=== PATIENT | female | born 1990 | race African-American/Black ===

== ENCOUNTER 2017-04-25 17:08 | Emergency (ER) | payer MEDICAID, SELFPAY ==
[2017-04-25 17:10] VITALS: BP 151/93; PULSE 95; RESP 16; TEMP 36.6; O2SAT 99; BMI 30.2
--- NOTE | 2017-04-25 17:33 | ED.DCSUM_ITS ---
- ER Visit Summary Date of Service: 04/25/17 Chief Complaint: [] Dental pain History of Present Illness: The patient is a 27 F [] complaining of dental pain. Reports pain in the right upper wisdom teeth. Reports concern for possible early infection. Reports she has had a dental abscess in the past. She reports she has a scheduled appointment the dentist next week. No other complaints at this time. She reports taking ibuprofen with moderate relief. Physical Examination: [] Afebrile, vital signs stable. Examination of the oral cavity reveals early gingival swelling in the right upper wisdom teeth consistent with early abscess. No fluctuance noted for possible I&D. Test Results: [] None. Emergency Department Course and Treatment: [] Patient provided penicillin and ibuprofen in the emergency department. Prescriptions for the same were provided. She was encouraged to keep her dental appointment. Treatment Plan: [] Follow-up with dentist. Disposition: [] Discharge, stable. Impression: [] Dental caries Early dental abscess This note was generated with [employer] dictation software. It may contain incorrect words, spelling, and punctuation that were not noted in review of the chart prior to signing ED Disposition - Plan for ED Patient: Chief Complaint: Dental Referrals: Natalya Garnica MD [Primary Care Provider] -
--- NOTE | 2017-04-25 17:33 | ED.DEP ---
ED Disposition - Plan for ED Patient: Disposition: Home or Assisted Living Chief Complaint: Dental Instructions: Dental Abscess Prescriptions: Ibuprofen 800 mg PO TID PRN PRN 10 Days #30 tab PRN Reason: Pain Penicillin V Potassium 500 mg PO 4X/DAY #40 tab Referrals: Natalya Garnica MD [Primary Care Provider] -
[2017-04-25 17:41] VITALS: BP 145/80; BP 148/80; PULSE 85; PULSE 90; RESP 14; O2SAT 99
[2017-04-25] MEDS: Ibuprofen 400 MG Tablet 800 MG PO (17:45)
[2017-04-25] MEDS: Penicillin Vk 250 MG Tablet 500 MG PO (17:45)
== END 2017-04-25 17:47 | disposition home or self-care (01) ==
LOC: ED 17:41
PROVIDERS: Emergency Provider Emergency Medicine; Family Provider Student in an Organized Health Care Education/Training Program; PCP Student in an Organized Health Care Education/Training Program
DX: K02.9 Dental caries, unspecified (principal); K04.7 Periapical abscess without sinus; Z72.0 Tobacco use
CPT/HCPCS: 99283

== ENCOUNTER 2017-05-19 21:39 | Emergency (ER) | payer MEDICAID, SELFPAY ==
[2017-05-19 21:40] VITALS: BP 155/88; PULSE 93; RESP 15; TEMP 36.9; BMI 31.0
--- NOTE | 2017-05-19 22:42 | ED.VISSUMM ---
- ER Visit Summary Date of Service: 05/19/17 Chief Complaint: Dental pain History of Present Illness: The patient is a 27 F who went to [facility] last night for dental pain and was started on pen VK and naproxen. She states the right side of her face is swollen. She contacted the dentist today who stated they needed to wait until she finished the antibiotics. She denies any fevers. She notes the pain is not controlled. She is a smoker but states it has been hard to smoke with this. Physical Examination: Afebrile vital signs are stable Gen: Well-nourished well-developed Head: Normocephalic atraumatic Eyes: Perrl EOMI ENT: TMs clear no rhinorrhea moist mucous membranes there is mild right maxillary facial swelling. There is no overt erythema. There is no trismus. Floor the mouth is soft. There is some mild swelling along the gumline and focal dental decay. There is no obvious drainable abscess. Neck: Supple no lymphadenopathy no JVD nontender CVS: Regular rate rhythm no murmurs normal S1-S2 Respiratory: No distress clear to auscultation bilaterally chest nontender Abdomen: Soft nontender nondistended normal bowel sounds no masses Back: Nontender Extremity: Nontender no edema Skin: Normal color no rash Neuro: alert orientated ?3 CN II-XII intact normal strength sensation reflexes gait cerebellar Psych: Normal affect normal mood Emergency Department Course and Treatment: She was given a few [place] for home treatment tonight. As well as Motrin. An oars check was performed. She is to continue her antibiotic. Return if worsening. Otherwise she needs to follow-up with dentistry. Impression: 1. Dental abscess This note was generated with [employer] dictation software. It may contain incorrect words, spelling, and punctuation that were not noted in review of the chart prior to signing ED Disposition - Plan for ED Patient: Disposition: Home or Assisted Living Chief Complaint: Dental Instructions: Dental Abscess Prescriptions: Ibuprofen [Motrin] 800 mg PO TID PRN PRN #20 tab PRN Reason: Pain Referrals: Moise Chua DO [Primary Care Provider] - 3-5 Days
[2017-05-19] MEDS: HYDROcodone Bitartrate/Apap 5/325 Tablet PO (23:01)
== END 2017-05-19 23:04 | disposition home or self-care (01) ==
PROVIDERS: Emergency Provider Emergency Medicine; Family Provider Student in an Organized Health Care Education/Training Program; PCP Student in an Organized Health Care Education/Training Program
DX: K04.7 Periapical abscess without sinus (principal); F17.200 Nicotine dependence, unspecified, uncomplicated
CPT/HCPCS: 99283

== ENCOUNTER 2017-12-12 10:38 | Emergency (ER) | payer MEDICAID, SELFPAY ==
[2017-12-12 10:39] VITALS: BP 146/94; PULSE 100; RESP 18; TEMP 36.6; O2SAT 99; BMI 29.8
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
--- NOTE | 2017-12-12 11:55 | RAD_ITS ---
STUDY: X-RAY - RIGHT HAND REASON FOR EXAM: Female, 27 years old. Hand versus car door TECHNIQUE: 3 view(s) of the hand. COMPARISON: None. FINDINGS: Normal radiocarpal articulation. Normal distal radioulnar joint. Normal visualized carpal bones. Normal carpal articulations Normal carpometacarpal articulation of the thumb. Normal second through fifth carpometacarpal joints. Normal metacarpi. Normal metacarpophalangeal joint of the thumb. Normal interphalangeal joint of the thumb. Normal proximal and distal phalanges of the thumb. Normal metacarpophalangeal joints of the second through fifth fingers. Normal proximal and distal interphalangeal joints of the second through fifth fingers. Normal phalanges of the second through fifth fingers. The soft tissue structures are unremarkable. RAD/Hand Min 3 Views IMPRESSION: Normal x-ray examination of the hand. Electronically Signed: Renetta Leone MD at 12:14 EDT Tel , Service support ,
--- NOTE | 2017-12-12 12:39 | ED.DEP ---
ED Disposition - Plan for ED Patient: Disposition: Home or Assisted Living Chief Complaint: Upper Extremity Injury Instructions: ED Contusion Hand Referrals: Moise Chua DO [Primary Care Provider] - 1 Week if not improving Additional Instructions: Ice and elevate to decrease pain and swelling. Motrin for pain and swelling. Tylenol for pain. Follow-up with in 1 week if not improving.
[2017-12-12 13:33] VITALS: BP 132/100; PULSE 63; RESP 17
== END 2017-12-12 13:35 | disposition home or self-care (01) ==
PROVIDERS: Emergency Provider Emergency Medicine; Family Provider Student in an Organized Health Care Education/Training Program; PCP Student in an Organized Health Care Education/Training Program
DX: S60.221A Contusion of right hand, initial encounter (principal); W22.8XXA Striking against or struck by other objects, initial encounter; Y93.9 Activity, unspecified; Y92.9 Unspecified place or not applicable; E11.9 Type 2 diabetes mellitus without complications; Z79.84 Long term (current) use of oral hypoglycemic drugs; Z72.0 Tobacco use
CPT/HCPCS: 73130; 99282

== ENCOUNTER 2018-01-22 01:23 | Emergency (ER) | payer MEDICAID, SELFPAY ==
[2018-01-22 01:24] VITALS: BP 175/97; PULSE 109; RESP 18; TEMP 36.9; O2SAT 100; BMI 30.9
--- NOTE | 2018-01-22 01:45 | RAD_ITS ---
HISTORY: Shortness of breath Comparison: 03/18/2014 Findings: Limited inspiration. Normal heart size. No mediastinal widening. No vascular congestion, pleural effusion, or acute pulmonary infiltration. No pneumothorax. The bony thorax appears intact. IMPRESSION: No acute cardiopulmonary disease. at 0204 Reported and signed by: Hua Talbot MD Electronically Signed: Hua Talbot, at 2:02 EDT Tel , Service support , RAD/Chest 1 View (Portable)
[2018-01-22] MEDS: 0.9% Normal Saline 1,000 ML 1000 ML IV (02:18)
[2018-01-22] MEDS: Ondansetron 4 MG/2 ML Vial IV (02:18)
[2018-01-22 02:26] LABS: Mucous, Urine 0 SEEN /hpf (<or=2+)
[2018-01-22 02:29] LABS: Color, Urine Yellow (Yellow); Glucose, Dipstick 250 mg/dl (Normal); Ketone-Dipstick Negative (Negative); Leukocyte Esterase-Dipstick 500 /ul (Negative); Nitrite-Dipstick Positive (Negative); Occult Blood-Urine 50 /ul (Negative); Protein-Dipstick 30 mg/dl (Negative); Specific Gravity, Urine 1.015 (1.002-1.030); Urine Bilirubin Dipstick Negative (Negative); Urine Clarity Cloudy (Clear); Urine Urobilinogen Normal (Normal)
[2018-01-22 02:29] LABS: Absolute Lymphocyte Count 0.97 X10^3/ul (0.83-4.51); Absolute Neutrophil Count 11.2 X10^3/uL (2.0-7.7); Basophil# 0.02 X10^3/uL; Basophil% 0.2 % (0-1); Eosinophils% 0.8 % (0-5); Hematocrit 39.8 % (37-47); Hemoglobin 14.1 g/dl (12.0-15.0); Lymphocyte # 0.97 X10^3/ul (4.0); Lymphocyte % 7.7 % (19-41); Mean Corp Hgb Conc 35.4 g/gl (32-36); Mean Corpuscular Hgb 28.8 pg (27.0-32.0); Mean Corpuscular Volume 81.2 fL (81-99); Mean Platelet Vol. 12.2 fl (6.2-12.0); Monocyte# 0.23 X10^3/uL; Monocyte% 1.8 % (0-10); Neutrophil # 11.23 X10^3/uL (2.7-7.7); Neutrophil % 89.3 % (47-70); Platelet Count 175 K/mm3 (150-450); RBC Distribution Width CV 11.8 % (11.6-14.6); RBC Distribution Width SD 34.1 fl (35.1-43.9); White Blood Count 12.6 K/mm3 (4.4-11.0)
[2018-01-22 02:33] LABS: POSITIVE COUNT NO; POSITIVE DIFFERENTIAL NO; POSITIVE MORPHOLOGY NO
[2018-01-22 02:40] LABS: Bacteria 2+ /hpf (None Seen); Red Blood Cells-Urine 0-5 SEEN /hpf (0-5); Squamous Epithelial Cells - UA 0-5 SEEN /hpf (5-10); White Blood Cells 50-100 SEEN /hpf (0-5)
[2018-01-22 02:46] LABS: Anion Gap 5 (5-15); BUN 12 mg/dL (7-18); BUN/Creat Ratio 15.2 RATIO (10-20); Calcium,Total 8.7 mg/dL (8.5-10.1); Chloride 105 mmol/L (98-107); Creatinine, Serum 0.79 mg/dL (0.55-1.02); EST Glomerular Filtration Rate 92 mL/min (>60); Est Glom Filt Rate - Afr Amer 112 mL/min (>60); Estimated Creatinine Clearance 111.79 ml/min; Glucose 213 mg/dL (74-106); Potassium 3.8 mmol/L (3.5-5.1); Sodium Level 137 mmol/L (136-145)
[2018-01-22 02:51] LABS: Pregnancy, Serum, hCG Quali. NEGATIVE Negative (0-9 Nonpreg)
--- NOTE | 2018-01-22 02:56 | ED.VISSUMM ---
- ER Visit Summary Date of Service: 01/22/18 Chief Complaint: Body aches, congestion, nausea and vomiting History of Present Illness: The patient is a 27 F reports body aches at work last evening. She had nausea and vomiting x1. She reports some mild congestion. She denies urinary symptoms or diarrhea. She reports that a fever but did not measure it at home. She took Motrin approximately an hour and a half prior to arrival. Patient does have a history of diabetes and is on oral metformin. Physical Examination: Blood pressure on arrival was 175/97, temperature 98.4, heart rate 109, respiratory rate 18, pulse ox 100% on room air. At the time of my examination her blood pressure is 162/98. Patient sitting upright in bed. She is in no acute distress and appears nontoxic. Head neck examination is grossly unremarkable. She has moist mucous membranes. Heart is regular rate and rhythm. Lung sounds are clear. Abdomen is soft with no focal tenderness on exam. Hypoactive bowel sounds are noted throughout. Test Results: CBC was a white count of 12.6 with 89% neutrophils. Chemistry studies significant for glucose of 213. Urinalysis is positive for nitrites with 500 leukocyte esterase and 50-100 white cells. 2+ bacteria is noted. Influenza swab is negative. Emergency Department Course and Treatment: Patient was given IV fluids along with Zofran. On repeat evaluation blood pressure is 126/68. She continues to complain of body aches with some continued mild nausea. She is given Tylenol along with Phenergan. She will be given a dose of IV Rocephin here and then discharged with a prescription for Bactrim along with Zofran. Urine culture has been sent. Treatment Plan: [] Disposition: Discharge Impression: Cystitis This note was generated with [employer] dictation software. It may contain incorrect words, spelling, and punctuation that were not noted in review of the chart prior to signing ED Disposition - Plan for ED Patient: Chief Complaint: General Illness Referrals: Natalya Garnica MD [Primary Care Provider] -
--- NOTE | 2018-01-22 02:58 | ED.DEP ---
ED Disposition - Plan for ED Patient: Disposition: Home or Assisted Living Chief Complaint: General Illness Instructions: ED UTI Cystitis Female Prescriptions: Ondansetron [Zofran Odt] 4 mg PO Q8H PRN PRN #10 tablet PRN Reason: Nausea Smz/Tmp Ds [Bactrim Ds] 1 tablet PO BID #6 tablet Referrals: Natalya Garnica MD [Primary Care Provider] - 1 Week
[2018-01-22] MEDS: 0.9% Normal Saline 1,000 ML 150 ML IV (02:59)
[2018-01-22] MEDS: proMETHazine 25 MG/ML Syringe 12.5 MG IV (03:00)
[2018-01-22] MEDS: Acetaminophen 500 MG Tablet 1000 MG PO (03:00)
[2018-01-22] MEDS: Ceftriaxone 1 GM/50 ML BAG IV (03:23)
[2018-01-22 03:24] VITALS: BP 152/98; PULSE 119; O2SAT 97
[2018-01-22 03:53] VITALS: BP 129/73; PULSE 117; RESP 15; O2SAT 97
[2018-01-22] MEDS: Ondansetron ODT 4 MG Tablet PO (04:31)
[2018-01-22 04:38] VITALS: BP 129/73; PULSE 109; RESP 15; O2SAT 97
== END 2018-01-22 04:40 | disposition home or self-care (01) ==
PROVIDERS: Emergency Provider Emergency Medicine; Family Provider Internal Medicine; PCP Internal Medicine
DX: N30.90 Cystitis, unspecified without hematuria (principal); B96.89 Other specified bacterial agents as the cause of diseases classified elsewhere; E11.9 Type 2 diabetes mellitus without complications; Z79.84 Long term (current) use of oral hypoglycemic drugs; Z72.0 Tobacco use
CPT/HCPCS: 71045; 80048; 81001; 84703; 85025; 87086; 87088; 87186; 87804; 96361; 96365; 96375; 99283; J7030; A4216; J2405

== ENCOUNTER 2018-02-06 01:31 | Emergency (ER) | payer MEDICAID, SELFPAY ==
[2018-02-06 01:31] VITALS: BMI 30.2
[2018-02-06 01:32] VITALS: BP 139/94; PULSE 83; RESP 18; TEMP 36.8; O2SAT 99; BMI 34.4
--- NOTE | 2018-02-06 01:44 | ED.VISSUMM ---
- ER Visit Summary Date of Service: 02/06/18 Chief Complaint: Dental pain History of Present Illness: The patient is a [address] Reyna. She reports that she has pain in her left maxillary first and second molars that began today. It is a throbbing pain is 10 at 10 worsening a 10 currently. Is unchanged by eating. She taken ibuprofen with minimal relief. It is sensitive to cold temperatures. States that she has an appointment with a dentist February 16. Physical Examination: Vitals: Stable. Afebrile. Mouth: No trismus. No edema of the floor of the mouth. Pain with percussion of left maxillary second molar which shows obvious caries. The first molar is eroded to the gumline. There is no focal abscess. She has widespread dental decay. General: A&O x 3. NAD. HEENT: TMs are within normal limits bilaterally. Cardiovascular exam: Regular rate and rhythm, no murmur, rub or gallop. Respiratory exam: Clear to auscultation bilaterally. No wheezes or stridor. Abdominal exam: Soft, nontender, nondistended, normal bowel sounds. No peritoneal signs. Extremity: No clubbing, cyanosis, or edema. Emergency Department Course and Treatment: Patient was treated with Tylenol and penicillin. Treatment Plan: Patient will be discharged penicillin. Instructed to follow-up with her dentist as soon as possible. Disposition: To home in improved and stable condition. Impression: 1. Dental pain. This note was generated with [employer] dictation software. It may contain incorrect words, spelling, and punctuation that were not noted in review of the chart prior to signing ED Disposition - Plan for ED Patient: Chief Complaint: Dental Instructions: ED Tooth Pain Prescriptions: Penicillin V Potassium 500 mg PO 4X/DAY #40 tablet Referrals: Dentist,Your [STAFF PHYSICIAN] - As soon as possible
[2018-02-06] MEDS: Acetaminophen 500 MG Tablet 1000 MG PO (01:50)
[2018-02-06] MEDS: Penicillin Vk 250 MG Tablet 500 MG PO (01:50)
[2018-02-06 01:51] VITALS: RESP 16
== END 2018-02-06 01:52 | disposition home or self-care (01) ==
PROVIDERS: Emergency Provider Emergency Medicine; Family Provider Internal Medicine; PCP Internal Medicine
DX: K02.9 Dental caries, unspecified (principal); E11.9 Type 2 diabetes mellitus without complications; Z79.84 Long term (current) use of oral hypoglycemic drugs; Z72.0 Tobacco use
CPT/HCPCS: 99283

== ENCOUNTER 2018-02-20 14:58 | Emergency (ER) | payer MEDICAID, SELFPAY ==
[2018-02-20 14:59] VITALS: BP 122/91; PULSE 90; RESP 17; O2SAT 98
[2018-02-20 15:00] VITALS: TEMP 37.4; BMI 29.8
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
[2018-02-20] MEDS: traMADol 50 MG Tablet PO (16:18)
[2018-02-20 18:32] VITALS: BP 108/62; PULSE 71; RESP 15; O2SAT 98
== END 2018-02-20 18:33 | disposition home or self-care (01) ==
PROVIDERS: Emergency Provider Emergency Medicine; Family Provider Internal Medicine; PCP Internal Medicine
DX: S20.212A Contusion of left front wall of thorax, initial encounter (principal); S40.012A Contusion of left shoulder, initial encounter; S50.812A Abrasion of left forearm, initial encounter; V89.2XXA Person injured in unspecified motor-vehicle accident, traffic, initial encounter; Y93.9 Activity, unspecified; Y92.9 Unspecified place or not applicable; E11.9 Type 2 diabetes mellitus without complications; Z79.84 Long term (current) use of oral hypoglycemic drugs; Z72.0 Tobacco use
CPT/HCPCS: 71101; 73030; 99283

== ENCOUNTER 2018-03-18 20:28 | Emergency (ER) | payer MEDICAID, SELFPAY ==
[2018-03-18 20:29] VITALS: BP 133/81; PULSE 118; RESP 19; TEMP 36.7; O2SAT 97; BMI 30.4
[2018-03-18 21:18] LABS: Absolute Lymphocyte Count 1.26 X10^3/ul (0.83-4.51); Absolute Neutrophil Count 4.1 X10^3/uL (2.0-7.7); Basophil# 0.01 X10^3/uL; Basophil% 0.2 % (0-1); Eosinophils% 1.7 % (0-5); Hematocrit 43.3 % (37-47); Hemoglobin 15.3 g/dl (12.0-15.0); Lymphocyte # 1.26 X10^3/ul (4.0); Lymphocyte % 21.6 % (19-41); Mean Corp Hgb Conc 35.3 g/gl (32-36); Mean Corpuscular Hgb 28.5 pg (27.0-32.0); Mean Corpuscular Volume 80.8 fL (81-99); Monocyte# 0.39 X10^3/uL; Monocyte% 6.7 % (0-10); Neutrophil # 4.07 X10^3/uL (2.7-7.7); Neutrophil % 69.8 % (47-70); Platelet Count 172 K/mm3 (150-450); RBC Distribution Width CV 12.2 % (11.6-14.6); RBC Distribution Width SD 34.9 fl (35.1-43.9); Red Blood Count 5.36 M/mm3 (4.2-5.4); White Blood Count 5.8 K/mm3 (4.4-11.0)
[2018-03-18 21:19] LABS: Anion Gap 7 (5-15); BUN 10 mg/dL (7-18); BUN/Creat Ratio 12.2 RATIO (10-20); Calcium,Total 8.6 mg/dL (8.5-10.1); Chloride 106 mmol/L (98-107); Creatinine, Serum 0.82 mg/dL (0.55-1.02); EST Glomerular Filtration Rate 88 mL/min (>60); Est Glom Filt Rate - Afr Amer 107 mL/min (>60); Estimated Creatinine Clearance 106.75 ml/min; Glucose 181 mg/dL (74-106); Potassium 3.6 mmol/L (3.5-5.1); Sodium Level 138 mmol/L (136-145)
[2018-03-18 21:23] LABS: POSITIVE COUNT NO; POSITIVE DIFFERENTIAL NO; POSITIVE MORPHOLOGY NO
[2018-03-18 21:33] LABS: Pregnancy, Serum, hCG Quali. NEGATIVE Negative (0-9 Nonpreg)
[2018-03-18] MEDS: 0.9% Normal Saline 1,000 ML 1000 ML IV (21:59)
[2018-03-18] MEDS: Morphine 4 MG/ML Syringe IV (21:59)
[2018-03-18] MEDS: Ondansetron 4 MG/2 ML Vial IV (21:59)
[2018-03-18 22:07] LABS: Mucous, Urine 0 SEEN /hpf (<or=2+); Red Blood Cells-Urine 0 SEEN /hpf (0-5)
[2018-03-18 22:17] LABS: Color, Urine Yellow (Yellow); Glucose, Dipstick 50 mg/dl (Normal); Ketone-Dipstick 5 mg/dl (Negative); Leukocyte Esterase-Dipstick 25 /ul (Negative); Nitrite-Dipstick Negative (Negative); Occult Blood-Urine Negative /ul (Negative); Protein-Dipstick 30 mg/dl (Negative); Urine Bilirubin Dipstick Negative (Negative); Urine Clarity Sl. Cloudy (Clear); Urine Urobilinogen 8 mg/dl (Normal)
[2018-03-18 22:21] LABS: AST(SGOT) 16 U/L (15-37); Alanine Aminotransfer ALT/SGPT 36 U/L (13-56); Albumin, Serum 3.6 g/dL (3.2-5.0); Alkaline Phosphatase 82 U/L (45-117); Bilirubin, Direct 0.22 mg/dL (0.00-0.30); Globulin 4.4 g/dL (2.2-4.2); Lipase 191 U/L (73-393)
[2018-03-18 22:27] LABS: Bacteria 1+ /hpf (None Seen); Squamous Epithelial Cells - UA 0-5 SEEN /hpf (5-10); White Blood Cells 0-5 SEEN /hpf (0-5)
--- NOTE | 2018-03-18 22:52 | ED.DCSUM_ITS ---
- ER Visit Summary Date of Service: 03/18/18 Chief Complaint: Abdominal pain, nausea, vomiting History of Present Illness: The patient is a 28 F who woke this morning with abdominal pain, nausea, and vomiting. She denies diarrhea. She had subjective fever this afternoon. She is a history of diabetes. Prior abdominal surgeries include C-sections, tubal ligation, and appendectomy. Physical Examination: Vital signs significant only for heart rate of 118. Patient is lying in bed. She appears ill but she is in no acute distress. She is nontoxic appearing. Head neck examination is normal. Heart is tachycardic and regular. Lung sounds are clear. Abdomen is soft with mild right upper quadrant and right lower quadrant tenderness. There is no guarding or rebound. Hypoactive bowel sounds are present. Test Results: CBC reveals concentrated hemoglobin at 15.3. Chemistry studies significant for glucose of 181. LFTs and lipase are normal. Urinalysis normal. test negative. Emergency Department Course and Treatment: Patient was given morphine, Zofran, and IV fluids. On repeat evaluation she does feel improved. She will be discharged with prescriptions for Zofran, Bentyl, and follow-up with her p will. Treatment Plan: [] Disposition: Discharge Impression: Viral gastroenteritis This note was generated with [employer] dictation software. It may contain incorrect words, spelling, and punctuation that were not noted in review of the chart prior to signing ED Disposition - Plan for ED Patient: Chief Complaint: Abd Pain Referrals: Natalya Garnica MD [Primary Care Provider] -
--- NOTE | 2018-03-18 22:52 | ED.DEP ---
ED Disposition - Plan for ED Patient: Disposition: Home or Assisted Living Chief Complaint: Abd Pain Instructions: ED Gastroenteritis Viral Prescriptions: Ondansetron [Zofran Odt] 4 mg PO Q8H PRN PRN #10 tablet PRN Reason: Nausea Dicyclomine HCl [Bentyl] 20 mg PO TIDAC #20 capsule Referrals: Natalya Garnica MD [Primary Care Provider] - 3-5 Days if not improving
[2018-03-19] MEDS: Ondansetron ODT 4 MG Tablet PO (00:04)
[2018-03-19 00:10] VITALS: BP 134/97; PULSE 87; RESP 16; O2SAT 98
== END 2018-03-19 00:12 | disposition home or self-care (01) ==
PROVIDERS: Emergency Provider Emergency Medicine; Family Provider Internal Medicine; PCP Internal Medicine
DX: A08.4 Viral intestinal infection, unspecified (principal); E11.9 Type 2 diabetes mellitus without complications; Z79.84 Long term (current) use of oral hypoglycemic drugs; Z72.0 Tobacco use
CPT/HCPCS: 80048; 80076; 81001; 83690; 84703; 85025; 96361; 96374; 96375; 99284; J7030; A4216; J2405

== ENCOUNTER 2018-04-18 06:05 | Emergency (ER) | payer MEDICAID, SELFPAY ==
[2018-04-18 06:06] VITALS: BP 123/107; PULSE 78; RESP 15; TEMP 36.6; O2SAT 99; BMI 29.5
--- NOTE | 2018-04-18 06:19 | ED.DCSUM_ITS ---
- ER Visit Summary Date of Service: 04/18/18 Chief Complaint: [] I have a urinary tract infection History of Present Illness: The patient is a 28 F stated she woke up this morning with frequency and urgency. She completely emptied her bladder. Since then she has had the urge to pee. She used ibuprofen an hour ago. She is on day 3 of her menses. She has a history of urinary tract infections. Her last one was E. coli approximately 3 months ago. She was treated with antibiotics and got better. She denies any fevers or chills or back pain. Her discomfort is at her bladder. Physical Examination: [] Vital signs reviewed General: Well-nourished well-developed Head: Normocephalic atraumatic Eyes: Pupils equal round and reactive to light extraocular movements intact ENT: TMs clear no hemotympanum no trauma Neck: Nontender full range of motion Cardiovascular: Regular rate rhythm no murmurs normal S1-S2 Respiratory: No distress clear to auscultation bilaterally chest nontender Abdomen: Soft, no suprapubic tenderness nondistended normal bowel sounds no masses Back: Nontender no CVA tenderness Extremities: Nontender active range of motion ?4 extremities no trauma Skin: Normal color no trauma Neuro alert oriented cranial nerves II through XII intact normal strength sensa tion reflexes Test Results: [] Emergency Department Course and Treatment: [] At this time I think the patient clinically has a urinary tract infection. Her last UTI showed E. coli sensitive to Macrobid. I think she has a bladder infection. She was given Macrobid and Pyridium and will continue these at home. She was unable to give a sample at this time due to the fact that she just urinated and would like to treat this empirically. I think this is reasonable given her history of urinary tract infections and being a young woman with a bladder infection. She will return if she worsens Treatment Plan: [] Disposition: [] Impression: [] Cystitis urinary tract infection This note was generated with [employer] dictation software. It may contain incorrect words, spelling, and punctuation that were not noted in review of the chart prior to signing ED Disposition - Plan for ED Patient: Chief Complaint: Complaint Referrals: Natalya Garnica MD [Primary Care Provider] -
--- NOTE | 2018-04-18 06:19 | ED.DEP ---
ED Disposition - Plan for ED Patient: Disposition: Home or Assisted Living Chief Complaint: Complaint Instructions: ED UTI Cystitis Female Prescriptions: Nitrofurantoin Macrocrystals [Macrobid] 100 mg PO Q12 #10 cap Phenazopyridine HCl [Pyridium] 200 mg PO TID #10 tab Referrals: Natalya Garnica MD [Primary Care Provider] -
[2018-04-18] MEDS: Nitrofurantoin Macrocrystals 100 MG Capsule PO (06:23)
[2018-04-18] MEDS: Phenazopyridine 95 MG Tablet 190 MG PO (06:24)
[2018-04-18 06:25] VITALS: PULSE 78; RESP 15; O2SAT 99
== END 2018-04-18 06:26 | disposition home or self-care (01) ==
PROVIDERS: Emergency Provider Emergency Medicine; Family Provider Internal Medicine; PCP Internal Medicine
DX: N30.90 Cystitis, unspecified without hematuria (principal); Z87.440 Personal history of urinary (tract) infections; E11.9 Type 2 diabetes mellitus without complications; Z79.84 Long term (current) use of oral hypoglycemic drugs; Z72.0 Tobacco use
CPT/HCPCS: 99283

== ENCOUNTER 2018-04-25 14:30 | Emergency (ER) | payer MEDICAID, SELFPAY ==
[2018-04-25 14:32] VITALS: BP 145/73; PULSE 103; RESP 18; TEMP 37.6; O2SAT 99; BMI 30.8
--- NOTE | 2018-04-25 15:54 | RAD_ITS ---
STUDY: X-RAY CHEST REASON FOR EXAM: Female, 28 years old. Productive cough TECHNIQUE: Frontal and lateral views of the chest COMPARISON: 02/20/2018 FINDINGS: The lungs are clear. There are no pleural effusions. There is no pneumothorax. The heart is normal in size. The visualized osseous structures are within normal limits. RAD/Chest PA and Lateral IMPRESSION: No acute thoracic pathology. Electronically Signed: Kirill Russell, at 16:16 EST Tel , Service support ,
--- NOTE | 2018-04-25 16:14 | ED.RN ---
c/o body aches, cough starting yesterday.
--- NOTE | 2018-04-25 16:29 | ED.VISSUMM ---
- ER Visit Summary Date of Service: 04/25/18 Chief Complaint: Cough, chills, myalgias History of Present Illness: The patient is a 28 F symptoms since yesterday cough chills myalgias bilateral ear pain. Nonproductive. No chest pains or shortness of breath. Multiple sick contacts. She is a diabetic. During evaluation reports her friends went to PCP get diagnosed with influenza. Tobacco history. Motrin taken this morning. Patient tolerating oral fluids. Physical Examination: General: Alert and oriented ?3, no acute distress, fatigue HEENT: Normocephalic, atraumatic. Moist mucosa membranes. TMs normal bilaterally. Neck: supple, nontender. Cardiovascular: Regular rate and rhythm, no murmurs Respiratory: Normal breath sounds, symmetric, no distress Abdomen: Soft, nontender, nondistended Extremities: Nontender, no edema, pulses intact ?4 Neuro: no focal neurological deficits. Test Results: Chest x-ray: No acute process Emergency Department Course and Treatment: Patient nontoxic,. Fatigue. Afebrile. Nursing protocol obtained chest x-ray which was negative. Patient presents with influenza-like symptoms, her comorbidities diabetes. Symptoms started yesterday. Discussed starting treatment for which she agrees. Tamiflu started. Motrin in the ED. Should continue oral hydration. She will follow-up with her PCP. Signs of discussed return all questions were answered. Treatment Plan: [] Disposition: Discharge Impression: 1. Influenza-like illness This note was generated with [employer] dictation software. It may contain incorrect words, spelling, and punctuation that were not noted in review of the chart prior to signing ED Disposition - Plan for ED Patient: Disposition: Home or Assisted Living Diagnosis: Influenza-like illness Instructions: ED Flu Prescriptions: Oseltamivir Phosphate [Tamiflu] 75 mg PO BID #10 capsule Referrals: Natalya Garnica MD [Primary Care Provider] - 3-5 Days if not improving
[2018-04-25] MEDS: Oseltamivir Phosphate 75 MG Capsule PO (16:46)
[2018-04-25] MEDS: Ibuprofen 600 MG Tablet PO (16:46)
== END 2018-04-25 16:48 | disposition home or self-care (01) ==
PROVIDERS: Emergency Provider Emergency Medicine; Family Provider Internal Medicine; PCP Internal Medicine
DX: J11.1 Influenza due to unidentified influenza virus with other respiratory manifestations (principal); Z72.0 Tobacco use
CPT/HCPCS: 71046; 99281; 99283

== ENCOUNTER 2018-04-25 19:02 | Emergency (ER) | payer MEDICAID, SELFPAY ==
[2018-04-25 14:32] VITALS: BMI 30.8
[2018-04-25 19:16] VITALS: BP 154/102; PULSE 101; PULSE 96; RESP 17; RESP 18; TEMP 36.8; O2SAT 92; O2SAT 96; BMI 30.7
== END 2018-04-25 20:05 | disposition left against medical advice (07) ==
LOC: ED 22:08
PROVIDERS: Emergency Provider Emergency Medicine; Family Provider Internal Medicine; PCP Internal Medicine
DX: R69 Illness, unspecified (principal); Z53.21 Procedure and treatment not carried out due to patient leaving prior to being seen by health care provider

== ENCOUNTER 2018-06-02 18:44 | Emergency (ER) | payer MEDICAID, SELFPAY ==
[2018-06-02 18:45] VITALS: BP 144/105; PULSE 104; RESP 18; TEMP 36.7; O2SAT 98; BMI 29.5
--- NOTE | 2018-06-02 19:45 | ED.DCSUM_ITS ---
- ER Visit Summary Date of Service: 06/02/18 Chief Complaint: Dental pain History of Present Illness: The patient is a 28 F who presents with dental pain that became worse today. Patient describes the pain as throbbing and aching. Patient states the pain is over the right upper molar and premolar areas. Patient admits to some facial and jaw swelling. Patient denies any difficulty breathing or difficulty swallowing. Patient denies any fevers or chills. Patient states pain does radiate to her right ear. Physical Examination: Vital signs are stable. Patient is afebrile. Patient is in no acute distress. Oral mucosa is pink and moist. Oropharynx is clear. Airway is patent. There are multiple dental caries noted. There is tenderness over the right upper molar areas. There is no discharge or drainage. There is some gingival edema noted in this area. There is no fluctuance noted. There is no evidence of any abscess. There is no sublingual edema or erythema. Heart was regular rate and rhythm. Lungs are clear and equal bilaterally. Abdomen is soft nontender. Cranial nerves II through XII are intact. There are no focal motor or sensory deficits noted. Emergency Department Course and Treatment: Patient was given prescription for Pen-Vee K and Naprosyn. Patient was instructed to follow-up with a dentist in 5-7 days. Patient understood and was agreeable with the plan. All questions were answered. Disposition: Discharge home Impression: Infected dental caries This note was generated with Zillabyte dictation software. It may contain incorrect words, spelling, and punctuation that were not noted in review of the chart prior to signing ED Disposition - Plan for ED Patient: Disposition: Home or Assisted Living Diagnosis: Infected dental caries Instructions: ED Cavity Dental Prescriptions: Naproxen [Naprosyn] 500 mg PO BID PRN #20 tab Penicillin V Potassium 500 mg PO 4X/DAY #40 tab Referrals: Natalya Garnica MD [Primary Care Provider] - 5-7 Days
[2018-06-02 19:54] VITALS: BP 104/95; PULSE 100; RESP 17; O2SAT 99
== END 2018-06-02 19:54 | disposition home or self-care (01) ==
PROVIDERS: Emergency Provider Emergency Medicine; Family Provider Internal Medicine; PCP Internal Medicine
DX: K02.9 Dental caries, unspecified (principal); K04.7 Periapical abscess without sinus; E11.9 Type 2 diabetes mellitus without complications; Z79.84 Long term (current) use of oral hypoglycemic drugs; Z72.0 Tobacco use
CPT/HCPCS: 99281

== ENCOUNTER 2018-06-03 09:55 | Emergency (ER) | payer MEDICAID, SELFPAY ==
[2018-06-02 18:45] VITALS: BMI 29.5
[2018-06-03 09:56] VITALS: BP 138/106; PULSE 97; RESP 18; TEMP 36.5; O2SAT 96; BMI 30.4
--- NOTE | 2018-06-03 10:12 | ED.VISSUMM ---
- ER Visit Summary Date of Service: 06/03/18 Chief Complaint: Tooth pain History of Present Illness: The patient is a 28 F who presents with tooth pain. Started yesterday. She has pain in the right upper part of her mouth. She was seen here yesterday evening and was given penicillin and naproxen. The naproxen is not controlling her pain. She has been supplementing with ibuprofen and Tylenol. She denies any fevers. She does not see a dentist. Physical Examination: Vital signs are reviewed. HEENT exam reveals no sinus tenderness or rhinorrhea. She has tenderness in the right upper jaw at tooth #133. She has widespread dental decay with multiple rotted teeth. No cervical lymphadenopathy. Neurologic exam unremarkable Test Results: None performed Emergency Department Course and Treatment: Patient will be treated with Toradol intramuscularly. I will give her Dolobid that she can substitute for the naproxen. She will need to follow-up with dentist. I will give her dental clinic information Treatment Plan: [] Disposition: Discharge Impression: Odontalgia This note was generated with Z[employer]ronix dictation software. It may contain incorrect words, spelling, and punctuation that were not noted in review of the chart prior to signing ED Disposition - Plan for ED Patient: Referrals: Natalya Garnica MD [Primary Care Provider] -
--- NOTE | 2018-06-03 10:14 | ED.DEP ---
ED Disposition - Plan for ED Patient: Disposition: Home or Assisted Living Instructions: ED Tooth Pain Prescriptions: Diflunisal [Dolobid] 500 mg PO TID #20 tab Referrals: Natalya Garnica MD [Primary Care Provider] -
[2018-06-03] MEDS: Ketorolac 60 MG/2 ML Vial IM (10:20)
== END 2018-06-03 10:49 | disposition home or self-care (01) ==
PROVIDERS: Emergency Provider Emergency Medicine; Family Provider Internal Medicine; PCP Internal Medicine
DX: K02.9 Dental caries, unspecified (principal); E11.9 Type 2 diabetes mellitus without complications; Z72.0 Tobacco use; Z79.84 Long term (current) use of oral hypoglycemic drugs
CPT/HCPCS: 96372; 99282

== ENCOUNTER 2018-08-30 05:48 | Emergency (ER) | payer MEDICAID, SELFPAY ==
[2018-08-30 05:49] VITALS: BP 127/90; PULSE 89; RESP 16; TEMP 36.9; O2SAT 99; BMI 32.3
--- NOTE | 2018-08-30 06:40 | ED.DEP ---
ED Disposition - Plan for ED Patient: Instructions: ED Strep Pharyngitis Conf Prescriptions: Penicillin V Potassium 500 mg PO BID #20 tab Referrals: Natalya Garnica MD [Primary Care Provider] -
--- NOTE | 2018-08-30 06:43 | ED.DCSUM_ITS ---
- ER Visit Summary Date of Service: 08/30/18 Chief Complaint: Sore throat, earache History of Present Illness: The patient is a 28 F who presents with sore throat and bilateral earache that began earlier today. She reports chills but no documented fevers. She has been taking ibuprofen. She denies cough congestion rhinorrhea. She denies vomiting or diarrhea. No cough. Physical Examination: Afebrile vitals normal No distress Patient has posterior oropharyngeal erythema without tonsillar enlargement or exudate, uvula is midline, no trismus, clear speech Neck supple with no lymphadenopathy Heart regular rate and rhythm Lungs are clear Abdomen soft Alert Test Results: Rapid strep is positive Emergency Department Course and Treatment: I discussed Bicillin treatment which the patient refused. I stressed the importance of completing the full treatment if she does oral antibiotics. Patient given a prescription for penicillin VK discharged home. Treatment Plan: [] Disposition: Discharge Impression: Streptococcal pharyngitis This note was generated with Topmall dictation software. It may contain incorrect words, spelling, and punctuation that were not noted in review of the chart prior to signing ED Disposition - Plan for ED Patient: Instructions: ED Strep Pharyngitis Conf Prescriptions: Penicillin V Potassium 500 mg PO BID #20 tab Referrals: Natalya Garnica MD [Primary Care Provider] -
[2018-08-30 06:49] VITALS: PULSE 89; RESP 16; O2SAT 98
== END 2018-08-30 06:50 | disposition home or self-care (01) ==
PROVIDERS: Emergency Provider Emergency Medicine; Family Provider Internal Medicine; PCP Internal Medicine
DX: J02.0 Streptococcal pharyngitis (principal); E11.9 Type 2 diabetes mellitus without complications; Z79.84 Long term (current) use of oral hypoglycemic drugs; Z72.0 Tobacco use
CPT/HCPCS: 87880; 99282

== ENCOUNTER 2018-08-31 23:21 | Emergency (ER) | payer MEDICAID, SELFPAY ==
[2018-08-30 05:49] VITALS: BMI 32.3
[2018-08-31 23:22] VITALS: BP 142/90; PULSE 85; RESP 17; TEMP 36.5; O2SAT 98; BMI 31.7
[2018-08-31 23:50] VITALS: BP 142/90; PULSE 85; RESP 16; TEMP 36.5; O2SAT 97
--- NOTE | 2018-08-31 23:59 | ED.DCSUM_ITS ---
- ER Visit Summary Date of Service: 08/31/18 Chief Complaint: Recently diagnosed with strep throat on penicillin not improving. History of Present Illness: The patient is a 28 F tightness with positive rapid strep on the . Started on Pen-Vee K. Patient states she is been taking her antibiotic. Is concerned she is not improving. Is able to swallow. Subjectively has had fever and chills. No history of recent exposure to mono. Patient was offered IM Bicillin the last ER visit and deferred. Physical Examination: Well-appearing young female. Vital signs are stable afebrile. Pulse ox 90% on room air no signs of hypoxia. Currently she is afebrile. She does not look septic or toxic. She is in no distress. HEENT exam she does have enlarged tonsils bilaterally. There are not touching. There is exudate bilaterally. Erythema. Some posterior pharyngeal swelling. She has no trouble swallowing. She is not drooling. It is uncomfortable and she is able to swallow. There is no peritonsillar abscess. TMs are normal bilaterally. Moist weeks membranes. Neck anterior chain lymphadenopathy bilaterally. Mild tenderness. No posterior chain lymphadenopathy. Trachea midline nontender. Lungs clear to auscultation bilaterally. Heart regular rate and rhythm no murmur. Abdomen soft nontender. No organomegaly or masses. No splenomegaly or hepatomegaly. Patient moving all 4 extremities. Neurovascular intact. Back nontender. She has no axillary or inguinal lymphadenopathy. There is no rash. Neurologically she is awake and alert. Test Results: None. I did review her last visit and she did have a positive rapid strep test. Emergency Department Course and Treatment: Patient has known strep tonsillitis. Is currently on Pen-Vee K. I do not see any signs of peritonsillar abscess. It does not appear to be epiglottitis clinically. She knows to continue the antibiotic. She will be given Decadron here in the emergency department and 2 more days worth. Tylenol Motrin for pain and fever. Warm salt water gargling. Continue antibiotics. Treatment Plan: Continue her antibiotics. Return if worse. Follow-up with your doctor as needed. Decadron for 3 days. Disposition: Discharge Impression: Acute strep tonsillitis This note was generated with [employer] dictation software. It may contain incorrect words, spelling, and punctuation that were not noted in review of the chart prior to signing ED Disposition - Plan for ED Patient: Referrals: Natalya Garnica MD [Primary Care Provider] -
--- NOTE | 2018-08-31 23:59 | ED.DEP ---
ED Disposition - Plan for ED Patient: Disposition: Home or Assisted Living Instructions: ED Strep Pharyngitis Conf Prescriptions: Dexamethasone [Decadron] 6 mg PO DAILY 3 Days tab Referrals: Natalya Garnica MD [Primary Care Provider] - 3-5 Days if not improving Additional Instructions: Plenty of fluids and rest. Warm salt water gargling. Use Chloraseptic for the pain. Continue antibiotics. Follow-up with your doctor if not improving return to the ER. Your exam, history and recent positive rapid strep test are all consistent with strep throat.
[2018-09-01] MEDS: dexAMETHasone 10 MG/ML Vial PO.IVFORM (00:15)
== END 2018-09-01 00:18 | disposition home or self-care (01) ==
PROVIDERS: Emergency Provider Emergency Medicine; Family Provider Internal Medicine; PCP Internal Medicine
DX: J03.00 Acute streptococcal tonsillitis, unspecified (principal); E11.9 Type 2 diabetes mellitus without complications; Z79.84 Long term (current) use of oral hypoglycemic drugs; Z72.0 Tobacco use
CPT/HCPCS: 99283

== ENCOUNTER 2018-09-16 04:07 | Emergency (ER) | payer MEDICAID, SELFPAY ==
[2018-09-16 04:08] VITALS: BP 139/97; PULSE 97; RESP 14; TEMP 36.6; O2SAT 100; BMI 29.5
--- NOTE | 2018-09-16 04:18 | ED.VISSUMM ---
- ER Visit Summary Date of Service: 09/16/18 Chief Complaint: Dental pain History of Present Illness: The patient is a 28 F who presents with dental pain. This is her third visit to the emergency department just this month. She has had multiple prior visits for dental pain. She states that she began to have pain in one of her right lower teeth just earlier tonight. She did take ibuprofen. She denies fever jaw or facial swelling. She recently completed penicillin for streptococcal pharyngitis. Physical Examination: Afebrile vitals are unremarkable Patient has widespread dental decay she does not have any focal gum swelling facial or jaw swelling she does not have a clear dental abscess Limited exam is even just with opening her mouth and pulling her lip out of the way she complains of pain and pushes me away Clear speech No trismus Oropharynx clear Test Results: Not indicated Emergency Department Course and Treatment: I explained to the patient that without focal evidence of infection and the fact she just completed penicillin about a week ago I feel this is unlikely to be due to infection and initially advised that she does follow-up with dentistry. She states it tastes like there is infection and remains concerned. Overall I feel antibiotics are low risk so she was put back on penicillin but again I stressed the importance of follow-up with a dentist. She was advised to continue anti-inflammatories and she was discharged. Treatment Plan: [] Disposition: Discharge Impression: Odontalgia This note was generated with [employer] Saint dictation software. It may contain incorrect words, spelling, and punctuation that were not noted in review of the chart prior to signing ED Disposition - Plan for ED Patient: Referrals: Natalya Garnica MD [Primary Care Provider] -
--- NOTE | 2018-09-16 04:20 | ED.DEP ---
ED Disposition - Plan for ED Patient: Instructions: Dental Pain Prescriptions: Penicillin Vk [Pen-Vee K 250MG] 500 mg PO 4X/DAY #40 tab Prescription Printed Penicillin V Potassium 500 mg PO 4X/DAY #40 tab Prescription Printed Referrals: Natalya Garnica MD [Primary Care Provider] -
== END 2018-09-16 04:36 | disposition home or self-care (01) ==
LOC: ED 04:30
PROVIDERS: Emergency Provider Emergency Medicine; Family Provider Internal Medicine; PCP Internal Medicine
DX: K02.9 Dental caries, unspecified (principal); E11.9 Type 2 diabetes mellitus without complications; Z79.84 Long term (current) use of oral hypoglycemic drugs; Z72.0 Tobacco use
CPT/HCPCS: 99282

== ENCOUNTER 2019-01-11 08:54 | Emergency (ER) | payer MEDICAID, SELFPAY ==
[2019-01-11 08:56] VITALS: BP 117/83; PULSE 85; RESP 18; TEMP 36.6; O2SAT 99; BMI 31.9
--- NOTE | 2019-01-11 09:04 | CT_ITS ---
STUDY: CT ABDOMEN AND PELVIS WITHOUT CONTRAST REASON FOR EXAM: Female, 28 years old. Left flank pain. Prior . RADIATION DOSAGE (If Supplied By Facility): CTDIvol = ( 13.27 ) mGy, DLP = ( 697.41 ) mGycm TECHNIQUE: Transaxial images were obtained from the dome of the diaphragm to the symphysis pubis without oral contrast, and without intravenous contrast. Sagittal and coronal images were reconstructed. Individualized dose optimization techniques were used for this CT. COMPARISON: None. FINDINGS: The visualized lung bases are unremarkable. The visualized portions of the heart are within normal limits. Normal liver. Normal gallbladder and extrahepatic biliary system. Normal spleen. Normal pancreas. Normal bilateral adrenal glands. Normal right kidney. Normal left kidney. There is a small hiatal hernia. Normal small intestine. Normal colon. There are surgical clips in the region of the appendix consistent with a prior appendectomy. Normal abdominal aorta. Normal inferior vena cava. There is borderline retroperitoneal lymphadenopathy with enlarged nodes no greater than 10mm in the short axis diameter. Normal urinary bladder. Normal abdominal wall. Normal osseous structures. CT/Abdomen/Pelvis without Cont IMPRESSION: Normal unenhanced CT of the abdomen and pelvis. Electronically Signed: Jono Hayes, at 10:29 EDT , Service support ,
--- NOTE | 2019-01-11 09:06 | ED.VISSUMM ---
- ER Visit Summary Date of Service: 01/11/19 Chief Complaint: [Left flank pain] History of Present Illness: The patient is a 28 F [presents to the emergency department for complaint of pain in her left flank that started around 3 AM. Patient states the pain came on suddenly. She denies urinary symptoms of frequency or urgency. Patient denies dysuria. Patient states the pain radiates to the front of the lower abdomen. Patient's had nausea but no vomiting. She denies any diarrhea. She denies any blood in her stool or black tarry stool. Patient's last menstrual period was on 20 December. Patient has history of diabetes. Patient has had prior x2 as well as an appendectomy and a D&C.] No history of kidney stones Physical Examination: [HEENT-PERRLA, EOMI. Cranial nerves II through XII grossly intact. TMs clear. Mucous membranes moist. No adenopathy. Cardiovascular-regular rate and rhythm without murmur or ectopy Lungs-clear to auscultation, chest wall stable without crepitus or subcu emphysema Abdomen-normoactive bowel sounds, soft. Patient has tenderness to the left lower quadrant. Patient has CVA tenderness on the left. There is no rebound, rigidity, or perineal signs. Back exam-patient has tenderness to palpation over the left lumbar paraspinal musculature it seems to reproduce her pain. Patient also with CVA tenderness on the left. Extremities-intact ?4, normal range of motion, normal pulses, atraumatic] Test Results: [C. difficile obtained was normal. Chemistries normal. Urinalysis normal. hCG was negative. CT flank was read as normal.] Emergency Department Course and Treatment: [She was medicated with morphine, Toradol, and Zofran. Patient good pain relief with that.] Treatment Plan: [Given a prescription for Naprosyn, Flexeril, and a few [place] for severe pain. Patient advised to follow-up with primary care physician within next 3 to 5 days.] Disposition: [Discharged home in stable condition.] Impression: [Flank pain Back pain] This note was generated with Reading Room dictation software. It may contain incorrect words, spelling, and punctuation that were not noted in review of the chart prior to signing ED Disposition - Plan for ED Patient: Referrals: Natalya Garnica MD [Primary Care Provider] -
[2019-01-11 09:23] LABS: Absolute Lymphocyte Count 2.14 X10^3/uL (0.83-4.51); Absolute Neutrophil Count 4.1 X10^3/uL (2.0-7.7); Basophil# 0.04 X10^3/uL; Basophil% 0.6 % (0-1); Eosinophils% 2.9 % (0-5); Hemoglobin 14.6 g/dL (12.0-15.0); Lymphocyte # 2.14 X10^3/ul (4.0); Lymphocyte % 30.9 % (19-41); Mean Corp Hgb Conc 34.8 g/dL (32-36); Mean Corpuscular Hgb 28.7 pg (27.0-32.0); Mean Corpuscular Volume 82.7 fL (81-99); Mean Platelet Vol. 11.7 fl (6.2-12.0); Monocyte# 0.43 X10^3/uL; Monocyte% 6.2 % (0-10); NRBC Flagged by Analyzer 0 % (0-5); Neutrophil % 59.1 % (47-70); Platelet Count 181 K/mm3 (150-450); RBC Distribution Width CV 11.2 % (11.6-14.6); RBC Distribution Width SD 33.1 fl (35.1-43.9); Red Blood Count 5.08 M/mm3 (4.2-5.4); White Blood Count 6.9 K/mm3 (4.4-11.0)
[2019-01-11] MEDS: Ketorolac 30 MG/ML Syringe IV (09:28)
[2019-01-11] MEDS: 0.9% Normal Saline 1,000 ML 125 ML IV (09:28)
[2019-01-11] MEDS: Morphine 4 MG/ML Syringe IV (09:28)
[2019-01-11] MEDS: Ondansetron 4 MG/2 ML Vial IV (09:28)
[2019-01-11 09:35] LABS: Bacteria 0 SEEN /hpf (None Seen); Mucous, Urine 0 SEEN /hpf (<or=2+); Red Blood Cells-Urine 0 SEEN /hpf (0-5); White Blood Cells 0 SEEN /hpf (0-5)
[2019-01-11 09:36] LABS: Color, Urine Yellow (Yellow); Glucose, Dipstick 50 mg/dl (Normal); Ketone-Dipstick Negative (Negative); Leukocyte Esterase-Dipstick Negative /ul (Negative); Nitrite-Dipstick Negative (Negative); Occult Blood-Urine Negative /ul (Negative); Protein-Dipstick Negative (Negative); Urine Bilirubin Dipstick Negative (Negative); Urine Clarity Sl. Cloudy (Clear); Urine Urobilinogen Normal (Normal)
[2019-01-11 09:39] LABS: Anion Gap 6 (5-15); BUN 11 mg/dL (7-18); BUN/Creat Ratio 14.2 RATIO (10-20); Calcium,Total 8.7 mg/dL (8.5-10.1); Chloride 103 mmol/L (98-107); Creatinine, Serum 0.77 mg/dL (0.55-1.02); EST Glomerular Filtration Rate 94 mL/min (>60); Est Glom Filt Rate - Afr Amer 114 mL/min (>60); Estimated Creatinine Clearance 109.73 ml/min; Glucose 207 mg/dL (74-106); Potassium 3.6 mmol/L (3.5-5.1); Sodium Level 137 mmol/L (136-145)
[2019-01-11 09:42] LABS: Internal QC Validated? YES +Cl - CLEAR BKGD; Pregnancy, Serum, hCG Quali. NEGATIVE Negative
[2019-01-11 09:43] LABS: Squamous Epithelial Cells - UA 0-5 SEEN /hpf (5-10)
--- NOTE | 2019-01-11 10:40 | DCINST.ED_ITS ---
ED Disposition - Plan for ED Patient: Instructions: FLANK PAIN, Uncertain Cause, BACK AND NECK PAIN, General Prescriptions: cycloBENZAPRine HCl [Flexeril] 10 mg PO TID PRN #20 tab PRN Reason: Muscle Spasm Prescription Printed Naproxen [Naprosyn] 500 mg PO BID PRN #20 tab Prescription Printed Hydrocodone Bitart/Apap 5-325 [[place] 5MG-325MG] 1 tab PO Q4H PRN PRN 2 Days #10 tab PRN Reason: Pain Prescription Printed Referrals: Natalya Garnica MD [Primary Care Provider] - 3-5 Days
== END 2019-01-11 11:26 | disposition home or self-care (01) ==
PROVIDERS: Emergency Provider Emergency Medicine; Family Provider Internal Medicine; PCP Internal Medicine
DX: R10.32 Left lower quadrant pain (principal); M54.5 Low back pain; E11.9 Type 2 diabetes mellitus without complications; Z79.84 Long term (current) use of oral hypoglycemic drugs; Z72.0 Tobacco use
CPT/HCPCS: 74176; 80048; 81001; 84703; 85025; 96361; 96374; 96375; 99283; J7030; J2405

== ENCOUNTER 2019-02-24 08:22 | Emergency (ER) | payer MEDICAID, SELFPAY ==
[2019-02-24 08:23] VITALS: BP 147/96; PULSE 103; RESP 16; TEMP 36.7; O2SAT 100; BMI 31.5
--- NOTE | 2019-02-24 08:35 | ED.VISSUMM ---
- ER Visit Summary Date of Service: 02/24/19 Chief Complaint: Dental pain History of Present Illness: The patient is a [address] Reyna. She reports that she has pain in her left maxilla that began yesterday. Is a throbbing pain is 10 to 10 hours noted 10 currently. Is worsened by eating. She taken Tylenol and ibuprofen without relief. She does complain of hot and cold sensitivity. She reports she has an appointment to see an oral surgeon on March 10. She cannot remember this person's name. Patient went to a different emergency department yesterday was started on penicillin. She reports she was not given pain medications and cannot stand the pain. Physical Examination: Vitals: Stable. Afebrile. Mouth: No trismus. No edema of the floor of the mouth. Pain with percussion of left maxillary second molar. The first and second premolars and first molar are eroded to the gumline. There is no focal abscess. General: A&O x 3. NAD. Cardiovascular exam: Regular rate and rhythm, no murmur, rub or gallop. Respiratory exam: Clear to auscultation bilaterally. No wheezes or stridor. Abdominal exam: Soft, nontender, nondistended, normal bowel sounds. No peritoneal signs. Extremity: No clubbing, cyanosis, or edema. Emergency Department Course and Treatment: An [facility] report was obtained which shows she had 3 prescriptions for opiates in the past year. Total of 32 pills. She was treated here with [place] and Zofran. Treatment Plan: Patient will be discharged prescription for 10 [place]. She is also given Zofran and instructed to continue her penicillin. Follow-up with dentist as soon as possible. Return to the emergency department for any worsening symptoms. Disposition: To home in improved and stable condition. Impression: 1. Dental pain. This note was generated with [employer] dictation software. It may contain incorrect words, spelling, and punctuation that were not noted in review of the chart prior to signing ED Disposition - Plan for ED Patient: Disposition: Home or Assisted Living Instructions: Dental Pain Prescriptions: Hydrocodone Bitart/Apap 5-325 [[place] 5MG-325MG] 1 tab PO Q4H PRN PRN 2 Days #10 tab PRN Reason: Pain Prescription Printed Ondansetron [Zofran Odt] 4 mg PO Q8H PRN PRN #10 tab PRN Reason: Nausea Prescription Printed Referrals: Dentist,Your [STAFF PHYSICIAN] - As soon as possible
[2019-02-24] MEDS: HYDROcodone Bitartrate/Apap 5/325 Tablet PO (08:48)
[2019-02-24] MEDS: Ondansetron ODT 4 MG Tablet PO (08:48)
== END 2019-02-24 08:52 | disposition home or self-care (01) ==
LOC: ED 08:48
PROVIDERS: Emergency Provider Emergency Medicine; Family Provider Internal Medicine; PCP Internal Medicine
DX: K08.89 Other specified disorders of teeth and supporting structures (principal); E11.9 Type 2 diabetes mellitus without complications; F17.200 Nicotine dependence, unspecified, uncomplicated; Z79.84 Long term (current) use of oral hypoglycemic drugs
CPT/HCPCS: 99282

== ENCOUNTER 2019-04-28 19:12 | Emergency (ER) | payer MEDICAID, SELFPAY ==
[2019-04-28 19:13] VITALS: BP 157/92; PULSE 90; RESP 15; TEMP 36.7; O2SAT 98; BMI 31.7
--- NOTE | 2019-04-28 19:25 | ED.VISSUMM ---
- ER Visit Summary Date of Service: 04/28/19 Chief Complaint: Right flank pain, suprapubic abdominal cramping History of Present Illness: The patient is a 29 F who has the above symptoms. It started today. She describes some pain in her right flank that radiates to her right groin. She has some cramping in her lower abdomen as well. She feels nauseous. She denies any dysuria or hematuria. She has had some frequency. No history of kidney stones in the past. She tried ibuprofen and Tylenol without any relief. She denies any fevers. Physical Examination: Vital signs reviewed. HEENT exam unremarkable. Heart is regular rate and rhythm without murmurs. Lungs are clear to auscultation. Abdomen is soft suprapubic tenderness to palpation. There is no CVA tenderness.. Extremities reveal no edema. Skin exam normal. Neurologic exam normal. Test Results: The patient has no red blood cells but 0-5 white blood cells in her urine. Emergency Department Course and Treatment: The patient was given Toradol and Zofran. She was still having a headache and nausea so I gave her Phenergan and Tylenol. Due to her symptomatology we will treat her with antibiotics. There are no red blood cells so I do not feel that this is a kidney stone. Her pain in the right flank is actually improved. I will give her Bactrim and Phenergan for home. She will follow-up with her PCP. Treatment Plan: [] Disposition: Discharge Impression: UTI, right flank pain This note was generated with [employer] dictation software. It may contain incorrect words, spelling, and punctuation that were not noted in review of the chart prior to signing ED Disposition - Plan for ED Patient: Disposition: Home or Assisted Living Instructions: Urinary Tract Infections in Women Prescriptions: Smz/Tmp Ds [Bactrim Ds] 1 tab PO BID #10 tab Transmission Status: Pending to [facility] #30 proMETHazine tablet [Phenergan] 25 mg PO Q6H PRN PRN #10 tab PRN Reason: Nausea Transmission Status: Pending to [facility] #[facility] Referrals: Natalya Garnica MD [Primary Care Provider] - Additional Instructions: Your prescriptions were electronically transmitted to [facility]
[2019-04-28] MEDS: Ketorolac 60 MG/2 ML Vial IM (19:34)
[2019-04-28] MEDS: Ondansetron ODT 4 MG Tablet 8 MG PO (19:34)
[2019-04-28 19:43] LABS: Bacteria 0 SEEN /hpf (None Seen); Mucous, Urine 0 SEEN /hpf (<or=2+); Red Blood Cells-Urine 0 SEEN /hpf (0-5)
[2019-04-28 20:19] LABS: Color, Urine Yellow (Yellow); Ketone-Dipstick Negative (Negative); Leukocyte Esterase-Dipstick Negative /ul (Negative); Nitrite-Dipstick Negative (Negative); Urine Bilirubin Dipstick Negative (Negative); Urine Clarity Clear (Clear); Urine Urobilinogen 1 mg/dl (Normal)
[2019-04-28 20:34] LABS: Glucose, Dipstick 1000 mg/dl (Normal); Occult Blood-Urine Negative /ul (Negative); Protein-Dipstick 30 mg/dl (Negative)
[2019-04-28 20:38] LABS: Internal QC Validated? YES +Cl - CLEAR BKGD; Pregnancy, Urine Negative Negative
[2019-04-28 20:41] LABS: Squamous Epithelial Cells - UA 0-5 SEEN /hpf (5-10); White Blood Cells 0-5 SEEN /hpf (0-5)
[2019-04-28] MEDS: Acetaminophen 500 MG Tablet 1000 MG PO (20:46)
[2019-04-28] MEDS: proMETHazine 25 MG Tablet PO (21:08)
[2019-04-28] MEDS: Smz/Tmp Ds Tablet 1 TABLET PO (21:08)
[2019-04-28 21:11] VITALS: BP 143/102; PULSE 78; RESP 18; O2SAT 100
== END 2019-04-28 21:12 | disposition home or self-care (01) ==
PROVIDERS: Emergency Provider Emergency Medicine; PCP Internal Medicine
DX: N39.0 Urinary tract infection, site not specified (principal); E11.9 Type 2 diabetes mellitus without complications; Z79.84 Long term (current) use of oral hypoglycemic drugs; Z72.0 Tobacco use
CPT/HCPCS: 81001; 81025; 96372; 99283

== ENCOUNTER 2019-05-19 14:55 | Emergency (ER) | payer MEDICAID, SELFPAY ==
[2019-05-19 14:57] VITALS: BP 160/104; PULSE 83; RESP 18; TEMP 37.2; O2SAT 99; BMI 32.5
--- NOTE | 2019-05-19 15:14 | ED.VISSUMM ---
- ER Visit Summary Date of Service: 05/19/19 Chief Complaint: Dental pain History of Present Illness: The patient is a [address] dykes to. She [facility] and [facility]. She reports that she has a throbbing pain in her left maxillary first and second premolars. She states is 7 out of 10 severity. Is worsened by cold. Is temporarily relieved by Anbusol. She reports that she is in the process of having the teeth pulled, but has to get the money first. Physical Examination: Vitals: Stable. Afebrile. Mouth: No trismus. No edema of the floor of the mouth. Pain with percussion of left maxillary first and second premolars and first molar. There is no focal abscess. She does have widespread dental decay. General: A&O x 3. NAD. Cardiovascular exam: Regular rate and rhythm, no murmur, rub or gallop. Respiratory exam: Clear to auscultation bilaterally. No wheezes or stridor. Abdominal exam: Soft, nontender, nondistended, normal bowel sounds. No peritoneal signs. Extremity: No clubbing, cyanosis, or edema. Emergency Department Course and Treatment: Patient was treated with penicillin, naproxen, and Tylenol. Treatment Plan: Patient will be discharged penicillin. Instructed to use naproxen and Tylenol for pain. Follow-up with her dentist as soon as possible. Return to the emergency department for any worsening symptoms. Disposition: To home in improved and stable condition. Impression: 1. Dental pain. This note was generated with [employer] dictation software. It may contain incorrect words, spelling, and punctuation that were not noted in review of the chart prior to signing ED Disposition - Plan for ED Patient: Instructions: Dental Pain Prescriptions: Naproxen [Naprosyn] 500 mg PO BID #14 tab Prescription Printed Penicillin V Potassium 500 mg PO 4X/DAY #40 tab Prescription Printed Referrals: Dentist,Your [STAFF PHYSICIAN] - As soon as possible
[2019-05-19] MEDS: Penicillin Vk 250 MG Tablet 500 MG PO (15:58)
[2019-05-19] MEDS: Naproxen 250 MG Tablet 500 MG PO (15:58)
[2019-05-19] MEDS: Acetaminophen 500 MG Tablet 1000 MG PO (15:58)
== END 2019-05-19 16:02 | disposition home or self-care (01) ==
PROVIDERS: Emergency Provider Emergency Medicine; PCP Internal Medicine
DX: K08.89 Other specified disorders of teeth and supporting structures (principal); E11.9 Type 2 diabetes mellitus without complications; Z79.84 Long term (current) use of oral hypoglycemic drugs; Z72.0 Tobacco use
CPT/HCPCS: 99282

== ENCOUNTER 2019-05-22 09:52 | Emergency (ER) | payer MEDICAID, SELFPAY ==
[2019-05-22 09:53] VITALS: BP 158/96; PULSE 85; RESP 16; TEMP 36.4; O2SAT 98; BMI 30.7
--- NOTE | 2019-05-22 10:26 | ED.DCSUM_ITS ---
- ER Visit Summary Date of Service: 05/22/19 Chief Complaint: Dental pain History of Present Illness: The patient is a 29 F who presents with dental pain that has been getting worse over the past 3 to 4 days. Patient was seen here 3 days ago and was given a prescription for penicillin and Naprosyn. Patient states she feels like her pain is getting worse. Patient describes her pain as throbbing and pressure. Patient states the pain is over the left upper molars and premolars. Patient states her pain is worse with talking and eating. Patient denies any fevers. Patient admits to some cold sensitivity. Patient also admits to some swelling of her upper jaw and face. Physical Examination: Vital signs are stable. Patient is afebrile. Patient is in no acute distress. Oral mucosa is pink and moist. There are multiple dental caries over the upper molars and premolars. There is some gingival edema over the left upper molar and premolar area. There is no fluctuance. There is no discharge or drainage. Oropharynx is clear. Airway is patent. Neck is supple. Trachea is midline. There is no JVD. There is no evidence of [place] angina. Heart was regular rate and rhythm. Lungs are clear and equal bilaterally. Cranial nerves II through XII are intact. There are no focal motor or sensory deficits noted. Emergency Department Course and Treatment: Patient was instructed to stop taking the penicillin. Patient was given a prescription for Augmentin. Patient was instructed to continue taking her Naprosyn as needed for pain. Patient was instructed to follow-up with her dentist in 2 to 3 days as scheduled. Patient u nderstood and was agreeable with the plan. All questions were answered. Disposition: Discharge home Impression: Infected dental caries This note was generated with [employer]And[employer] dictation software. It may contain incorrect words, spelling, and punctuation that were not noted in review of the chart prior to signing ED Disposition - Plan for ED Patient: Disposition: Home or Assisted Living Diagnosis: Infected dental caries Instructions: Dental Cavity, Dental Pain Prescriptions: Amox/Clavulanate Tablet [Augmentin Tablet] 875 mg PO Q12H #20 tab Prescription Printed Referrals: Natalya Garnica MD [Primary Care Provider] - 5-7 Days Dentist,Your [STAFF PHYSICIAN] - 3-5 Days
--- NOTE | 2019-05-22 10:39 | ED.RN ---
DISCHARGE INSTRUCTIONS GIVEN TO AND REVIEWED WITH PATIENT, PATIENT DENIES QUESTIONS OR CONCERNS AND VOICES UNDERSTANDING OF DISCHARGE INSTRUCTIONS. PT AMBULATES OUT OF ROOM WITHOUT ISSUE.
== END 2019-05-22 10:39 | disposition home or self-care (01) ==
PROVIDERS: Emergency Provider Emergency Medicine; PCP Internal Medicine
DX: K04.7 Periapical abscess without sinus (principal); K02.9 Dental caries, unspecified; E11.9 Type 2 diabetes mellitus without complications; Z79.84 Long term (current) use of oral hypoglycemic drugs; Z72.0 Tobacco use
CPT/HCPCS: 99282

== ENCOUNTER 2019-06-05 09:08 | Emergency (ER) | payer MEDICAID, SELFPAY ==
[2019-06-05 09:09] VITALS: BP 165/96; PULSE 84; RESP 16; TEMP 36.6; O2SAT 98; BMI 29.5
--- NOTE | 2019-06-05 09:21 | ED.DCSUM_ITS ---
History of Present Illness Chief Complaint: Cough Detail of Chief Complaint: Respiratory symptoms that started last week on May 31. Informant: Patient Onset: Days Context: Sudden Onset Timing: Continuous Quality: Respiratory symptoms with mild congestion and sore throat Location: Upper respiratory Current Severity: Mild Maximum Severity: Mild Worsened by: Nothing Relieved by: Nothing Associated Symptoms: Elevated blood sugars compared to normal. Narrative: Patient is a 29-year-old female with type 2 diabetes and asthma who was sent from urgent care because they refused to see her. She presents with respiratory symptoms that started . She was referred to the hospital because of a possible exposure to coronavirus and wanted us to evaluate for suspicion of coronavirus infection. Patient denies headache, photophobia, change in vision, ear pain, ringing or ears or discharge from her ears. She does report sore throat which she believes secondary to the nonproductive cough. She denies postnasal drainage or rhinorrhea. She denies chest pain. She denies shortness of breath. She denies GI symptoms. She denies urologic symptoms. She states her blood sugar normally is 1 80-1 90. It has been running approximately 250 for the past several days. Prior similar symptoms: No Recent Illness/Hospitalization: No - Past Medical History (1) Type 2 diabetes mellitus Status: Chronic (2) Asthma Status: Chronic Past Medical History - Allergies and Home Meds Allergies/Adverse Reactions: Allergies oxycodone HCl [From Percocet] Allergy (Verified 06/05/19 09:15) Shortness of breath clindamycin Adverse Reaction (Verified 06/05/19 09:15) STOMACH UPSET Primary Care Physician: Natalya Garnica MD [Primary Care Provider] - Prior records reviewed: Yes Surgical History: no surgical history Lives: Alone Smoking Status: Current every day smoker Alcohol: None Drugs: None Review of Systems General: Denies: Chills, Fever, Malaise, Subjective, Sweats Eyes: Denies: Visual changes - bilaterally, Blurred Vision - bilaterally ENT: Reports: Sore throat. Denies: Bilateral ear pain, Rhinorrhea Cardiovascular: Denies: Chest pain, Palpitations Respiratory: Reports: Cough. Denies: Dyspnea, Sputum, Dyspnea on exertion, Orthopnea, Paroxysmal nocturnal dyspnea Gastrointestinal: Denies: Abdominal pain, Nausea, Vomiting, Diarrhea, Melena, Hematochezia Genitourinary: Denies: Dysuria, Hematuria, Frequency Musculoskeletal: Denies: Myalgias, Arthralgias, Neck pain, Back pain, Swelling, Extremity Pain, -, - Neurological: Denies: Headache, Parasthesia Allergy: Denies: Uticaria Physical Exam Vital Signs/Narrative: Vital Signs Temp Pulse Resp BP Pulse Ox 06/05/19 09:09 98 F 84 16 165/96 H 98 Inital Vital Signs reviewed: Yes General: Well nourished, Well developed, No Acute Distress Head: Normocephalic, Atraumatic Eyes: Perrl, EOMI. Negative for: Pale conjunctiva, Scleral icterus ENT: Moist mucous membranes, TM's clear, Nasal congestion. Negative for: No rhinorrhea, Dry mucous membranes, Sinus tenderness Neck: Supple, Nontender, No lymphadenopathy, No JVD Cardiovascular: Regular rate, Regular rhythm, No murmurs, Normal S1, Normal S2 Respiratory: No distress, CTA bilaterally, Chest nontender Extremities: Nontender, No edema Skin: Normal color, No rash. Negative for: Cyanosis, Diaphoresis, Jaundice Neurological: Alert, Oriented x3, Cranial nerves II-XII grossly intact, Normal Strength, Normal Sensation Psychological: Normal affect, Normal Mood Diagnostic/Tx/Re-eval - Medical Decision Making Presents with respiratory symptoms. There is no exposure to coronavirus upon further questioning. And per the CDC and [place] Department of health recommendation even if she was exposed she does not meet criteria for testing. Patient was informed because she is a smoker she may have a cough for 4 weeks. She was told this is upper respiratory infection which is viral. Based on her history there is no concern at this time for coronavirus. ED Disposition - Plan for ED Patient: Disposition: Home or Assisted Living Diagnosis: Upper respiratory infection with cough and congestion, Prescription refill, Coronavirus evaluation Instructions: BRONCHITIS, No Antibiotic (Adult) Prescriptions: Albuterol Inhaler [Ventolin Hfa] 2 puff INHALATION Q4H PRN PRN #1 inhaler PRN Reason: Shortness of breath/wheezing Transmission Status: Pending to [facility] #30 Referrals: Natalya Garnica MD [Primary Care Provider] - 10-14 Days if not better
== END 2019-06-05 09:52 | disposition home or self-care (01) ==
LOC: ED 09:34
PROVIDERS: Emergency Provider Emergency Medicine; PCP Internal Medicine
DX: J06.9 Acute upper respiratory infection, unspecified (principal); J45.909 Unspecified asthma, uncomplicated; E11.9 Type 2 diabetes mellitus without complications; F17.200 Nicotine dependence, unspecified, uncomplicated; Z79.84 Long term (current) use of oral hypoglycemic drugs
CPT/HCPCS: 99282

== ENCOUNTER 2019-09-11 19:37 | Emergency (ER) | payer MEDICAID, SELFPAY ==
[2019-09-11 19:37] VITALS: BP 152/109; PULSE 79; RESP 16; TEMP 36.6; O2SAT 99; BMI 31.7
--- NOTE | 2019-09-11 20:05 | ED.DCSUM_ITS ---
History of Present Illness Chief Complaint: Dental Informant: Patient Onset: Yesterday Current Severity: Mild Maximum Severity: Moderate Narrative: Patient presents with left upper dental pain and gum swelling. She has been broken off for quite some time. She states that she has a dentist that she can follow-up with but has to pay for the procedure before she can be seen. She recently started working again and will call her dentist this week. - Past Medical History (1) Abscess, dental Status: Acute (2) Asthma Status: Chronic (3) Type 2 diabetes mellitus Status: Chronic Past Medical History - Allergies and Home Meds Allergies/Adverse Reactions: Allergies oxycodone HCl [From Percocet] Allergy (Verified 09/11/19 19:48) Shortness of breath clindamycin Adverse Reaction (Verified 09/11/19 19:48) STOMACH UPSET Primary Care Physician: Natalya Garnica MD [Primary Care Provider] - Prior records reviewed: Yes Surgical History: no surgical history Smoking Status: Never smoker Review of Systems General: Denies: Chills, Fever Eyes: Denies: Visual changes - bilaterally ENT: Reports: - - Left upper dental pain. Denies: Bilateral ear pain Cardiovascular: Denies: Chest pain Respiratory: Denies: Dyspnea Genitourinary: Denies: Dysuria Musculoskeletal: Denies: Extremity Pain Skin: Denies: Rash Neurological: Denies: Headache Hematologic: Denies: Easy bruising, Easy bleeding Allergy: Denies: Uticaria Physical Exam Vital Signs/Narrative: Vital Signs Temp Pulse Resp BP Pulse Ox 09/11/19 19:37 97.9 F 79 16 152/109 H 99 Inital Vital Signs reviewed: Yes General: Well nourished, Well developed Head: Normocephalic ENT: Moist mucous membranes, - - Left maxillary premolars broken off with surrounding gum edema. No trismus. No facial edema or erythema. Neck: Supple, No lymphadenopathy Cardiovascular: Regular rate, Regular rhythm Respiratory: No distress, CTA bilaterally Abdomen: Soft Skin: Normal color Neurological: Alert, Oriented x3 Psychological: Normal affect Diagnostic/Tx/Re-eval - Medical Decision Making Patient is given a dose of Pen-Vee K here. On review of her past records patient was here in May. She had not done well on Pen-Vee K did improve after getting switched to Augmentin. She will be given a prescription for Augmentin and naproxen. She is to follow-up with her dentist. ED Disposition - Plan for ED Patient: Disposition: Home or Assisted Living Diagnosis: Dental abscess Instructions: Dental Abscess Prescriptions: Amox/Clavulanate Tablet [Augmentin Tablet] 875 mg PO Q12H #20 tab Transmission Status: Pending to [facility] #[facility] Naproxen [Naprosyn] 500 mg PO BID PRN PRN #20 tab PRN Reason: Pain Score 4-10/10 Transmission Status: Pending to [facility] #30 Additional Instructions: Follow-up with your dentist as discussed.
[2019-09-11] MEDS: Penicillin Vk 250 MG Tablet 500 MG PO (20:07)
[2019-09-11] MEDS: Naproxen 500 MG Tablet PO (20:15)
[2019-09-11 20:17] VITALS: PULSE 75; RESP 18; O2SAT 99
== END 2019-09-11 20:17 | disposition home or self-care (01) ==
PROVIDERS: Emergency Provider Emergency Medicine; PCP Internal Medicine
DX: K04.7 Periapical abscess without sinus (principal)
CPT/HCPCS: 99283

== ENCOUNTER 2019-09-18 10:29 | Emergency (ER) | payer MEDICAID, SELFPAY ==
[2019-09-18 10:31] VITALS: BP 150/94; PULSE 94; RESP 16; TEMP 37.2; O2SAT 97; BMI 30.8
--- NOTE | 2019-09-18 12:07 | ED.DCSUM_ITS ---
- ER Visit Summary Date of Service: 09/18/19 Chief Complaint: Fever, body aches History of Present Illness: The patient is a 29 F resents with fever and body aches that began yesterday. Patient states she aches all over. Patient states nothing makes it better or worse. Patient states her fever at home was up to 100.1. Patient also admits to subjective chills. Patient admits to a sore throat. Patient denies any cough or shortness of breath. Patient admits to nausea but denies any vomiting. Physical Examination: Vital signs are stable. Patient is afebrile here. Patient is in no acute distress. Oral mucosa is pink and moist. Oropharynx is mildly erythematous. There are no exudates. Neck is supple. Trachea is midline. There is no JVD. There is some tender anterior cervical lymphadenopathy noted. Heart was regular rate and rhythm. Lungs are clear and equal bilaterally. Abdomen is soft. Bowel sounds are normal. There is mild diffuse tenderness. There is no rebound or guarding noted. Cranial nerves II through XII are intact. There are no focal motor or sensory deficits noted. Test Results: CBC and comprehensive metabolic profile were obtained were within normal range. Urinalysis does not show any evidence of urinary tract infection. Serum hCG was negative. Rapid strep and influenza swabs were obtained and were negative. Portable chest x-ray was obtained. There is no acute cardiopulmonary process. This was interpreted by the radiologist and myself. Emergency Department Course and Treatment: Patient was given a dose of Tylenol here. Patient was feeling better on reevaluation. Patient was instructed to drink plenty of fluids. Patient was instructed to continue Tylenol or ibuprofen as needed for any pain or fevers. Patient was instructed to return if worse in any way. Patient understood and was agreeable with the plan. All questions were answered. Disposition: Discharge home Impression: 1. Viral illness This note was generated with [employer] dictation software. It may contain incorrect words, spelling, and punctuation that were not noted in review of the chart prior to signing ED Disposition - Plan for ED Patient: Disposition: Home or Assisted Living Diagnosis: Viral illness Instructions: ED Viral Syndrome Referrals: Natalya Garnica MD [Primary Care Provider] - 5-7 Days
--- NOTE | 2019-09-18 12:40 | RAD_ITS ---
STUDY: X-RAY CHEST REASON FOR EXAM: Female, 29 years old. Chest pain. TECHNIQUE: Single AP portable view of the chest. COMPARISON: Comparison is made with prior study dated April 25, 2018. FINDINGS: The lungs are clear and expanded. There is no demonstrated pleural abnormality. Normal size heart. Normal mediastinum and perri. Normal visualized pulmonary arteries. Normal visualized aortic arch and descending thoracic aorta. Normal visualized thoracic spine. Normal visualized ribs, clavicles, and shoulders. There is no demonstrated abnormality of the visualized soft tissue structures of the upper abdomen. RAD/Chest 1 View (Portable) IMPRESSION: Normal x-ray examination of the chest. Electronically Signed: Jono Hayes, at 13:24 EDT , Service support ,
[2019-09-18 13:05] LABS: Mucous, Urine 0 SEEN /hpf (<or=2+); Red Blood Cells-Urine 0 SEEN /hpf (0-5); White Blood Cells 0 SEEN /hpf (0-5)
[2019-09-18 13:06] LABS: Absolute Lymphocyte Count 2.18 X10^3/uL (0.83-4.51); Absolute Neutrophil Count 3.8 X10^3/uL (2.0-7.7); Basophil# 0.04 X10^3/uL; Basophil% 0.6 % (0-1); Color, Urine Yellow (Yellow); Eosinophil# 0.14 X10^3/uL; Eosinophils% 2.1 % (0-5); Glucose, Dipstick 1000 mg/dl (Normal); Hematocrit 41.4 % (37-47); Hemoglobin 14.2 g/dL (12.0-15.0); Ketone-Dipstick Negative (Negative); Leukocyte Esterase-Dipstick Negative /ul (Negative); Lymphocyte # 2.18 X10^3/ul (4.0); Lymphocyte % 33.3 % (19-41); Mean Corp Hgb Conc 34.3 g/dL (32-36); Mean Corpuscular Hgb 29.1 pg (27.0-32.0); Mean Corpuscular Volume 84.8 fL (81-99); Mean Platelet Vol. 12.5 fl (6.2-12.0); Monocyte# 0.41 X10^3/uL; Monocyte% 6.3 % (0-10); NRBC Flagged by Analyzer 0 % (0-5); Neutrophil # 3.76 X10^3/uL (2.7-7.7); Neutrophil % 57.5 % (47-70); Nitrite-Dipstick Negative (Negative); Occult Blood-Urine Negative /ul (Negative); Platelet Count 178 K/mm3 (150-450); Protein-Dipstick Negative (Negative); RBC Distribution Width CV 11.8 % (11.6-14.6); RBC Distribution Width SD 35.6 fl (35.1-43.9); Red Blood Count 4.88 M/mm3 (4.2-5.4); Urine Bilirubin Dipstick Negative (Negative); Urine Clarity Sl. Cloudy (Clear); Urine Urobilinogen 4 mg/dl (Normal); White Blood Count 6.5 K/mm3 (4.4-11.0)
[2019-09-18] MEDS: Acetaminophen 500 MG Tablet 1000 MG PO (13:07)
[2019-09-18 13:10] VITALS: BP 118/67; PULSE 78; RESP 18; O2SAT 99
[2019-09-18 13:13] LABS: Bacteria 1+ /hpf (None Seen); Squamous Epithelial Cells - UA 0-5 SEEN /hpf (5-10)
[2019-09-18 13:19] LABS: Internal QC Validated? YES +Cl - CLEAR BKGD; Pregnancy, Serum, hCG Quali. NEGATIVE Negative
[2019-09-18 13:28] LABS: ALB/GLOB Ratio 0.9 RATIO (0.9-2.4); AST(SGOT) 12 U/L (15-37); Alanine Aminotransfer ALT/SGPT 23 U/L (13-56); Albumin, Serum 3.4 g/dL (3.2-5.0); Alkaline Phosphatase 73 U/L (45-117); Anion Gap 5 (5-15); BUN 10 mg/dL (7-18); BUN/Creat Ratio 12.5 RATIO (10-20); Calcium,Total 9.1 mg/dL (8.5-10.1); Chloride 106 mmol/L (98-107); EST Glomerular Filtration Rate 90 mL/min (>60); Est Glom Filt Rate - Afr Amer 109 mL/min (>60); Estimated Creatinine Clearance 108.44 ml/min; Globulin 3.9 g/dL (2.2-4.2); Glucose 222 mg/dL (74-106); Protein, Total 7.3 g/dL (6.4-8.2); Sodium Level 138 mmol/L (136-145)
[2019-09-18 14:42] VITALS: BP 129/71; PULSE 73; RESP 16; O2SAT 99
== END 2019-09-18 14:43 | disposition home or self-care (01) ==
PROVIDERS: Emergency Provider Emergency Medicine; PCP Internal Medicine
DX: B34.9 Viral infection, unspecified (principal); E11.9 Type 2 diabetes mellitus without complications; Z79.84 Long term (current) use of oral hypoglycemic drugs; Z72.0 Tobacco use
CPT/HCPCS: 71045; 80053; 81001; 84703; 85025; 87804; 87880; 99284; A4216

== ENCOUNTER 2019-10-30 06:28 | Emergency (ER) | payer MEDICAID, SELFPAY ==
[2019-10-30 06:29] VITALS: BP 141/99; PULSE 87; RESP 16; TEMP 36.4; O2SAT 100; BMI 31.7
[2019-10-30 06:32] VITALS: BP 141/99; PULSE 87; RESP 16; TEMP 36.4; O2SAT 99
--- NOTE | 2019-10-30 06:34 | ED.VIS.GEN ---
History of Present Illness Chief Complaint: Cough Informant: Patient Onset: Days Context: Gradual Onset Timing: Continuous Current Severity: Moderate Maximum Severity: Moderate Narrative: The patient is a 29-year-old female with medical history significant for [id number] diabetes that presents to the emergency department with nasal congestion, loss of smell, loss of taste, and generalized malaise. The patient states that her symptoms been going on for the past 4 days. 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 She is unsure if she has been exposed to anyone who has been ill. She states she was sent home from work because of her symptoms. She denies any shortness of breath. She denies any diarrhea. She states she otherwise feels well. Prior similar symptoms: No Recent Illness/Hospitalization: No Past Medical History - Allergies and Home Meds Allergies/Adverse Reactions: Allergies oxycodone HCl [From Percocet] Allergy (Verified 09/18/19 10:31) Shortness of breath clindamycin Adverse Reaction (Verified 09/18/19 10:31) STOMACH UPSET Primary Care Physician: Natalya Garnica MD [Primary Care Provider] - Prior records reviewed: Yes Past Medical History: - - Diabetes Surgical History: no surgical history Smoking Status: Current every day smoker Review of Systems General: Reports: Malaise. Denies: Chills, Fever, Sweats Eyes: Denies: Visual changes - bilaterally, Diplopia ENT: Reports: Rhinorrhea. Denies: Sore throat Cardiovascular: Denies: Chest pain, Palpitations Respiratory: Reports: Cough. Denies: Dyspnea, Dyspnea on exertion Gastrointestinal: Denies: Abdominal pain, Nausea, Vomiting, Diarrhea, Melena, Hematochezia Genitourinary: Denies: Dysuria, Hematuria, Frequency Musculoskeletal: Denies: Back pain, Extremity Pain Skin: Denies: Rash, Wounds Neurological: Denies: Headache, Weakness, Numbness Physical Exam Vital Signs/Narrative: Vital Signs Temp Pulse Resp BP Pulse Ox 10/30/19 06:29 97.6 F L 87 16 141/99 H 100 Inital Vital Signs reviewed: Yes General: Well nourished, Well developed, No Acute Distress Head: Normocephalic, Atraumatic Eyes: Perrl, EOMI ENT: Moist mucous membranes, No rhinorrhea Neck: Supple, Nontender Cardiovascular: Regular rate, Regular rhythm, No murmurs Respiratory: No distress, CTA bilaterally, Chest nontender Abdomen: Soft, Nontender, Nondistended, Normal bowel sounds Back: Nontender, Normal Inspection Extremities: Nontender, No edema Skin: Normal color, No rash Neurological: Alert, Oriented x3, Cranial nerves II-XII grossly intact, Normal Strength, Normal Sensation Psychological: Normal affect, Normal Mood Diagnostic/Tx/Re-eval - Medical Decision Making The patient is very well-appearing. She has no hypoxia or tachycardia. Her symptoms are consistent and concerning with COVID-19. She will undergo testing, but as a send out. She is counseled to quarantine and would not be allowed to return to work until cleared by her primary care physician. The patient will was counseled on concerning symptoms and reasons to return. She will be discharged home. Impression 1. Suspected COVID-19 infection ED Disposition - Plan for ED Patient: Instructions: ED Upper Resp Infec No Abx Tx Referrals: Natalya Garnica MD [Primary Care Provider] -
[2019-10-30 07:09] VITALS: RESP 16
== END 2019-10-30 07:09 | disposition home or self-care (01) ==
PROVIDERS: Emergency Provider Emergency Medicine; PCP Internal Medicine
DX: U07.1 COVID-19 (principal); E11.9 Type 2 diabetes mellitus without complications; F17.200 Nicotine dependence, unspecified, uncomplicated; Z79.84 Long term (current) use of oral hypoglycemic drugs
CPT/HCPCS: 87635; 94799; 99282; U0003

== ENCOUNTER 2019-12-19 16:15 | Emergency (ER) | payer MEDICAID, SELFPAY ==
[2019-12-19 16:16] VITALS: BP 153/104; PULSE 75; RESP 15; TEMP 36.4; O2SAT 100; BMI 31.3
--- NOTE | 2019-12-19 16:45 | ED.VISSUMM ---
- ER Visit Summary Date of Service: 12/19/19 Chief Complaint: Dental pain History of Present Illness: The patient is a 29 F who presents with left upper dental pain that has been getting worse since yesterday evening. Patient describes her pain as throbbing. Patient states she does have cold sensitivity. Patient also admits to some swelling of the gingiva around the teeth that are involved. Patient denies any discharge or drainage. Patient denies any fevers or chills. Patient denies any sore throat. Patient does admit to a foul taste in her mouth. Patient states she does have a dentist but is unable to afford it at the present time. Physical Examination: Vital signs are stable. Patient is afebrile. Patient is in no acute distress. Oral mucosa is pink and moist. Oropharynx is clear. There are multiple dental caries noted over the left upper premolars and molars. There is some gingival edema around the left upper premolars and molars. There is no discharge or drainage. There is no fluctuance. There is no evidence of any abscess. There is no sublingual edema or erythema. There is no evidence of John Paul angina. Heart was regular rate and rhythm. Lungs are clear and equal bilaterally. Cranial nerves II through XII are intact. There are no focal motor or sensory deficits. Emergency Department Course and Treatment: Patient was given a dose of Pen-Vee K and Naprosyn here. Patient was given prescriptions for the same. Patient was instructed to follow-up with her dentist. Patient understood and was agreeable with the plan. All questions were answered. Disposition: Discharge home Impression: Infected dental caries This note was generated with [employer] dictation software. It may contain incorrect words, spelling, and punctuation that were not noted in review of the chart prior to signing ED Disposition - Plan for ED Patient: Disposition: Home or Assisted Living Diagnosis: Infected dental caries Instructions: ED CAVITY Dental Prescriptions: Naproxen [Naprosyn] 500 mg PO BID PRN #20 tab Transmission Status: Pending to [facility] #30 Penicillin V Potassium 500 mg PO 4X/DAY #40 tab Transmission Status: Pending to [facility] #[facility] Referrals: Natalya Garnica MD [Primary Care Provider] - 5-7 Days Dentist,Your [STAFF PHYSICIAN] - 3-5 Days
[2019-12-19] MEDS: Penicillin Vk 250 MG Tablet 500 MG PO (17:05)
[2019-12-19] MEDS: Naproxen 250 MG Tablet 500 MG PO (17:05)
== END 2019-12-19 17:07 | disposition home or self-care (01) ==
PROVIDERS: Emergency Provider Emergency Medicine; PCP Internal Medicine
DX: K02.9 Dental caries, unspecified (principal); E11.9 Type 2 diabetes mellitus without complications; Z87.891 Personal history of nicotine dependence; Z79.84 Long term (current) use of oral hypoglycemic drugs
CPT/HCPCS: 99283

== ENCOUNTER 2019-12-26 16:28 | Emergency (ER) | payer MEDICAID, SELFPAY ==
[2019-12-26 16:29] VITALS: BP 146/99; PULSE 80; RESP 16; TEMP 36.3; O2SAT 100; BMI 31.4
[2019-12-26 16:43] LABS: Bacteria 0 SEEN /hpf (None Seen); Mucous, Urine 0 SEEN /hpf (<or=2+); Red Blood Cells-Urine 0 SEEN /hpf (0-5); White Blood Cells 0 SEEN /hpf (0-5)
[2019-12-26 16:54] LABS: Color, Urine Yellow (Yellow); Glucose, Dipstick 1000 mg/dl (Normal); Ketone-Dipstick Negative (Negative); Leukocyte Esterase-Dipstick Negative /ul (Negative); Nitrite-Dipstick Negative (Negative); Occult Blood-Urine Negative /ul (Negative); Protein-Dipstick 15 mg/dl (Negative); Specific Gravity, Urine 1.015 (1.002-1.030); Urine Bilirubin Dipstick Negative (Negative); Urine Clarity Clear (Clear); Urine Urobilinogen 1 mg/dl (Normal)
[2019-12-26 17:06] LABS: Squamous Epithelial Cells - UA 0-5 SEEN /hpf (5-10)
--- NOTE | 2019-12-26 18:39 | CT_ITS ---
STUDY: CT ABDOMEN AND PELVIS WITHOUT CONTRAST REASON FOR EXAM: Female, 29 years old. LEFT FLANK PAIN RADIATING INTO GROIN. URINARY FREQUENCY RADIATION DOSAGE (If Supplied By Facility): CTDIvol = ( 12.275 ) mGy, DLP = ( 872.52 ) mGycm TECHNIQUE: Transaxial images were obtained from the dome of the diaphragm to the symphysis pubis without oral contrast, and without intravenous contrast. Sagittal and coronal images were reconstructed. Individualized dose optimization techniques were used for this CT. COMPARISON: 01/11/2019 FINDINGS: The visualized lung bases are unremarkable. The visualized portions of the heart are within normal limits. Normal liver. Normal gallbladder and extrahepatic biliary system. Normal spleen. Normal pancreas. Normal bilateral adrenal glands. Normal right kidney. Normal left kidney. Normal visualized stomach. Mild ileus with diffuse fecal retention in the colon.. Postop change status post appendectomy. Normal abdominal aorta. Normal inferior vena cava. Normal retroperitoneum. There is mild prominence of uterus which is compressing the bladder which is incompletely distended and thick-walled. There is perivesical stranding raising question of cystitis Normal abdominal wall. Normal osseous structures. CT/Abdomen/Pelvis without Cont IMPRESSION: Mild ileus with diffuse fecal retention in the colon. No evidence for nephrolithiasis or hydronephrosis. Findings which may be consistent with cystitis. Clinical correlation recommended Electronically Signed: Toby Tobin MD at 20:57 EDT , Service support ,
--- NOTE | 2019-12-26 18:43 | ED.DCSUM_ITS ---
History of Present Illness Chief Complaint: Flank Pain Informant: Patient Narrative: Patient is a 29-year-old female with a past medical history of diabetes who presents to the emergency department for left-sided flank pain. This started earlier this morning. The pain does radiate down to her left groin. She has had this pain before but never this severe. She currently rates the pain as a 6 out of 10. She has been taking Naprosyn and Tylenol which has not been giving significant relief. Pain is slightly positional but otherwise does not know aggravating or relieving factors. She has had some urinary frequency. She denies any change in bowel habits. She has been mildly nauseous but denies any vomiting. The pain is intermittent in severity and gets sharp at times. She denies any chest pain or shortness of breath. Previous abdominal surgeries were for 2 sections and an appendectomy. She denies any vaginal bleeding or discharge. No concern for STDs. Past Medical History - Allergies and Home Meds Allergies/Adverse Reactions: Allergies oxycodone HCl [From Percocet] Allergy (Verified 12/26/19 16:29) Shortness of breath clindamycin Adverse Reaction (Verified 12/26/19 16:29) STOMACH UPSET Primary Care Physician: Natalya Garnica MD [Primary Care Provider] - 2 Days Past Medical History: - - Type 2 diabetes Surgical History: appendectomy Smoking Status: Former smoker Alcohol: Occasional Drugs: None Review of Systems All systems negative except as indicated General: Denies: Chills, Fever, Sweats Eyes: Denies: Visual changes - bilaterally, Diplopia ENT: Denies: Rhinorrhea, Sore throat Cardiovascular: Denies: Chest pain, Palpitations Respiratory: Denies: Dyspnea, Cough, Dyspnea on exertion Gastrointestinal: Reports: Abdominal pain, Nausea. Denies: Vomiting, Diarrhea, Melena, Hematochezia Genitourinary: Reports: Frequency. Denies: Dysuria, Hematuria Musculoskeletal: Reports: Back pain - Left flank. Denies: Extremity Pain Skin: Denies: Rash, Wounds Neurological: Denies: Headache, Weakness, Numbness Physical Exam Vital Signs/Narrative: Vital Signs Temp Pulse Resp BP Pulse Ox 12/26/19 16:29 97.4 F L 80 16 146/99 H 100 Inital Vital Signs reviewed: Yes General: Well nourished, Well developed, No Acute Distress Head: Normocephalic, Atraumatic Eyes: Perrl, EOMI ENT: Moist mucous membranes, No rhinorrhea Neck: Supple, Nontender Cardiovascular: Regular rate, Regular rhythm, No murmurs Respiratory: No distress, CTA bilaterally, Chest nontender Abdomen: Soft, Nondistended, Normal bowel sounds, Tender - Left upper and lower quadrant Back: Nontender, Normal Inspection, CVA tenderness - Left-sided. Negative for: Spinal tenderness Extremities: Nontender. Negative for: Edema, Calf Tenderness Skin: Normal color, No rash Neurological: Alert, Oriented x3, Cranial nerves II-XII grossly intact, Normal Strength, Normal Sensation Psychological: Normal affect, Normal Mood Diagnostic/Tx/Re-eval - Medical Decision Making Patient presents to the ED for left flank pain that radiates down to her left groin. She is having some urinary frequency. Upon arrival to the emergency department she is afebrile. She does not appear in any acute distress. We will treat her symptomatically with Toradol. Will check basic lab work along with urinalysis and test. Will get a CT scan of the abdomen/pelvis to evaluate for kidney stone. Urinalysis did not show any evidence of infection or red blood cells. CT scan showed the suspicion of an ileus with colonic fecal retention. Patient does not feel like she is overly constipated and states she has been having normal bowel movements. This could be causing some of her discomfort and will place on Colace and MiraLAX. At this time will discharge home in stable condition. Warning signs and symptoms for which to return to the ED including any worsening pain, developing any fever/chills are reviewed. She otherwise is to follow-up with her PCP. Patient understands and is agreeable this plan. Will discharge home in stable condition. ED Disposition - Plan for ED Patient: Disposition: Home or Assisted Living Diagnosis: Flank pain, Ileus Instructions: Ileus, ED Flank Pain Uncertain Cause Prescriptions: Docusate Sodium [Colace] 100 mg PO BID 15 Days #30 cap Transmission Status: Received by [facility] #30 Polyethylene Glycol 3350 [Miralax] 17 gm PO DAILY #5 packet Transmission Status: Received by [facility] #30 Referrals: Natalya Garnica MD [Primary Care Provider] - 2 Days
[2019-12-26] MEDS: Ketorolac 30 MG/ML Syringe IM (19:09)
[2019-12-26 19:11] VITALS: RESP 18
[2019-12-26 19:24] LABS: Absolute Lymphocyte Count 3.17 X10^3/uL (0.83-4.51); Basophil# 0.06 X10^3/uL; Basophil% 0.8 % (0-1); Eosinophil# 0.19 X10^3/uL; Eosinophils% 2.4 % (0-5); Hematocrit 41.2 % (37-47); Hemoglobin 13.9 g/dL (12.0-15.0); Lymphocyte # 3.17 X10^3/ul (4.0); Lymphocyte % 40.1 % (19-41); Mean Corp Hgb Conc 33.7 g/dL (32-36); Mean Corpuscular Hgb 28.5 pg (27.0-32.0); Mean Corpuscular Volume 84.6 fL (81-99); Monocyte# 0.53 X10^3/uL; Monocyte% 6.7 % (0-10); NRBC Flagged by Analyzer 0 % (0-5); Neutrophil # 3.95 X10^3/uL (2.7-7.7); Neutrophil % 49.9 % (47-70); Platelet Count 178 K/mm3 (150-450); RBC Distribution Width CV 11.9 % (11.6-14.6); RBC Distribution Width SD 36.4 fl (35.1-43.9); Red Blood Count 4.87 M/mm3 (4.2-5.4); White Blood Count 7.9 K/mm3 (4.4-11.0)
[2019-12-26 19:42] LABS: Anion Gap 5 (5-15); BUN 11 mg/dL (7-18); BUN/Creat Ratio 15.4 RATIO (10-20); Calcium,Total 9.1 mg/dL (8.5-10.1); Chloride 104 mmol/L (98-107); Creatinine, Serum 0.72 mg/dL (0.55-1.02); EST Glomerular Filtration Rate 102 mL/min (>60); Est Glom Filt Rate - Afr Amer 123 mL/min (>60); Estimated Creatinine Clearance 120.49 ml/min; Glucose 210 mg/dL (74-106); Potassium 3.7 mmol/L (3.5-5.1); Sodium Level 136 mmol/L (136-145)
[2019-12-26 19:53] LABS: Internal QC Validated? YES +Cl - CLEAR BKGD; Pregnancy, Serum, hCG Quali. NEGATIVE Negative
[2019-12-26 21:30] VITALS: BP 142/96; PULSE 79; RESP 16; O2SAT 98
== END 2019-12-26 21:35 | disposition home or self-care (01) ==
PROVIDERS: Emergency Provider Emergency Medicine; PCP Internal Medicine
DX: R10.9 Unspecified abdominal pain (principal); K56.7 Ileus, unspecified; Z87.891 Personal history of nicotine dependence
CPT/HCPCS: 74176; 80048; 81001; 84703; 85025; 96372; 99283; J7030; A4216

== ENCOUNTER 2020-01-08 08:56 | Emergency (ER) | payer MEDICAID, SELFPAY ==
[2020-01-08 08:57] VITALS: BP 133/90; PULSE 78; O2SAT 95
[2020-01-08 08:58] VITALS: BP 148/98; PULSE 86; RESP 16; TEMP 36.3; O2SAT 100; BMI 31.4
--- NOTE | 2020-01-08 09:06 | RAD_ITS ---
STUDY: X-RAY CHEST REASON FOR EXAM: Female, 29 years old. CP, BODY ACHES SINCE WEDNESDAY TECHNIQUE: PA and lateral views of the chest. COMPARISON: Comparison is made with prior study dated 09/18/2019. FINDINGS: The lungs are clear and expanded. There is no demonstrated pleural abnormality. Normal size heart. Normal mediastinum and perri. Normal visualized pulmonary arteries. Normal visualized aortic arch and descending thoracic aorta. Normal visualized thoracic spine. Normal visualized ribs, clavicles, and shoulders. There is no demonstrated abnormality of the visualized soft tissue structures of the upper abdomen. RAD/Chest PA and Lateral IMPRESSION: Normal x-ray examination of the chest. Electronically Signed: Jono Hayes, at 9:55 EDT , Service support ,
--- NOTE | 2020-01-08 09:06 | ED.VIS.GEN ---
History of Present Illness Chief Complaint: General Illness Informant: Patient Narrative: Patient presents to the emergency department for evaluation of myalgias. Symptoms began on Wednesday. She notes a chest discomfort described as chest soreness similar to when you have been coughing. She denies any cough or shortness of breath. She denies any rhinorrhea, sore throat, earaches, headache, abdominal pain, nausea vomiting diarrhea, rashes, urinary symptoms.. She notes that she is still eating and drinking but less than expected. No fevers. The patient states that she had Covid in October. Patient states that she tried to make an appointment with her doctor but doing it online a message came up but that she could be seen with her symptoms. The patient states that she had to leave work today. She will need a work note. She has not taken her diabetes medication today. - Past Medical History (1) Asthma Status: Chronic (2) Type 2 diabetes mellitus Status: Chronic Past Medical History - Allergies and Home Meds Allergies/Adverse Reactions: Allergies oxycodone HCl [From Percocet] Allergy (Verified 01/08/20 08:57) Shortness of breath clindamycin Adverse Reaction (Verified 01/08/20 08:57) STOMACH UPSET Primary Care Physician: Natalya Garnica MD [Primary Care Provider] - As Needed Prior records reviewed: Yes Surgical History: appendectomy Smoking Status: Former smoker Drugs: None Review of Systems General: Reports: Malaise. Denies: Chills, Fever, Sweats Eyes: Denies: Visual changes - bilaterally, Diplopia ENT: Denies: Rhinorrhea, Sore throat Cardiovascular: Reports: Chest pain - See history of present illness. Denies: Palpitations Respiratory: Denies: Dyspnea, Cough, Dyspnea on exertion Gastrointestinal: Denies: Abdominal pain, Nausea, Vomiting, Diarrhea, Melena, Hematochezia Genitourinary: Denies: Dysuria, Hematuria, Frequency Musculoskeletal: Reports: Myalgias. Denies: Back pain, Extremity Pain Skin: Denies: Rash, Wounds Neurological: Denies: Headache, Weakness, Numbness Physical Exam Vital Signs/Narrative: Vital Signs Temp Pulse Resp BP Pulse Ox 01/08/20 08:58 97.3 F L 86 16 148/98 H 100 Inital Vital Signs reviewed: Yes General: Well nourished, Well developed, No Acute Distress Head: Normocephalic, Atraumatic Eyes: Perrl, EOMI ENT: Moist mucous membranes, No rhinorrhea Neck: Supple, Nontender Cardiovascular: Regular rate, Regular rhythm, No murmurs Respiratory: No distress, CTA bilaterally, Chest nontender Abdomen: Soft, Nontender, Nondistended, Normal bowel sounds Back: Nontender, Normal Inspection Extremities: Nontender, No edema Skin: Normal color, No rash Neurological: Alert, Oriented x3, Cranial nerves II-XII grossly intact, Normal Strength, Normal Sensation Psychological: Normal affect, Normal Mood Diagnostic/Tx/Re-eval - Medical Decision Making Patient has a benign exam and clinically looks well. Her chest x-ray is negative. Blood sugar is 276. Based on her history of symptoms I had say the sounds as a viral syndrome. Would recommend rest Tylenol and Motrin and hydration. We will swab her for Covid though she had tested positive in October. She needs to take her diabetic medications. Follow-up with primary care if not improving return if worsening. ED Disposition - Plan for ED Patient: Disposition: Home or Assisted Living Diagnosis: Viral syndrome Instructions: ED Viral Syndrome Referrals: Natalya Garnica MD [Primary Care Provider] - As Needed Additional Instructions: Tylenol and/or Motrin for myalgias. Drink plenty of fluids to stay hydrated Rest as needed
[2020-01-08 09:45] LABS: Bedside Glucose 276 mg/dL (70-110)
[2020-01-08] MEDS: Ibuprofen 400 MG Tablet 800 MG PO (10:17)
== END 2020-01-08 10:18 | disposition home or self-care (01) ==
PROVIDERS: Emergency Provider Emergency Medicine; PCP Internal Medicine
DX: B34.9 Viral infection, unspecified (principal); E11.9 Type 2 diabetes mellitus without complications; Z79.84 Long term (current) use of oral hypoglycemic drugs; Z86.19 Personal history of other infectious and parasitic diseases; Z87.891 Personal history of nicotine dependence
CPT/HCPCS: 71046; 82962; 87635; 99283; U0003

== ENCOUNTER 2020-03-07 19:03 | Emergency (ER) | payer MEDICAID, SELFPAY ==
[2020-03-07 19:03] VITALS: BP 141/105; PULSE 94; RESP 16; TEMP 36.7; O2SAT 99; BMI 29.5
--- NOTE | 2020-03-07 19:21 | ED.DEP ---
ED Disposition - Plan for ED Patient: Instructions: ED Dental Pain Prescriptions: Naproxen [Naprosyn] 500 mg PO BID PRN #20 tab Prescription Printed Penicillin V Potassium 500 mg PO 4X/DAY #40 tab Prescription Printed Referrals: Natalya Garnica MD [Primary Care Provider] -
[2020-03-07] MEDS: HYDROcodone Bitartrate/Apap 5/325 Tablet PO (19:26)
[2020-03-07] MEDS: Penicillin Vk 250 MG Tablet 500 MG PO (19:26)
--- NOTE | 2020-03-07 19:27 | ED.DCSUM_ITS ---
- ER Visit Summary Date of Service: 03/07/20 Chief Complaint: Dental pain History of Present Illness: The patient is a 30 F presenting with dental pain that started 2 days ago. She has pain in the left upper teeth. She has sensitivity to cold. She is awaiting a dentist. She has tried Tylenol and ibuprofen at home. She denies fever. Denies other complaints. Physical Examination: Vitals are stable. Patient is afebrile. Alert no acute distress. HEENT exam widespread dental decay, no areas of fluctuance. Tenderness left upper molars Neck is supple. Lungs are clear and equal bilaterally. Heart is regular rate and rhythm. Extremities are unremarkable. Skin is warm and dry. Remainder of exam is unremarkable. Emergency Department Course and Treatment: Patient was given [place] x1. She was given penicillin and a prescription for Naprosyn. She is given a dental referral list. Advised to follow-up with a dentist. Advised return to ED for worsening complaints. Disposition: Discharge home Impression: Odontalgia This note was generated with [employer] dictation software. It may contain incorrect words, spelling, and punctuation that were not noted in review of the chart prior to signing ED Disposition - Plan for ED Patient: Instructions: ED Dental Pain Prescriptions: Naproxen [Naprosyn] 500 mg PO BID PRN #20 tab Prescription Printed Penicillin V Potassium 500 mg PO 4X/DAY #40 tab Prescription Printed Referrals: Natalya Garnica MD [Primary Care Provider] -
== END 2020-03-07 19:44 | disposition home or self-care (01) ==
LOC: ED 19:33
PROVIDERS: Emergency Provider Emergency Medicine; PCP Internal Medicine
DX: K08.89 Other specified disorders of teeth and supporting structures (principal); E11.9 Type 2 diabetes mellitus without complications; Z79.84 Long term (current) use of oral hypoglycemic drugs
CPT/HCPCS: 99283

== ENCOUNTER 2020-04-02 10:26 | Emergency (ER) | payer MEDICAID, SELFPAY ==
[2020-04-02 10:28] VITALS: BP 143/87; PULSE 77; RESP 16; TEMP 36.6; O2SAT 98; BMI 33.0
--- NOTE | 2020-04-02 10:40 | ED.VIS.GEN ---
History of Present Illness Chief Complaint: Sore Throat Informant: Patient Narrative: 30-year-old female presenting for evaluation of cough, fatigue, body aches. She states symptoms started yesterday. She has not had a fever. She states that yesterday she went to urgent care and was diagnosed with right sided otitis media and was started on amoxicillin. 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 She also lives with a roommate and 5 children and states that her roommate is coughing but otherwise doing okay. - Past Medical History (1) Type 2 diabetes mellitus Status: Chronic (2) Asthma Status: Chronic Past Medical History - Allergies and Home Meds Allergies/Adverse Reactions: Allergies oxycodone HCl [From Percocet] Allergy (Verified 04/02/20 10:28) Shortness of breath clindamycin Adverse Reaction (Verified 04/02/20 10:28) STOMACH UPSET Primary Care Physician: Natalya Garnica MD [Primary Care Provider] - Prior records reviewed: Yes Past Medical History: - - Reviewed in problem list Surgical History: appendectomy Lives: Roommate Smoking Status: Never smoker Alcohol: None Drugs: None Review of Systems General: Reports: Chills, Malaise Eyes: Denies: Visual changes - bilaterally, Diplopia ENT: Denies: Rhinorrhea, Sore throat Cardiovascular: Denies: Chest pain, Palpitations Respiratory: Reports: Cough. Denies: Sputum, Dyspnea on exertion Gastrointestinal: Denies: Abdominal pain, Nausea, Vomiting, Diarrhea, Melena, Hematochezia Genitourinary: Denies: Dysuria, Hematuria Musculoskeletal: Reports: Myalgias. Denies: Arthralgias Skin: Denies: Rash, Abscess Neurological: Reports: Headache. Denies: Parasthesia, Numbness Psych: Denies: Depression, Anxiety Physical Exam Vital Signs/Narrative: Vital Signs Temp Pulse Resp BP Pulse Ox 04/02/20 10:28 98 F 77 16 143/87 H 98 General: Well nourished, No Acute Distress Head: Normocephalic, Atraumatic Eyes: Perrl, EOMI ENT: Moist mucous membranes, No rhinorrhea Cardiovascular: Regular rate, Regular rhythm Respiratory: No distress, CTA bilaterally Back: Negative for: CVA tenderness, Spinal tenderness Skin: Normal color, No rash. Negative for: Cyanosis, Diaphoresis Neurological: Alert, Oriented x3 Psychological: Normal affect, Normal Mood Diagnostic/Tx/Re-eval - Medical Decision Making 30-year-old female presenting with concern of viral illness. She states that her roommate is also coughing. Patient has no other known exposures to Covid?19. Patient's physical exam is normal and she has normal breath sounds and a heart rate is regular rate and rhythm. She is nontoxic-appearing. Patient will be tested for Covid?19 and will quarantine at home. She is given return precautions. Patient stable for discharge at this time. Impression: 1. Viral syndrome ED Disposition - Plan for ED Patient: Disposition: Home or Assisted Living Instructions: ED Viral Syndrome (Adult) Referrals: Natalya Garnica MD [Primary Care Provider] -
== END 2020-04-02 11:42 | disposition home or self-care (01) ==
LOC: ED 11:14
PROVIDERS: Emergency Provider Student in an Organized Health Care Education/Training Program; PCP Internal Medicine
DX: B34.9 Viral infection, unspecified (principal); E11.9 Type 2 diabetes mellitus without complications; Z79.84 Long term (current) use of oral hypoglycemic drugs
CPT/HCPCS: 87426; 99283

== ENCOUNTER 2020-06-24 17:06 | Emergency (ER) | payer MEDICAID, SELFPAY ==
[2020-06-24] VITALS (7 sets, daily range): BP systolic 138–143; BP diastolic 90–107; PULSE 66–82; RESP 15–18; TEMP 36.5–36.9; O2SAT 96–98; BMI 32.6
--- NOTE | 2020-06-24 17:42 | ED.VIS.GEN ---
History of Present Illness Chief Complaint: Abd Pain Informant: Patient Narrative: 30-year-old female with history of diabetes presenting with left flank pain. Patient states the pain started abruptly at 1 AM this morning. She is had intermittent pain throughout the day. She does express that she is has nausea. She has no fever or chills. She denies urinary complaints. She denies constipation or diarrhea. No history of kidney stones. She states that she has had a tubal ligation and has no concern for . - Past Medical History (1) Asthma Status: Chronic (2) Type 2 diabetes mellitus Status: Chronic Past Medical History - Allergies and Home Meds Allergies/Adverse Reactions: Allergies oxycodone HCl [From Percocet] Allergy (Verified 06/24/20 17:07) Shortness of breath clindamycin Adverse Reaction (Verified 06/24/20 17:07) STOMACH UPSET Primary Care Physician: Natalya Garnica MD [Primary Care Provider] - Prior records reviewed: Yes Past Medical History: - - Reviewed in problem list Surgical History: appendectomy Lives: Alone Smoking Status: Never smoker Alcohol: None Drugs: None Review of Systems General: Denies: Chills, Fever, Sweats Eyes: Denies: Visual changes - bilaterally, Diplopia ENT: Denies: Rhinorrhea, Sore throat Cardiovascular: Denies: Chest pain, Palpitations Respiratory: Denies: Dyspnea, Cough, Dyspnea on exertion Gastrointestinal: Reports: Abdominal pain, Nausea, Vomiting. Denies: Diarrhea, Melena, Hematochezia Genitourinary: Denies: Dysuria, Hematuria Musculoskeletal: Reports: Back pain - Left flank pain. Denies: Extremity Pain Skin: Denies: Rash, Wounds Neurological: Denies: Headache, Weakness, Numbness Psych: Denies: Depression, Anxiety, Suicidal thoughts, Suicidal ideations, -, - Physical Exam Vital Signs/Narrative: Vital Signs Temp Pulse Resp BP Pulse Ox 06/24/20 17:13 98.1 F 82 15 143/107 H 98 06/24/20 17:07 98.1 F 82 15 143/107 H 98 Inital Vital Signs reviewed: Yes General: Well nourished, No Acute Distress Head: Normocephalic, Atraumatic Eyes: Perrl, EOMI ENT: Moist mucous membranes, No rhinorrhea Cardiovascular: Regular rate, Regular rhythm Respiratory: No distress, CTA bilaterally Abdomen: Soft, Nondistended, Tender - Mild tenderness to palpation left lower quadrant. Back: CVA tenderness - Sided CVA tenderness. Negative for: Spinal tenderness Extremities: Nontender, No edema Skin: Normal color, No rash. Negative for: Cyanosis, Diaphoresis Neurological: Alert, Oriented x3 Psychological: Normal affect, Normal Mood Diagnostic/Tx/Re-eval Clinical Impression(s) from Imaging Studies Abdomen/Pelvis CT 06/24/20 19:16 IMPRESSION: No acute abnormalities in the abdomen or pelvis. Electronically Signed: Kris Kay MD at 20:10 EDT Tel , Service support , Laboratory Data 06/24/20 06/24/20 06/24/20 17:15 17:15 18:30 WBC 7.8 RBC 4.78 Hgb 13.7 Hct 40.7 MCV 85.1 MCH 28.7 MCHC 33.7 RDW Std Deviation 36.4 RDW Coeff of Migel 12.0 Plt Count 191 MPV 11.8 Immature Gran % (Auto) 0.300 Neut % (Auto) 57.1 Lymph % (Auto) 36.0 [place] % (Auto) 4.6 Eos % (Auto) 1.5 Baso % (Auto) 0.5 Absolute Neuts (auto) 4.4 Absolute Lymphs (auto) 2.80 Nucleated RBC % 0 Sodium 137 Potassium 3.6 Chloride 106 Carbon Dioxide 29.0 Anion Gap 2 L BUN 12 Creatinine 0.83 Estim Creat Clear Calc 103.58 Est GFR (MDRD) Af Amer 104 Est GFR (MDRD) Non-Af 86 BUN/Creatinine Ratio 14.5 Glucose 234 H Calcium 9.2 Urine Color Yellow Urine Clarity Clear Urine pH 6.0 Ur Specific [place] 1.020 Urine Protein 15 H Urine Glucose (UA) 250 H Urine Ketones Negative Urine Occult Blood Negative Urine Nitrite Negative Urine Bilirubin Negative Urine Urobilinogen Normal Ur Leukocyte Esterase Negative Urine RBC 0 SEEN Urine WBC 0 SEEN Ur Squamous Epith Cells 0-5 SEEN Urine Bacteria 0 SEEN Urine Mucus 0 SEEN - Medical Decision Making 30-year-old female presenting with left flank pain and left lower quadrant pain. Urinalysis is negative. Patient has no concern for secondary to tubal ligation. Patient given morphine and Zofran with some relief of her pain. Lab work is unremarkable. CT of the abdomen pelvis with IV contrast is negative for acute findings. Patient counseled on findings. I did reevaluate her and her abdominal pain is better. She does not have musculoskeletal pain and does not want muscle relaxers. Patient counseled on return precautions. Patient be discharged home in stable condition at this time. Action: 1. Abdominal pain unknown cause ED Disposition - Plan for ED Patient: Disposition: Home or Assisted Living Instructions: ED Abdominal Pain Unkn Cause Fem Referrals: Natalya Garnica MD [Primary Care Provider] -
[2020-06-24] MEDS: Ondansetron 4 MG/2 ML Vial IV (17:48)
[2020-06-24] MEDS: Morphine 4 MG/ML Syringe IV (17:48)
[2020-06-24] MEDS: Ketorolac 15 MG/ML Vial IV (17:48)
[2020-06-24 17:57] LABS: Absolute Neutrophil Count 4.4 X10^3/uL (2.0-7.7); Basophil# 0.04 X10^3/uL; Basophil% 0.5 % (0-1); Eosinophil# 0.12 X10^3/uL; Eosinophils% 1.5 % (0-5); Hematocrit 40.7 % (37-47); Hemoglobin 13.7 g/dL (12.0-15.0); Mean Corp Hgb Conc 33.7 g/dL (32-36); Mean Corpuscular Hgb 28.7 pg (27.0-32.0); Mean Corpuscular Volume 85.1 fL (81-99); Mean Platelet Vol. 11.8 fl (6.2-12.0); Monocyte# 0.36 X10^3/uL; Monocyte% 4.6 % (0-10); NRBC Flagged by Analyzer 0 % (0-5); Neutrophil # 4.43 X10^3/uL (2.7-7.7); Neutrophil % 57.1 % (47-70); Platelet Count 191 K/mm3 (150-450); RBC Distribution Width SD 36.4 fl (35.1-43.9); Red Blood Count 4.78 M/mm3 (4.2-5.4); White Blood Count 7.8 K/mm3 (4.4-11.0)
[2020-06-24 18:13] LABS: Anion Gap 2 (5-15); BUN 12 mg/dL (7-18); BUN/Creat Ratio 14.5 RATIO (10-20); Calcium,Total 9.2 mg/dL (8.5-10.1); Chloride 106 mmol/L (98-107); Creatinine, Serum 0.83 mg/dL (0.55-1.02); EST Glomerular Filtration Rate 86 mL/min (>60); Est Glom Filt Rate - Afr Amer 104 mL/min (>60); Estimated Creatinine Clearance 103.58 ml/min; Glucose 234 mg/dL (74-106); Potassium 3.6 mmol/L (3.5-5.1); Sodium Level 137 mmol/L (136-145)
[2020-06-24 18:42] LABS: Bacteria 0 SEEN /hpf (None Seen); Mucous, Urine 0 SEEN /hpf (<or=2+); Red Blood Cells-Urine 0 SEEN /hpf (0-5); White Blood Cells 0 SEEN /hpf (0-5)
[2020-06-24 18:43] LABS: Color, Urine Yellow (Yellow); Glucose, Dipstick 250 mg/dl (Normal); Ketone-Dipstick Negative (Negative); Leukocyte Esterase-Dipstick Negative /ul (Negative); Nitrite-Dipstick Negative (Negative); Occult Blood-Urine Negative /ul (Negative); Protein-Dipstick 15 mg/dl (Negative); Urine Bilirubin Dipstick Negative (Negative); Urine Clarity Clear (Clear); Urine Urobilinogen Normal (Normal)
[2020-06-24 18:55] LABS: Squamous Epithelial Cells - UA 0-5 SEEN /hpf (5-10)
--- NOTE | 2020-06-24 19:16 | CT_ITS ---
INDICATION: left sided abdominal pain EXAMINATION: CT Abdomen And Pelvis W/ Contrast Injection TECHNIQUE: Helically acquired images were obtained of the abdomen and pelvis after IV contrast. A radiation dose optimization technique was used for this scan. IV Contrast dosage and agent: 100 cc [id number] Oral contrast: None. COMPARISON: 12/26/2019 FINDINGS: Visualized lung bases: Unremarkable Liver: Unremarkable Gallbladder: Unremarkable Spleen: Unremarkable Pancreas: Unremarkable Adrenal Glands: Unremarkable Kidneys: Scattered too small to characterize subcentimeter hypodensities bilaterally. GI Tract: Unremarkable Vasculature: Unremarkable Lymphadenopathy: None Peritoneum: No ascites. Bladder: Unremarkable Reproductive organs: Unremarkable Bones/Soft tissues: No suspicious osseous or soft tissue lesions CT/Abdomen/Pelvis WITH Contrast IMPRESSION: No acute abnormalities in the abdomen or pelvis. Electronically Signed: Kris Kay MD at 20:10 EDT Tel , Service support ,
== END 2020-06-24 20:40 | disposition home or self-care (01) ==
PROVIDERS: Emergency Provider Student in an Organized Health Care Education/Training Program; PCP Internal Medicine
DX: R10.32 Left lower quadrant pain (principal); E11.9 Type 2 diabetes mellitus without complications; Z98.51 Tubal ligation status; Z79.84 Long term (current) use of oral hypoglycemic drugs
CPT/HCPCS: 74177; 80048; 81001; 85025; 96374; 96375; 99283; Q9967; A4216; J2405

== ENCOUNTER 2020-08-02 04:57 | Emergency (ER) | payer MEDICAID, SELFPAY ==
[2020-06-24 17:07] VITALS: BMI 32.6
[2020-08-02 04:58] VITALS: BP 161/110; RESP 96; TEMP 37.2; O2SAT 99; BMI 32.5
--- NOTE | 2020-08-02 05:39 | EDS_ITS ---
HPI History of Present Illness Chief Complaint: Dental Informant: patient Onset/Context/Timing Onset: Today Context: - (Woke her up from sleep) Timing: Continuous Quality: Throbbing Location: Left mandibular molar Current Severity: Severe Maximum Severity: Severe Worsened by: Eating Relieved by: - (Nothing. NSAIDs not helping.) Narrative Narrative: Patient recently had a cap fall off of her tooth, she was seen by dentistry and is supposed to go back to get a root canal and a new cap. She just finished penicillin. She woke up in severe pain of the affected tooth this morning. No swelling, fevers, discharge, bleeding. [facility] Medical History Diabetes Home Medications metformin 500 mg PO BID 12/12/17 [History Last Taken 02/24/19] amoxicillin 500 mg PO TID #30 tab 08/02/20 [Rx Last Taken Unknown] hydrocodone-acetaminophen 1 tab PO Q4H PRN PRN 2 Days #12 tablet 08/02/20 [Rx Last Taken Unknown] Allergy/AdvReac Type Severity Reaction Status Date / Time oxycodone HCl [From Percocet] Allergy Shortness Verified 06/24/20 17:07 of breath clindamycin AdvReac STOMACH Verified 06/24/20 17:07 UPSET Social History Smoking Status: Former smoker ROS ROS ED Constitutional Constitutional ED: Denies chills or fever(s) Eyes Eyes: Denies change in vision or double vision ENT ENT ED: Reports dental pain; Denies sinus pain or throat swelling Cardiovascular Cardiovascular: Denies chest pain or palpitations Respiratory/Chest Respiratory/Chest: Denies cough or dyspnea Integumentary Denies abscess or rash Neurologic Neurologic: Denies headache(s), paresthesias or weakness EXAM Physical Exam Const Vital Signs: 08/02/20 04:58 Temperature 98.9 F Temperature Source Oral Respiratory Rate 96 H Blood Pressure 161/110 H Blood Pressure Mean 127 Pulse Ox 99 Oxygen Delivery Method Room Air Positive well nourished and well developed General Appearance ED: well developed and NAD HEENT HEENT Narrative: Tooth #17 is severely decayed, most of the tooth above the gumline is not present, due to decay. There is no abscess. No trismus. Floor the mouth is soft and nondistended. No bleeding or discharge present. Face and Sinus: sinuses nontender Throat: posterior oropharynx normal Eyes PERRL and EOMs intact bilaterally Neck no lymphadenopathy and supple Resp normal respiratory effort Neuro oriented x3 and CN's II-XII intact bilaterally Sensorium / Orientation: alert Gait (Neuro): normal gait Psych mental status grossly normal and thought process normal Skin no rashes or lesions noted and no wounds MDM MDM MDM Narrative Medical decision making narrative: I anesthetized the tooth with Cetacaine spray, it is too big of a defect to fill with temporary filling. The patient is in tears and I do not think she would tolerate me trying. I will extend her antibiotic with amoxicillin and prescribe her some [place] which she has had in the past. She is comfortable with that plan. Discharge Plan Triage Chief Complaint: Dental ED Provider: Sylvester Orourke Dx/Rx/DC Orders Clinical Impression: Dental decay, Odontalgia Instructions: ED Dental Cavity Prescriptions: New amoxicillin 500 mg tablet 500 mg PO TID Qty: 30 RF: 0 hydrocodone-acetaminophen 5-325 mg tablet 1 tab PO Q4H PRN PRN (Reason: Pain) 2 Days Qty: 12 RF: 0 No Action metformin 500 MG tablet 500 mg PO BID RF: 0 Primary Care Provider: Natalya Garnica Referrals: Natalya Garnica MD [Primary Care Provider] - Dentist,Your [STAFF PHYSICIAN] - Keep Tyesha appointment Disposition Disposition: Home, self care
[2020-08-02] MEDS: HYDROcodone Bitartrate/Apap 5/325 Tablet PO (05:52)
[2020-08-02 05:59] VITALS: BP 158/90; PULSE 100; RESP 18; O2SAT 98
== END 2020-08-02 06:00 | disposition home or self-care (01) ==
LOC: ED 05:57
PROVIDERS: Emergency Provider Emergency Medicine; PCP Internal Medicine
DX: K02.9 Dental caries, unspecified (principal); E11.9 Type 2 diabetes mellitus without complications; Z79.84 Long term (current) use of oral hypoglycemic drugs; Z87.891 Personal history of nicotine dependence

== ENCOUNTER 2020-08-02 13:50 | Emergency (ER) | payer MEDICAID, SELFPAY ==
[2020-08-02 04:58] VITALS: BMI 32.5
[2020-08-02 13:51] VITALS: BP 153/94; PULSE 91; RESP 17; TEMP 36.5; O2SAT 98; BMI 32.1
--- NOTE | 2020-08-02 14:00 | RAD_ITS ---
STUDY: X-RAY - LEFT FOOT CLINICAL: Female, 30 years old. INJURY TECHNIQUE: 3 view(s) of the foot. COMPARISON: None. FINDINGS: Normal talus, calcaneus, and tarsal bones. Normal visualized subtalar, talonavicular, calcaneocuboid, tarsal and tarsometatarsal articulations. Normal metatarsi. Normal metatarsophalangeal joint of the great toe. Normal tibial and fibular sesamoid bones. Normal interphalangeal joint of the great toe. Normal phalanges of the great toe. Normal second through fifth metatarsophalangeal joints. Normal interphalangeal joints and phalanges of the lesser toes. The soft tissue structures are unremarkable. RAD/Foot min 3 Views IMPRESSION: Normal x-ray examination of the foot. Electronically Signed: Jono Hayes MD at 14:24 EDT , Service support ,
[2020-08-02 14:43] VITALS: BP 149/99; PULSE 93; RESP 16; O2SAT 99
--- NOTE | 2020-08-02 14:43 | ED.VIS.LOWEX ---
HPI History of Present Illness Chief Complaint: Lower Extremity Injury Informant: patient Narrative Narrative: Patient has left foot pain. She states she was at a local store when some rey dropped on her left foot. She is having tenderness in the left midfoot that radiates to the toes and up to the ankle. Is worse with movement and with walking. She was prescribed [place] this morning for a dental abscess so she took that which did not help with the pain. She also iced. She denies any history of fractures or surgeries to the left foot. [facility] Medical History Diabetes Home Medications metformin 500 mg PO BID 12/12/17 [History Last Taken 02/24/19] amoxicillin 500 mg PO TID #30 tab 08/02/20 [Rx Last Taken Unknown] hydrocodone-acetaminophen 1 tab PO Q4H PRN PRN 2 Days #12 tablet 08/02/20 [Rx Last Taken Unknown] Allergy/AdvReac Type Severity Reaction Status Date / Time oxycodone HCl [From Percocet] Allergy Shortness Verified 08/02/20 13:50 of breath clindamycin AdvReac STOMACH Verified 08/02/20 13:50 UPSET Social History Smoking Status: Former smoker ROS ROS ED Constitutional Constitutional ED: Denies chills or fever(s) Eyes Eyes: Denies blurry vision, change in vision or diplopia ENT ENT ED: Denies ear pain, rhinorrhea or sore throat Cardiovascular Cardiovascular: Denies chest pain or palpitations Respiratory/Chest Respiratory/Chest: Denies cough, dyspnea or sputum Gastrointestinal Gastrointestinal: Denies abdominal pain, diarrhea, nausea or vomiting Genitourinary Genitourinary ED: Denies dysuria, hematuria or urinary frequency Musculoskeletal Musculoskeletal: Reports other Details: Left foot pain Integumentary Denies change in pigmentation or rash Neurologic Neurologic: Denies headache(s), numbness or weakness Psychiatric Psychiatric: Denies anxiety or depression Endocrine Endocrinology: Denies polydipsia or polyuria EXAM Physical Exam Const Vital Signs: 08/02/20 13:51 Temperature 97.7 F L Temperature Source Temporal Pulse Rate 91 Respiratory Rate 17 Blood Pressure 153/94 H Blood Pressure Mean 113 Pulse Ox 98 Oxygen Delivery Method Room Air Positive well nourished and well developed General Appearance ED: well developed HEENT normocephalic and atraumatic Eyes PERRL Neck full ROM Extremity Extremity Narrative: Left foot is tender in the midfoot. No swelling. She has full range of motion of the toes. No skin disruption seen. No ankle or Achilles tenderness. Neuro oriented x3 and CN's II-XII intact bilaterally Sensorium / Orientation: alert Psych mental status grossly normal Skin Lesions: no lesions Rashes: no rashes MDM MDM MDM Narrative Medical decision making narrative: Patient had x-rays of the left foot which were negative for fracture. She will continue ice and use the [place] given her earlier today. Radiography Diagnostic Testing: Radiology Impression Foot X-Ray 08/02/20 14:00 IMPRESSION: Normal x-ray examination of the foot. Electronically Signed: Jono Hayes MD at 14:24 EDT , Service support , Discharge Plan Triage Chief Complaint: Lower Extremity Injury ED Provider: Sreedhar Hyman Dx/Rx/DC Orders Clinical Impression: Contusion of foot, left Instructions: ED Foot Contusion Prescriptions: No Action metformin 500 MG tablet 500 mg PO BID RF: 0 amoxicillin 500 mg tablet 500 mg PO TID Qty: 30 RF: 0 hydrocodone-acetaminophen 5-325 mg tablet 1 tab PO Q4H PRN PRN (Reason: Pain) 2 Days Qty: 12 RF: 0 Primary Care Provider: Natalya Garnica Referrals: Natalya Garnica MD [Primary Care Provider] - Disposition Disposition: Home, self care
== END 2020-08-02 15:01 | disposition home or self-care (01) ==
LOC: ED 14:50
PROVIDERS: Emergency Provider Emergency Medicine; PCP Internal Medicine
DX: S90.32XA Contusion of left foot, initial encounter (principal); W20.8XXA Other cause of strike by thrown, projected or falling object, initial encounter; Y93.9 Activity, unspecified; Y92.512 Supermarket, store or market as the place of occurrence of the external cause; Y99.9 Unspecified external cause status; E11.9 Type 2 diabetes mellitus without complications; Z79.84 Long term (current) use of oral hypoglycemic drugs; Z87.891 Personal history of nicotine dependence; K02.9 Dental caries, unspecified
CPT/HCPCS: 73630; 99282; 99283

== ENCOUNTER 2020-10-22 05:53 | Emergency (ER) | payer MEDICAID, SELFPAY ==
[2020-10-22 05:53] VITALS: BP 128/86; PULSE 82; RESP 16; TEMP 37.2; O2SAT 98; BMI 31.8
--- NOTE | 2020-10-22 06:14 | RAD_ITS ---
STUDY: X-RAY CHEST REASON FOR EXAM: Female, 30 years old. Right Thoracic pain with cough TECHNIQUE: Single AP portable view of the chest. COMPARISON: January 08, 2020 chest x-ray FINDINGS: The lungs are clear and expanded. There is no demonstrated pleural abnormality. Normal size heart. Normal mediastinum and perri. Normal visualized pulmonary arteries. Normal visualized aortic arch and descending thoracic aorta. Normal visualized thoracic spine. Normal visualized ribs, clavicles, and shoulders. There is no demonstrated abnormality of the visualized soft tissue structures of the upper abdomen. RAD/Chest 1 View (Portable) IMPRESSION: Normal x-ray examination of the chest. Electronically Signed: Renetta Leone MD at 7:29 EDT Tel , Service support ,
--- NOTE | 2020-10-22 06:18 | EDS_ITS ---
HPI History of Present Illness Chief Complaint: Headache Informant: patient Narrative Narrative: Patient is a 30-year-old female who presents to the emergency department for headache and upper back pain. She states that her symptoms started yesterday. The back pain is worse when she coughs. She denies ever having these symptoms before. She has had some leg crampiness. She has not had any fevers or chills. No significant chest pain. She denies abdominal pain nausea/vomiting or diarrhea. She has tried taking Tylenol and ibuprofen for symptoms which have not given her significant relief. She currently rates the headache as an 8 out of 10. It is in the frontal aspect. No vision changes. She denies any head trauma. She does have a history of diabetes. [facility] Medical History Diabetes Home Medications metformin 500 mg PO DAILY 12/12/17 [History Last Taken 02/24/19] Allergy/AdvReac Type Severity Reaction Status Date / Time oxycodone HCl [From Percocet] Allergy Shortness Verified 10/22/20 05:56 of breath clindamycin AdvReac STOMACH Verified 10/22/20 05:56 UPSET Social History Smoking Status: Former smoker ROS ROS ED Constitutional Constitutional ED: Denies chills or fever(s) Eyes Eyes: Denies change in vision ENT ENT ED: Denies epistaxis or rhinorrhea Cardiovascular Cardiovascular: Denies chest pain or palpitations Respiratory/Chest Respiratory/Chest: Reports cough; Denies dyspnea or dyspnea on exertion Gastrointestinal Gastrointestinal: Denies abdominal pain, diarrhea, nausea or vomiting Genitourinary Genitourinary ED: Denies dysuria or hematuria Musculoskeletal Musculoskeletal: Reports back pain and myalgias; Denies neck pain Integumentary Denies rash Neurologic Neurologic: Reports headache(s); Denies dizziness or weakness EXAM Physical Exam Const Vital Signs: 10/22/20 05:53 10/22/20 08:21 Temperature 99.0 F Temperature Source Temporal Pulse Rate 82 90 Respiratory Rate 16 15 Blood Pressure 128/86 H 124/97 H Blood Pressure Mean 100 Pulse Ox 98 99 Oxygen Delivery Method Room Air Positive well nourished and well developed General Appearance ED: well developed and NAD HEENT Reports normocephalic, head/scalp atraumatic and moist mucous membranes Eyes PERRL and EOMs intact bilaterally Neck supple General: Negative for tenderness Chest Wall inspection of chest normal Resp normal respiratory effort and clear to auscultation bilaterally Auscultation: Negative for rales, rhonchi or wheezes Cardio regular rate, regular rhythm and no murmurs GI normal to inspection, nondistended, normoactive bowel sounds and non-tender Palpation: soft; Negative for guarding or rebound tenderness present Back/Spine Back/Spine Narrative: No reproducible back pain on palpation. Cervical Spine: Negative for cervical spine tenderness Thoracic Spine / Upper Back: Negative for thoracic spinal tenderness Extremity normal to inspection General Extremety ED: Negative for edema or tenderness General Extremity: Negative for edema Neuro no sensory deficits noted Sensorium / Orientation: alert Motor Exam: strength 5/5 throughout Psych mental status grossly normal Skin no rashes or lesions noted MDM MDM MDM Narrative Medical decision making narrative: Patient presents the ED for headache, back pain with cough and lower leg cramping. On arrival to the ED vital signs within normal limits. She is in no acute distress. Does appear uncomfortable. We will treat her symptomatically with IV fluids, Toradol, Reglan and Benadryl. Will check basic lab work and Covid swab with chest x-ray. Patient's chest x-ray is interpreted by myself. One-view portable x-ray did not show any evidence of pneumonia, pleural effusions. Normal cardiac silhouette. Normal mediastinum. Patient's lab work did not reveal any significant acute abnormality. She states that her back pain has completely resolved. She still having mild headache at this time. Will complete IV fluids. Her Covid test is negative. This time will discharge home in stable condition. She is to follow- up with her PCP. Return precautions are reviewed. She understands and is agreeable with this plan. All questions were answered. Lab Data Labs: Laboratory Results - last 24 hr 10/22/20 10/22/20 10/22/20 06:15 06:15 06:15 WBC 5.7 RBC 4.95 Hgb 14.2 Hct 41.6 MCV 84.0 MCH 28.7 MCHC 34.1 RDW Std Deviation 35.0 L RDW Coeff of Migel 11.6 Plt Count 185 MPV 11.9 Immature Gran % (Auto) 0.200 Neut % (Auto) 54.7 Lymph % (Auto) 34.1 [place] % (Auto) 7.6 Eos % (Auto) 2.5 Baso % (Auto) 0.9 Absolute Neuts (auto) 3.1 Absolute Lymphs (auto) 1.94 Nucleated RBC % 0 Sodium 135 L Potassium 4.0 Chloride 106 Carbon Dioxide 23.0 Anion Gap 6 BUN 8 Creatinine 0.64 Estim Creat Clear Calc 134.33 Est GFR (MDRD) Af Amer 139 Est GFR (MDRD) Non-Af 115 BUN/Creatinine Ratio 12.4 Glucose 276 H Calcium 8.2 L Serum , Qual NEGATIVE Radiography Diagnostic Testing: Radiology Impression Chest X-Ray 10/22/20 06:14 IMPRESSION: Normal x-ray examination of the chest. Electronically Signed: Renetta Leone MD at 7:29 EDT Tel , Service support , Discharge Plan Triage Chief Complaint: Headache ED Provider: Sean Stapleton Dx/Rx/DC Orders Clinical Impression: Headache, Back pain Instructions: ED Headache Unspecified Prescriptions: No Action metformin 500 MG tablet 500 mg PO DAILY RF: 0 Primary Care Provider: Natalya Garnica Referrals: Natalya Garnica MD [Primary Care Provider] - 3-5 Days Disposition Disposition: Home, Self Care Discharge Date/Time: 10/22/20 08:29
[2020-10-22 06:21] LABS: Absolute Lymphocyte Count 1.94 X10^3/uL (0.83-4.51); Absolute Neutrophil Count 3.1 X10^3/uL (2.0-7.7); Basophil# 0.05 X10^3/uL; Basophil% 0.9 % (0-1); Eosinophil# 0.14 X10^3/uL; Eosinophils% 2.5 % (0-5); Hematocrit 41.6 % (37-47); Hemoglobin 14.2 g/dL (12.0-15.0); Lymphocyte # 1.94 X10^3/ul (0.83-4.51); Lymphocyte % 34.1 % (19-41); Mean Corp Hgb Conc 34.1 g/dL (32-36); Mean Corpuscular Hgb 28.7 pg (27.0-32.0); Mean Platelet Vol. 11.9 fl (6.2-12.0); Monocyte# 0.43 X10^3/uL; Monocyte% 7.6 % (0-10); NRBC Flagged by Analyzer 0 % (0-5); Neutrophil # 3.12 X10^3/uL (2.7-7.7); Neutrophil % 54.7 % (47-70); Platelet Count 185 K/mm3 (150-450); RBC Distribution Width CV 11.6 % (11.6-14.6); Red Blood Count 4.95 M/mm3 (4.2-5.4); White Blood Count 5.7 K/mm3 (4.4-11.0)
[2020-10-22] MEDS: 0.9% Normal Saline 1,000 ML 1000 ML IV (06:23)
[2020-10-22] MEDS: Ketorolac 15 MG/ML Vial IV (06:25)
[2020-10-22] MEDS: Metoclopramide 10 MG/2 ML Vial 5 MG IV (06:26)
[2020-10-22] MEDS: DiphenhydrAMINE 50 MG/ML Syringe 25 MG IV (06:27)
[2020-10-22 06:31] LABS: Internal QC Validated? YES +Cl - CLEAR BKGD; Pregnancy, Serum, hCG Quali. NEGATIVE Negative
[2020-10-22 06:36] LABS: Anion Gap 6 (5-15); BUN 8 mg/dL (7-18); BUN/Creat Ratio 12.4 RATIO (10-20); Calcium,Total 8.2 mg/dL (8.5-10.1); Chloride 106 mmol/L (98-107); Creatinine, Serum 0.64 mg/dL (0.55-1.02); EST Glomerular Filtration Rate 115 mL/min (>60); Est Glom Filt Rate - Afr Amer 139 mL/min (>60); Estimated Creatinine Clearance 134.33 ml/min; Glucose 276 mg/dL (74-106); Sodium Level 135 mmol/L (136-145)
[2020-10-22] MEDS: Acetaminophen 500 MG Tablet 1000 MG PO (08:15)
[2020-10-22 08:21] VITALS: BP 124/97; PULSE 90; RESP 15; O2SAT 99
== END 2020-10-22 08:29 | disposition home or self-care (01) ==
PROVIDERS: Emergency Provider Emergency Medicine; PCP Internal Medicine
DX: R51.9 Headache, unspecified (principal); M54.9 Dorsalgia, unspecified; E11.9 Type 2 diabetes mellitus without complications; Z79.84 Long term (current) use of oral hypoglycemic drugs; Z87.891 Personal history of nicotine dependence
CPT/HCPCS: 71045; 80048; 84703; 85025; 87426; 96361; 96374; 96375; 99282; J7030; A4216

== ENCOUNTER 2020-11-07 15:10 | Emergency (ER) | payer MEDICAID, SELFPAY ==
[2020-11-07 15:13] VITALS: BP 135/101; PULSE 79; RESP 14; TEMP 36.6; O2SAT 100; BMI 31.2
--- NOTE | 2020-11-07 15:41 | EDS_ITS ---
HPI History of Present Illness Chief Complaint: Abd Pain Informant: patient Onset/Context/Timing Onset: Days (6 days) Context: Gradual Onset Timing: Waxes and wanes Current Severity: Mild Maximum Severity: Mild Narrative Narrative: Patient present secondary to abdominal pain and nausea. She states her symptoms started last Wednesday. She had subjective fever on Wednesday but none since. Patient was seen in urgent care on Wednesday where she had a negative Covid swab. Patient states she called her doctor today for follow-up and they were concerned she may be dehydrated and sent her to the emergency room. She is a diabetic and states she has not been checking her blood sugars. She denies urinary symptoms. Last menstrual cycle was 2 weeks ago. [facility] Medical History (Updated 11/07/20 @ 18:[address] Anastasiia Childs MD) Asthma Diabetes Home Medications metformin 500 mg PO DAILY 12/12/17 [History Last Taken 02/24/19] ondansetron 4 mg PO Q8H PRN #10 tab 11/07/20 [Rx Last Taken Unknown] ondansetron HCl 4 mg PO Q8H PRN PRN 11/07/20 [History Last Taken Unknown] promethazine 25 mg PO TID PRN #14 tab 11/07/20 [Rx Last Taken Unknown] Allergy/AdvReac Type Severity Reaction Status Date / Time oxycodone HCl [From Percocet] Allergy Shortness Verified 11/07/20 15:13 of breath clindamycin AdvReac STOMACH Verified 11/07/20 15:13 UPSET Surgical History (Updated 11/07/20 @ 16:35 by Diana Sotelo) History of appendectomy Social History Smoking Status: Former smoker ROS ROS ED Constitutional Constitutional ED: Reports fever(s) and subjective; Denies chills Eyes Eyes: Denies change in vision ENT ENT ED: Denies sore throat Cardiovascular Cardiovascular: Denies chest pain Respiratory/Chest Respiratory/Chest: Denies cough or dyspnea Gastrointestinal Gastrointestinal: Reports abdominal pain and nausea; Denies diarrhea or vomiting Genitourinary Genitourinary ED: Denies dysuria Musculoskeletal Musculoskeletal: Denies back pain Integumentary Denies rash Neurologic Neurologic: Denies headache(s) or weakness Psychiatric Psychiatric: Denies anxiety or depression Allergic/Immunologic Allergic/Immunologic ED: Denies urticaria EXAM Physical Exam Const Vital Signs: 11/07/20 15:13 Temperature 97.8 F Temperature Source Temporal Pulse Rate 79 Respiratory Rate 14 Blood Pressure 135/101 H Blood Pressure Mean 112 Pulse Ox 100 Oxygen Delivery Method Room Air Positive well nourished and well developed General Appearance ED: well developed HEENT Reports normocephalic and head/scalp atraumatic Eyes PERRL and EOMs intact bilaterally Neck supple Chest Wall inspection of chest normal and palpation of chest normal Resp normal respiratory effort and clear to auscultation bilaterally Cardio regular rate and regular rhythm GI normal to inspection, nondistended, normoactive bowel sounds Palpation: soft and tender LLQ (Mild left lower quadrant tenderness.); Negative for guarding or rebound tenderness present Extremity normal to inspection Neuro oriented x3 and no sensory deficits noted Sensorium / Orientation: alert Motor Exam: strength 5/5 throughout Psych mental status grossly normal Skin no rashes or lesions noted MDM MDM MDM Narrative Medical decision making narrative: Lab work and urinalysis ordered. Patient is given IV fluids, Toradol, Zofran. Lab Data Attestation: I reviewed the patient's lab results. Labs: Laboratory Results - last 24 hr 11/07/20 11/07/20 11/07/20 16:05 16:17 16:20 WBC 8.6 RBC 5.36 Hgb 15.1 H Hct 43.9 MCV 81.9 MCH 28.2 MCHC 34.4 RDW Std Deviation 35.3 RDW Coeff of Migel 11.9 Plt Count 128 L MPV 12.3 H Immature Gran % (Auto) 0.300 Neut % (Auto) 20.5 L Lymph % (Auto) 73.8 H [place] % (Auto) 4.7 Eos % (Auto) 0.2 Baso % (Auto) 0.5 Absolute Neuts (auto) 1.8 L Absolute Lymphs (auto) 6.33 H Nucleated RBC % 0 Differential Comment SEE COMMENT Diff Path Review May foll Atypical Lymphocytes 1+ Reactive Lymphocytes 1+ Platelet Estimate SLT DEC RBC Morphology N CHROM Anisocytosis RARE Microcytosis RARE Sodium Potassium Chloride Carbon Dioxide Anion Gap BUN Creatinine Estim Creat Clear Calc Est GFR (MDRD) Af Amer Est GFR (MDRD) Non-Af BUN/Creatinine Ratio Glucose Calcium Serum , Qual Urine Color Yellow Urine Clarity Clear Urine pH 5.0 Ur Specific [place] 1.010 Urine Protein 15 H Urine Glucose (UA) 1000 H Urine Ketones 15 H Urine Occult Blood Negative Urine Nitrite Negative Urine Bilirubin Negative Urine Urobilinogen 8 H Ur Leukocyte Esterase Negative Urine RBC 0 SEEN Urine WBC 0 SEEN Ur Squamous Epith Cells 0 SEEN Urine Bacteria RARE Urine Mucus 0 SEEN POC Glucose 329 H 11/07/20 11/07/20 16:20 16:20 WBC RBC Hgb Hct MCV MCH MCHC RDW Std Deviation RDW Coeff of Migel Plt Count MPV Immature Gran % (Auto) Neut % (Auto) Lymph % (Auto) [place] % (Auto) Eos % (Auto) Baso % (Auto) Absolute Neuts (auto) Absolute Lymphs (auto) Nucleated RBC % Differential Comment Diff Path Review Atypical Lymphocytes Reactive Lymphocytes Platelet Estimate RBC Morphology Anisocytosis Microcytosis Sodium 134 L Potassium 4.0 Chloride 101 Carbon Dioxide 29.0 Anion Gap 4 L BUN 8 Creatinine 0.71 Estim Creat Clear Calc 121.08 Est GFR (MDRD) Af Amer 124 Est GFR (MDRD) Non-Af 102 BUN/Creatinine Ratio 11.3 Glucose 307 H Calcium 9.1 Serum , Qual NEGATIVE Urine Color Urine Clarity Urine pH Ur Specific [place] Urine Protein Urine Glucose (UA) Urine Ketones Urine Occult Blood Urine Nitrite Urine Bilirubin Urine Urobilinogen Ur Leukocyte Esterase Urine RBC Urine WBC Ur Squamous Epith Cells Urine Bacteria Urine Mucus POC Glucose Treatment and Re-Evaluation Comments:: Work-up at this time is largely unremarkable. Blood sugar is elevated around 300. She states her blood sugars normally run around 250. No sign of significant dehydration or electrolyte derangement. Patient was given p.o. Phenergan for continued nausea. She will be given prescriptions for both Zofran and Phenergan to use at home. Abdominal examination is benign and I do not believe she needs imaging. Discharge Plan Triage Chief Complaint: Abd Pain ED Provider: Anastasiia Childs Dx/Rx/DC Orders Clinical Impression: Nausea, Abdominal pain Instructions: Nausea Vomit Control, ED Abdominal Pain Unkn Cause Fem Prescriptions: New ondansetron 4 mg tablet,disintegrating 4 mg PO Q8H PRN (Reason: nausea and vomiting) Qty: 10 RF: 0 promethazine 25 mg tablet 25 mg PO TID PRN (Reason: nausea and vomiting) Qty: 14 RF: 0 No Action metformin 500 MG tablet 500 mg PO DAILY RF: 0 ondansetron HCl 4 mg tablet 4 mg PO Q8H PRN PRN (Reason: Nausea) RF: 0 Primary Care Provider: Natalya Garnica Referrals: Natalya Garnica MD [Primary Care Provider] - 1 Week if not improving Disposition Disposition: Home, Self Care
[2020-11-07] MEDS: 0.9% Normal Saline 1,000 ML 1000 ML IV (16:21)
[2020-11-07] MEDS: Ondansetron 4 MG/2 ML Vial IV (16:22)
[2020-11-07] MEDS: Ketorolac 30 MG/ML Syringe IV (16:22)
[2020-11-07 16:30] LABS: Mucous, Urine 0 SEEN /hpf (<or=2+); Red Blood Cells-Urine 0 SEEN /hpf (0-5); Squamous Epithelial Cells - UA 0 SEEN /hpf (5-10); White Blood Cells 0 SEEN /hpf (0-5)
[2020-11-07 16:31] LABS: Bedside Glucose 329 mg/dL (70-110)
[2020-11-07 16:33] LABS: Absolute Lymphocyte Count 6.33 X10^3/uL (0.83-4.51); Absolute Neutrophil Count 1.8 X10^3/uL (2.0-7.7); Basophil# 0.04 X10^3/uL; Basophil% 0.5 % (0-1); Eosinophil# 0.02 X10^3/uL; Eosinophils% 0.2 % (0-5); Hematocrit 43.9 % (37-47); Hemoglobin 15.1 g/dL (12.0-15.0); Lymphocyte # 6.33 X10^3/ul (0.83-4.51); Lymphocyte % 73.8 % (19-41); Mean Corp Hgb Conc 34.4 g/dL (32-36); Mean Corpuscular Hgb 28.2 pg (27.0-32.0); Mean Corpuscular Volume 81.9 fL (81-99); Mean Platelet Vol. 12.3 fl (6.2-12.0); Monocyte% 4.7 % (0-10); NRBC Flagged by Analyzer 0 % (0-5); Neutrophil # 1.76 X10^3/uL (2.7-7.7); Neutrophil % 20.5 % (47-70); POSITIVE DIFFERENTIAL YES; POSITIVE MORPHOLOGY YES; Platelet Count 128 K/mm3 (150-450); RBC Distribution Width CV 11.9 % (11.6-14.6); RBC Distribution Width SD 35.3 fl (35.1-43.9); Red Blood Count 5.36 M/mm3 (4.2-5.4); White Blood Count 8.6 K/mm3 (4.4-11.0)
[2020-11-07 16:33] LABS: Color, Urine Yellow (Yellow); Glucose, Dipstick 1000 mg/dl (Normal); Ketone-Dipstick 15 mg/dl (Negative); Leukocyte Esterase-Dipstick Negative /ul (Negative); Nitrite-Dipstick Negative (Negative); Occult Blood-Urine Negative /ul (Negative); Protein-Dipstick 15 mg/dl (Negative); Urine Bilirubin Dipstick Negative (Negative); Urine Clarity Clear (Clear); Urine Urobilinogen 8 mg/dl (Normal)
[2020-11-07 16:37] LABS: Differential Indicated SCAN CRITERIA MET
[2020-11-07 16:40] LABS: Internal QC Validated? YES +Cl - CLEAR BKGD; Pregnancy, Serum, hCG Quali. NEGATIVE Negative
[2020-11-07 16:40] LABS: Bacteria RARE /hpf (None Seen)
[2020-11-07 16:45] LABS: Anion Gap 4 (5-15); BUN 8 mg/dL (7-18); BUN/Creat Ratio 11.3 RATIO (10-20); Calcium,Total 9.1 mg/dL (8.5-10.1); Chloride 101 mmol/L (98-107); Creatinine, Serum 0.71 mg/dL (0.55-1.02); EST Glomerular Filtration Rate 102 mL/min (>60); Est Glom Filt Rate - Afr Amer 124 mL/min (>60); Estimated Creatinine Clearance 121.08 ml/min; Glucose 307 mg/dL (74-106); Sodium Level 134 mmol/L (136-145)
[2020-11-07 17:03] LABS: Atypical Lymphocyte 1+ %
[2020-11-07 17:04] LABS: Anisocytosis RARE; Microcytosis RARE; Platelet Estimate SLT DEC (ADEQ); Reactive Lymphocyte 1+; Red Cell Morphology N CHROM NORMAL (NORM C&C)
[2020-11-07] MEDS: proMETHazine 25 MG Tablet PO (17:49)
[2020-11-07 18:20] VITALS: BP 133/87; PULSE 66; RESP 16; O2SAT 98
[2020-11-08 14:05] LABS: Pathologist Review Reviewed
== END 2020-11-07 18:22 | disposition home or self-care (01) ==
PROVIDERS: Emergency Provider Emergency Medicine; PCP Internal Medicine
DX: R10.32 Left lower quadrant pain (principal); R11.0 Nausea; E11.9 Type 2 diabetes mellitus without complications; Z79.84 Long term (current) use of oral hypoglycemic drugs; Z87.891 Personal history of nicotine dependence
CPT/HCPCS: 80048; 81001; 82962; 84703; 85025; 96361; 96374; 96375; 99284; J7030; J2405

== ENCOUNTER 2020-12-17 09:53 | Emergency (ER) | payer MEDICAID, SELFPAY ==
[2020-12-17 09:54] VITALS: BP 148/107; PULSE 81; RESP 16; TEMP 36.6; O2SAT 99; BMI 30.7
--- NOTE | 2020-12-17 10:45 | CT_ITS ---
STUDY: CT BRAIN WITHOUT CONTRAST REASON FOR EXAM: Female, 30 years old. Headache RADIATION DOSAGE (If Supplied By Facility): CTDIvol = ( 44.99 ) mGy, DLP = ( 779.24 ) mGycm TECHNIQUE: Transaxial CT imaging of the brain was performed without administration of intravenous contrast material. Individualized dose optimization techniques were used for this CT. COMPARISON: Comparison is made with prior study of 05/15/2014. FINDINGS: Normal soft tissue structures. Normal calvarium. Normal size ventricles and extra-axial spaces for the patient''s age. Normal white matter tracts of the cerebral hemispheres. Normal basal ganglia and thalami. Normal brainstem. Normal cerebellum. There is no intracranial hemorrhage. There are no findings of an acute ischemic infarction. Normal visualized paranasal sinuses. CT/Brain/Head without Contrast IMPRESSION: Normal unenhanced CT scan of the brain. Electronically Signed: Jono Hayes MD at 11:48 EDT , Service support ,
[2020-12-17] MEDS: 0.9% Normal Saline 1,000 ML 1000 ML IV (11:10)
[2020-12-17 11:18] LABS: Bacteria 0 SEEN /hpf (None Seen); Mucous, Urine 0 SEEN /hpf (<or=2+); Red Blood Cells-Urine 0 SEEN /hpf (0-5); White Blood Cells 0 SEEN /hpf (0-5)
[2020-12-17 11:21] LABS: Absolute Lymphocyte Count 2.16 X10^3/uL (0.83-4.51); Absolute Neutrophil Count 3.2 X10^3/uL (2.0-7.7); Basophil# 0.04 X10^3/uL; Basophil% 0.7 % (0-1); Eosinophil# 0.08 X10^3/uL; Eosinophils% 1.4 % (0-5); Hemoglobin 14.1 g/dL (12.0-15.0); Lymphocyte # 2.16 X10^3/ul (0.83-4.51); Lymphocyte % 37.1 % (19-41); Mean Corp Hgb Conc 35.3 g/dL (32-36); Mean Corpuscular Hgb 29.3 pg (27.0-32.0); Mean Platelet Vol. 11.4 fl (6.2-12.0); Monocyte# 0.37 X10^3/uL; Monocyte% 6.4 % (0-10); NRBC Flagged by Analyzer 0 % (0-5); Neutrophil # 3.15 X10^3/uL (2.7-7.7); Neutrophil % 54.1 % (47-70); Platelet Count 193 K/mm3 (150-450); RBC Distribution Width CV 11.9 % (11.6-14.6); RBC Distribution Width SD 35.7 fl (35.1-43.9); Red Blood Count 4.82 M/mm3 (4.2-5.4); White Blood Count 5.8 K/mm3 (4.4-11.0)
[2020-12-17 11:24] LABS: Internal QC Validated? YES +Cl - CLEAR BKGD
[2020-12-17 11:29] LABS: Pregnancy, Serum, hCG Quali. NEGATIVE Negative
[2020-12-17 11:59] LABS: ALB/GLOB Ratio 0.7 RATIO (0.9-2.4); AST(SGOT) 14 U/L (15-37); Alanine Aminotransfer ALT/SGPT 21 U/L (13-56); Albumin, Serum 3.2 g/dL (3.2-5.0); Alkaline Phosphatase 77 U/L (45-117); Anion Gap 7 (5-15); BUN 7 mg/dL (7-18); BUN/Creat Ratio 11.9 RATIO (10-20); Chloride 105 mmol/L (98-107); Creatinine, Serum 0.59 mg/dL (0.55-1.02); EST Glomerular Filtration Rate 127 mL/min (>60); Est Glom Filt Rate - Afr Amer 153 mL/min (>60); Estimated Creatinine Clearance 145.71 ml/min; Globulin 4.3 g/dL (2.2-4.2); Glucose 272 mg/dL (74-106); Protein, Total 7.5 g/dL (6.4-8.2); Sodium Level 139 mmol/L (136-145)
[2020-12-17 12:30] LABS: Color, Urine Yellow (Yellow); Glucose, Dipstick 1000 mg/dl (Normal); Ketone-Dipstick Negative (Negative); Leukocyte Esterase-Dipstick Negative /ul (Negative); Nitrite-Dipstick Negative (Negative); Occult Blood-Urine Negative /ul (Negative); Protein-Dipstick Negative (Negative); Urine Bilirubin Dipstick Negative (Negative); Urine Clarity Clear (Clear); Urine Urobilinogen Normal (Normal); Urine pH 6.5 (5.0 - 8.0)
[2020-12-17 13:11] LABS: Squamous Epithelial Cells - UA 0-5 SEEN /hpf (5-10)
--- NOTE | 2020-12-17 13:14 | EX.ED.DYSGE1 ---
HPI History of Present Illness Chief Complaint: Dizziness Informant: patient Onset/Context/Timing Onset: Today Context: Sudden Onset Timing: Continuous Quality: Spinning Location: Head Worsened by: Movement Relieved by: Nothing Narrative Narrative: Patient presents with dizziness that began today. Patient states it feels like it is a spinning sensation in her head. Patient states it is worse with movement. Patient states it has been constant. Patient states nothing makes it better. Patient admits to nausea but denies any vomiting. Patient also admits to some pain in right side of her neck. Patient admits to subjective chills but denies any fevers. Patient admits to a headache. Patient denies any visual changes. [facility] Medical History (Updated 12/17/20 @ 13:[address] Lazaro Erickson DO) Asthma Diabetes Home Medications metformin 500 mg PO DAILY 12/12/17 [History Last Taken 02/24/19] ondansetron 4 mg PO Q8H PRN #10 tab 11/07/20 [Rx Last Taken Unknown] ondansetron HCl 4 mg PO Q8H PRN PRN 11/07/20 [History Last Taken Unknown] promethazine 25 mg PO TID PRN #14 tab 11/07/20 [Rx Last Taken Unknown] meclizine 25 mg PO 4X/DAY PRN PRN #20 tab 12/17/20 [Rx Last Taken Unknown] Allergy/AdvReac Type Severity Reaction Status Date / Time oxycodone HCl [From Percocet] Allergy Shortness Verified 11/07/20 15:13 of breath clindamycin AdvReac STOMACH Verified 11/07/20 15:13 UPSET Surgical History (Updated 12/17/20 @ 13:[address] Lazaro Erickson DO) History of appendectomy History of section Hx of dilation and curettage Social History Smoking Status: Former smoker ROS ROS ED Constitutional Constitutional ED: Reports chills and subjective; Denies fever(s) Eyes Eyes: Denies blurry vision or change in vision ENT ENT ED: Denies rhinorrhea or sore throat Cardiovascular Cardiovascular: Denies chest pain or palpitations Respiratory/Chest Respiratory/Chest: Denies cough or dyspnea Gastrointestinal Gastrointestinal: Reports nausea; Denies vomiting Genitourinary Genitourinary ED: Denies dysuria or hematuria Musculoskeletal Musculoskeletal: Reports neck pain; Denies back pain Integumentary Reports rash; Denies abscess Neurologic Neurologic: Reports headache(s); Denies weakness Allergic/Immunologic Allergic/Immunologic ED: Denies mouth swelling or urticaria EXAM Physical Exam Const Vital Signs: 12/17/20 09:54 12/17/20 11:17 Temperature 97.8 F Temperature Source Temporal Pulse Rate 81 Respiratory Rate 16 Respiratory Effort Normal Non-Labored Respiratory Pattern Normal Blood Pressure 148/107 H Blood Pressure Mean 120 Pulse Ox 99 Oxygen Delivery Method Room Air Positive well nourished and well developed General Appearance ED: well developed HEENT Reports moist mucous membranes Eyes PERRL and EOMs intact bilaterally Eyes Narrative: There is nystagmus with lateral gaze bilaterally Neck supple and no JVD Resp normal respiratory effort and clear to auscultation bilaterally Cardio regular rate, regular rhythm and no murmurs GI normal to inspection, nondistended, normoactive bowel sounds and non-tender Palpation: soft Extremity normal to inspection General Extremety ED: Negative for edema or tenderness General Extremity: Negative for edema Neuro oriented x3, CN's II-XII intact bilaterally and no sensory deficits noted Sensorium / Orientation: alert Motor Exam: strength 5/5 throughout Psych mental status grossly normal Skin no rashes or lesions noted MDM MDM MDM Narrative Medical decision making narrative: CT scan of the brain was obtained. There is no acute intracranial abnormality. This was interpreted by the radiologist and reviewed by myself. CBC and comprehensive metabolic profile were within normal limits. Serum hCG was negative. Urinalysis does not show any evidence of urinary tract infection. Patient was ordered a dose of Valium. Patient does not want to take this at the present time. Patient states she does not like taking medications that she has never taken before. Patient is feeling somewhat better on reevaluation. Patient wants to go home. Patient was given a prescription for Antivert. Patient was instructed to follow-up with her primary care physician in 3 to 5 days. Patient was instructed return if worse in any way. Patient understood and was agreeable with the plan. All questions were answered. Lab Data Attestation: I reviewed the patient's lab results. Labs: Laboratory Results - last 24 hr 12/17/20 12/17/20 12/17/20 11:15 11:15 11:15 WBC 5.8 RBC 4.82 Hgb 14.1 Hct 40.0 MCV 83.0 MCH 29.3 MCHC 35.3 RDW Std Deviation 35.7 RDW Coeff of Migel 11.9 Plt Count 193 MPV 11.4 Immature Gran % (Auto) 0.300 Neut % (Auto) 54.1 Lymph % (Auto) 37.1 [place] % (Auto) 6.4 Eos % (Auto) 1.4 Baso % (Auto) 0.7 Absolute Neuts (auto) 3.2 Absolute Lymphs (auto) 2.16 Nucleated RBC % 0 Sodium 139 Potassium 4.0 Chloride 105 Carbon Dioxide 27.0 Anion Gap 7 BUN 7 Creatinine 0.59 Estim Creat Clear Calc 145.71 Est GFR (MDRD) Af Amer 153 Est GFR (MDRD) Non-Af 127 BUN/Creatinine Ratio 11.9 Glucose 272 H Calcium 9.0 Total Bilirubin 0.70 AST 14 L ALT 21 Alkaline Phosphatase 77 Total Protein 7.5 Albumin 3.2 Globulin 4.3 H Albumin/Globulin Ratio 0.7 L Serum , Qual NEGATIVE Urine Color Urine Clarity Urine pH Ur Specific [place] Urine Protein Urine Glucose (UA) Urine Ketones Urine Occult Blood Urine Nitrite Urine Bilirubin Urine Urobilinogen Ur Leukocyte Esterase Urine RBC Urine WBC Ur Squamous Epith Cells Urine Bacteria Urine Mucus 12/17/20 11:15 WBC RBC Hgb Hct MCV MCH MCHC RDW Std Deviation RDW Coeff of Migel Plt Count MPV Immature Gran % (Auto) Neut % (Auto) Lymph % (Auto) [place] % (Auto) Eos % (Auto) Baso % (Auto) Absolute Neuts (auto) Absolute Lymphs (auto) Nucleated RBC % Sodium Potassium Chloride Carbon Dioxide Anion Gap BUN Creatinine Estim Creat Clear Calc Est GFR (MDRD) Af Amer Est GFR (MDRD) Non-Af BUN/Creatinine Ratio Glucose Calcium Total Bilirubin AST ALT Alkaline Phosphatase Total Protein Albumin Globulin Albumin/Globulin Ratio Serum , Qual Urine Color Yellow Urine Clarity Clear Urine pH 6.5 Ur Specific [place] 1.010 Urine Protein Negative Urine Glucose (UA) 1000 H Urine Ketones Negative Urine Occult Blood Negative Urine Nitrite Negative Urine Bilirubin Negative Urine Urobilinogen Normal Ur Leukocyte Esterase Negative Urine RBC 0 SEEN Urine WBC 0 SEEN Ur Squamous Epith Cells 0-5 SEEN Urine Bacteria 0 SEEN Urine Mucus 0 SEEN Radiography Diagnostic Testing: Radiology Impression Brain CT 12/17/20 10:45 IMPRESSION: Normal unenhanced CT scan of the brain. Electronically Signed: Jono Hayes MD at 11:48 EDT , Service support , Discharge Plan Triage Chief Complaint: Dizziness ED Provider: Lazaro Erickson Dx/Rx/DC Orders Clinical Impression: Vertigo Instructions: ED Vertigo, Unspecified Prescriptions: New meclizine [meclizine] 25 MG tablet 25 mg PO 4X/DAY PRN PRN (Reason: Dizziness) Qty: 20 RF: 0 No Action metformin 500 MG tablet 500 mg PO DAILY RF: 0 ondansetron HCl 4 mg tablet 4 mg PO Q8H PRN PRN (Reason: Nausea) RF: 0 ondansetron 4 mg tablet,disintegrating 4 mg PO Q8H PRN (Reason: nausea and vomiting) Qty: 10 RF: 0 promethazine 25 mg tablet 25 mg PO TID PRN (Reason: nausea and vomiting) Qty: 14 RF: 0 Stand Alone Forms: ED Work / School Excuse Primary Care Provider: Natalya Garnica Referrals: Natalya Garniac MD [Primary Care Provider] - 3-5 Days Disposition Disposition: Home, Self Care
== END 2020-12-17 13:28 | disposition home or self-care (01) ==
PROVIDERS: Emergency Provider Emergency Medicine; PCP Internal Medicine
DX: R42 Dizziness and giddiness (principal); E11.9 Type 2 diabetes mellitus without complications; Z79.84 Long term (current) use of oral hypoglycemic drugs; Z87.891 Personal history of nicotine dependence
CPT/HCPCS: 70450; 80053; 81001; 84703; 85025; 96360; 99283; J7030; A4216

== ENCOUNTER 2021-01-20 18:10 | Emergency (ER) | payer MEDICAID, SELFPAY ==
[2021-01-20 18:11] VITALS: BP 145/97; PULSE 100; RESP 14; TEMP 36.6; O2SAT 100; BMI 31.4
--- NOTE | 2021-01-20 20:56 | EDS_ITS ---
HPI History of Present Illness Chief Complaint: Dental Detail of Chief Complaint: Dental pain upper left bicuspid and molars Informant: patient Onset/Context/Timing Onset: Days Context: Sudden Onset Timing: Continuous Quality: Pain Location: Upper second bicuspid and first and second molar left side Current Severity: Mild Maximum Severity: Severe Worsened by: Chewing, cold, Relieved by: NSAIDs and Topicals Associated Symptoms Assocated Symptom - Dental: cold sensitivity; Negative for fever, jaw swelling or face swelling Narrative Narrative: Patient presents because of dental infection. She denies allergy to penicillin. She has allergic reaction clindamycin and Percocet. She is taken Proctor in the past with no reaction. She denies history of medic fever, heart murmur, mitral prolapse or being immune suppressed. Prior similar symptoms: Yes Recent Illness/Hospitalization: No [facility] Medical History Asthma Diabetes Home Medications metformin 500 mg PO DAILY 12/12/17 [History Last Taken 02/24/19] ondansetron 4 mg PO Q8H PRN #10 tab 11/07/20 [Rx Last Taken Unknown] ondansetron HCl 4 mg PO Q8H PRN PRN 11/07/20 [History Last Taken Unknown] promethazine 25 mg PO TID PRN #14 tab 11/07/20 [Rx Last Taken Unknown] meclizine 25 mg PO 4X/DAY PRN PRN #20 tab 12/17/20 [Rx Last Taken Unknown] hydrocodone-acetaminophen 1 tab PO Q6H PRN PRN 3 Days #10 tablet 01/20/21 [Rx Last Taken Unknown] penicillin V potassium 500 mg PO 4X/DAY #40 tab 01/20/21 [Rx Last Taken Unknown] Allergy/AdvReac Type Severity Reaction Status Date / Time oxycodone HCl [From Percocet] Allergy Shortness Verified 01/20/21 18:11 of breath clindamycin AdvReac STOMACH Verified 01/20/21 18:11 UPSET Surgical History History of appendectomy History of section Hx of dilation and curettage Social History (Updated 01/20/21 @ 20:[address] Roger Mulligan MD) household members: children Smoking Status: Former smoker substance use type: does not use ROS ROS ED Constitutional Constitutional ED: Denies chills, fever(s), subjective, sweats or weight loss Eyes Eyes: Denies blurry vision or change in vision ENT ENT ED: Denies ear pain, rhinorrhea or sore throat Cardiovascular Cardiovascular: Denies palpitations Respiratory/Chest Respiratory/Chest: Denies dyspnea Gastrointestinal Gastrointestinal: Denies nausea or vomiting Integumentary Reports abscess; Denies rash Hematologic/Lymphatic Hematologic/Lymphatic: Denies easy bleeding or easy bruising Allergic/Immunologic Allergic/Immunologic ED: Denies mouth swelling, tongue swelling or urticaria EXAM Physical Exam Const Vital Signs: 01/20/21 18:11 Temperature 98 F Temperature Source Temporal Pulse Rate 100 Respiratory Rate 14 Blood Pressure 145/97 H Blood Pressure Mean 113 Pulse Ox 100 Oxygen Delivery Method Room Air Positive well nourished, well developed and obese General Appearance ED: well developed and NAD Nutritional Appearance: obese HEENT Reports TM's clear HEENT Narrative: Tooth #13, 14 and 15 are eroded to the gumline. There is sw elling of the gum. There is no obvious abscess that can be drained. There is no active facial cellulitis. She has no trismus. Face and Sinus: sinuses nontender Tympanic Membrane ED: Yes TM's clear Mouth ED: Yes oral and palatal mucosa normal, Yes lips normal, Yes tongue normal and Yes salivary gland normal Mouth: oral and palatal mucosa normal, lips normal, tongue normal and salivary gland normal Teeth and Gingiva: abnormal tooth and associated gingiva, caries, gingiva abnormal and poor dentition Throat: posterior oropharynx normal Eyes PERRL and EOMs intact bilaterally General Eye ED: Negative for pale conjunctiva or scleral icterus Neck no lymphadenopathy, supple and no JVD General: normal visual inspection; Negative for anterior neck swelling or submandibular swelling Lymph Lymphatic: no lymphadenopathy noted and lymphadenopathy Resp normal respiratory effort and clear to auscultation bilaterally Cardio regular rate, regular rhythm, S1 normal heart sound, S2 normal heart sound and no murmurs Neuro oriented x3 and CN's II-XII intact bilaterally Sensorium / Orientation: alert Psych mental status grossly normal Skin no rashes or lesions noted MDM MDM MDM Narrative Medical decision making narrative: Patient has dental caries with exposure of dentin and evidence of periodontal disease and abscess. She was treated penicillin, Proctor and she was instructed continue taking ibuprofen. She needs to see a dentist. Discharge Plan Triage Chief Complaint: Dental ED Provider: Roger Mulligan Dx/Rx/DC Orders Clinical Impression: Abscess, dental, Dental caries extending into pulp, Acute gingivitis, Chronic periodontal disease Instructions: ED Dental Abscess Prescriptions: New hydrocodone-acetaminophen [hydrocodone-acetaminophen] 1 TABLET tablet 1 tab PO Q6H PRN PRN (Reason: Pain) 3 Days Qty: 10 RF: 0 penicillin V potassium 500 MG tablet 500 mg PO 4X/DAY Qty: 40 RF: 0 No Action metformin 500 MG tablet 500 mg PO DAILY RF: 0 ondansetron HCl 4 mg tablet 4 mg PO Q8H PRN PRN (Reason: Nausea) RF: 0 ondansetron 4 mg tablet,disintegrating 4 mg PO Q8H PRN (Reason: nausea and vomiting) Qty: 10 RF: 0 promethazine 25 mg tablet 25 mg PO TID PRN (Reason: nausea and vomiting) Qty: 14 RF: 0 meclizine [meclizine] 25 MG tablet 25 mg PO 4X/DAY PRN PRN (Reason: Dizziness) Qty: 20 RF: 0 Primary Care Provider: Natalya Garnica Referrals: Natalya Garnica MD [Primary Care Provider] - Dentist,Your [STAFF PHYSICIAN] - 3-5 Days Disposition Disposition: Home, Self Care
[2021-01-20] MEDS: Penicillin Vk 250 MG Tablet 500 MG PO (21:10)
[2021-01-20] MEDS: HYDROcodone Bitartrate/Apap 5/325 Tablet PO (21:10)
== END 2021-01-20 21:10 | disposition home or self-care (01) ==
PROVIDERS: Emergency Provider Emergency Medicine; PCP Internal Medicine
DX: K04.7 Periapical abscess without sinus (principal); K02.63 Dental caries on smooth surface penetrating into pulp; K05.00 Acute gingivitis, plaque induced; K05.6 Periodontal disease, unspecified; E11.9 Type 2 diabetes mellitus without complications; E66.9 Obesity, unspecified; Z68.31 Body mass index [BMI] 31.0-31.9, adult; Z79.84 Long term (current) use of oral hypoglycemic drugs; Z87.891 Personal history of nicotine dependence
CPT/HCPCS: 99283

== ENCOUNTER 2021-02-05 22:19 | Emergency (ER) | payer MEDICAID, SELFPAY ==
[2021-02-05 22:20] VITALS: BP 143/103; PULSE 86; RESP 15; TEMP 35.9; O2SAT 99; BMI 30.8
--- NOTE | 2021-02-05 22:28 | EKG12_ITS ---
Test Reason : CP Blood Pressure : / mmHG Vent. Rate : 087 BPM Atrial Rate : 087 BPM P-R Int : 136 ms QRS Dur : 086 ms QT Int : 368 ms P-R-T Axes : 060 060 066 degrees QTc Int : 442 ms Normal sinus rhythm Normal ECG Confirmed by RYAN RICE, JANET ([id number]), digital editor STEVIE FRANKLIN ([id number]) on 02/07/2021 1:56:01 P M Referred By: JARRED/ADDI Confirmed By:KOBE DAVIS MD
--- NOTE | 2021-02-05 23:27 | EDS_ITS ---
HPI HPI - URI History of Present Illness Chief Complaint: Cough Narrative Narrative: 31-year-old female presenting with a painful cough. She states it hurts in the center of her chest when she coughs only. She has not had a fever but does have chills and body aches. She has not been vaccinated for COVID-19. She states that she does not know if she has any sick contacts. Patient has mild nausea but no vomiting. She is making urine and stool. She does admit to some fatigue as well as a mild headache. ROS ROS ED Constitutional Constitutional ED: Reports chills and fever(s) Eyes Eyes: Denies blurry vision or change in vision ENT ENT ED: Denies rhinorrhea or sore throat Cardiovascular Cardiovascular: Denies chest pain or palpitations Respiratory/Chest Respiratory/Chest: Reports cough; Denies dyspnea Gastrointestinal Gastrointestinal: Reports nausea; Denies abdominal pain, diarrhea or vomiting Genitourinary Genitourinary ED: Denies dysuria or hematuria Musculoskeletal Musculoskeletal: Reports myalgias; Denies arthralgias Integumentary Denies Abrasions or rash Neurologic Neurologic: Reports headache(s); Denies paresthesias or weakness PFSH PFSH Medical History Asthma Diabetes Home Medications metformin 500 mg PO BID 12/12/17 [History Last Taken 02/24/19] azithromycin 250 mg PO DAILY 5 Days #5 tab 02/06/21 [Rx Last Taken Unknown] ondansetron HCl [Zofran] 4 mg PO Q8H PRN #14 tab 02/06/21 [Rx Last Taken Un known] Allergy/AdvReac Type Severity Reaction Status Date / Time oxycodone HCl [From Percocet] Allergy Shortness Verified 02/05/21 22:20 of breath clindamycin AdvReac STOMACH Verified 02/05/21 22:20 UPSET Surgical History History of appendectomy History of section Hx of dilation and curettage Social History household members: children Smoking Status: Former smoker substance use type: does not use EXAM Physical Exam Const Vital Signs: 02/05/21 22:20 02/05/21 23:07 02/06/21 04:37 Temperature 96.6 F L Temperature Source Temporal Pulse Rate 86 Respiratory Rate 15 14 Respiratory Effort Normal Respiratory Depth Normal Respiratory Pattern Normal Blood Pressure 143/103 H Blood Pressure Mean 116 Pulse Ox 99 Oxygen Delivery Method Room Air Positive well nourished General Appearance ED: NAD; Negative for pallor HEENT Reports moist mucous membranes normocephalic and atraumatic Neck supple and no meningeal signs Resp normal respiratory effort and clear to auscultation bilaterally Cardio Rate: regular rate Rhythm: regular rhythm Neuro oriented x3 Sensorium / Orientation: alert Psych mental status grossly normal Skin General Skin Exam: Negative for jaundice or pallor MDM MDM MDM Narrative Medical decision making narrative: Patient admits to a cough she states is a painful cough. She admits to chills and body aches. She was tested for Covid and is negative. Her vital signs are stable and she is afebrile. I do believe she likely has a viral syndrome. Patient is given a work note. I did give her a [id number] prescription for azithromycin if she is not feeling improved. I did membership counselor her that this is likely viral in nature. Patient is given return precautions. Impression: 1. Viral syndrome Lab Data Labs: Laboratory Results - last 24 hr 02/06/21 01:01 COVID-19 ([facility]) Not Detected Discharge Plan Triage Chief Complaint: Cough ED Provider: Marcial Desai Dx/Rx/DC Orders Instructions: ED Viral Syndrome (Adult) Prescriptions: New azithromycin 250 mg tablet 250 mg PO DAILY 5 Days Qty: 5 RF: 0 ondansetron HCl [Zofran] 4 mg tablet 4 mg PO Q8H PRN (Reason: nausea and vomiting) Qty: 14 RF: 0 No Action metformin 500 MG tablet 500 mg PO BID RF: 0 Primary Care Provider: Natalya Garnica Referrals: Natalya Garnica MD [Primary Care Provider] - Disposition Disposition: Home, Self Care Discharge Date/Time: 02/06/21 04:37
[2021-02-05] MEDS: Acetaminophen 500 MG Tablet 1000 MG PO (23:46)
[2021-02-05] MEDS: Ondansetron ODT 4 MG Tablet PO (23:46)
[2021-02-06 04:37] VITALS: RESP 14
== END 2021-02-06 04:37 | disposition home or self-care (01) ==
PROVIDERS: Emergency Provider Student in an Organized Health Care Education/Training Program; PCP Internal Medicine
DX: B34.9 Viral infection, unspecified (principal); E11.9 Type 2 diabetes mellitus without complications; Z79.84 Long term (current) use of oral hypoglycemic drugs; Z87.891 Personal history of nicotine dependence
CPT/HCPCS: 87426; 87635; 93005; 99283; U0005; U0003

== ENCOUNTER 2021-02-09 09:05 | Emergency (ER) | payer MEDICAID, SELFPAY ==
[2021-02-09 09:06] VITALS: BP 133/103; PULSE 103; RESP 16; TEMP 36.9; O2SAT 97; BMI 30.8
--- NOTE | 2021-02-09 09:19 | CT_ITS ---
HISTORY: Right flank pain with frequency and urgency, evaluate for kidney stone. History of appendectomy, bilateral tubal ligation. TECHNIQUE: Helically acquired images were obtained of the abdomen and pelvis without oral or IV contrast as per renal stone protocol. A radiation dose optimization technique was used for this scan. # of images incl. paperwork: [id number]. COMPARISON: None. FINDINGS: LUNG BASES: Nodular alveolar opacities in the lung bases most confluent in the right middle lobe and measuring up to 8 mm in the left lower lobe. BOWEL: Bowel nondilated. Suture at the cecum. Moderate stool in the colon. PERITONEUM: No significant ascites. LIVER/BILIARY TRACT: Unremarkable liver.Gallbladder present. SPLEEN: Non-enlarged. PANCREAS: No peripancreatic inflammation. KIDNEYS AND URETERS: No nephrolithiasis or obstructing ureterolithiasis. ADRENAL GLANDS: Non-enlarged. VESSELS: No abdominal aortic aneurysm. PELVIC ORGANS: Unremarkable. BONES: Mild thoracolumbar levocurvature. CT/Abdomen/Pelvis without Cont IMPRESSION: Mild nodular alveolar opacities in the lung bases, concerning for pneumonia. Consider follow-up to resolution. Negative examination for renal stone. Moderate stool in the colon. Individualized dose optimization techniques were used for this CT. at 1003 Reported and signed by: Sheri Martinez MD Electronically Signed: Sheri Martinez MD at 10:02 EST Tel , Service support ,
--- NOTE | 2021-02-09 09:19 | EX.ED.DYSGE1 ---
HPI History of Present Illness Chief Complaint: Flank Pain Informant: patient Onset/Context/Timing Onset: Yesterday Context: Sudden Onset Timing: Continuous and Waxes and wanes Quality: Colicky Current Severity: Moderate Maximum Severity: Severe Worsened by: Nothing Relieved by: Nothing Associated Symptoms Associated Symptoms: Nausea, frequency and urgency Narrative Narrative: Patient is a 31-year-old woman with history of type 2 diabetes for the past 16 years, depression who presents with abrupt onset of right flank pain rating anteriorly with urgency and frequency. He does report nausea without vomiting. She denies fever, chills night sweats. She denies upper respiratory symptoms. She denies history of renal ureterolithiasis. She is status post bilateral tubal ligation. She denies any gynecologic symptoms. There is no history of trauma. She is also status post appendectomy. Prior similar symptoms: No Recent Illness/Hospitalization: No PFSH PFSH Medical History (Updated 02/09/21 @ 10:[address] Roger Mulligan MD) Asthma Diabetes Home Medications metformin 500 mg PO BID 12/12/17 [History Last Taken 02/24/19] doxycycline monohydrate 100 mg PO BID #14 capsule 02/09/21 [Rx Last Taken Unknown] Allergy/AdvReac Type Severity Reaction Status Date / Time oxycodone HCl [From Percocet] Allergy Shortness Verified 02/09/21 09:08 of breath clindamycin AdvReac STOMACH Verified 02/09/21 09:08 UPSET Surgical History (Updated 02/09/21 @ 09:[address] Roger Mulligan MD) History of appendectomy History of bilateral tubal ligation History of section Hx of dilation and curettage Social History household members: children Smoking Status: Former smoker substance use type: does not use ROS ROS ED Constitutional Constitutional ED: Denies chills, fever(s), subjective, sweats or weight loss Eyes Eyes: Denies blurry vision or change in vision ENT ENT ED: Denies ear pain, rhinorrhea or sore throat Cardiovascular Cardiovascular: Denies chest pain or palpitations Respiratory/Chest Respiratory/Chest: Denies cough, dyspnea or dyspnea on exertion Gastrointestinal Gastrointestinal: Reports abdominal pain and nausea; Denies constipation, diarrhea, melena or vomiting Genitourinary Genitourinary ED: Reports urinary frequency; Denies dysuria or hematuria Musculoskeletal Musculoskeletal: Reports back pain; Denies arthralgias, myalgias or neck pain Integumentary Denies rash Neurologic Neurologic: Denies headache(s) or weakness Endocrine Endocrinology: Denies polydipsia, polyphagia or polyuria EXAM Physical Exam Const Vital Signs: 02/09/21 09:06 Temperature 98.4 F Temperature Source Temporal Pulse Rate 103 H Respiratory Rate 16 Blood Pressure 133/103 H Blood Pressure Mean 113 Pulse Ox 97 Oxygen Delivery Method Room Air Positive well nourished, well developed and obese General Appearance ED: well developed; Negative for cyanotic, diaphoretic, NAD or pallor Nutritional Appearance: obese HEENT Reports moist mucous membranes Negative for trauma or tenderness Eyes PERRL and EOMs intact bilaterally General Eye ED: Negative for pale conjunctiva or scleral icterus Neck no lymphadenopathy, supple and no JVD Resp normal respiratory effort and clear to auscultation bilaterally Cardio regular rate, regular rhythm, S1 normal heart sound, S2 normal heart sound and no murmurs GI normal to inspection, nondistended, normoactive bowel sounds and non-tender Palpation: soft Back/Spine General Back: CVA tenderness right Cervical Spine: Negative for cervical spine tenderness Thoracic Spine / Upper Back: Negative for thoracic spinal tenderness or paraspinal muscle tenderness Extremity normal to inspection General Extremety ED: Negative for edema or tenderness General Extremity: Negative for edema Neuro oriented x3 and CN's II-XII intact bilaterally Sensorium / Orientation: alert Psych mental status grossly normal Skin no rashes or lesions noted and no wounds General Skin Exam: Negative for jaundice or pallor MDM MDM MDM Narrative Medical decision making narrative: History and physical is consistent with obstructing ureteral stone. Because she is diabetic and has been taking ibuprofen will obtain basic metabolic panel to assess renal function and glucose. Urinalysis was obtained to assess for blood and evidence infection. She was medicated with Zofran and morphine for her nausea and pain. CT of the abdomen was obtained to evaluate for obstructing stone since she has no prior history. Lab Data Attestation: I reviewed the patient's lab results. Lab results narrative: White count is unremarkable. Electrolyte panel is unremarkable. UA is unremarkable. CT of the abdomen pelvis without contrast was remarkable for interstitial pneumonia. Patient was seen earlier this week. Covid test was negative. Since her pulse ox is normal and her only abnormal vital sign is a heart rate of 103 we will treat for community-acquired pneumonia. She was prescribed doxycycline. Labs: Laboratory Results - last 24 hr 02/09/21 02/09/21 02/09/21 09:22 09:30 09:30 WBC 7.3 RBC 4.91 Hgb 14.6 Hct 40.4 MCV 82.3 MCH 29.7 MCHC 36.1 H RDW Std Deviation 33.3 L RDW Coeff of Migel 11.2 L Plt Count 203 MPV 11.2 Immature Gran % (Auto) 0.300 Neut % (Auto) 65.8 Lymph % (Auto) 24.9 Dickenson % (Auto) 7.2 Eos % (Auto) 1.2 Baso % (Auto) 0.6 Absolute Neuts (auto) 4.8 Absolute Lymphs (auto) 1.81 Nucleated RBC % 0 Sodium 138 Potassium 3.9 Chloride 106 Carbon Dioxide 29.0 Anion Gap 3 L BUN 9 Creatinine 0.69 Estim Creat Clear Calc 123.46 Est GFR (MDRD) Af Amer 127 Est GFR (MDRD) Non-Af 105 BUN/Creatinine Ratio 13.0 Glucose 268 H Calcium 8.8 Urine Color Yellow Urine Clarity Clear Urine pH 7.0 Ur Specific Canadian 1.010 Urine Protein Negative Urine Glucose (UA) 1000 H Urine Ketones Negative Urine Occult Blood Negative Urine Nitrite Negative Urine Bilirubin Negative Urine Urobilinogen 4 H Ur Leukocyte Esterase Negative Urine RBC 0 SEEN Urine WBC 0 SEEN Ur Squamous Epith Cells 0-5 SEEN Urine Bacteria 0 SEEN Urine Mucus 0 SEEN Radiography Diagnostic Testing: Clinical Impression(s) from Imaging Studies Abdomen/Pelvis CT 02/09/21 09:19 IMPRESSION: Mild nodular alveolar opacities in the lung bases, concerning for pneumonia. Consider follow-up to resolution. Negative examination for renal stone. Moderate stool in the colon. Individualized dose optimization techniques were used for this CT. at 1003 Reported and signed by: Sheri Martinez MD Electronically Signed: Sheri Martinez MD at 10:02 EST Tel , Service support , Discharge Plan Triage Chief Complaint: Flank Pain ED Provider: Roger Mulligan Dx/Rx/DC Orders Clinical Impression: Community acquired pneumonia Prescriptions: New doxycycline monohydrate 100 MG capsule 100 mg PO BID Qty: 14 RF: 0 No Action metformin 500 MG tablet 500 mg PO BID RF: 0 Primary Care Provider: Natalya Garnica Referrals: Natalya Garnica MD [Primary Care Provider] - 3-5 Days if not improving Disposition Disposition: Home, Self Care
[2021-02-09 09:27] LABS: Bacteria 0 SEEN /hpf (None Seen); Mucous, Urine 0 SEEN /hpf (<or=2+); Red Blood Cells-Urine 0 SEEN /hpf (0-5); White Blood Cells 0 SEEN /hpf (0-5)
[2021-02-09 09:28] LABS: Color, Urine Yellow (Yellow); Glucose, Dipstick 1000 mg/dl (Normal); Ketone-Dipstick Negative (Negative); Leukocyte Esterase-Dipstick Negative /ul (Negative); Nitrite-Dipstick Negative (Negative); Occult Blood-Urine Negative /ul (Negative); Protein-Dipstick Negative (Negative); Urine Bilirubin Dipstick Negative (Negative); Urine Clarity Clear (Clear); Urine Urobilinogen 4 mg/dl (Normal)
[2021-02-09 09:33] LABS: Squamous Epithelial Cells - UA 0-5 SEEN /hpf (5-10)
[2021-02-09] MEDS: morphine 8 MG/ML Syringe IV (09:33)
[2021-02-09] MEDS: 0.9% Normal Saline 1,000 ML 250 ML IV (09:33)
[2021-02-09] MEDS: Ondansetron 4 MG/2 ML Vial IV (09:33)
[2021-02-09 09:34] LABS: Absolute Lymphocyte Count 1.81 X10^3/uL (0.83-4.51); Absolute Neutrophil Count 4.8 X10^3/uL (2.0-7.7); Basophil# 0.04 X10^3/uL; Basophil% 0.6 % (0-1); Eosinophil# 0.09 X10^3/uL; Eosinophils% 1.2 % (0-5); Hematocrit 40.4 % (37-47); Hemoglobin 14.6 g/dL (12.0-15.0); Lymphocyte # 1.81 X10^3/ul (0.83-4.51); Lymphocyte % 24.9 % (19-41); Mean Corp Hgb Conc 36.1 g/dL (32-36); Mean Corpuscular Hgb 29.7 pg (27.0-32.0); Mean Corpuscular Volume 82.3 fL (81-99); Mean Platelet Vol. 11.2 fl (6.2-12.0); Monocyte# 0.52 X10^3/uL; Monocyte% 7.2 % (0-10); NRBC Flagged by Analyzer 0 % (0-5); Neutrophil # 4.79 X10^3/uL (2.7-7.7); Neutrophil % 65.8 % (47-70); Platelet Count 203 K/mm3 (150-450); RBC Distribution Width CV 11.2 % (11.6-14.6); RBC Distribution Width SD 33.3 fl (35.1-43.9); Red Blood Count 4.91 M/mm3 (4.2-5.4); White Blood Count 7.3 K/mm3 (4.4-11.0)
[2021-02-09 09:46] LABS: Anion Gap 3 (5-15); BUN 9 mg/dL (7-18); Calcium,Total 8.8 mg/dL (8.5-10.1); Chloride 106 mmol/L (98-107); Creatinine, Serum 0.69 mg/dL (0.55-1.02); EST Glomerular Filtration Rate 105 mL/min (>60); Est Glom Filt Rate - Afr Amer 127 mL/min (>60); Estimated Creatinine Clearance 123.46 ml/min; Glucose 268 mg/dL (74-106); Potassium 3.9 mmol/L (3.5-5.1); Sodium Level 138 mmol/L (136-145)
[2021-02-09] MEDS: Doxycycline 100 MG CAPSULE PO (10:41)
== END 2021-02-09 10:42 | disposition home or self-care (01) ==
PROVIDERS: Emergency Provider Emergency Medicine; PCP Internal Medicine
DX: J18.9 Pneumonia, unspecified organism (principal); E11.9 Type 2 diabetes mellitus without complications; E66.9 Obesity, unspecified; Z68.30 Body mass index [BMI] 30.0-30.9, adult; Z90.89 Acquired absence of other organs; Z79.84 Long term (current) use of oral hypoglycemic drugs; Z87.891 Personal history of nicotine dependence
CPT/HCPCS: 74176; 80048; 81001; 85025; 96361; 96374; 96375; 99282; J7030; J2405

== ENCOUNTER 2021-03-01 09:12 | Emergency (ER) | payer MEDICAID, SELFPAY ==
[2021-03-01 09:12] VITALS: BP 161/110; PULSE 87; RESP 16; TEMP 36.6; O2SAT 99; BMI 31.7
[2021-03-01 09:14] VITALS: BP 161/110; PULSE 87; RESP 16; TEMP 36.6; O2SAT 99
[2021-03-01 09:21] VITALS: BP 161/110; PULSE 87; RESP 16; TEMP 36.6; O2SAT 99
--- NOTE | 2021-03-01 10:13 | EDS_ITS ---
HPI History of Present Illness Chief Complaint: Dental Informant: patient Onset/Context/Timing Onset: Days Context: Gradual Onset Current Severity: Moderate Maximum Severity: Moderate Narrative Narrative: Patient present secondary to increased dental pain. She has history of bad teeth and states she has an appointment to see her dentist on Wednesday, in 2 days. Over the past 3 days she had increasing pain to the upper central teeth with some facial edema. She has been taking ibuprofen regularly. [facility] Medical History Asthma Diabetes Home Medications metformin 500 mg PO BID 12/12/17 [History Last Taken 02/24/19] hydrocodone-acetaminophen 1 tab PO Q6H PRN 3 Days #10 tab 03/01/21 [Rx Last Taken Unknown] penicillin V potassium 500 mg PO 4X/DAY #40 tab 03/01/21 [Rx Last Taken Unknown] Allergy/AdvReac Type Severity Reaction Status Date / Time oxycodone HCl [From Percocet] Allergy Shortness Verified 03/01/21 09:14 of breath clindamycin AdvReac STOMACH Verified 03/01/21 09:14 UPSET Surgical History History of appendectomy History of bilateral tubal ligation History of section Hx of dilation and curettage Social History household members: children Smoking Status: Former smoker substance use type: does not use ROS ROS ED Constitutional Constitutional ED: Denies chills or fever(s) Eyes Eyes: Denies change in vision ENT ENT ED: Reports other Details: Dental pain and facial swelling ; Denies sore throat Cardiovascular Cardiovascular: Denies chest pain Respiratory/Chest Respiratory/Chest: Denies cough or dyspnea Gastrointestinal Gastrointestinal: Denies abdominal pain, diarrhea, nausea or vomiting Musculoskeletal Musculoskeletal: Denies back pain Integumentary Denies rash Neurologic Neurologic: Denies headache(s) Allergic/Immunologic Allergic/Immunologic ED: Denies urticaria EXAM Physical Exam Const Vital Signs: 03/01/21 09:12 03/01/21 09:14 03/01/21 09:21 Temperature 98 F 98 F 98 F Temperature Source Temporal Temporal Temporal Pulse Rate 87 87 87 Respiratory Rate 16 16 16 Blood Pressure 161/110 H 161/110 H 161/110 H Blood Pressure Mean 127 127 127 Pulse Ox 99 99 99 Oxygen Delivery Method Room Air Room Air Room Air 03/01/21 10:34 Temperature Temperature Source Pulse Rate 99 Respiratory Rate 22 H Blood Pressure Blood Pressure Mean Pulse Ox 100 Oxygen Delivery Method Positive well nourished and well developed General Appearance ED: well developed HEENT HEENT Narrative: Mild edema to the upper lip centrally. Central incisors bilaterally are decayed. Mild gum edema. No posterior pharyngeal changes. No trismus. Eyes PERRL and EOMs intact bilaterally Neck supple Lymph Lymphatic: no lymphadenopathy noted Chest Wall inspection of chest normal and palpation of chest normal Resp normal respiratory effort and clear to auscultation bilaterally Cardio regular rate and regular rhythm GI normal to inspection, nondistended, normoactive bowel sounds Extremity normal to inspection Neuro oriented x3 Sensorium / Orientation: alert Psych mental status grossly normal Skin no rashes or lesions noted MDM MDM Treatment and Re-Evaluation Comments:: Patient will be started on Pen-Vee K. She will continue ibuprofen and I will give her a short course of [place] through the weekend. She is diabetic and encouraged her to closely monitor her blood sugars. She is to follow-up with her dentist on Wednesday. Discharge Plan Triage Chief Complaint: Dental ED Provider: Anastasiia Childs Dx/Rx/DC Orders Clinical Impression: Odontalgia Instructions: ED Dental Pain Prescriptions: New penicillin V potassium 500 mg tablet 500 mg PO 4X/DAY Qty: 40 RF: 0 hydrocodone-acetaminophen 5-325 mg tablet 1 tab PO Q6H PRN (Reason: pain) 3 Days Qty: 10 RF: 0 No Action metformin 500 MG tablet 500 mg PO BID RF: 0 Primary Care Provider: Natalya Garnica Referrals: Natalya Garnica MD [Primary Care Provider] - Activity Restrictions/Additional Instructions: Follow-up with your dentist on Wednesday as scheduled. Disposition Disposition: Home, Self Care Discharge Date/Time: 03/01/21 10:36
[2021-03-01] MEDS: Penicillin Vk 250 MG Tablet 500 MG PO (10:29)
[2021-03-01 10:34] VITALS: PULSE 99; RESP 22; O2SAT 100
--- NOTE | 2021-03-01 10:35 | ED.RN ---
THIS NURSE REVIEWED D/C INSTRUCTIONS WITH PT. PT VERBALIZED UNDERSTANDING OF INSTRUCTIONS. PT DENIES FURTHER NEEDS OR QUESTIONS AT THIS TIME. PT AMBULATES FROM ROOM ON OWN WITHOUT ASSISTANCE FROM STAFF
== END 2021-03-01 10:36 | disposition home or self-care (01) ==
PROVIDERS: Emergency Provider Emergency Medicine; PCP Internal Medicine
DX: K08.89 Other specified disorders of teeth and supporting structures (principal); E11.9 Type 2 diabetes mellitus without complications; Z79.84 Long term (current) use of oral hypoglycemic drugs; Z87.891 Personal history of nicotine dependence
CPT/HCPCS: 99283

== ENCOUNTER 2021-03-22 19:59 | Emergency (ER) | payer MEDICAID, SELFPAY ==
[2021-03-22 20:00] VITALS: BP 142/104; PULSE 98; RESP 16; TEMP 35.8; O2SAT 98; BMI 30.8
--- NOTE | 2021-03-22 20:21 | EDS_ITS ---
HPI History of Present Illness Chief Complaint: Cough Informant: patient Narrative Narrative: Patient states that yesterday she started getting a sore throat and congestion. She has a little bit of cough but is not short of breath. No sputum production. She has had nausea but no vomiting. She is able to eat and drink but her appetite is down. She had does have diarrhea. She has some myalgias. She has had subjective fevers. She has not had Covid vaccines. She has been exposed to multiple family members with Covid. Her taste is also off. Her smell is off. She has Zofran at home already. She states it did not really help for the nausea but she still able to eat and drink. She has a history of reactive airway disease but is not wheezing. Nothing is making her symptoms better or worse. [facility] Medical History Asthma Diabetes Home Medications metformin 500 mg PO BID 12/12/17 [History Last Taken 02/24/19] hydrocodone-acetaminophen 1 tab PO Q6H PRN 3 Days #10 tab 03/01/21 [Rx Last Taken Unknown] penicillin V potassium 500 mg PO 4X/DAY #40 tab 03/01/21 [Rx Last Taken Unknown] promethazine 25 mg PO TID PRN #20 tab 03/22/21 [Rx Last Taken Unknown] Allergy/AdvReac Type Severity Reaction Status Date / Time oxycodone HCl [From Percocet] Allergy Shortness Verified 03/01/21 09:14 of breath clindamycin AdvReac STOMACH Verified 03/01/21 09:14 UPSET Surgical History History of appendectomy History of bilateral tubal ligation History of section Hx of dilation and curettage Social History household members: children Smoking Status: Former smoker substance use type: does not use ROS ROS ED Constitutional Constitutional ED: Reports chills, fever(s) and subjective Eyes Eyes: Denies blurry vision ENT ENT ED: Reports rhinorrhea and sore throat Cardiovascular Cardiovascular: Denies chest pain or palpitations Respiratory/Chest Respiratory/Chest: Reports cough; Denies dyspnea or sputum Gastrointestinal Gastrointestinal: Reports diarrhea and nausea; Denies vomiting Genitourinary Genitourinary ED: Denies dysuria or hematuria Musculoskeletal Musculoskeletal: Reports myalgias Integumentary Denies rash Neurologic Neurologic: Reports headache(s); Denies weakness Psychiatric Psychiatric: Denies anxiety or depression Endocrine Endocrinology: Denies polydipsia or polyuria Allergic/Immunologic Allergic/Immunologic ED: Denies mouth swelling or urticaria EXAM Physical Exam Const Vital Signs: 03/22/21 20:00 Temperature 96.4 F L Temperature Source Temporal Pulse Rate 98 Respiratory Rate 16 Blood Pressure 142/104 H Blood Pressure Mean 116 Pulse Ox 98 Oxygen Delivery Method Room Air Positive well nourished and well developed General Appearance ED: well developed and NAD; Negative for cyanotic or diaphoretic HEENT Reports moist mucous membranes Eyes General Eye ED: Negative for pale conjunctiva or scleral icterus Neck no JVD Chest Wall inspection of chest normal Resp normal respiratory effort and clear to auscultation bilaterally Resp Narrative: Her lungs are quite clear at this point. Her saturations are 98% on room air and that is just after walking into the room. Effort and Inspection: Negative for pain with movement Auscultation: Negative for rales, rhonchi or wheezes Cardio regular rate, regular rhythm and no murmurs GI normal to inspection, nondistended, normoactive bowel sounds Back/Spine no CVA tenderness Extremity normal to inspection General Extremety ED: Negative for tenderness Neuro Sensorium / Orientation: alert; Negative for orientation impaired Psych mental status grossly normal Skin no rashes or lesions noted MDM MDM MDM Narrative Medical decision making narrative: Patient has known exposure to Covid and essentially all the symptoms except vomiting. I will send off a PCR. I filled out monoclonal therapy sheets because of her BMI and diabetes. My suspicion is that her PCR will likely be positive. I do not think she needs to wait for this. I will write for some Phenergan to help with her nausea. We discussed home care, checking oxygen levels, quarantine and reasons to follow-up. Discharge Plan Triage Chief Complaint: Cough ED Provider: Paul Pelayo Dx/Rx/DC Orders Clinical Impression: Close exposure to 2019-nCoV, Nausea, Myalgia, Diarrhea Instructions: Coronavirus Disease 2019 (COVID-19): Caring for Yourself or Others Prescriptions: New promethazine 25 mg tablet 25 mg PO TID PRN (Reason: nausea and vomiting) Qty: 20 RF: 0 No Action metformin 500 MG tablet 500 mg PO BID RF: 0 penicillin V potassium 500 mg tablet 500 mg PO 4X/DAY Qty: 40 RF: 0 hydrocodone-acetaminophen 5-325 mg tablet 1 tab PO Q6H PRN (Reason: pain) 3 Days Qty: 10 RF: 0 Primary Care Provider: Natalya Garnica Referrals: Natalya Garnica MD [Primary Care Provider] - 10-14 Days if not better Disposition Disposition: Home, Self Care Discharge Date/Time: 03/22/21 20:45
[2021-03-22] MEDS: proMETHazine 25 MG Tablet PO (20:43)
== END 2021-03-22 20:45 | disposition home or self-care (01) ==
PROVIDERS: Emergency Provider Emergency Medicine; PCP Internal Medicine
DX: R05.9 Cough, unspecified (principal); R11.0 Nausea; M79.10 Myalgia, unspecified site; R19.7 Diarrhea, unspecified; Z20.822 Contact with and (suspected) exposure to COVID-19; J45.909 Unspecified asthma, uncomplicated; E11.9 Type 2 diabetes mellitus without complications; Z79.84 Long term (current) use of oral hypoglycemic drugs; Z87.891 Personal history of nicotine dependence; Z79.899 Other long term (current) drug therapy
CPT/HCPCS: 87635; 99283; U0003; U0005

== ENCOUNTER 2021-05-14 09:49 | Emergency (ER) | payer MEDICAID, SELFPAY ==
[2021-05-14 09:50] VITALS: BP 141/89; PULSE 71; RESP 16; TEMP 37.2; O2SAT 100; BMI 31.1
--- NOTE | 2021-05-14 10:11 | ED.VIS.DENTA ---
HPI History of Present Illness Chief Complaint: Dental Informant: patient Narrative Narrative: Patient presents with left upper dental pain for the last day or so. This patient has a long history of dental problems. She had root canal on some of these teeth about a month ago. She has an appointment in about 3 weeks to get many of her teeth pulled. She started again with some pain and redness in the left upper jaw. No acute trauma or injury. No nausea vomiting fevers or chills. PFSH PFSH Medical History Asthma Diabetes Home Medications metformin 500 mg PO BID 12/12/17 [History Last Taken 02/24/19] hydrocodone-acetaminophen 1 tab PO Q6H PRN 3 Days #10 tab 03/01/21 [Rx Last Taken Unknown] penicillin V potassium 500 mg PO 4X/DAY #40 tab 03/01/21 [Rx Last Taken Unknown] promethazine 25 mg PO TID PRN #20 tab 03/22/21 [Rx Last Taken Unknown] naproxen 500 mg PO BID #14 tab 05/14/21 [Rx Last Taken Unknown] penicillin V potassium 500 mg PO 4X/DAY #40 tab 05/14/21 [Rx Last Taken Unknown] Allergy/AdvReac Type Severity Reaction Status Date / Time oxycodone HCl [From Percocet] Allergy Shortness Verified 05/14/21 09:52 of breath clindamycin AdvReac STOMACH Verified 05/14/21 09:52 UPSET Surgical History History of appendectomy History of bilateral tubal ligation History of section Hx of dilation and curettage Social History household members: children Smoking Status: Former smoker substance use type: does not use ROS ROS ED Constitutional Constitutional ED: Denies chills or fever(s) ENT ENT ED: Reports other Details: Dental pain as in history of present illness. No trouble swallowing or speaking. ; Denies sore throat Cardiovascular Cardiovascular: Denies chest pain Respiratory/Chest Respiratory/Chest: Denies dyspnea Gastrointestinal Gastrointestinal: Denies nausea or vomiting Musculoskeletal Musculoskeletal: Denies neck pain Neurologic Neurologic: Denies headache(s) Endocrine Endocrinology: Reports other Details: Patient is taking her Metformin. No troubles with blood sugar management. ; Denies polydipsia or polyuria Hematologic/Lymphatic Hematologic/Lymphatic: Denies easy bleeding or easy bruising EXAM Physical Exam Const Vital Signs: 05/14/21 09:50 Temperature 98.9 F Temperature Source Temporal Pulse Rate 71 Respiratory Rate 16 Blood Pressure 141/89 H Blood Pressure Mean 106 Pulse Ox 100 Oxygen Delivery Method Room Air Positive well nourished and well developed General Appearance ED: well developed and NAD HEENT HEENT Narrative: Patient has multiple teeth that are eroded down to gum lines diffusely. However, #11 and 12 are more tender and there is some erythema of the gums. There is no sign of drainable abscess. Rest of the mouth shows no lower tooth involvement and no indication of Ludewig's. Voice is normal. Handling secretions is normal. Negative for trauma Eyes EOMs intact bilaterally Neck no lymphadenopathy and supple Chest Wall inspection of chest normal Resp normal respiratory effort and clear to auscultation bilaterally MDM MDM MDM Narrative Medical decision making narrative: Patient will be treated with antibiotics. She has tolerated penicillin before. We will start her on Naprosyn. She will follow up with her dentist as scheduled. Return with worsening pain swelling facial swelling fevers chills rising sugars. Discharge Plan Triage Chief Complaint: Dental ED Provider: Paul Pelayo Dx/Rx/DC Orders Clinical Impression: Dental decay, Abscess, dental Instructions: ED Dental Pain Prescriptions: New penicillin V potassium 500 MG tablet 500 mg PO 4X/DAY Qty: 40 RF: 0 naproxen 500 MG tablet 500 mg PO BID Qty: 14 RF: 0 No Action metformin 500 MG tablet 500 mg PO BID RF: 0 penicillin V potassium 500 mg tablet 500 mg PO 4X/DAY Qty: 40 RF: 0 hydrocodone-acetaminophen 5-325 mg tablet 1 tab PO Q6H PRN (Reason: pain) 3 Days Qty: 10 RF: 0 promethazine 25 mg tablet 25 mg PO TID PRN (Reason: nausea and vomiting) Qty: 20 RF: 0 Primary Care Provider: Natalya Garnica Referrals: Natalya Garnica MD [Primary Care Provider] - Activity Restrictions/Additional Instructions: Follow-up with your dentist as soon as possible. Disposition Disposition: Home, Self Care
== END 2021-05-14 10:43 | disposition home or self-care (01) ==
LOC: ED 10:30
PROVIDERS: Emergency Provider Emergency Medicine; PCP Internal Medicine; Visit Provider Emergency Medicine
DX: K02.9 Dental caries, unspecified (principal); E11.9 Type 2 diabetes mellitus without complications; K04.7 Periapical abscess without sinus; Z79.84 Long term (current) use of oral hypoglycemic drugs; Z87.891 Personal history of nicotine dependence
CPT/HCPCS: 99282

== ENCOUNTER 2021-06-03 13:30 | Emergency (ER) | payer MEDICAID, SELFPAY ==
[2021-06-03 13:32] VITALS: BP 138/101; PULSE 86; RESP 14; TEMP 35.7; O2SAT 100; BMI 31.1
--- NOTE | 2021-06-03 14:04 | ED.VIS.DENTA ---
HPI History of Present Illness Chief Complaint: Dental Informant: patient Onset/Context/Timing Onset: Days (5) Context: Gradual Onset Timing: Continuous Quality: Throbbing Location: Left upper molars Worsened by: Talking, chewing Relieved by: - (Nothing) Associated Symptoms Assocated Symptom - Dental: jaw swelling, cold sensitivity and hot sensitivity; Negative for fever or face swelling Narrative Narrative: Patient with left upper dental pain that has been getting worse over the past 5 days. Patient describes her pain as throbbing. Patient states it has been constant. Patient states it is gradually getting worse. Patient states she is on penicillin but this is not helping. Patient states her pain is worse with any talking or chewing. Patient is concerned that she is developing an abscess in her left upper teeth. Patient thinks there may be some increased swelling to her left upper jaw. Patient admits to hot and cold sensitivity. Patient states she has been unable to see her dentist for this. [facility] Medical History Asthma Diabetes Home Medications metformin 500 mg PO BID 12/12/17 [History Last Taken 02/24/19] amoxicillin-pot clavulanate 875 mg PO Q12H #20 tablet 06/03/21 [Rx Last Taken Unknown] Allergy/AdvReac Type Severity Reaction Status Date / Time oxycodone HCl [From Percocet] Allergy Shortness Verified 06/03/21 13:31 of breath clindamycin AdvReac STOMACH Verified 06/03/21 13:31 UPSET Surgical History History of appendectomy History of bilateral tubal ligation History of section Hx of dilation and curettage Social History household members: children Smoking Status: Former smoker substance use type: does not use ROS ROS ED Constitutional Constitutional ED: Denies chills or fever(s) Eyes Eyes: Denies blurry vision or change in vision ENT ENT ED: Reports sore throat; Denies rhinorrhea Cardiovascular Cardiovascular: Denies chest pain or palpitations Respiratory/Chest Respiratory/Chest: Denies cough or dyspnea Gastrointestinal Gastrointestinal: Denies nausea or vomiting Genitourinary Genitourinary ED: Denies dysuria or hematuria Musculoskeletal Musculoskeletal: Reports neck pain; Denies back pain Integumentary Denies abscess or rash Neurologic Neurologic: Reports headache(s); Denies weakness Allergic/Immunologic Allergic/Immunologic ED: Denies mouth swelling or urticaria EXAM Physical Exam Const Vital Signs: 06/03/21 13:32 Temperature 96.3 F L Temperature Source Temporal Pulse Rate 86 Respiratory Rate 14 Blood Pressure 138/101 H Blood Pressure Mean 113 Pulse Ox 100 Oxygen Delivery Method Room Air Positive well nourished and well developed General Appearance ED: well developed and NAD HEENT HEENT Narrative: There are multiple dental caries over the left upper premolars and molars. There is some gingival edema over this area. There is no abscess formation. There is no fluctuance. There is no discharge or drainage. Oropharynx is clear. Airway is patent. Neck is supple. There is no sublingual edema or erythema. There is no evidence of John Paul's angina. Teeth and Gingiva: caries Neck no lymphadenopathy, supple and no JVD General: Negative for anterior neck swelling or submandibular swelling Resp normal respiratory effort and clear to auscultation bilaterally Cardio regular rate and regular rhythm Neuro oriented x3, CN's II-XII intact bilaterally, moves all extremities, no focal motor deficits and no sensory deficits noted Sensorium / Orientation: alert Psych mental status grossly normal MDM MDM MDM Narrative Medical decision making narrative: Patient was given a dose of Augmentin here. Patient was instructed to stop her penicillin. Patient was given a prescription for Augmentin. Patient was instructed to follow-up with her dentist in 5 to 7 days. Patient was instructed to continue Tylenol and ibuprofen as needed for pain. Patient understood and was agreeable with the plan. All questions were answered. Discharge Plan Triage Chief Complaint: Dental ED Provider: Lazaro Erickson Dx/Rx/DC Orders Clinical Impression: Infected dental caries Instructions: ED Dental Pain, ED Dental Cavity Prescriptions: New amoxicillin-pot clavulanate [amoxicillin-pot clavulanate] 875 MG tablet 875 mg PO Q12H Qty: 20 RF: 0 Discontinued penicillin V potassium 500 mg tablet 500 mg PO 4X/DAY Qty: 40 RF: 0 No Action metformin 500 MG tablet 500 mg PO BID RF: 0 Primary Care Provider: Natalya Garnica Referrals: Natalya Garnica MD [Primary Care Provider] - 5-7 Days Dentist,Your [STAFF PHYSICIAN] - 3-5 Days Activity Restrictions/Additional Instructions: Stop taking the penicillin. Only take the Augmentin. You may continue Tylenol and ibuprofen as needed for pain. Disposition Disposition: Home, Self Care
[2021-06-03] MEDS: Amox/Clavulanate 875 MG Tablet PO (14:23)
[2021-06-03 14:27] VITALS: BP 131/81; PULSE 101; RESP 15; O2SAT 98
== END 2021-06-03 14:30 | disposition home or self-care (01) ==
PROVIDERS: Emergency Provider Emergency Medicine; PCP Internal Medicine; Visit Provider Emergency Medicine
DX: K02.9 Dental caries, unspecified (principal); E11.9 Type 2 diabetes mellitus without complications; Z79.84 Long term (current) use of oral hypoglycemic drugs; Z87.891 Personal history of nicotine dependence
CPT/HCPCS: 99282

== ENCOUNTER 2021-06-26 17:28 | Emergency (ER) | payer MEDICAID, SELFPAY ==
[2021-06-26 17:30] VITALS: BP 174/101; PULSE 81; RESP 17; TEMP 36.4; O2SAT 99; BMI 30.8
--- NOTE | 2021-06-26 17:50 | ED.VIS.DENTA ---
HPI History of Present Illness Chief Complaint: Dental Detail of Chief Complaint: Dental pain Informant: patient Narrative Narrative: Patient presents to the emergency department complaint of dental pain that started 2 days ago. She denies any trauma to her teeth. Patient states that she tried calling her dentist but they are on the inactive list with her [employer] insurance. Patient denies any fevers or chills or sweats. Patient is a diabetic. Prior similar symptoms: Yes PFSH PFSH Medical History Asthma Diabetes Home Medications amoxicillin 500 mg PO TID #30 tab 06/26/21 [Rx Last Taken Unknown] hydrocodone-acetaminophen 1 tab PO Q4H PRN PRN 2 Days #10 tablet 06/26/21 [Rx Last Taken Unknown] Allergy/AdvReac Type Severity Reaction Status Date / Time oxycodone HCl [From Percocet] Allergy Shortness Verified 06/26/21 17:32 of breath clindamycin AdvReac STOMACH Verified 06/26/21 17:32 UPSET Surgical History History of appendectomy History of bilateral tubal ligation History of section Hx of dilation and curettage Social History household members: children Smoking Status: Former smoker substance use type: does not use ROS ROS ED Constitutional Constitutional ED: Reports systems reviewed and no addt'l complaints, except as documented; Denies body ache(s), change in weight or chills Eyes Eyes: Denies acute decrease in peripheral vision, change in vision, double vision or loss of vision ENT ENT ED: Reports none and other Details: Dental pain ; Denies ear pain, lip swelling, loss taste/smell, neck pain, otalgia or sore throat Cardiovascular Cardiovascular: Reports none; Denies abdominal pain, chest pain with activity, leg edema, lightheadedness, palpitations, rapid heart rate or syncope Respiratory/Chest Respiratory/Chest: Reports none; Denies change in mental status, dry cough, dyspnea, hemoptysis, shortness of breath at rest or shortness of breath with exertion Gastrointestinal Gastrointestinal: Reports none; Denies abdominal pain, change in stool character, diarrhea, hematemesis, hematochezia, melena, rectal bleeding or vomiting Genitourinary Genitourinary ED: Reports none; Denies abdominal discomfort, anuria, dysuria, genital pain or polyuria Musculoskeletal Musculoskeletal: Reports none; Denies arthralgias, back pain, difficulty walking, extremity pain, muscle weakness or myalgias Integumentary Reports none; Denies abscess or rash Neurologic Neurologic: Reports none; Denies abnormal gait, confusion, focal weakness, frequent falls, headache(s), loss of vision, numbness, paresthesias, radicular pain, vertigo or weakness Psychiatric Psychiatric: Reports systems reviewed and no addt'l complaints, except as documented and none; Denies behavioral changes, confusion, difficulty concentrating, hallucinations, suicidal ideation, tactile hallucinations or visual hallucinations Endocrine Endocrinology: Denies none, cold intolerance, excessive sweating, fatigue or heat intolerance Hematologic/Lymphatic Hematologic/Lymphatic: Reports none; Denies anemia, easy bleeding or easy bruising Allergic/Immunologic Allergic/Immunologic ED: Denies as per HPI, none, lip swelling, mouth swelling, throat swelling, tongue swelling or hives EXAM Physical Exam Const Vital Signs: 06/26/21 17:30 Temperature 97.6 F L Temperature Source Temporal Pulse Rate 81 Respiratory Rate 17 Blood Pressure 174/101 H Blood Pressure Mean 125 Pulse Ox 99 Oxygen Delivery Method Room Air Positive well nourished and well developed General Appearance ED: well developed and NAD HEENT Reports TM's clear and moist mucous membranes HEENT Narrative: Dentition-patient has multiple broken and carried teeth left upper maxilla teeth numbers 11, 12, and 13. There is no gingival erythema or abscess noted. Patient also has a broken and carried left lower molar #17 is also tender to palpation. normocephalic and atraumatic; Negative for trauma or tenderness Tympanic Membrane ED: Yes TM's clear Eyes PERRL and EOMs intact bilaterally General Eye ED: Negative for pale conjunctiva or scleral icterus Neck no lymphadenopathy, supple and no JVD General: Negative for tenderness Chest Wall inspection of chest normal and palpation of chest normal Chest: Negative for tenderness Resp normal respiratory effort and clear to auscultation bilaterally Effort and Inspection: Negative for respiratory distress or pain with movement Auscultation: Negative for rhonchi, wheezes or diminished lung sounds Cardio regular rate, regular rhythm, S1 normal heart sound, S2 normal heart sound and no murmurs Peripheral Pulses: pulses 2+ throughout GI normal to inspection, nondistended, normoactive bowel sounds, soft to palpation, non-tender, non-distended and no masses Back/Spine no CVA tenderness and no thoracic nor lumbar tenderness Extremity normal to inspection General Extremety ED: Negative for edema General Extremity: Negative for edema Neuro oriented x3, CN's II-XII intact bilaterally, no sensory deficits noted and gait normal Sensorium / Orientation: awake, alert, oriented to person, oriented to place and oriented to time Motor Exam: strength 5/5 throughout and strength abnormal Psych mental status grossly normal Skin no rashes or lesions noted and no wounds MDM MDM MDM Narrative Medical decision making narrative: Patient has no evidence of abscess at this time. She is allergic to clindamycin therefore I will start her on amoxicillin. Patient given a prescription for few [place] for pain. Patient advised to follow-up with a dentist. Discharge Plan Triage Chief Complaint: Dental ED Provider: Kayla Penaloza Dx/Rx/DC Orders Clinical Impression: Pain, dental Instructions: ED Dental Pain Prescriptions: New hydrocodone-acetaminophen [hydrocodone-acetaminophen] 1 TABLET tablet 1 tab PO Q4H PRN PRN (Reason: Pain) 2 Days Qty: 10 RF: 0 amoxicillin 500 MG tablet 500 mg PO TID Qty: 30 RF: 0 Primary Care Provider: Natalya Garnica Referrals: Natalya Garnica MD [Primary Care Provider] - Activity Restrictions/Additional Instructions: See a dentist at the earliest possible time Disposition Disposition: Home, Self Care
== END 2021-06-26 17:56 | disposition home or self-care (01) ==
PROVIDERS: Emergency Provider Emergency Medicine; PCP Internal Medicine; Visit Provider Emergency Medicine
DX: K08.89 Other specified disorders of teeth and supporting structures (principal); Z87.891 Personal history of nicotine dependence
CPT/HCPCS: 99282

== ENCOUNTER 2021-07-21 10:40 | Emergency (ER) | payer MEDICAID, SELFPAY ==
[2021-07-21 10:41] VITALS: BP 118/97; PULSE 112; RESP 18; TEMP 36.7; O2SAT 97; BMI 29.5
--- NOTE | 2021-07-21 11:23 | EX.ED.DYSGE1 ---
HPI History of Present Illness Chief Complaint: General Illness Informant: patient Narrative Narrative: Patient is a 31-year-old female with history of type 2 diabetes mellitus on metformin, presenting with myalgias. Patient states she has been having worsening body aches and headache since yesterday. She notes a decreased appetite and intake. She denies any fever. States that aches are worse in her legs and her lower back. Denies any urinary symptoms. Is currently on her menstrual cycle. Denies any GI symptoms. Denies any sick contacts. Denies any neck stiffness, sore throat, nasal congestion or ear pain. Has taken Motrin at home. Last had a dose in the middle of the night last night. [facility] Medical History Asthma Diabetes Home Medications cephalexin 500 mg PO Q12 #14 cap 07/21/21 [Rx Last Taken Unknown] metformin 1,000 mg PO BID 07/21/21 [History Last Taken Unknown] Allergy/AdvReac Type Severity Reaction Status Date / Time oxycodone HCl [From Percocet] Allergy Shortness Verified 07/21/21 10:43 of breath clindamycin AdvReac STOMACH Verified 07/21/21 10:43 UPSET Surgical History History of appendectomy History of bilateral tubal ligation History of section Hx of dilation and curettage Social History household members: children Smoking Status: Former smoker substance use type: does not use ROS ROS ED Constitutional Constitutional ED: Denies chills or fever(s) Eyes Eyes: Denies blurry vision or change in vision ENT ENT ED: Denies ear pain, rhinorrhea or sore throat Cardiovascular Cardiovascular: Denies chest pain Respiratory/Chest Respiratory/Chest: Denies cough or dyspnea Gastrointestinal Gastrointestinal: Denies abdominal pain, diarrhea, nausea or vomiting Genitourinary Genitourinary ED: Reports other Details: Currently on her menstrual cycle ; Denies dysuria, hematuria or urinary frequency Musculoskeletal Musculoskeletal: Reports back pain and myalgias; Denies arthralgias or neck pain Integumentary Denies rash Neurologic Neurologic: Reports headache(s); Denies paresthesias or weakness Psychiatric Psychiatric: Denies anxiety or depression EXAM Physical Exam Const Vital Signs: 07/21/21 10:41 07/21/21 11:08 07/21/21 14:10 Temperature 98.1 F Temperature Source Temporal Pulse Rate 112 H 88 Respiratory Rate 18 16 Respiratory Effort Normal Respiratory Pattern Normal Blood Pressure 118/97 H 120/78 Blood Pressure Mean 104 Pulse Ox 97 99 Oxygen Delivery Method Room Air Positive well nourished and well developed General Appearance ED: well developed and NAD HEENT Reports moist mucous membranes HEENT Narrative: Normal nasal mucosa Negative for tenderness Eyes PERRL and EOMs intact bilaterally Neck supple Neck Narrative: No meningeal signs General: Negative for tenderness Chest Wall inspection of chest normal Resp normal respiratory effort and clear to auscultation bilaterally Cardio regular rate, regular rhythm and no murmurs GI normal to inspection, nondistended, normoactive bowel sounds and non-tender Palpation: soft Back/Spine no CVA tenderness Extremity normal to inspection General Extremety ED: Negative for edema or tenderness General Extremity: Negative for edema Neuro oriented x3 and CN's II-XII intact bilaterally Sensorium / Orientation: alert Motor Exam: Negative for general weakness Psych mental status grossly normal Mood & Affect: tearful Skin no rashes or lesions noted and no wounds MDM MDM MDM Narrative Medical decision making narrative: Patient evaluated for generalized myalgias and malaise. She appears nontoxic but like she does not feel good. Denies any localized symptoms. Admits to be noncompliant with her metformin. She lab work remarkable for hyperglycemia with normal anion gap. Bicarb is normal. CK is obtained because of her diffuse myalgias which is normal. Urinalysis is consistent with infection with positive nitrates, 500 leukocyte esterase, 25-50 white blood cells and 3+ bacteria. She does not have any significant CVA tenderness or suprapubic tenderness and does not have a leukocytosis so we will treat this as an uncomplicated UTI. Patient is given IV fluids in the ER and started on Keflex. She will be discharged home. Flu and COVID swab were negative. Patient encouraged to start taking her metformin again. Discharged to follow-up with PCP. Lab Data Attestation: I reviewed the patient's lab results. Labs: Laboratory Results - last 24 hr 07/21/21 07/21/21 07/21/21 11:20 11:20 12:19 WBC 8.0 RBC 4.91 Hgb 14.1 Hct 39.5 MCV 80.4 L MCH 28.7 MCHC 35.7 RDW Std Deviation 33.9 L RDW Coeff of Migel 11.8 Plt Count 200 MPV 11.4 Immature Gran % (Auto) 0.300 Neut % (Auto) 70.4 H Lymph % (Auto) 19.2 [place] % (Auto) 9.3 Eos % (Auto) 0.4 Baso % (Auto) 0.4 Absolute Neuts (auto) 5.6 Absolute Lymphs (auto) 1.53 Nucleated RBC % 0 Sodium 136 Potassium 3.7 Chloride 105 Carbon Dioxide 26.0 Anion Gap 5 BUN 6 L Creatinine 0.78 Estim Creat Clear Calc 109.21 Est GFR (MDRD) Af Amer 111 Est GFR (MDRD) Non-Af 92 BUN/Creatinine Ratio 7.7 L Glucose 290 H Calcium 8.7 Total Creatine Kinase 33 Urine Color Yellow Urine Clarity Sl. Cloudy Urine pH 6.5 Ur Specific [place] 1.010 Urine Protein 15 H Urine Glucose (UA) 1000 H Urine Ketones 15 H Urine Occult Blood 25 H Urine Nitrite Positive H Urine Bilirubin Negative Urine Urobilinogen 4 H Ur Leukocyte Esterase 500 H Urine RBC 0 SEEN Urine WBC 25-50 SEEN Ur Squamous Epith Cells 0 SEEN Urine Bacteria 3+ Urine Mucus 0 SEEN Discharge Plan Triage Chief Complaint: General Illness ED Provider: Ashwini Rome Dx/Rx/DC Orders Clinical Impression: UTI (urinary tract infection), Hyperglycemia, Myalgia Instructions: ED Diabetic Hyperglycemia, ED Myalgias, ED CYSTITIS Female Adult Prescriptions: New cephalexin 500 mg capsule 500 mg PO Q12 Qty: 14 RF: 0 No Action metformin 500 mg tablet extended release 24 hr 1,000 mg PO BID RF: 0 Primary Care Provider: Natalya Garnica Referrals: Natalya Garnica MD [Primary Care Provider] - Activity Restrictions/Additional Instructions: You appear to have a urinary tract infection. Drink lots of fluids. Please start taking your metformin again to help with your high blood sugar. Disposition Disposition: Home, Self Care Discharge Date/Time: 07/21/21 14:11
[2021-07-21 11:29] LABS: Absolute Lymphocyte Count 1.53 X10^3/uL (0.83-4.51); Absolute Neutrophil Count 5.6 X10^3/uL (2.0-7.7); Basophil# 0.03 X10^3/uL; Basophil% 0.4 % (0-1); Eosinophil# 0.03 X10^3/uL; Eosinophils% 0.4 % (0-5); Hematocrit 39.5 % (37-47); Hemoglobin 14.1 g/dL (12.0-15.0); Lymphocyte # 1.53 X10^3/ul (0.83-4.51); Lymphocyte % 19.2 % (19-41); Mean Corp Hgb Conc 35.7 g/dL (32-36); Mean Corpuscular Hgb 28.7 pg (27.0-32.0); Mean Corpuscular Volume 80.4 fL (81-99); Mean Platelet Vol. 11.4 fl (6.2-12.0); Monocyte# 0.74 X10^3/uL; Monocyte% 9.3 % (0-10); NRBC Flagged by Analyzer 0 % (0-5); Neutrophil # 5.61 X10^3/uL (2.7-7.7); Neutrophil % 70.4 % (47-70); Platelet Count 200 K/mm3 (150-450); RBC Distribution Width CV 11.8 % (11.6-14.6); RBC Distribution Width SD 33.9 fl (35.1-43.9); Red Blood Count 4.91 M/mm3 (4.2-5.4)
[2021-07-21] MEDS: 0.9% Normal Saline 1,000 ML 999 ML IV (11:41)
[2021-07-21] MEDS: Ketorolac 15 MG/ML Vial IV (11:41)
[2021-07-21 11:46] LABS: Anion Gap 5 (5-15); BUN 6 mg/dL (7-18); BUN/Creat Ratio 7.7 RATIO (10-20); CPK Total, Creatine Kinase 33 U/L (26-192); Calcium,Total 8.7 mg/dL (8.5-10.1); Chloride 105 mmol/L (98-107); Creatinine, Serum 0.78 mg/dL (0.55-1.02); EST Glomerular Filtration Rate 92 mL/min (>60); Est Glom Filt Rate - Afr Amer 111 mL/min (>60); Estimated Creatinine Clearance 109.21 ml/min; Glucose 290 mg/dL (74-106); Potassium 3.7 mmol/L (3.5-5.1); Sodium Level 136 mmol/L (136-145)
[2021-07-21 12:29] LABS: Mucous, Urine 0 SEEN /hpf (<or=2+); Red Blood Cells-Urine 0 SEEN /hpf (0-5); Squamous Epithelial Cells - UA 0 SEEN /hpf (5-10)
[2021-07-21 12:30] LABS: Color, Urine Yellow (Yellow); Glucose, Dipstick 1000 mg/dl (Normal); Ketone-Dipstick 15 mg/dl (Negative); Leukocyte Esterase-Dipstick 500 /ul (Negative); Nitrite-Dipstick Positive (Negative); Occult Blood-Urine 25 /ul (Negative); Protein-Dipstick 15 mg/dl (Negative); Urine Bilirubin Dipstick Negative (Negative); Urine Clarity Sl. Cloudy (Clear); Urine Urobilinogen 4 mg/dl (Normal); Urine pH 6.5 (5.0 - 8.0)
[2021-07-21 12:36] LABS: Bacteria 3+ /hpf (None Seen); White Blood Cells 25-50 SEEN /hpf (0-5)
[2021-07-21] MEDS: Cephalexin 250 MG Capsule 500 MG PO (13:30)
[2021-07-21 14:10] VITALS: BP 120/78; PULSE 88; RESP 16; O2SAT 99
== END 2021-07-21 14:11 | disposition home or self-care (01) ==
PROVIDERS: Emergency Provider Emergency Medicine; PCP Internal Medicine; Visit Provider Emergency Medicine
DX: N39.0 Urinary tract infection, site not specified (principal); E11.65 Type 2 diabetes mellitus with hyperglycemia; M79.10 Myalgia, unspecified site; Z91.14 Patient's other noncompliance with medication regimen; Z79.84 Long term (current) use of oral hypoglycemic drugs; Z87.891 Personal history of nicotine dependence
CPT/HCPCS: 80048; 81001; 82550; 85025; 87077; 87086; 87088; 87186; 87428; 96361; 96374; 99284; A4216

== ENCOUNTER 2021-07-23 21:16 | Emergency (ER) | payer MEDICAID, SELFPAY ==
[2021-07-23 21:17] VITALS: BP 140/99; PULSE 91; RESP 16; TEMP 36.9; O2SAT 99; BMI 30.8
[2021-07-23 21:39] LABS: Bacteria 0 SEEN /hpf (None Seen); Mucous, Urine 0 SEEN /hpf (<or=2+); Red Blood Cells-Urine 0 SEEN /hpf (0-5)
--- NOTE | 2021-07-23 21:44 | EX.ED.DYSGE1 ---
HPI History of Present Illness Chief Complaint: Complaint Detail of Chief Complaint: Persistent urinary tract infection with shaking chills and right flank pain Informant: patient Onset/Context/Timing Onset: Days Context: Sudden Onset Timing: Continuous Quality: Patient was seen on July 21 for hyperglycemia and diagnosed with urinary trac Location: and endocrine Current Severity: Moderate Maximum Severity: Severe Worsened by: Movement Relieved by: Nothing Associated Symptoms Associated Symptoms: Nausea and shaking chills and sweats at night Narrative Narrative: Nose withPatient is a 31-year-old type II diabetic who was seen on July 21 for elevated blood sugar and urinary tract infection. Patient was prescribed cephalexin. Urine culture was sent. Urine culture was positive for Klebsiella. Patient reports shaking chills at night with night sweats. She does not feel well. She now complains of right flank pain. She denies visual disturbance. She denies polyuria, polydipsia. She denies abdominal discomfort. Prior similar symptoms: Yes Recent Illness/Hospitalization: Yes PFSH PFSH Medical History Asthma Diabetes Home Medications cephalexin 500 mg PO Q12 #14 cap 07/21/21 [Rx Last Taken Unknown] metformin 1,000 mg PO BID 07/21/21 [History Last Taken Unknown] ciprofloxacin HCl 500 mg PO BID #14 tablet 07/23/21 [Rx Last Taken Unknown] hydrocodone-acetaminophen 1 tab PO Q6H PRN PRN 3 Days #10 tablet 07/23/21 [Rx Last Taken Unknown] Allergy/AdvReac Type Severity Reaction Status Date / Time oxycodone HCl [From Percocet] Allergy Shortness Verified 07/23/21 21:19 of breath clindamycin AdvReac STOMACH Verified 07/23/21 21:19 UPSET Surgical History History of appendectomy History of bilateral tubal ligation History of section Hx of dilation and curettage Social History household members: children Smoking Status: Former smoker substance use type: does not use ROS ROS ED Constitutional Constitutional ED: Reports chills, fever(s), subjective and sweats; Denies weight loss Eyes Eyes: Denies blurry vision, change in vision or diplopia ENT ENT ED: Denies ear pain, rhinorrhea or sore throat Cardiovascular Cardiovascular: Denies chest pain or palpitations Respiratory/Chest Respiratory/Chest: Denies cough, dyspnea or dyspnea on exertion Gastrointestinal Gastrointestinal: Reports abdominal pain and nausea; Denies constipation, diarrhea, melena or vomiting Genitourinary Genitourinary ED: Reports dysuria and urinary frequency Musculoskeletal Musculoskeletal: Denies arthralgias, back pain, myalgias or neck pain Integumentary Denies rash Neurologic Neurologic: Denies headache(s) or weakness Psychiatric Psychiatric: Denies anxiety or depression Endocrine Endocrinology: Denies polydipsia, polyphagia or polyuria EXAM Physical Exam Const Vital Signs: 07/23/21 21:17 Temperature 98.4 F Temperature Source Temporal Pulse Rate 91 Respiratory Rate 16 Blood Pressure 140/99 H Blood Pressure Mean 112 Pulse Ox 99 Oxygen Delivery Method Room Air Positive well nourished, well developed and obese General Appearance ED: well developed and other Patient appears ill but not toxic. ; Negative for cyanotic, diaphoretic, NAD or pallor Nutritional Appearance: obese HEENT Reports moist mucous membranes Negative for trauma or tenderness Eyes PERRL and EOMs intact bilaterally General Eye ED: Negative for pale conjunctiva or scleral icterus Neck no lymphadenopathy, supple and no JVD Resp normal respiratory effort and clear to auscultation bilaterally Cardio regular rate, regular rhythm, S1 normal heart sound, S2 normal heart sound and no murmurs GI non-distended and no masses; Negative for non-tender or hepatosplenomegaly Auscultation: hypoactive bowel sounds Palpation: soft and tender suprapubic; Negative for guarding or rebound tenderness present Back/Spine General Back: CVA tenderness right Thoracic Spine / Upper Back: Negative for thoracic spinal tenderness or paraspinal muscle tenderness Extremity normal to inspection General Extremety ED: Negative for edema or tenderness General Extremity: Negative for edema Neuro oriented x3, CN's II-XII intact bilaterally and no sensory deficits noted Sensorium / Orientation: alert Motor Exam: strength 5/5 throughout Skin no rashes or lesions noted, no wounds and skin turgor normal General Skin Exam: Negative for jaundice or pallor MDM MDM MDM Narrative Medical decision making narrative: With recent urinary tract infection on antibiotics and now complaining of subjective fever with chills and flank pain and clinically she does have CVA tenderness on the left concerned she has failed outpatient therapy and has developed pyelonephritis. Blood work was obtained. She was treated with Rocephin. Urine was was repeated to assess for glucose and ketones and dysuria patient still has pyuria and bacteria. Blood sugar is 401 with a normal CO2 and anion gap. 5 units of insulin was administered by nurse. Her pain was treated with [place]. She states she had [place] in the past. Antibiotic was changed to ciprofloxacin 500 mg twice daily for 7 days. This was based on sensitivity results. Lab Data Attestation: I reviewed the patient's lab results. Lab results narrative: White count is unremarkable. UA is remarkable for glucose only. Labs: Laboratory Results - last 24 hr 07/23/21 07/23/21 07/23/21 21:30 21:40 21:40 WBC 6.2 RBC 4.59 Hgb 13.3 Hct 37.5 MCV 81.7 MCH 29.0 MCHC 35.5 RDW Std Deviation 34.8 L RDW Coeff of Migel 11.9 Plt Count 239 MPV 11.5 Immature Gran % (Auto) 0.300 Neut % (Auto) 49.2 Lymph % (Auto) 40.7 [place] % (Auto) 7.5 Eos % (Auto) 1.5 Baso % (Auto) 0.8 Absolute Neuts (auto) 3.0 Absolute Lymphs (auto) 2.50 Nucleated RBC % 0 Sodium 134 L Potassium 3.9 Chloride 101 Carbon Dioxide 30.0 Anion Gap 3 L BUN 12 Creatinine 0.87 Estim Creat Clear Calc 97.92 Est GFR (MDRD) Af Amer 97 Est GFR (MDRD) Non-Af 80 BUN/Creatinine Ratio 13.7 Glucose 401 H Calcium 9.2 Urine Color Yellow Urine Clarity Clear Urine pH 6.0 Ur Specific [place] 1.010 Urine Protein Negative Urine Glucose (UA) 1000 H Urine Ketones Negative Urine Occult Blood Negative Urine Nitrite Negative Urine Bilirubin Negative Urine Urobilinogen Normal Ur Leukocyte Esterase Negative Urine RBC 0 SEEN Urine WBC 0-5 SEEN Ur Squamous Epith Cells 0-5 SEEN Urine Bacteria 0 SEEN Urine Mucus 0 SEEN Discharge Plan Triage Chief Complaint: Complaint ED Provider: Roger Mulligan Dx/Rx/DC Orders Clinical Impression: Pyelonephritis of right kidney, Hyperglycemia due to type 2 diabetes mellitus Instructions: ED Diabetic Hyperglycemia, ED Pyelonephritis, Female (Adult) Prescriptions: New ciprofloxacin HCl [ciprofloxacin HCl] 500 MG tablet 500 mg PO BID Qty: 14 RF: 0 hydrocodone-acetaminophen [hydrocodone-acetaminophen] 1 TABLET tablet 1 tab PO Q6H PRN PRN (Reason: Pain) 3 Days Qty: 10 RF: 0 No Action metformin 500 mg tablet extended release 24 hr 1,000 mg PO BID RF: 0 cephalexin 500 mg capsule 500 mg PO Q12 Qty: 14 RF: 0 Primary Care Provider: Natalya Garnica Referrals: Natalya Garnica MD [Primary Care Provider] - 3-5 Days Activity Restrictions/Additional Instructions: Discontinue taking the cephalexin. You were prescribed ciprofloxacin. The organism that grew is resistant to the cephalexin. Disposition Disposition: Home, Self Care
[2021-07-23 21:48] LABS: Basophil# 0.05 X10^3/uL; Basophil% 0.8 % (0-1); Eosinophil# 0.09 X10^3/uL; Eosinophils% 1.5 % (0-5); Hematocrit 37.5 % (37-47); Hemoglobin 13.3 g/dL (12.0-15.0); Lymphocyte % 40.7 % (19-41); Mean Corp Hgb Conc 35.5 g/dL (32-36); Mean Corpuscular Volume 81.7 fL (81-99); Mean Platelet Vol. 11.5 fl (6.2-12.0); Monocyte# 0.46 X10^3/uL; Monocyte% 7.5 % (0-10); NRBC Flagged by Analyzer 0 % (0-5); Neutrophil # 3.03 X10^3/uL (2.7-7.7); Neutrophil % 49.2 % (47-70); Platelet Count 239 K/mm3 (150-450); RBC Distribution Width CV 11.9 % (11.6-14.6); RBC Distribution Width SD 34.8 fl (35.1-43.9); Red Blood Count 4.59 M/mm3 (4.2-5.4); White Blood Count 6.2 K/mm3 (4.4-11.0)
[2021-07-23 21:48] LABS: Color, Urine Yellow (Yellow); Glucose, Dipstick 1000 mg/dl (Normal); Ketone-Dipstick Negative (Negative); Leukocyte Esterase-Dipstick Negative /ul (Negative); Nitrite-Dipstick Negative (Negative); Occult Blood-Urine Negative /ul (Negative); Protein-Dipstick Negative (Negative); Urine Bilirubin Dipstick Negative (Negative); Urine Clarity Clear (Clear); Urine Urobilinogen Normal (Normal)
[2021-07-23 21:54] LABS: Squamous Epithelial Cells - UA 0-5 SEEN /hpf (5-10); White Blood Cells 0-5 SEEN /hpf (0-5)
[2021-07-23 22:01] LABS: Anion Gap 3 (5-15); BUN 12 mg/dL (7-18); BUN/Creat Ratio 13.7 RATIO (10-20); Calcium,Total 9.2 mg/dL (8.5-10.1); Chloride 101 mmol/L (98-107); Creatinine, Serum 0.87 mg/dL (0.55-1.02); EST Glomerular Filtration Rate 80 mL/min (>60); Est Glom Filt Rate - Afr Amer 97 mL/min (>60); Estimated Creatinine Clearance 97.92 ml/min; Glucose 401 mg/dL (74-106); Potassium 3.9 mmol/L (3.5-5.1); Sodium Level 134 mmol/L (136-145)
[2021-07-23] MEDS: Insulin Lispro 100 UNIT/ML INSULN.PEN SC (22:20)
[2021-07-23] MEDS: HYDROcodone Bitartrate/Apap 5/325 Tablet PO (22:20)
== END 2021-07-23 22:26 | disposition home or self-care (01) ==
PROVIDERS: Emergency Provider Emergency Medicine; PCP Internal Medicine; Visit Provider Emergency Medicine
DX: N12 Tubulo-interstitial nephritis, not specified as acute or chronic (principal); E11.65 Type 2 diabetes mellitus with hyperglycemia; B96.1 Klebsiella pneumoniae [K. pneumoniae] as the cause of diseases classified elsewhere; E66.9 Obesity, unspecified; Z68.30 Body mass index [BMI] 30.0-30.9, adult; Z79.84 Long term (current) use of oral hypoglycemic drugs; Z87.891 Personal history of nicotine dependence
CPT/HCPCS: 80048; 81001; 85025; 96365; 99283; J7050; A4216; J0696

== ENCOUNTER 2021-09-10 16:52 | Emergency (ER) | payer MEDICAID, SELFPAY ==
[2021-09-10 16:53] VITALS: BP 161/102; PULSE 101; RESP 14; TEMP 36.7; O2SAT 98; BMI 30.7
--- NOTE | 2021-09-10 17:22 | ED.VIS.DENTA ---
HPI History of Present Illness Chief Complaint: Dental Informant: patient Onset/Context/Timing Onset: Days Context: Gradual Onset Current Severity: Moderate Maximum Severity: Moderate Narrative Narrative: Patient presents secondary to dental pain. She reports being on Pen-Vee K for the last 6 days or so. In spite of this she is having continued pain across the upper teeth anteriorly. She has multiple teeth broken and decayed. She has a dentist appointment next week. [facility] Medical History Asthma Diabetes Home Medications cephalexin 500 mg capsule 500 mg PO Q12 #14 caps 07/21/21 [Rx Last Taken Unknown] metformin 500 mg tablet,extended release 24 hr 1,000 mg PO BID 07/21/21 [History Last Taken Unknown] ciprofloxacin HCl 500 mg tablet 500 mg PO BID #14 TABLETS 07/23/21 [Rx Last Taken Unknown] hydrocodone-acetaminophen 5-325mg 5mg-325mg 1 tab PO Q6H PRN PRN Pain 3 days #10 TABLETS 07/23/21 [Rx Last Taken Unknown] amoxicillin 875 mg-potassium clavulanate 125 mg tablet 1 tab PO BID #20 tabs 09/10/21 [Rx Last Taken Unknown] Allergy/AdvReac Type Severity Reaction Status Date / Time oxycodone HCl [From Percocet] Allergy Shortness Verified 09/10/21 16:53 of breath clindamycin AdvReac STOMACH Verified 09/10/21 16:53 UPSET Surgical History History of appendectomy History of bilateral tubal ligation History of section Hx of dilation and curettage Social History household members: children Smoking Status: Current every day smoker tobacco type: cigarettes substance use type: does not use ROS ROS ED Constitutional Constitutional ED: Denies chills or fever(s) Eyes Eyes: Denies change in vision or discharge from eye(s) ENT ENT ED: Reports sore throat and other Details: Dental pain ; Denies discharge from eye(s) or rhinorrhea Cardiovascular Cardiovascular: Denies chest pain or palpitations Respiratory/Chest Respiratory/Chest: Denies cough or dyspnea Gastrointestinal Gastrointestinal: Denies abdominal pain, diarrhea, nausea or vomiting Genitourinary Genitourinary ED: Denies difficulty urinating or dysuria Musculoskeletal Musculoskeletal: Denies back pain or extremity pain Integumentary Denies Abrasions or rash Neurologic Neurologic: Reports headache(s); Denies weakness Psychiatric Psychiatric: Denies anxiety or depression Allergic/Immunologic Allergic/Immunologic ED: Denies lip swelling or urticaria EXAM Physical Exam Const Vital Signs: 09/10/21 16:53 Temperature 98.1 F Temperature Source Temporal Pulse Rate 101 H Respiratory Rate 14 Blood Pressure 161/102 H Blood Pressure Mean 121 Pulse Ox 98 Oxygen Delivery Method Room Air Positive well nourished and well developed General Appearance ED: well developed HEENT HEENT Narrative: Patient has multiple teeth broken at the gumline on the left upper surface with mild surrounding gum edema. There are a few teeth on the right upper surface that are fractured and tender. There is no trismus. Posterior pharynx exam is normal. Eyes PERRL and EOMs intact bilaterally Neck no lymphadenopathy Chest Wall inspection of chest normal and palpation of chest normal Resp normal respiratory effort, no retractions and clear to auscultation bilaterally Cardio regular rate, regular rhythm and no murmurs GI non-tender Palpation: soft Extremity normal to inspection Neuro oriented x3 and moves all extremities Psych mental status grossly normal Skin no rashes or lesions noted MDM MDM Treatment and Re-Evaluation Narrative: Patient be changed from Pen-Vee K to Augmentin which is worked better for her in the past. I will give her a single dose of [place] here for pain, but then she can continue Tylenol or ibuprofen at home for pain. She is to follow-up with her dentist next week as scheduled. Discharge Plan Triage Chief Complaint: Dental ED Provider: Anastasiia Childs Dx/Rx/DC Orders Clinical Impression: Odontalgia Instructions: ED Dental Pain Prescriptions: New amoxicillin-pot clavulanate 875-125 mg tablet 1 tab PO BID Qty: 20 0RF No Action metformin 500 mg tablet extended release 24 hr 1,000 mg PO BID Label Comments: Take 2 tablets by mouth twice daily. cephalexin 500 mg capsule 500 mg PO Q12 Qty: 14 0RF ciprofloxacin HCl [ciprofloxacin HCl] 500 MG tablet 500 mg PO BID Qty: 14 0RF hydrocodone-acetaminophen [hydrocodone-acetaminophen] 1 TABLET tablet 1 tab PO Q6H PRN PRN (Reason: Pain) 3 Days Qty: 10 0RF Primary Care Provider: Natalya Garnica Referrals: Natalya Garnica MD [Primary Care Provider] - Activity Restrictions/Additional Instructions: Follow-up with your dentist next week as scheduled. Disposition Disposition: Home, Self Care
[2021-09-10] MEDS: Amox/Clavulanate 875 MG Tablet PO (17:26)
[2021-09-10] MEDS: HYDROcodone Bitartrate/Apap 5/325 Tablet PO (17:26)
== END 2021-09-10 17:29 | disposition home or self-care (01) ==
PROVIDERS: Emergency Provider Emergency Medicine; PCP Internal Medicine; Visit Provider Emergency Medicine
DX: K08.89 Other specified disorders of teeth and supporting structures (principal); E11.9 Type 2 diabetes mellitus without complications; F17.210 Nicotine dependence, cigarettes, uncomplicated; Z79.84 Long term (current) use of oral hypoglycemic drugs
CPT/HCPCS: 99283

== ENCOUNTER 2021-11-17 18:27 | Emergency (ER) | payer MEDICAID, SELFPAY ==
[2021-11-17 18:28] VITALS: BP 147/100; PULSE 94; RESP 16; TEMP 36.3; O2SAT 98; BMI 30.7
[2021-11-17 18:29] VITALS: BP 147/100; PULSE 94; RESP 16; TEMP 36.3; O2SAT 98
--- NOTE | 2021-11-17 19:28 | ED.VIS.DENTA ---
HPI History of Present Illness Chief Complaint: Dental Narrative Narrative: Patient states she is had long standing problems with dental pain. She presents to the emergency department because of pain in her right lower jaw from a broken tooth. She denies any fevers or chills. No nausea or vomiting. Of note, she states that she was post to have other teeth removed by her dentist on December 02. She filled a prescription 3 days ago for penicillin that she began taking because of the pain in her right lower jaw. She denies any jaw swelling. She is a smoker. She presents because of continued pain from the broken tooth that has been longstanding for weeks to months. [facility] Medical History Asthma Diabetes Home Medications cephalexin 500 mg capsule 500 mg PO Q12 #14 caps 07/21/21 [Rx Last Taken Unknown] metformin 500 mg tablet,extended release 24 hr 1,000 mg PO BID 07/21/21 [History Last Taken Unknown] ciprofloxacin HCl 500 mg tablet 500 mg PO BID #14 TABLETS 07/23/21 [Rx Last Taken Unknown] hydrocodone-acetaminophen 5-325mg 5mg-325mg 1 tab PO Q6H PRN PRN Pain 3 days #10 TABLETS 07/23/21 [Rx Last Taken Unknown] amoxicillin 875 mg-potassium clavulanate 125 mg tablet 1 tab PO BID #20 tabs 09/10/21 [Rx Last Taken Unknown] ibuprofen 800 mg tablet 800 mg PO Q8H PRN pain #30 tabs 11/17/21 [Rx Last Taken Unknown] penicillin V potassium 500 mg tablet 500 mg PO 4X/DAY #40 tabs 11/17/21 [Rx Last Taken Unknown] Allergy/AdvReac Type Severity Reaction Status Date / Time oxycodone HCl [From Percocet] Allergy Shortness Verified 11/17/21 18:28 of breath clindamycin AdvReac STOMACH Verified 11/17/21 18:28 UPSET Surgical History History of appendectomy History of bilateral tubal ligation History of section Hx of dilation and curettage Social History household members: children Smoking Status: Current every day smoker tobacco type: cigarettes substance use type: does not use ROS ROS ED ROS Narrative Constitutional: No fever, no chills. HEENT: No sore throat. No neck pain. No loss of vision. No rhinorrhea. Dental pain, pain in right lower jaw. Cardiovascular: No chest pain. No palpitations. No pedal edema. Respiratory: No cough, no shortness of breath. Abdominal: No abdominal pain. No nausea. No vomiting. Genitourinary: No dysuria. No hematuria. Musculoskeletal: No myalgias. No arthralgias. Neurologic: No headaches. No dizziness. No lightheadedness. Skin: No rash. No change in color. Psychiatric: No depression. No anxiety. EXAM Physical Exam Narrative Exam Narrative: Afebrile. Vital signs noted. HEENT: Normocephalic. Atraumatic. PERRL, EOMI. Neck soft and supple. No point tenderness or step off. Poor dentition. Numerous dental caries. Positive broken tooth in the area and right lower jaw. No drooling or trismus. No fluctuance of the gums. Cardiovascular: Regular rate and rhythm. No murmurs, rubs, or gallops appreciated. Respiratory: No tachypnea. Lungs clear to auscultation bilaterally. Gastrointestinal: Abdomen soft, nontender, with normoactive bowel sounds. No rebound or guarding. Neurological: Awake. Alert. Nonfocal, nonlateralizing. Skin: No rash. Normal color. No pallor. Musculoskeletal: No pedal edema. Full range of motion extremities. Const Vital Signs: 11/17/21 18:28 11/17/21 18:29 Temperature 97.3 F L 97.3 F L Temperature Source Temporal Temporal Pulse Rate 94 94 Respiratory Rate 16 16 Blood Pressure 147/100 H 147/100 H Blood Pressure Mean 115 115 Pulse Ox 98 98 Oxygen Delivery Method Room Air Room Air MDM MDM MDM Narrative Medical decision making narrative: Smoking cessation was discussed. The patient is already on antibiotics. She states that she needed that prescription prior to her dental surgery. I will write her another prescription for penicillin. I was going to change her to clindamycin but she has an allergy to that. Additionally, there is an allergy listed to Percocet. I do not feel narcotics are indicated but she was written a prescription for ibuprofen 800 mg. She will follow-up with her dentist. Disposition is discharged in stable condition. Discharge Plan Triage Chief Complaint: Dental ED Provider: Dipak Daigle Dx/Rx/DC Orders Clinical Impression: Pain due to dental caries, Dental decay Instructions: ED Dental Pain, ED Dental Abscess Prescriptions: New ibuprofen 800 mg tablet 800 mg PO Q8H PRN (Reason: pain) Qty: 30 0RF penicillin V potassium 500 mg tablet 500 mg PO 4X/DAY Qty: 40 0RF No Action metformin 500 mg tablet extended release 24 hr 1,000 mg PO BID Label Comments: Take 2 tablets by mouth twice daily. cephalexin 500 mg capsule 500 mg PO Q12 Qty: 14 0RF ciprofloxacin HCl [ciprofloxacin HCl] 500 MG tablet 500 mg PO BID Qty: 14 0RF hydrocodone-acetaminophen [hydrocodone-acetaminophen] 1 TABLET tablet 1 tab PO Q6H PRN PRN (Reason: Pain) 3 Days Qty: 10 0RF amoxicillin-pot clavulanate 875-125 mg tablet 1 tab PO BID Qty: 20 0RF Primary Care Provider: Natalya Garnica Referrals: Natalya Garnica MD [Primary Care Provider] - Activity Restrictions/Additional Instructions: Stop smoking. Follow-up with your dentist as soon as possible. Finish the antibiotics that you have already started taking. There is another prescription at the pharmacy for you to fill before your dental surgery on December 02. Disposition Disposition: Home, Self Care
== END 2021-11-17 19:41 | disposition home or self-care (01) ==
PROVIDERS: Emergency Provider Emergency Medicine; PCP Internal Medicine; Visit Provider Emergency Medicine
DX: K02.9 Dental caries, unspecified (principal); F17.210 Nicotine dependence, cigarettes, uncomplicated
CPT/HCPCS: 99282

== ENCOUNTER 2021-11-24 18:54 | Emergency (ER) | payer MEDICAID, SELFPAY ==
[2021-11-24 18:55] VITALS: BP 138/92; PULSE 97; RESP 16; TEMP 36.4; O2SAT 98; BMI 32.3
--- NOTE | 2021-11-24 19:29 | EDS_ITS ---
HPI History of Present Illness Chief Complaint: Back Detail of Chief Complaint: Headache, back pain, myalgias, nausea Informant: patient Onset/Context/Timing Onset: Yesterday Current Severity: Mild Maximum Severity: Moderate Narrative Narrative: Patient states she started not feeling well yesterday. She complains of some body aches with headache and back pain. When I asked her specifically what part of her back hurts she points right to the kidney area bilaterally. She does report a strong odor to her urine. No dysuria. She had a mild cough. [facility] Medical History Asthma Diabetes Home Medications metformin 500 mg tablet,extended release 24 hr 1,000 mg PO BID 07/21/21 [History Last Taken Unknown] ibuprofen 800 mg tablet 800 mg PO Q8H PRN pain #30 tabs 11/17/21 [Rx Last Taken Unknown] sulfamethoxazole 800 mg-trimethoprim 160 mg tablet (Bactrim DS) 1 tab PO Q12H #28 tabs 11/24/21 [Rx Last Taken Unknown] Allergy/AdvReac Type Severity Reaction Status Date / Time oxycodone HCl [From Percocet] Allergy Shortness Verified 11/24/21 18:55 of breath clindamycin AdvReac STOMACH Verified 11/24/21 18:55 UPSET Surgical History History of appendectomy History of bilateral tubal ligation History of section Hx of dilation and curettage Social History household members: children Smoking Status: Current every day smoker tobacco type: cigarettes substance use type: does not use ROS ROS ED Constitutional Constitutional ED: Reports fever(s) and subjective; Denies chills Eyes Eyes: Denies change in vision or discharge from eye(s) ENT ENT ED: Denies discharge from eye(s), rhinorrhea or sore throat Cardiovascular Cardiovascular: Denies chest pain or palpitations Respiratory/Chest Respiratory/Chest: Reports cough; Denies dyspnea Gastrointestinal Gastrointestinal: Reports nausea; Denies abdominal pain, diarrhea or vomiting Genitourinary Genitourinary ED: Denies dysuria Musculoskeletal Musculoskeletal: Reports back pain; Denies extremity pain Integumentary Denies Abrasions or rash Neurologic Neurologic: Denies headache(s) or weakness Allergic/Immunologic Allergic/Immunologic ED: Denies lip swelling or urticaria EXAM Physical Exam Const Vital Signs: 11/24/21 18:55 Temperature 97.6 F L Temperature Source Temporal Pulse Rate 97 Respiratory Rate 16 Blood Pressure 138/92 H Blood Pressure Mean 107 Pulse Ox 98 Oxygen Delivery Method Room Air Positive well nourished and well developed General Appearance ED: well developed HEENT Reports normocephalic and head/scalp atraumatic Eyes PERRL and EOMs intact bilaterally Neck supple Chest Wall inspection of chest normal and palpation of chest normal Resp normal respiratory effort and clear to auscultation bilaterally Cardio regular rate and regular rhythm GI normal to inspection, nondistended, normoactive bowel sounds Palpation: soft Back/Spine Back/Spine Narrative: Mild bilateral CVA tenderness. Extremity normal to inspection Neuro oriented x3 and no sensory deficits noted Sensorium / Orientation: alert Motor Exam: strength 5/5 throughout Psych mental status grossly normal Skin no rashes or lesions noted MDM MDM MDM Narrative Medical decision making narrative: Patient given Toradol and IV fluids. Lab work obtained along with urinalysis. COVID test and chest x-ray ordered. Lab Data Attestation: I reviewed the patient's lab results. Labs: Laboratory Results - last 24 hr 11/24/21 11/24/21 11/24/21 19:40 19:40 19:40 WBC 6.7 RBC 4.70 Hgb 13.9 Hct 38.8 MCV 82.6 MCH 29.6 MCHC 35.8 RDW Std Deviation 34.8 L RDW Coeff of Migel 11.7 Plt Count 186 MPV 11.6 Immature Gran % (Auto) 0.100 Neut % (Auto) 55.9 Lymph % (Auto) 34.4 [place] % (Auto) 6.7 Eos % (Auto) 2.2 Baso % (Auto) 0.7 Absolute Neuts (auto) 3.8 Absolute Lymphs (auto) 2.32 Nucleated RBC % 0 Sodium 137 Potassium 3.8 Chloride 104 Carbon Dioxide 25.0 Anion Gap 8 BUN 12 Creatinine 0.80 Estim Creat Clear Calc 106.48 Est GFR (MDRD) Af Amer 107 Est GFR (MDRD) Non-Af 89 BUN/Creatinine Ratio 15.0 Glucose 340 H Calcium 8.3 L Serum , Qual NEGATIVE Urine Color Urine Clarity Urine pH Ur Specific Coward Urine Protein Urine Glucose (UA) Urine Ketones Urine Occult Blood Urine Nitrite Urine Bilirubin Urine Urobilinogen Ur Leukocyte Esterase Urine RBC Urine WBC Ur Squamous Epith Cells Urine Bacteria Urine Mucus 11/24/21 19:44 WBC RBC Hgb Hct MCV MCH MCHC RDW Std Deviation RDW Coeff of Migel Plt Count MPV Immature Gran % (Auto) Neut % (Auto) Lymph % (Auto) [place] % (Auto) Eos % (Auto) Baso % (Auto) Absolute Neuts (auto) Absolute Lymphs (auto) Nucleated RBC % Sodium Potassium Chloride Carbon Dioxide Anion Gap BUN Creatinine Estim Creat Clear Calc Est GFR (MDRD) Af Amer Est GFR (MDRD) Non-Af BUN/Creatinine Ratio Glucose Calcium Serum , Qual Urine Color Yellow Urine Clarity Sl. Cloudy Urine pH 6.0 Ur Specific Coward 1.015 Urine Protein Negative Urine Glucose (UA) 1000 H Urine Ketones Negative Urine Occult Blood 25 H Urine Nitrite Negative Urine Bilirubin Negative Urine Urobilinogen 1 H Ur Leukocyte Esterase 100 H Urine RBC 0-5 SEEN Urine WBC 10-25 SEEN Ur Squamous Epith Cells 0 SEEN Urine Bacteria 3+ Urine Mucus 0 SEEN Rapid COVID: Negative Radiography Chest X-Ray - ED: 1 View, Read by ED Physician, Normal, Heart, Lungs and Mediastinum Diagnostic Testing: Clinical Impression(s) from Imaging Studies Chest X-Ray 11/24/21 19:48 IMPRESSION: Normal x-ray examination of the chest. Electronically Signed: Law Navarro MD at 20:02 EDT , Treatment and Re-Evaluation Narrative: Chest x-ray per my interpretation shows no focal infiltrate. Radiology interpretation is reviewed. CBC and chemistry studies significant only for elevated glucose of 340. Urinalysis does show infection with 3+ bacteria, 10-25 whites. With patient having bilateral flank pain she will be given a dose of IV Rocephin here and treated with a 2-week course of Bactrim. Rapid COVID test is negative. Test results discussed with patient. She will complete antibiotic course. Return instructions provided. Discharge Plan Triage Chief Complaint: Back ED Provider: Anastasiia Childs Dx/Rx/DC Orders Clinical Impression: Pyelonephritis Instructions: ED Pyelonephritis, Female (Adult) Prescriptions: New sulfamethoxazole-trimethoprim [Bactrim DS] 800-160 mg tablet 1 tab PO Q12H Qty: 28 0RF No Action metformin 500 mg tablet extended release 24 hr 1,000 mg PO BID Label Comments: Take 2 tablets by mouth twice daily. ibuprofen 800 mg tablet 800 mg PO Q8H PRN (Reason: pain) Qty: 30 0RF Primary Care Provider: Natalya Garnica Referrals: Natalya Garnica MD [Primary Care Provider] - 1-2 Weeks Disposition Disposition: Home, Self Care
[2021-11-24] MEDS: 0.9% Normal Saline 1,000 ML 1000 ML IV (19:38)
[2021-11-24] MEDS: Ketorolac 30 MG/ML Syringe IV (19:38)
[2021-11-24 19:47] LABS: Absolute Lymphocyte Count 2.32 X10^3/uL (0.83-4.51); Absolute Neutrophil Count 3.8 X10^3/uL (2.0-7.7); Basophil# 0.05 X10^3/uL; Basophil% 0.7 % (0-1); Eosinophil# 0.15 X10^3/uL; Eosinophils% 2.2 % (0-5); Hematocrit 38.8 % (37-47); Hemoglobin 13.9 g/dL (12.0-15.0); Lymphocyte # 2.32 X10^3/ul (0.83-4.51); Lymphocyte % 34.4 % (19-41); Mean Corp Hgb Conc 35.8 g/dL (32-36); Mean Corpuscular Hgb 29.6 pg (27.0-32.0); Mean Corpuscular Volume 82.6 fL (81-99); Mean Platelet Vol. 11.6 fl (6.2-12.0); Monocyte# 0.45 X10^3/uL; Monocyte% 6.7 % (0-10); NRBC Flagged by Analyzer 0 % (0-5); Neutrophil # 3.76 X10^3/uL (2.7-7.7); Neutrophil % 55.9 % (47-70); Platelet Count 186 K/mm3 (150-450); RBC Distribution Width CV 11.7 % (11.6-14.6); RBC Distribution Width SD 34.8 fl (35.1-43.9); White Blood Count 6.7 K/mm3 (4.4-11.0)
--- NOTE | 2021-11-24 19:48 | RAD_ITS ---
STUDY: X-RAY CHEST REASON FOR EXAM: Female, 31 years old. cough TECHNIQUE: Single AP portable view of the chest. COMPARISON: 10/22/2020 FINDINGS: The lungs are clear and expanded. There is no demonstrated pleural abnormality. Normal size heart. Normal mediastinum and perri. Normal visualized pulmonary arteries. Normal visualized aortic arch and descending thoracic aorta. Normal visualized thoracic spine. Normal visualized ribs, clavicles, and shoulders. There is no demonstrated abnormality of the visualized soft tissue structures of the upper abdomen. RAD/Chest 1 View (Portable) IMPRESSION: Normal x-ray examination of the chest. Electronically Signed: Law Navarro MD at 20:02 EDT ,
[2021-11-24 19:51] LABS: Mucous, Urine 0 SEEN /hpf (<or=2+); Squamous Epithelial Cells - UA 0 SEEN /hpf (5-10)
[2021-11-24 19:52] LABS: Color, Urine Yellow (Yellow); Glucose, Dipstick 1000 mg/dl (Normal); Ketone-Dipstick Negative (Negative); Leukocyte Esterase-Dipstick 100 /ul (Negative); Nitrite-Dipstick Negative (Negative); Occult Blood-Urine 25 /ul (Negative); Protein-Dipstick Negative (Negative); Specific Gravity, Urine 1.015 (1.002-1.030); Urine Bilirubin Dipstick Negative (Negative); Urine Clarity Sl. Cloudy (Clear); Urine Urobilinogen 1 mg/dl (Normal)
[2021-11-24 19:58] LABS: Internal QC Validated? YES +Cl - CLEAR BKGD; Pregnancy, Serum, hCG Quali. NEGATIVE Negative
[2021-11-24 20:02] LABS: Anion Gap 8 (5-15); BUN 12 mg/dL (7-18); Calcium,Total 8.3 mg/dL (8.5-10.1); Chloride 104 mmol/L (98-107); EST Glomerular Filtration Rate 89 mL/min (>60); Est Glom Filt Rate - Afr Amer 107 mL/min (>60); Estimated Creatinine Clearance 106.48 ml/min; Glucose 340 mg/dL (74-106); Potassium 3.8 mmol/L (3.5-5.1); Sodium Level 137 mmol/L (136-145)
[2021-11-24 20:03] LABS: Bacteria 3+ /hpf (None Seen); Red Blood Cells-Urine 0-5 SEEN /hpf (0-5); White Blood Cells 10-25 SEEN /hpf (0-5)
[2021-11-24] MEDS: Ceftriaxone 1 GM/50 ML BAG IV (20:28)
[2021-11-24 21:23] VITALS: BP 126/89; PULSE 90; RESP 16; O2SAT 99
== END 2021-11-24 21:25 | disposition home or self-care (01) ==
PROVIDERS: Emergency Provider Emergency Medicine; PCP Internal Medicine; Visit Provider Emergency Medicine
DX: N12 Tubulo-interstitial nephritis, not specified as acute or chronic (principal); E11.9 Type 2 diabetes mellitus without complications; J45.909 Unspecified asthma, uncomplicated; R11.0 Nausea; M79.10 Myalgia, unspecified site; F17.210 Nicotine dependence, cigarettes, uncomplicated; Z79.84 Long term (current) use of oral hypoglycemic drugs
CPT/HCPCS: 71045; 80048; 81001; 84703; 85025; 87811; 96361; 96365; 96375; 99283; J7030

== ENCOUNTER 2022-01-03 06:55 | Emergency (ER) | payer MEDICAID, SELFPAY ==
[2022-01-03 06:55] VITALS: BP 133/90; PULSE 93; RESP 16; TEMP 36.1; O2SAT 98; BMI 30.8
--- NOTE | 2022-01-03 07:16 | ED.VIS.DENTA ---
HPI History of Present Illness Chief Complaint: Dental Informant: patient Narrative Narrative: Patient has ongoing issues with her teeth. She started with right upper dental pain about 9 days ago. She was on penicillin that she had for about 4 5 days. She then got into see the dentist on Wednesday. They switched her to amoxicillin which she says tends to work better. They also added Flagyl but she could not tolerate that with nausea and vomiting. She was not drinking anything on it. She cannot tolerate clindamycin. She states the amoxicillin has brought down the swelling and it is getting better but it still very painful. Her blood sugars have been running about 200 which is okay for her. Touching it makes it worse as well as chewing. The amoxicillin is helping a little bit but it still sore. She states she is did do to have multiple dental extractions done on 29 January. [facility] Medical History Asthma Diabetes Home Medications metformin 500 mg tablet,extended release 24 hr 1,000 mg PO BID 07/21/21 [History Last Taken Unknown] ibuprofen 800 mg tablet 800 mg PO Q8H PRN pain #30 tabs 11/17/21 [Rx Last Taken Unknown] hydrocodone-acetaminophen 5-325mg 5mg-325mg 1 tab PO Q6H PRN pain 3 days #10 tabs 01/03/22 [Rx Last Taken Unknown] Allergy/AdvReac Type Severity Reaction Status Date / Time oxycodone HCl [From Percocet] Allergy Shortness Verified 01/03/22 06:59 of breath clindamycin AdvReac STOMACH Verified 01/03/22 06:59 UPSET Surgical History History of appendectomy History of bilateral tubal ligation History of section Hx of dilation and curettage Social History household members: children Smoking Status: Current every day smoker tobacco type: cigarettes substance use type: does not use ROS ROS ED Constitutional Constitutional ED: Denies chills or fever(s) Eyes Eyes: Denies blurry vision ENT ENT ED: Reports other Details: Dental pain as in history of present illness. No trouble swallowing. No change in voice. ; Denies ear pain or sore throat Cardiovascular Cardiovascular: Denies chest pain Respiratory/Chest Respiratory/Chest: Denies dyspnea Gastrointestinal Gastrointestinal: Reports nausea and other Details: Patient had some vomiting with Flagyl. But now she just has some mild nausea intermittently. She is not nauseated right now. ; Denies vomiting Musculoskeletal Musculoskeletal: Denies neck pain Integumentary Denies rash Endocrine Endocrinology: Denies polydipsia or polyuria Hematologic/Lymphatic Hematologic/Lymphatic: Denies lymphadenopathy EXAM Physical Exam Const Vital Signs: 01/03/22 06:55 Temperature 97.0 F L Temperature Source Temporal Pulse Rate 93 Respiratory Rate 16 Blood Pressure 133/90 H Blood Pressure Mean 104 Pulse Ox 98 Oxygen Delivery Method Room Air Positive well nourished and well developed General Appearance ED: well developed and NAD HEENT HEENT Narrative: Patient has multiple dental caries. She has dental caries on the molars on the upper right. More anteriorly on the right upper jaw she has also erosions of teeth with some gum erythema. There is no abscess. No sign of Ludewig's angina. Voice is normal. Handling secretions is normal. Eyes Eyes Narrative: No pain with ocular motion. Neck no lymphadenopathy Cardio regular rate and regular rhythm Psych mental status grossly normal Skin no rashes or lesions noted MDM MDM MDM Narrative Medical decision making narrative: Patient does have signs of dental caries. She has seen dentist. She is taking her medicines. I did do online prescribing report. I will get her a little something for pain. I will also write for meds for nausea because this has been an issue taking her meds. She will follow-up with her dentist. We discussed reasons to return but she is improving slowly so she should hopefully do quite well. Discharge Plan Triage Chief Complaint: Dental ED Provider: Paul Pelayo Dx/Rx/DC Orders Clinical Impression: Dental decay, Abscess, dental Instructions: Dental Abscess Prescriptions: New hydrocodone-acetaminophen 5-325 mg tablet 1 tab PO Q6H PRN (Reason: pain) 3 Days Qty: 10 0RF No Action metformin 500 mg tablet extended release 24 hr 1,000 mg PO BID Label Comments: Take 2 tablets by mouth twice daily. ibuprofen 800 mg tablet 800 mg PO Q8H PRN (Reason: pain) Qty: 30 0RF Primary Care Provider: Natalya Garnica Referrals: Natalya Garnica MD [Primary Care Provider] - As Needed Activity Restrictions/Additional Instructions: Follow-up with your dentist as scheduled. Disposition Disposition: Home, Self Care
[2022-01-03] MEDS: HYDROcodone Bitartrate/Apap 5/325 Tablet PO (07:35)
[2022-01-03] MEDS: Ondansetron ODT 4 MG Tablet PO (07:35)
== END 2022-01-03 07:38 | disposition home or self-care (01) ==
PROVIDERS: Emergency Provider Emergency Medicine; PCP Internal Medicine; Visit Provider Emergency Medicine
DX: K04.7 Periapical abscess without sinus (principal); E11.9 Type 2 diabetes mellitus without complications; K02.9 Dental caries, unspecified; F17.210 Nicotine dependence, cigarettes, uncomplicated; Z79.84 Long term (current) use of oral hypoglycemic drugs
CPT/HCPCS: 99283

== ENCOUNTER 2022-01-16 20:26 | Emergency (ER) | payer MEDICAID, SELFPAY ==
[2022-01-16 20:27] VITALS: BP 146/97; PULSE 88; RESP 16; TEMP 35.9; BMI 31.0
[2022-01-16 20:29] VITALS: BP 146/97; PULSE 88; RESP 16; TEMP 35.9
--- NOTE | 2022-01-16 21:02 | EDS_ITS ---
HPI History of Present Illness Chief Complaint: Dental Informant: patient Onset/Context/Timing Onset: Days Context: Gradual Onset Narrative Narrative: Patient presents secondary to dental pain and just not feeling well. She states she knows she has a dental abscess and was just started on antibiotics. She has an appointment to see her dentist. She states she just feels very rundown and achy and is not sure if she has something else in addition to her dental infection. She is a diabetic and her blood sugars have been reading quite high. [facility] Medical History Asthma Diabetes Home Medications metformin 500 mg tablet,extended release 24 hr 500 mg PO BID 07/21/21 [History Last Taken Unknown] Allergy/AdvReac Type Severity Reaction Status Date / Time oxycodone HCl [From Percocet] Allergy Shortness Verified 01/16/22 20:46 of breath clindamycin AdvReac STOMACH Verified 01/16/22 20:46 UPSET Surgical History History of appendectomy History of bilateral tubal ligation History of section Hx of dilation and curettage Social History household members: children Smoking Status: Current every day smoker tobacco type: cigarettes substance use type: does not use ROS ROS ED Constitutional Constitutional ED: Denies chills Eyes Eyes: Denies change in vision or discharge from eye(s) ENT ENT ED: Reports other Details: Right lower dental pain ; Denies discharge from eye(s), rhinorrhea or sore throat Cardiovascular Cardiovascular: Denies chest pain or palpitations Respiratory/Chest Respiratory/Chest: Denies cough or dyspnea Gastrointestinal Gastrointestinal: Denies abdominal pain, diarrhea, nausea or vomiting Genitourinary Genitourinary ED: Denies dysuria Musculoskeletal Musculoskeletal: Reports myalgias; Denies back pain or extremity pain Integumentary Denies Abrasions or rash Neurologic Neurologic: Reports headache(s) and weakness Psychiatric Psychiatric: Denies anxiety or depression Allergic/Immunologic Allergic/Immunologic ED: Denies lip swelling or urticaria EXAM Physical Exam Const Vital Signs: 01/16/22 20:27 01/16/22 20:29 01/16/22 21:47 Temperature 96.6 F L 96.6 F L 98.0 F Temperature Source Temporal Temporal Oral Pulse Rate 88 88 69 Respiratory Rate 16 16 16 Blood Pressure 146/97 H 146/97 H 133/93 H Blood Pressure Mean 113 113 106 Pulse Ox 98 Oxygen Delivery Method Room Air 01/16/22 21:47 Temperature Temperature Source Pulse Rate Respiratory Rate 16 Blood Pressure Blood Pressure Mean Pulse Ox Oxygen Delivery Method Positive well nourished and well developed General Appearance ED: well developed HEENT Reports normocephalic and head/scalp atraumatic Eyes PERRL and EOMs intact bilaterally Neck supple Chest Wall inspection of chest normal and palpation of chest normal Resp normal respiratory effort and clear to auscultation bilaterally Cardio regular rate and regular rhythm GI normal to inspection, nondistended, normoactive bowel sounds Palpation: soft Extremity normal to inspection Neuro oriented x3 and no sensory deficits noted Sensorium / Orientation: alert Motor Exam: strength 5/5 throughout Psych mental status grossly normal Skin no rashes or lesions noted MDM MDM MDM Narrative Medical decision making narrative: Patient was given a liter IV fluids and Toradol. Lab work obtained along with swabs for COVID and influenza. Lab Data Attestation: I reviewed the patient's lab results. Labs: Laboratory Results - last 24 hr 01/16/22 01/16/22 21:05 21:05 WBC 6.9 RBC 4.82 Hgb 14.5 Hct 39.6 MCV 82.2 MCH 30.1 MCHC 36.6 H RDW Std Deviation 33.9 L RDW Coeff of Migel 11.5 L Plt Count 211 MPV 11.8 Immature Gran % (Auto) 0.300 Neut % (Auto) 50.9 Lymph % (Auto) 39.7 [place] % (Auto) 6.2 Eos % (Auto) 2.3 Baso % (Auto) 0.6 Absolute Neuts (auto) 3.5 Absolute Lymphs (auto) 2.74 Nucleated RBC % 0 Sodium 135 L Potassium 4.0 Chloride 102 Carbon Dioxide 28.0 Anion Gap 5 BUN 11 Creatinine 0.86 Estim Creat Clear Calc 99.05 Est GFR (MDRD) Af Amer 98 Est GFR (MDRD) Non-Af 81 BUN/Creatinine Ratio 12.8 Glucose 406 H Calcium 9.3 Treatment and Re-Evaluation Narrative: CBC is unremarkable. Chemistry studies significant only for glucose elevated at 406. Swabs for COVID and influenza are negative. Patient is given 10 units of lispro. Blood sugar will be rechecked 30 minutes after insulin is given. As long as it is trending down appropriately she will be discharged home to continue supportive care. We did discuss importance of maintaining her blood sugars at an adequate level. She is to follow-up with her dentist next week as scheduled. Discharge Plan Triage Chief Complaint: Dental ED Provider: Anastasiia Childs Dx/Rx/DC Orders Clinical Impression: Dental infection, Viral syndrome, Hyperglycemia Instructions: ED Diabetic Hyperglycemia, ED Dental Pain, ED Viral Syndrome (Adult) Prescriptions: No Action metformin 500 mg tablet extended release 24 hr 500 mg PO BID Label Comments: Take 2 tablets by mouth twice daily. Primary Care Provider: Natalya Garnica Referrals: Natalya Garnica MD [Primary Care Provider] - 1-2 Weeks Activity Restrictions/Additional Instructions: Follow-up with your dentist as scheduled. Please follow-up with your primary care physician as well to ensure adequate blood sugar control. Disposition Disposition: Home, Self Care
[2022-01-16] MEDS: 0.9% Normal Saline 1,000 ML 1000 ML IV (21:03)
[2022-01-16] MEDS: Ketorolac 30 MG/ML Syringe IV (21:03)
[2022-01-16 21:19] LABS: Absolute Lymphocyte Count 2.74 X10^3/uL (0.83-4.51); Absolute Neutrophil Count 3.5 X10^3/uL (2.0-7.7); Basophil# 0.04 X10^3/uL; Basophil% 0.6 % (0-1); Eosinophil# 0.16 X10^3/uL; Eosinophils% 2.3 % (0-5); Hematocrit 39.6 % (37-47); Hemoglobin 14.5 g/dL (12.0-15.0); Lymphocyte # 2.74 X10^3/ul (0.83-4.51); Lymphocyte % 39.7 % (19-41); Mean Corp Hgb Conc 36.6 g/dL (32-36); Mean Corpuscular Hgb 30.1 pg (27.0-32.0); Mean Corpuscular Volume 82.2 fL (81-99); Mean Platelet Vol. 11.8 fl (6.2-12.0); Monocyte# 0.43 X10^3/uL; Monocyte% 6.2 % (0-10); NRBC Flagged by Analyzer 0 % (0-5); Neutrophil # 3.52 X10^3/uL (2.7-7.7); Neutrophil % 50.9 % (47-70); Platelet Count 211 K/mm3 (150-450); RBC Distribution Width CV 11.5 % (11.6-14.6); RBC Distribution Width SD 33.9 fl (35.1-43.9); Red Blood Count 4.82 M/mm3 (4.2-5.4); White Blood Count 6.9 K/mm3 (4.4-11.0)
[2022-01-16 21:33] LABS: Anion Gap 5 (5-15); BUN 11 mg/dL (7-18); BUN/Creat Ratio 12.8 RATIO (10-20); Calcium,Total 9.3 mg/dL (8.5-10.1); Chloride 102 mmol/L (98-107); Creatinine, Serum 0.86 mg/dL (0.55-1.02); EST Glomerular Filtration Rate 81 mL/min (>60); Est Glom Filt Rate - Afr Amer 98 mL/min (>60); Estimated Creatinine Clearance 99.05 ml/min; Glucose 406 mg/dL (74-106); Sodium Level 135 mmol/L (136-145)
[2022-01-16] MEDS: Insulin Lispro 100 UNIT/ML INSULN.PEN 10 UNIT SC (21:45)
[2022-01-16 21:47] VITALS: BP 133/93; PULSE 69; RESP 16; TEMP 36.7; O2SAT 98
[2022-01-16 22:24] VITALS: RESP 16
[2022-01-16 22:35] LABS: Bedside Glucose 340 mg/dL (74-106)
== END 2022-01-16 22:25 | disposition home or self-care (01) ==
PROVIDERS: Emergency Provider Emergency Medicine; PCP Internal Medicine; Visit Provider Emergency Medicine
DX: K04.7 Periapical abscess without sinus (principal); E11.65 Type 2 diabetes mellitus with hyperglycemia; B34.9 Viral infection, unspecified; F17.210 Nicotine dependence, cigarettes, uncomplicated; Z79.84 Long term (current) use of oral hypoglycemic drugs
CPT/HCPCS: 80048; 82962; 85025; 87428; 96361; 96374; 99283; J7030; A4216

== ENCOUNTER 2022-02-21 08:12 | Emergency (ER) | payer MEDICAID, SELFPAY ==
[2022-02-21 08:15] VITALS: BP 148/101; PULSE 115; RESP 16; TEMP 36.8; O2SAT 97; BMI 30.2
--- NOTE | 2022-02-21 08:22 | EX.ED.DYSGE1 ---
HPI History of Present Illness Chief Complaint: Nausea/Vomiting Informant: patient Narrative Narrative: 32-year-old male frequent visitor to the emergency room presenting to the emergency room today because she drank too much alcohol last night and has been throwing up since . She states she took a Zofran at 5 but it has not helped. She denies any diarrhea or vomiting. She notes a headache. PFSH PFSH Medical History Asthma Diabetes Home Medications metformin 500 mg tablet,extended release 24 hr 500 mg PO BID 07/21/21 [History Last Taken Unknown] ondansetron HCl 4 mg tablet 4 mg PO Q6H PRN nausea and vomiting #15 tabs 02/21/22 [Rx Last Taken Unknown] Allergy/AdvReac Type Severity Reaction Status Date / Time oxycodone HCl [From Percocet] Allergy Shortness Verified 02/21/22 08:14 of breath clindamycin AdvReac STOMACH Verified 02/21/22 08:14 UPSET Surgical History History of appendectomy History of bilateral tubal ligation History of section Hx of dilation and curettage Social History household members: children Smoking Status: Former smoker substance use type: does not use ROS ROS ED Constitutional Constitutional ED: Denies chills or weight loss Eyes Eyes: Denies change in vision or diplopia ENT ENT ED: Denies ear pain, rhinorrhea or sore throat Cardiovascular Cardiovascular: Denies chest pain, orthopnea, palpitations or racing heartbeat Respiratory/Chest Respiratory/Chest: Denies cough, dyspnea or orthopnea Gastrointestinal Gastrointestinal: Reports nausea and vomiting; Denies abdominal pain or diarrhea Genitourinary Genitourinary ED: Denies dysuria, hematuria or urinary frequency Musculoskeletal Musculoskeletal: Denies arthralgias or myalgias Integumentary Denies abscess or rash Neurologic Neurologic: Denies headache(s) or weakness Psychiatric Psychiatric: Denies anxiety, depression, suicidal ideation or suicidal thoughts Endocrine Endocrinology: Denies polydipsia, polyphagia or polyuria Allergic/Immunologic Allergic/Immunologic ED: Denies mouth swelling, tongue swelling or urticaria EXAM Physical Exam Const Vital Signs: 02/21/22 08:15 Temperature 98.2 F Temperature Source Temporal Pulse Rate 115 H Respiratory Rate 16 Blood Pressure 148/101 H Blood Pressure Mean 116 Pulse Ox 97 Oxygen Delivery Method Room Air Positive well nourished and well developed General Appearance ED: well developed HEENT Reports normocephalic, head/scalp atraumatic and moist mucous membranes Eyes PERRL and EOMs intact bilaterally Neck no lymphadenopathy, supple and no JVD Resp normal respiratory effort and clear to auscultation bilaterally Cardio regular rate, regular rhythm and no murmurs GI normal to inspection, nondistended, normoactive bowel sounds and non-tender Palpation: soft Back/Spine no CVA tenderness and normal ROM Extremity normal to inspection General Extremety ED: Negative for edema General Extremity: Negative for edema Neuro oriented x3 and CN's II-XII intact bilaterally Sensorium / Orientation: alert Motor Exam: strength 5/5 throughout Psych mental status grossly normal Mood & Affect: Negative for depressed or tearful Skin no rashes or lesions noted and no wounds MDM MDM MDM Narrative Medical decision making narrative: Patient received Zofran and a liter of IV fluids. Patient will be discharged home with prescription for Zofran. Discharge Plan Triage Chief Complaint: Nausea/Vomiting ED Provider: Ethan Funes Dx/Rx/DC Orders Clinical Impression: Vomiting, Hangover effect Instructions: ED Vomiting (Adult) Prescriptions: New ondansetron HCl 4 mg tablet 4 mg PO Q6H PRN (Reason: nausea and vomiting) Qty: 15 0RF No Action metformin 500 mg tablet extended release 24 hr 500 mg PO BID Label Comments: Take 2 tablets by mouth twice daily. Primary Care Provider: Natalya Garnica Referrals: Natalya Garnica MD [Primary Care Provider] - As Needed Disposition Disposition: Home, Self Care
[2022-02-21] MEDS: 0.9% Normal Saline 1,000 ML 1000 ML IV (09:12)
[2022-02-21] MEDS: Ondansetron 4 MG/2 ML Vial IV (09:12)
[2022-02-21] MEDS: Metoclopramide 10 MG/2 ML Vial IV (10:16)
== END 2022-02-21 10:35 | disposition home or self-care (01) ==
PROVIDERS: Emergency Provider Emergency Medicine; PCP Internal Medicine; Visit Provider Emergency Medicine
DX: R11.2 Nausea with vomiting, unspecified (principal); E11.9 Type 2 diabetes mellitus without complications; Z87.891 Personal history of nicotine dependence; J45.909 Unspecified asthma, uncomplicated
CPT/HCPCS: 96361; 96374; 96375; 99283; J7030; A4216; J2405

== ENCOUNTER 2022-04-14 08:49 | Emergency (ER) | payer MEDICAID, SELFPAY ==
[2022-04-14 08:49] VITALS: BP 129/97; PULSE 88; RESP 18; TEMP 36.6; O2SAT 98; BMI 31.6
--- NOTE | 2022-04-14 09:37 | ED.VIS.DENTA ---
HPI History of Present Illness Chief Complaint: Dental Informant: patient Onset/Context/Timing Onset: Yesterday Context: Gradual Onset Timing: Continuous Quality: aching Location: L maxillary row/dentition Current Severity: Severe Maximum Severity: Severe Worsened by: Palpation, eating Relieved by: - (Nothing) Associated Symptoms Assocated Symptom - Dental: face swelling; Negative for fever Narrative Narrative: History of bad teeth. States she has an appointment with oral surgery in April to get these teeth removed. Started bothering her a lot yesterday and worse this morning with some mild swelling. No fevers or chills or discharge or bleeding. [facility] Medical History Asthma Diabetes Home Medications metformin 500 mg tablet,extended release 24 hr 500 mg PO BID 07/21/21 [History Last Taken Unknown] ondansetron HCl 4 mg tablet 4 mg PO Q6H PRN nausea and vomiting #15 tabs 02/21/22 [Rx Last Taken Unknown] amoxicillin 500 mg tablet 500 mg PO TID #30 tabs 04/14/22 [Rx Last Taken Unknown] Allergy/AdvReac Type Severity Reaction Status Date / Time oxycodone HCl [From Percocet] Allergy Shortness Verified 04/14/22 08:52 of breath clindamycin AdvReac STOMACH Verified 04/14/22 08:52 UPSET Surgical History History of appendectomy History of bilateral tubal ligation History of section Hx of dilation and curettage Social History household members: children Smoking Status: Former smoker substance use type: does not use ROS ROS ED Constitutional Constitutional ED: Denies chills or fever(s) Eyes Eyes: Denies change in vision or double vision ENT ENT ED: Reports dental pain; Denies sinus pain or throat swelling Cardiovascular Cardiovascular: Denies chest pain or palpitations Respiratory/Chest Respiratory/Chest: Denies cough or dyspnea Integumentary Denies abscess or rash Neurologic Neurologic: Denies headache(s), paresthesias or weakness EXAM Physical Exam Const Vital Signs: 04/14/22 08:49 Temperature 98 F Temperature Source Temporal Pulse Rate 88 Respiratory Rate 18 Blood Pressure 129/97 H Blood Pressure Mean 107 Pulse Ox 98 Oxygen Delivery Method Room Air Positive well nourished and well developed General Appearance ED: well developed and NAD HEENT HEENT Narrative: Decay of all left maxillary teeth to the gumline, with associated tenderness diffusely. There is no bleeding, purulent discharge, or palpable mass/abscess. The gingiva appears normal. No trismus. Normal tongue without elevation. Face and Sinus: sinuses nontender Throat: posterior oropharynx normal Eyes PERRL and EOMs intact bilaterally Neck no lymphadenopathy and supple Resp normal respiratory effort Neuro oriented x3 and CN's II-XII intact bilaterally Sensorium / Orientation: alert Gait (Neuro): normal gait Psych mental status grossly normal and thought process normal Skin no rashes or lesions noted and no wounds MDM MDM MDM Narrative Medical decision making narrative: No evidence of an abscess. Patient was given a [place] here prior to discharge along with some ibuprofen and an initial dose of amoxicillin which she has tolerated in the past. Prescribed amoxicillin advised to follow-up with dentistry. She is comfortable with that plan. Discharge Plan Triage Chief Complaint: Dental ED Provider: Sylvester Orourke Dx/Rx/DC Orders Clinical Impression: Odontalgia, Dental decay Instructions: Understanding Tooth Decay Prescriptions: New amoxicillin 500 mg tablet 500 mg PO TID Qty: 30 0RF No Action metformin 500 mg tablet extended release 24 hr 500 mg PO BID Label Comments: Take 2 tablets by mouth twice daily. ondansetron HCl 4 mg tablet 4 mg PO Q6H PRN (Reason: nausea and vomiting) Qty: 15 0RF Primary Care Provider: Natalya Garnica Referrals: Natalya Garnica MD [Primary Care Provider] - Dentist,Your [STAFF PHYSICIAN] - 3-5 Days if not improving Disposition Disposition: Home, Self Care
[2022-04-14] MEDS: Ibuprofen 600 MG Tablet PO (10:14)
[2022-04-14] MEDS: HYDROcodone Bitartrate/Apap 5/325 Tablet PO (10:14)
[2022-04-14] MEDS: AMOXICILLIN 500 MG CAPSULE PO (10:14)
== END 2022-04-14 10:15 | disposition home or self-care (01) ==
PROVIDERS: Emergency Provider Emergency Medicine; PCP Internal Medicine; Visit Provider Emergency Medicine
DX: K02.9 Dental caries, unspecified (principal); E11.9 Type 2 diabetes mellitus without complications; K08.89 Other specified disorders of teeth and supporting structures; J45.909 Unspecified asthma, uncomplicated; Z79.899 Other long term (current) drug therapy; Z79.84 Long term (current) use of oral hypoglycemic drugs; Z87.891 Personal history of nicotine dependence
CPT/HCPCS: 99283

== ENCOUNTER 2022-05-14 21:30 | Emergency (ER) | payer MEDICAID, SELFPAY ==
[2022-05-14 21:31] VITALS: BP 166/97; PULSE 99; RESP 18; TEMP 36.9; O2SAT 100; BMI 31.0
--- NOTE | 2022-05-14 21:41 | ED.VIS.DENTA ---
HPI History of Present Illness Chief Complaint: Dental Detail of Chief Complaint: Dental pain Informant: patient Narrative Narrative: Patient presents to the emergency department complaint of dental pain that started yesterday. Patient has an appointment with her dentist to have her left upper teeth extracted on June 08. Patient has a prescription from her dentist for Augmentin to start prior to her procedure. Patient took ibuprofen at home with out any relief of pain. She denies fever or chills or sweats. Patient is a type II diabetic. [facility] Medical History Asthma Diabetes Home Medications metformin 500 mg tablet,extended release 24 hr 500 mg PO BID 07/21/21 [History Last Taken Unknown] ondansetron HCl 4 mg tablet 4 mg PO Q6H PRN nausea and vomiting #15 tabs 02/21/22 [Rx Last Taken Unknown] amoxicillin 500 mg tablet 500 mg PO TID #30 tabs 04/14/22 [Rx Last Taken Unknown] hydrocodone-acetaminophen 5-325mg 5mg-325mg 1 tab PO Q4H PRN PRN Pain 2 days #10 TABLETS 05/14/22 [Rx Last Taken Unknown] Allergy/AdvReac Type Severity Reaction Status Date / Time oxycodone HCl [From Percocet] Allergy Shortness Verified 05/14/22 21:32 of breath clindamycin AdvReac STOMACH Verified 05/14/22 21:32 UPSET Surgical History History of appendectomy History of bilateral tubal ligation History of section Hx of dilation and curettage Social History household members: children Smoking Status: Former smoker substance use type: does not use ROS ROS ED Review of Systems ROS Unobtainable: other Constitutional Constitutional ED: Reports lethargy; Denies chills, fever(s), sweats or weight loss Eyes Eyes: Denies blurry vision, change in vision or diplopia ENT ENT ED: Reports other Details: Dental pain ; Denies rhinorrhea or sore throat Cardiovascular Cardiovascular: Denies chest pain, orthopnea or racing heartbeat Respiratory/Chest Respiratory/Chest: Denies cough, dyspnea, dyspnea on exertion, orthopnea or sputum Gastrointestinal Gastrointestinal: Denies abdominal pain, diarrhea, nausea or vomiting Genitourinary Genitourinary ED: Denies dysuria, hematuria or urinary frequency Musculoskeletal Musculoskeletal: Denies arthralgias, back pain, myalgias or neck pain Integumentary Denies abscess, Abrasions or rash Neurologic Neurologic: Denies headache(s) or weakness Psychiatric Psychiatric: Denies anxiety, depression or suicidal thoughts Endocrine Endocrinology: Denies polydipsia, polyphagia or polyuria Hematologic/Lymphatic Hematologic/Lymphatic: Denies easy bleeding, easy bruising or lymphadenopathy Allergic/Immunologic Allergic/Immunologic ED: Denies mouth swelling, tongue swelling or urticaria EXAM Physical Exam Const Vital Signs: 05/14/22 21:31 Temperature 98.4 F Temperature Source Temporal Pulse Rate 99 Respiratory Rate 18 Blood Pressure 166/97 H Blood Pressure Mean 120 Pulse Ox 100 Oxygen Delivery Method Room Air Positive well nourished and well developed General Appearance ED: well developed and NAD HEENT Reports TM's clear and moist mucous membranes HEENT Narrative: Patient with multiple broken and carried left upper premolars and molars. No gingival abscesses noted. Minimal gingival erythema. No facial cellulitis. Uvula midline without trismus. normocephalic and atraumatic; Negative for trauma or tenderness Tympanic Membrane ED: Yes TM's clear Eyes PERRL and EOMs intact bilaterally General Eye ED: Negative for pale conjunctiva or scleral icterus Neck no lymphadenopathy, supple and no JVD General: Negative for tenderness Chest Wall inspection of chest normal and palpation of chest normal Chest: Negative for tenderness Resp normal respiratory effort and clear to auscultation bilaterally Effort and Inspection: Negative for respiratory distress or pain with movement Auscultation: Negative for rhonchi, wheezes or diminished lung sounds Cardio regular rate, regular rhythm, S1 normal heart sound, S2 normal heart sound and no murmurs Peripheral Pulses: pulses 2+ throughout GI normal to inspection, nondistended, normoactive bowel sounds, soft to palpation, non-tender, non-distended and no masses Back/Spine no CVA tenderness and no thoracic nor lumbar tenderness Extremity normal to inspection General Extremety ED: Negative for edema General Extremity: Negative for edema Neuro oriented x3, CN's II-XII intact bilaterally, no sensory deficits noted and gait normal Sensorium / Orientation: awake, alert, oriented to person, oriented to place and oriented to time Motor Exam: strength 5/5 throughout and strength abnormal Psych mental status grossly normal Skin no rashes or lesions noted and no wounds MDM MDM MDM Narrative Medical decision making narrative: Patient presents with dental pain and has multiple broken and carried left upper teeth. Patient allergic to clindamycin and she has a prescription that she brought with her to show me of amoxicillin 875 mg. Patient advised to take her antibiotic. I will write her a prescription for hydrocodone. Patient to get in contact with her dentist to see if they can see her sooner. Discharge Plan Triage Chief Complaint: Dental ED Provider: Kayla Penaloza Dx/Rx/DC Orders Clinical Impression: Pain, dental Instructions: ED Dental Pain Prescriptions: New hydrocodone-acetaminophen [hydrocodone-acetaminophen] 5-325 mg tablet 1 tab PO Q4H PRN PRN (Reason: Pain) 2 Days Qty: 10 0RF No Action metformin 500 mg tablet extended release 24 hr 500 mg PO BID Label Comments: Take 2 tablets by mouth twice daily. ondansetron HCl 4 mg tablet 4 mg PO Q6H PRN (Reason: nausea and vomiting) Qty: 15 0RF amoxicillin 500 mg tablet 500 mg PO TID Qty: 30 0RF Primary Care Provider: Natalya Garnica Referrals: Natalya Garnica MD [Primary Care Provider] - Activity Restrictions/Additional Instructions: See your dentist at earliest possible time. Disposition Disposition: Home, Self Care
== END 2022-05-14 22:25 | disposition home or self-care (01) ==
PROVIDERS: Emergency Provider Emergency Medicine; PCP Internal Medicine; Visit Provider Emergency Medicine
DX: K08.89 Other specified disorders of teeth and supporting structures (principal); Z87.891 Personal history of nicotine dependence
CPT/HCPCS: 99282

== ENCOUNTER 2022-06-08 00:32 | Emergency (ER) | payer MEDICAID, SELFPAY ==
[2022-06-08 00:34] VITALS: BP 144/103; PULSE 95; RESP 16; TEMP 36.6; O2SAT 99; BMI 31.6
--- NOTE | 2022-06-08 02:37 | EDS_ITS ---
HPI History of Present Illness Chief Complaint: Abscess Detail of Chief Complaint: Left buttock abscess for several days. Informant: patient Onset/Context/Timing Onset: Days Context: Gradual Onset Timing: Continuous Current Severity: Mild Maximum Severity: Mild Narrative Narrative: 32-year-old female history of diabetes complaining of left buttock abscess for about 4 days. Nausea but no fever or chills. Says her blood sugars have been running in the mid 200s. Prior history of a similar abscess that need to be drained. Prior similar symptoms: Yes Recent Illness/Hospitalization: No PFSH PFSH Medical History Asthma Diabetes Home Medications metformin 500 mg tablet,extended release 24 hr 500 mg PO BID 07/21/21 [History Last Taken Unknown] ondansetron HCl 4 mg tablet 4 mg PO Q6H PRN nausea and vomiting #15 tabs 02/21/22 [Rx Last Taken Unknown] amoxicillin 500 mg tablet 500 mg PO TID #30 tabs 04/14/22 [Rx Last Taken Unknown] hydrocodone-acetaminophen 5-325mg 5mg-325mg 1 tab PO Q4H PRN PRN Pain 2 days #10 TABLETS 05/14/22 [Rx Last Taken Unknown] cephalexin 500 mg capsule 500 mg PO Q6 #40 CAPSULES 06/08/22 [Rx Last Taken Unknown] Allergy/AdvReac Type Severity Reaction Status Date / Time oxycodone HCl [From Percocet] Allergy Shortness Verified 05/14/22 21:32 of breath clindamycin AdvReac STOMACH Verified 05/14/22 21:32 UPSET Surgical History History of appendectomy History of bilateral tubal ligation History of section Hx of dilation and curettage Social History household members: children Smoking Status: Former smoker substance use type: does not use ROS ROS ED ROS Narrative Nausea. Abscess. Review of Systems ROS Unobtainable: Denies due to encephalopathy Constitutional Constitutional ED: Denies chills or fever(s) Eyes Eyes: Denies blurry vision ENT ENT ED: Denies ear pain Cardiovascular Cardiovascular: Denies chest pain Respiratory/Chest Respiratory/Chest: Denies cough or dyspnea Gastrointestinal Gastrointestinal: Reports nausea; Denies abdominal pain, constipation, diarrhea, melena or vomiting Genitourinary Genitourinary ED: Denies dysuria or hematuria Musculoskeletal Musculoskeletal: Denies arthralgias Integumentary Reports abscess Neurologic Neurologic: Denies headache(s) Psychiatric Psychiatric: Denies anxiety Endocrine Endocrinology: Denies cold intolerance Hematologic/Lymphatic Hematologic/Lymphatic: Reports none Allergic/Immunologic Allergic/Immunologic ED: Denies mouth swelling or tongue swelling EXAM Physical Exam Narrative Exam Narrative: 32-year-old female no acute distress. Vital signs stable afebrile. HEENT exam unremarkable. Lungs clear. Heart regular rhythm no murmur rate about 95. Abdomen soft nontender. Moving all 4 extremities. Left lateral buttock hip area she has a about a 1 to 2 inch circular abscess. It is fluctuant. Need to be drained. There is about an inch of cellulitis. No streaks. No necrotic tissue. Full range of motion of both upper and lower extremities. She is awake and alert. Const Vital Signs: 06/08/22 00:34 Temperature 98 F Temperature Source Oral Pulse Rate 95 Respiratory Rate 16 Blood Pressure 144/103 H Blood Pressure Mean 116 Pulse Ox 99 Oxygen Delivery Method Room Air Positive well nourished and well developed; Negative for cachectic, contractures or unkempt General Appearance ED: well developed and NAD; Negative for unkempt, cachectic, contractures, cyanotic or diaphoretic Nutritional Appearance: Negative for cachectic HEENT Reports moist mucous membranes Eyes PERRL and EOMs intact bilaterally General Eye ED: Negative for pale conjunctiva or scleral icterus Neck no lymphadenopathy, supple and no JVD General: Negative for tenderness Lymph Lymphatic: Negative for other Chest Wall inspection of chest normal and palpation of chest normal Chest: Negative for other Resp normal respiratory effort and clear to auscultation bilaterally Effort and Inspection: Negative for retractions Auscultation: Negative for rales, rhonchi or wheezes Cardio regular rate, regular rhythm, S1 normal heart sound, S2 normal heart sound and no murmurs Palpation: Negative for palpable S3 Rate: Negative for bradycardia Rhythm: Negative for abnormal rhythm GI normal to inspection, nondistended, normoactive bowel sounds, non-tender, non- distended and no masses Inspection: Negative for abdominal distention Auscultation: normoactive bowel sounds Palpation: soft; Negative for tender or guarding Back/Spine no CVA tenderness Extremity normal to inspection Extremity Narrative: Left lateral buttock hip area has about a 1 to 2 inch abscess with an inch of surrounding cellulitis. Fluctuant. Tender. No inguinal lymphadenopathy. No necrotic tissue. No drainage. This will need to be drained. General Extremety ED: Negative for edema or tenderness General Extremity: Negative for edema Neuro oriented x3 Sensorium / Orientation: alert; Negative for orientation impaired, lethargic or stuporous Motor Exam: strength 5/5 throughout Psych mental status grossly normal Appearance: Negative for unkempt Attitude: No agitated Mood & Affect: Negative for depressed, anxious or tearful Skin no rashes or lesions noted and no wounds Skin Narrative: Left lateral buttock abscess. Lesions: No lesion noted Rashes: No rashes noted Trauma: Negative for abrasion MDM MDM MDM Narrative Medical decision making narrative: 32-year-old diabetic female with a left buttock abscess that will need I&D. Let will be applied to it. She will be given 1 [place] for pain. I will locally inject the lidocaine. Clean the area. Incise and drain and pack with gauze. She will be started on Keflex 500 mg 4 times a day for 10 days. Outpatient follow-up to have this reassessed. Packing pulled in 4 days. After LAT and then subcu lidocaine I made a 1 inch vertical incision. Patient tolerated well. I expressed 1 to 2 cc of pus. I used a probe and broke up any loculations. Irrigated the wound. Placed 2 inches of iodine packing gauze. Patient tolerated procedure well. She was instructed on wound care. Pull the packing out 4 days. She will be given a dose of Keflex here and a dressing applied prior to discharge. History & Record Review Discussion w/independent historian: Patient Procedures Other Procedures Procedure(s): Left buttock/hip abscess. Incision and drainage. Let. Then subcu lidocaine. Cleaned with iodine. Made a 1 inch vertical incision. Expressed 2 cc of pus. Irrigated wound. Placed 2 inches of iodine packing gauze. Instructed patient on wound care. Packing removal in 4 days. Return if worse. Discharge Plan Triage Chief Complaint: Abscess ED Provider: Dean Santana Dx/Rx/DC Orders Clinical Impression: Abscess, Encounter for incision and drainage procedure, History of diabetes mellitus Instructions: Abscess Drainage Prescriptions: New cephalexin 500 mg capsule 500 mg PO Q6 Qty: 40 0RF No Action metformin 500 mg tablet extended release 24 hr 500 mg PO BID Label Comments: Take 2 tablets by mouth twice daily. ondansetron HCl 4 mg tablet 4 mg PO Q6H PRN (Reason: nausea and vomiting) Qty: 15 0RF amoxicillin 500 mg tablet 500 mg PO TID Qty: 30 0RF hydrocodone-acetaminophen [hydrocodone-acetaminophen] 5-325 mg tablet 1 tab PO Q4H PRN PRN (Reason: Pain) 2 Days Qty: 10 0RF Primary Care Provider: Natalya Garnica Referrals: Natalya Garnica MD [Primary Care Provider] - 3-5 Days if not improving Activity Restrictions/Additional Instructions: Shower and warm soaks. Motrin and Tylenol for pain. The antibiotic Keflex 1 pill 4 times a day for the next 10 days. Return if fever, feeling worse or the area gets red and swollen. Pull the packing gauze out in 3 to 4 days. Disposition Disposition: Home, Self Care
[2022-06-08] MEDS: HYDROcodone Bitartrate/Apap 5/325 Tablet PO (02:49)
[2022-06-08] MEDS: Lidocaine/Epi/Tetracaine 50 ML 1 APPLIC TOPICAL (02:49)
[2022-06-08] MEDS: Cephalexin 250 MG Capsule 500 MG PO (05:40)
== END 2022-06-08 05:48 | disposition home or self-care (01) ==
PROVIDERS: Emergency Provider Emergency Medicine; PCP Internal Medicine; Visit Provider Emergency Medicine
DX: L02.31 Cutaneous abscess of buttock (principal); Z87.891 Personal history of nicotine dependence
CPT/HCPCS: 99283

== ENCOUNTER 2022-06-18 20:36 | Emergency (ER) | payer MEDICAID, SELFPAY ==
[2022-06-18 20:38] VITALS: BP 138/90; PULSE 85; RESP 6; TEMP 36.9; O2SAT 99; BMI 31.6
--- NOTE | 2022-06-18 21:39 | EDS_ITS ---
HPI History of Present Illness Chief Complaint: Dental Detail of Chief Complaint: Dental pain Informant: patient Narrative Narrative: Patient presents to the emergency department complaint of dental pain that started last evening. Patient has multiple broken and carried teeth. Patient's had issues with her teeth for quite some time. She had appointment with a dentist to have some teeth extracted recently but ended up with an abscess on her left thigh and coming to the emergency department and then could not make her appointment and did not feel like she could sit so she moved her dental appointment to July 02. Patient denies fevers at home. She denies recent trauma to her teeth. [facility] Medical History Asthma Diabetes Home Medications metformin 500 mg tablet,extended release 24 hr 500 mg PO BID 07/21/21 [History Last Taken Unknown] ondansetron HCl 4 mg tablet 4 mg PO Q6H PRN nausea and vomiting #15 tabs 02/21/22 [Rx Last Taken Unknown] amoxicillin 500 mg tablet 500 mg PO TID #30 tabs 04/14/22 [Rx Last Taken Unknown] hydrocodone-acetaminophen 5-325mg 5mg-325mg 1 tab PO Q4H PRN PRN Pain 2 days #10 TABLETS 05/14/22 [Rx Last Taken Unknown] cephalexin 500 mg capsule 500 mg PO Q6 #40 CAPSULES 06/08/22 [Rx Last Taken Unknown] amoxicillin 500 mg tablet 500 mg PO TID #30 tabs 06/18/22 [Rx Last Taken Unknown] hydrocodone-acetaminophen 5-325mg 5mg-325mg 1 tab PO Q4H PRN PRN Pain 2 days #10 TABLETS 06/18/22 [Rx Last Taken Unknown] Allergy/AdvReac Type Severity Reaction Status Date / Time oxycodone HCl [From Percocet] Allergy Shortness Verified 06/18/22 20:40 of breath clindamycin AdvReac STOMACH Verified 06/18/22 20:40 UPSET Surgical History History of appendectomy History of bilateral tubal ligation History of section Hx of dilation and curettage Social History household members: children Smoking Status: Former smoker substance use type: does not use ROS ROS ED Review of Systems ROS Unobtainable: other Constitutional Constitutional ED: Reports lethargy; Denies chills, fever(s), sweats or weight loss Eyes Eyes: Denies blurry vision, change in vision or diplopia ENT ENT ED: Reports other Details: Dental pain ; Denies rhinorrhea or sore throat Cardiovascular Cardiovascular: Denies chest pain, orthopnea or racing heartbeat Respiratory/Chest Respiratory/Chest: Denies cough, dyspnea, dyspnea on exertion, orthopnea or sputum Gastrointestinal Gastrointestinal: Denies abdominal pain, diarrhea, nausea or vomiting Genitourinary Genitourinary ED: Denies dysuria, hematuria or urinary frequency Musculoskeletal Musculoskeletal: Denies arthralgias, back pain, myalgias or neck pain Integumentary Denies abscess, Abrasions or rash Neurologic Neurologic: Denies headache(s) or weakness Psychiatric Psychiatric: Denies anxiety, depression or suicidal thoughts Endocrine Endocrinology: Denies polydipsia, polyphagia or polyuria Hematologic/Lymphatic Hematologic/Lymphatic: Denies easy bleeding, easy bruising or lymphadenopathy Allergic/Immunologic Allergic/Immunologic ED: Denies mouth swelling, tongue swelling or urticaria EXAM Physical Exam Const Vital Signs: 06/18/22 20:38 Temperature 98.4 F Temperature Source Temporal Pulse Rate 85 Respiratory Rate 6 L Blood Pressure 138/90 H Blood Pressure Mean 106 Pulse Ox 99 Oxygen Delivery Method Room Air Positive well nourished and well developed General Appearance ED: well developed and NAD HEENT Reports TM's clear and moist mucous membranes HEENT Narrative: Dentition-patient has multiple broken and carried teeth upper and lower. Specifically tender over tooth #11 left upper canine that is broken and carried. She has some gingival erythema to this area. There is no abscess noted. No facial erythema or cellulitis. normocephalic and atraumatic; Negative for trauma or tenderness Tympanic Membrane ED: Yes TM's clear Eyes PERRL and EOMs intact bilaterally General Eye ED: Negative for pale conjunctiva or scleral icterus Neck no lymphadenopathy, supple and no JVD General: Negative for tenderness Chest Wall inspection of chest normal and palpation of chest normal Chest: Negative for tenderness Resp normal respiratory effort and clear to auscultation bilaterally Effort and Inspection: Negative for respiratory distress or pain with movement Auscultation: Negative for rhonchi, wheezes or diminished lung sounds Cardio regular rate, regular rhythm, S1 normal heart sound, S2 normal heart sound and no murmurs Peripheral Pulses: pulses 2+ throughout GI normal to inspection, nondistended, normoactive bowel sounds, soft to palpation, non-tender, non-distended and no masses Back/Spine no CVA tenderness and no thoracic nor lumbar tenderness Extremity normal to inspection General Extremety ED: Negative for edema General Extremity: Negative for edema Neuro oriented x3, CN's II-XII intact bilaterally, no sensory deficits noted and gait normal Sensorium / Orientation: awake, alert, oriented to person, oriented to place and oriented to time Motor Exam: strength 5/5 throughout and strength abnormal Psych mental status grossly normal Skin no rashes or lesions noted and no wounds MDM MDM MDM Narrative Medical decision making narrative: Patient will be started on amoxicillin as she has allergy to clindamycin. She will be started on hydrocodone for pain. She is advised to follow-up with dentist at earliest possible time. Discharge Plan Triage Chief Complaint: Dental ED Provider: Kayla Penaloza Dx/Rx/DC Orders Clinical Impression: Pain, dental, Dental caries Instructions: ED Dental Pain, ED Dental Cavity Prescriptions: New hydrocodone-acetaminophen [hydrocodone-acetaminophen] 5-325 mg tablet 1 tab PO Q4H PRN PRN (Reason: Pain) 2 Days Qty: 10 0RF amoxicillin 500 mg tablet 500 mg PO TID Qty: 30 0RF No Action metformin 500 mg tablet extended release 24 hr 500 mg PO BID Label Comments: Take 2 tablets by mouth twice daily. ondansetron HCl 4 mg tablet 4 mg PO Q6H PRN (Reason: nausea and vomiting) Qty: 15 0RF amoxicillin 500 mg tablet 500 mg PO TID Qty: 30 0RF hydrocodone-acetaminophen [hydrocodone-acetaminophen] 5-325 mg tablet 1 tab PO Q4H PRN PRN (Reason: Pain) 2 Days Qty: 10 0RF cephalexin 500 mg capsule 500 mg PO Q6 Qty: 40 0RF Primary Care Provider: Natalya Garnica Referrals: Natalya Garnica MD [Primary Care Provider] - Activity Restrictions/Additional Instructions: Follow-up with your dentist at the earliest possible time. Disposition Disposition: Home, Self Care
== END 2022-06-18 22:08 | disposition home or self-care (01) ==
PROVIDERS: Emergency Provider Emergency Medicine; PCP Internal Medicine; Visit Provider Emergency Medicine
DX: E11.638 Type 2 diabetes mellitus with other oral complications (principal); K02.9 Dental caries, unspecified; Z79.84 Long term (current) use of oral hypoglycemic drugs; Z87.891 Personal history of nicotine dependence
CPT/HCPCS: 99282

== ENCOUNTER 2022-09-07 18:15 | Emergency (ER) | payer MEDICAID, SELFPAY ==
[2022-09-07 18:16] VITALS: BP 141/100; PULSE 91; RESP 17; TEMP 36.1; O2SAT 100; BMI 31.4
--- NOTE | 2022-09-07 21:23 | EDS_ITS ---
HPI History of Present Illness Chief Complaint: Dental Informant: patient Onset/Context/Timing Onset: Yesterday Context: Gradual Onset Current Severity: Moderate Maximum Severity: Moderate Narrative Narrative: Patient presents with increased left upper dental pain. She had several teeth extracted last month. She states that she recently noticed there is a tooth fragment left in one of the sites. She called her dentist and they are working on getting her scheduled back in. Over the last 2 days she had increasing pain to the area. She is a history of diabetes. She states her blood sugars are slightly elevated around the 200 level. [facility] Medical History Asthma Diabetes Home Medications metformin 500 mg tablet,extended release 24 hr 500 mg PO BID 07/21/21 [History Last Taken Unknown] amoxicillin 875 mg-potassium clavulanate 125 mg tablet 1 tab PO BID #20 tabs 09/07/22 [Rx Last Taken Unknown] hydrocodone-acetaminophen 5-325mg 5mg-325mg 1 tab PO Q6H PRN PRN Pain 3 days #10 TABLETS 09/07/22 [Rx Last Taken Unknown] Allergy/AdvReac Type Severity Reaction Status Date / Time oxycodone HCl [From Percocet] Allergy Shortness Verified 09/07/22 18:18 of breath clindamycin AdvReac STOMACH Verified 09/07/22 18:18 UPSET Surgical History History of appendectomy History of bilateral tubal ligation History of section Hx of dilation and curettage Social History household members: children Smoking Status: Former smoker substance use type: does not use ROS ROS ED Constitutional Constitutional ED: Denies chills or fever(s) Eyes Eyes: Denies discharge from eye(s) ENT ENT ED: Reports other Details: Left upper dental pain ; Denies discharge from eye(s), rhinorrhea or sore throat Cardiovascular Cardiovascular: Denies chest pain or palpitations Respiratory/Chest Respiratory/Chest: Denies cough or dyspnea Gastrointestinal Gastrointestinal: Denies abdominal pain, nausea or vomiting Genitourinary Genitourinary ED: Denies dysuria Musculoskeletal Musculoskeletal: Denies back pain or extremity pain Integumentary Denies Abrasions or rash Neurologic Neurologic: Denies headache(s) or weakness Psychiatric Psychiatric: Denies anxiety or depression Allergic/Immunologic Allergic/Immunologic ED: Denies lip swelling or urticaria EXAM Physical Exam Const Vital Signs: 09/07/22 18:16 Temperature 97 F L Temperature Source Temporal Pulse Rate 91 Respiratory Rate 17 Blood Pressure 141/100 H Blood Pressure Mean 113 Pulse Ox 100 Oxygen Delivery Method Room Air Positive well nourished and well developed General Appearance ED: well developed HEENT HEENT Narrative: Left upper gum edema. Extraction site across several teeth with what appears to be small tooth fragment around the first molar. No drainage from the wound. Posterior pharynx exam normal. No trismus. Eyes PERRL and EOMs intact bilaterally Neck no lymphadenopathy Chest Wall inspection of chest normal and palpation of chest normal Resp normal respiratory effort and clear to auscultation bilaterally Cardio regular rate and regular rhythm GI normal to inspection, nondistended, normoactive bowel sounds Extremity normal to inspection Neuro oriented x3 MDM MDM MDM Narrative Medical decision making narrative: Patient be given a short course of Nesbit along with Augmentin which she is typically given for her dental infections. She is already contacted her dentist and they are getting her scheduled for follow-up. Return instructions given. Discharge Plan Triage Chief Complaint: Dental ED Provider: Anastasiia Childs Dx/Rx/DC Orders Clinical Impression: Odontalgia Instructions: ED Dental Pain Prescriptions: New amoxicillin-pot clavulanate 875-125 mg tablet 1 tab PO BID Qty: 20 0RF hydrocodone-acetaminophen 5-325 mg tablet 1 tab PO Q6H PRN PRN (Reason: Pain) 3 Days Qty: 10 0RF No Action metformin 500 mg tablet extended release 24 hr 500 mg PO BID Label Comments: Take 2 tablets by mouth twice daily. Primary Care Provider: Natalya Garnica Referrals: Natalya Garnica MD [Primary Care Provider] - Activity Restrictions/Additional Instructions: Follow-up with your dentist as planned. Disposition Disposition: Home, Self Care Discharge Date/Time: 09/07/22 21:32
[2022-09-07] MEDS: Amox/Clavulanate 875 MG Tablet PO (21:29)
[2022-09-07] MEDS: HYDROcodone Bitartrate/Apap 5/325 Tablet PO (21:30)
== END 2022-09-07 21:32 | disposition home or self-care (01) ==
PROVIDERS: Emergency Provider Emergency Medicine; PCP Internal Medicine; Visit Provider Emergency Medicine
DX: K08.89 Other specified disorders of teeth and supporting structures (principal); E11.65 Type 2 diabetes mellitus with hyperglycemia; Z79.84 Long term (current) use of oral hypoglycemic drugs; Z87.891 Personal history of nicotine dependence
CPT/HCPCS: 99282

== ENCOUNTER 2022-09-11 11:17 | Emergency (ER) | payer MEDICAID, SELFPAY ==
[2022-09-11 11:17] VITALS: BP 134/109; PULSE 81; RESP 18; TEMP 36.3; O2SAT 97; BMI 30.7
--- NOTE | 2022-09-11 11:46 | EX.ED.DYSGE1 ---
HPI <FERNANDO Dillon - Last Filed: 09/11/22 13:55> History of Present Illness Chief Complaint: Headache Narrative Narrative: Patient presenting today with a frontal headache that she has had since waking up this morning. She reports, I just don't feel good. She was able to go to work this morning but did have to leave due to the headache, she came home and took a nap and woke up and the pain was the same. It has not worsened throughout the day. She also reports photophobia, feeling nauseous, and having one episode of vomiting today. She denies a history of migraines. She reports that while sitting in the examination room she developed midsternal mild chest pain. She reports that she does sometimes get chest pain with her history of anxiety. She denies any fever, chills, shortness of breath, abdominal pain. PFSH <FERNANDO Dillon - Last Filed: 09/11/22 13:55> PFSH Medical History Asthma Diabetes Home Medications metformin 500 mg tablet,extended release 24 hr 500 mg PO BID 07/21/21 [History Last Taken Unknown] amoxicillin 875 mg-potassium clavulanate 125 mg tablet 1 tab PO BID #20 tabs 09/07/22 [Rx Last Taken Unknown] hydrocodone-acetaminophen 5-325mg 5mg-325mg 1 tab PO Q6H PRN PRN Pain 3 days #10 TABLETS 09/07/22 [Rx Last Taken Unknown] Allergy/AdvReac Type Severity Reaction Status Date / Time oxycodone HCl [From Percocet] Allergy Shortness Verified 09/07/22 18:18 of breath clindamycin AdvReac STOMACH Verified 09/07/22 18:18 UPSET Surgical History History of appendectomy History of bilateral tubal ligation History of section Hx of dilation and curettage Social History household members: children Smoking Status: Former smoker substance use type: does not use ROS <FERNANDO Dillon - Last Filed: 09/11/22 13:55> ROS ED Constitutional Constitutional ED: Denies chills or fever(s) Eyes Eyes: Denies change in vision Cardiovascular Cardiovascular: Reports chest pain; Denies palpitations Respiratory/Chest Respiratory/Chest: Denies cough or dyspnea Gastrointestinal Gastrointestinal: Reports nausea and vomiting; Denies abdominal pain Musculoskeletal Musculoskeletal: Denies arthralgias or myalgias Integumentary Denies rash Neurologic Neurologic: Reports headache(s); Denies confusion, dizziness or weakness EXAM <FERNANDO Dillon - Last Filed: 09/11/22 13:55> Physical Exam Const Vital Signs: 09/11/22 11:17 Temperature 97.4 F L Temperature Source Temporal Pulse Rate 81 Respiratory Rate 18 Blood Pressure 134/109 H Blood Pressure Mean 117 Pulse Ox 97 Oxygen Delivery Method Room Air Positive well nourished, well developed and no apparent distress General Appearance ED: well developed HEENT Reports normocephalic and head/scalp atraumatic Mouth ED: Yes moist mucous membranes normal Eyes PERRL and EOMs intact bilaterally Neck full ROM and supple Chest Wall inspection of chest normal Resp normal respiratory effort and clear to auscultation bilaterally Cardio regular rate and regular rhythm GI soft to palpation, non-tender, non-distended and no masses Back/Spine normal ROM and normal to inspection Extremity normal to inspection and full ROM Neuro oriented x3, CN's II-XII intact bilaterally, moves all extremities, no focal motor deficits and no sensory deficits noted Sensorium / Orientation: awake and alert Psych mental status grossly normal and thought process normal Skin no rashes or lesions noted and no wounds <Dr. Anastasiia Childs MD - Last Filed: 09/11/22 19:24> Physical Exam Const Vital Signs: 09/11/22 11:17 Temperature 97.4 F L Temperature Source Temporal Pulse Rate 81 Respiratory Rate 18 Blood Pressure 134/109 H Blood Pressure Mean 117 Pulse Ox 97 Oxygen Delivery Method Room Air MDM <FERNANDO Dillon - Last Filed: 09/11/22 13:55> [facility] Narrative Medical decision making narrative: Patient presenting today due to a headache that she has had since waking up this morning. It has not worsened in severity throughout the day. I considered subarachnoid hemorrhage, but that is unlikely given patient's presentation. While I was in the examination room she reported she felt like she had midsternal chest discomfort that started as soon as she got back to the room. She does report a history of anxiety and panic attacks that have caused chest discomfort in the past but she does not think she is having a panic attack. EKG was obtained and is normal sinus rhythm. I did order a migraine cocktail with IV fluids, Benadryl, Toradol, and Reglan but she declined the Reglan and Benadryl. She was given Zofran instead. On reexamination she reports that she feels much better, she is not having chest discomfort any longer. I encouraged her to follow-up with her PCP she will be discharged home in stable condition. She is comfortable with plan and has been given return instructions. EKG Initial EKG: Comments: 73 bpm, normal sinus rhythm, no ST elevation, reviewed and interpreted by attending ED physician <Dr. Anastasiia Childs MD - Last Filed: 09/11/22 19:24> [facility] Treatment and Re-Evaluation :: Patient seen and evaluated with RYAN. I personally interviewed and examined the patient. I was involved in all aspects of patient's orders, interpretation of results, and treatment. Patient presents secondary to a posterior headache. She complains of a throbbing sensation in her head. No vomiting. No recent head trauma. Patient was seen recently for dental infection and is on antibiotics. She states that is improved. She is still waiting to hear from her dentist regarding her follow-up appointment. Patient sitting upright in bed no acute distress. Head and neck examination unremarkable. No meningismus. Heart is regular rate and rhythm. Lung sounds are clear. Abdomen is soft nontender. Neuro exam is normal. Patient did not want any sedating medication here she does have children to care for. She was given Toradol and IV fluids along with Zofran. On repeat evaluation she does report some improvement in her headache although it is not completely resolved. She was encouraged to take Tylenol or ibuprofen at bedtime with a dose of Benadryl. She voices understanding and agreement. Discharge Plan Triage Chief Complaint: Headache ED Midlevel Provider: Leelee Mckeon ED Provider: Anastasiia Childs Dx/Rx/DC Orders Clinical Impression: Headache, Nausea & vomiting, Chest pain Instructions: ED Chest Pain, Uncertain Cause, ED, Migraine (Classical) Prescriptions: No Action metformin 500 mg tablet extended release 24 hr 500 mg PO BID Label Comments: Take 2 tablets by mouth twice daily. amoxicillin-pot clavulanate 875-125 mg tablet 1 tab PO BID Qty: 20 0RF hydrocodone-acetaminophen 5-325 mg tablet 1 tab PO Q6H PRN PRN (Reason: Pain) 3 Days Qty: 10 0RF Stand Alone Forms: ED Work / School Excuse, Work / School Excuse Primary Care Provider: Natalya Garnica Referrals: Natalya Garnica MD [Primary Care Provider] - 3-5 Days Activity Restrictions/Additional Instructions: Please return for any worsening of your symptoms, follow-up with your PCP. Disposition Disposition: Home, Self Care Discharge Date/Time: 09/11/22 13:46
[2022-09-11] MEDS: 0.9% Normal Saline 1,000 ML 999 ML IV (12:00)
[2022-09-11] MEDS: Ketorolac 15 MG/ML Vial IV (12:00)
[2022-09-11] MEDS: Ondansetron 4 MG/2 ML Vial IV (13:02)
== END 2022-09-11 13:46 | disposition home or self-care (01) ==
PROVIDERS: Emergency Provider Emergency Medicine; PCP Internal Medicine; Visit Provider Emergency Medicine
DX: R51.9 Headache, unspecified (principal); R11.2 Nausea with vomiting, unspecified; R07.9 Chest pain, unspecified; Z87.891 Personal history of nicotine dependence
CPT/HCPCS: 93005; 96361; 96374; 96375; 99283; J7030; A4216; J2405

== ENCOUNTER 2022-09-29 17:36 | Emergency (ER) | payer MEDICAID, SELFPAY ==
[2022-09-29 17:37] VITALS: BP 151/98; PULSE 83; RESP 16; TEMP 36.2; O2SAT 99; BMI 30.7
--- NOTE | 2022-09-29 21:52 | ED.RN ---
PT DENIES HAVING A HEADACHE OF 2151.
--- NOTE | 2022-09-29 22:26 | EDS_ITS ---
HPI History of Present Illness Chief Complaint: Headache Informant: patient and spouse/S.O. Narrative Narrative: Patient is a 32-year-old female with history of type 2 diabetes as well as recurrent dental infections. She states she was recently at her dentist where she had a few teeth pulled but not all of the problematic teeth. She states that she has felt increased left-sided facial swelling and pain without any trauma. She denies any difficulty breathing or swallowing and states that she was seen in the ER recently and placed on antibiotics which she started over the last 2 days. Despite doing this there has been no improvement so she presents for evaluation [facility] Medical History Asthma Diabetes Home Medications metformin 500 mg tablet,extended release 24 hr 500 mg PO BID 07/21/21 [History Last Taken Unknown] amoxicillin 875 mg-potassium clavulanate 125 mg tablet 1 tab PO BID #20 tabs 09/07/22 [Rx Last Taken Unknown] hydrocodone-acetaminophen 5-325mg 5mg-325mg 1 tab PO Q6H PRN PRN Pain 3 days #10 TABLETS 09/07/22 [Rx Last Taken Unknown] hydrocodone-acetaminophen 5-325mg 5mg-325mg 1 tab PO Q6H PRN PRN Pain 3 days #12 TABLETS 09/29/22 [Rx Last Taken Unknown] Allergy/AdvReac Type Severity Reaction Status Date / Time oxycodone HCl [From Percocet] Allergy Shortness Verified 09/07/22 18:18 of breath clindamycin AdvReac STOMACH Verified 09/07/22 18:18 UPSET Surgical History History of appendectomy History of bilateral tubal ligation History of section Hx of dilation and curettage Social History household members: children Smoking Status: Former smoker substance use type: does not use ROS ROS ED Constitutional Constitutional ED: Denies chills or fever(s) Eyes Eyes: Denies change in vision ENT ENT ED: Reports other Details: Positive dental pain ; Denies sore throat Cardiovascular Cardiovascular: Denies chest pain Respiratory/Chest Respiratory/Chest: Denies cough or dyspnea Gastrointestinal Gastrointestinal: Denies abdominal pain, diarrhea, nausea or vomiting Genitourinary Genitourinary ED: Denies dysuria Musculoskeletal Musculoskeletal: Denies myalgias or neck pain Integumentary Denies rash Neurologic Neurologic: Reports headache(s) Hematologic/Lymphatic Hematologic/Lymphatic: Denies easy bleeding or easy bruising EXAM Physical Exam Const Vital Signs: 09/29/22 17:37 Temperature 97.2 F L Temperature Source Temporal Pulse Rate 83 Respiratory Rate 16 Blood Pressure 151/98 H Blood Pressure Mean 115 Pulse Ox 99 Oxygen Delivery Method Room Air Positive well nourished and well developed General Appearance ED: well developed HEENT HEENT Narrative: Patient has dental caries mainly located in the left upper molar region. The teeth with caries appear to have nerve root exposure. No signs of ANUG present. No oral lesions no airway edema or compromise. No obvious abscess formation Eyes PERRL and EOMs intact bilaterally Neck supple Neck Narrative: No nuchal rigidity or meningeal signs No brawny edema in the submental space to suggest John Paul's angina Resp normal respiratory effort and clear to auscultation bilaterally Cardio regular rate and regular rhythm Extremity normal to inspection Neuro oriented x3 and CN's II-XII intact bilaterally Sensorium / Orientation: alert Psych mental status grossly normal Skin no rashes or lesions noted MDM MDM MDM Narrative Medical decision making narrative: Patient presented to the ER mildly hypertensive otherwise afebrile and in no acute distress. Exam showed dental caries with nerve root exposure but no physical exam findings for ANUG or John Paul's angina or obvious dental abscess. Patient reported headache but this was referred pain from the dental issues and her neuro exam is normal and therefore I do not feel there is need for head CT. As her exam does not suggest dental abscess I do not feel there is need for blood work or imaging study. Patient is already on antibiotics and therefore I will add pain medication at this time. We discussed performing a dental block in the ER but patient is unwilling to do so. History & Record Review Discussion w/independent historian: Patient Discharge Plan Triage Chief Complaint: Headache ED Provider: Rogelio Beauchamp Dx/Rx/DC Orders Clinical Impression: Dental decay, Odontalgia, Type 2 diabetes mellitus, Headache Instructions: ED Dental Pain, ED Dental Cavity Prescriptions: New hydrocodone-acetaminophen 5-325 mg tablet 1 tab PO Q6H PRN PRN (Reason: Pain) 3 Days Qty: 12 0RF No Action metformin 500 mg tablet extended release 24 hr 500 mg PO BID Patient Comments: Take 2 tablets by mouth twice daily. amoxicillin-pot clavulanate 875-125 mg tablet 1 tab PO BID Qty: 20 0RF hydrocodone-acetaminophen 5-325 mg tablet 1 tab PO Q6H PRN PRN (Reason: Pain) 3 Days Qty: 10 0RF Stand Alone Forms: ED Work / School Excuse Primary Care Provider: Natalya Garnica Referrals: Natalya Garnica MD [Primary Care Provider] - Activity Restrictions/Additional Instructions: Please continue antibiotic as there is potential for underlying dental infection but ultimately follow-up with your dentist to discuss further treatment options as you have nerve root exposure from your dental caries Disposition Disposition: Home, Self Care Discharge Date/Time: 09/29/22 22:43
[2022-09-29] MEDS: HYDROcodone Bitartrate/Apap 5/325 Tablet PO (22:39)
== END 2022-09-29 22:43 | disposition home or self-care (01) ==
PROVIDERS: Emergency Provider Emergency Medicine; PCP Internal Medicine; Visit Provider Emergency Medicine
DX: K02.7 Dental root caries (principal); E11.9 Type 2 diabetes mellitus without complications; Z79.84 Long term (current) use of oral hypoglycemic drugs; Z87.891 Personal history of nicotine dependence
CPT/HCPCS: 99283

== ENCOUNTER 2022-10-19 04:27 | Emergency (ER) | payer MEDICAID, SELFPAY ==
[2022-10-19 04:27] VITALS: BP 169/100; PULSE 100; RESP 18; TEMP 36.4; O2SAT 99; BMI 30.8
--- NOTE | 2022-10-19 04:52 | EDS_ITS ---
HPI History of Present Illness Chief Complaint: Dental Informant: patient and spouse/S.O. Narrative Narrative: Patient is a 32-year-old female with past medical history of type 2 diabetes who reports that she has recurrent dental problems. She was seen by dentistry recently and had right upper teeth removed. She states she is currently on antibiotics. Despite that she has had increased pain. She states she went to the hospital yesterday and was prescribed medication for home but the pharmacies are closed and she cannot fill them. She also states she has an appointment with a dentist at 1 PM on Wednesday, October 19 but she has been unable to sleep secondary to recurrent pain and therefore comes in for evaluation. [facility] Medical History Asthma Diabetes Home Medications metformin 500 mg tablet,extended release 24 hr 500 mg PO BID 07/21/21 [History Last Taken Unknown] amoxicillin 875 mg-potassium clavulanate 125 mg tablet 1 tab PO BID #20 tabs 09/07/22 [Rx Last Taken Unknown] hydrocodone-acetaminophen 5-325mg 5mg-325mg 1 tab PO Q6H PRN PRN Pain 3 days #10 TABLETS 09/07/22 [Rx Last Taken Unknown] hydrocodone-acetaminophen 5-325mg 5mg-325mg 1 tab PO Q6H PRN PRN Pain 3 days #12 TABLETS 09/29/22 [Rx Last Taken Unknown] Allergy/AdvReac Type Severity Reaction Status Date / Time oxycodone HCl [From Percocet] Allergy Shortness Verified 10/19/22 04:34 of breath clindamycin AdvReac STOMACH Verified 10/19/22 04:34 UPSET Surgical History History of appendectomy History of bilateral tubal ligation History of section Hx of dilation and curettage Social History household members: children Smoking Status: Former smoker substance use type: does not use ROS ROS ED Constitutional Constitutional ED: Denies chills or fever(s) ENT ENT ED: Reports other Details: Positive dental pain ; Denies sore throat Cardiovascular Cardiovascular: Denies chest pain Respiratory/Chest Respiratory/Chest: Denies cough or dyspnea Gastrointestinal Gastrointestinal: Denies abdominal pain, diarrhea, nausea or vomiting Genitourinary Genitourinary ED: Denies dysuria Musculoskeletal Musculoskeletal: Denies myalgias or neck pain Integumentary Denies rash Neurologic Neurologic: Denies headache(s) Hematologic/Lymphatic Hematologic/Lymphatic: Denies easy bleeding or easy bruising EXAM Physical Exam Const Vital Signs: 10/19/22 04:27 Temperature 97.5 F L Temperature Source Temporal Pulse Rate 100 Respiratory Rate 18 Blood Pressure 169/100 H Blood Pressure Mean 123 Pulse Ox 99 Oxygen Delivery Method Room Air Positive well nourished and well developed General Appearance ED: well developed HEENT Reports moist mucous membranes HEENT Narrative: Patient has surgical changes to the right upper gingiva consistent with a recent tooth extraction but no secondary changes to suggest ANUG or acute infection. No tongue or lip swelling no oral lesions no airway edema or compromise. Eyes PERRL and EOMs intact bilaterally Neck supple Neck Narrative: No brawny edema in the submental space to suggest John Paul's angina Resp normal respiratory effort and clear to auscultation bilaterally Cardio regular rate and regular rhythm Extremity normal to inspection Neuro oriented x3 and CN's II-XII intact bilaterally Sensorium / Orientation: alert Psych mental status grossly normal Skin no rashes or lesions noted MDM MDM MDM Narrative Medical decision making narrative: Patient presented to the ER hypertensive otherwise with stable vitals. She was recently seen by the dentist and had teeth extracted and reports she has an appoint with the dentist later today. On exam there is no active bleeding no signs of secondary infection no abscess or changes to suggest John Paul's angina or ANUG. Therefore do not feel there is need for imaging or laboratory studies. Patient was offered a dental block to help resolve her persistent pain but she refused. Therefore it sounds to be doing 1 dose of pain medication orally and have a Cetacaine spray mixed with topical lidocaine placed over the site. However as there is no signs of respiratory distress or secondary infection or persistent bleeding I do not feel there is need for further work-up and he is otherwise safe for discharge History & Record Review Discussion w/independent historian: Patient and Significant other Discharge Plan Triage Chief Complaint: Dental ED Provider: Rogelio Beauchamp Dx/Rx/DC Orders Clinical Impression: Dental decay, Pain, dental, Type 2 diabetes mellitus Instructions: ED Dental Pain Prescriptions: No Action metformin 500 mg tablet extended release 24 hr 500 mg PO BID Patient Comments: Take 2 tablets by mouth twice daily. amoxicillin-pot clavulanate 875-125 mg tablet 1 tab PO BID Qty: 20 0RF hydrocodone-acetaminophen 5-325 mg tablet 1 tab PO Q6H PRN PRN (Reason: Pain) 3 Days Qty: 10 0RF hydrocodone-acetaminophen 5-325 mg tablet 1 tab PO Q6H PRN PRN (Reason: Pain) 3 Days Qty: 12 0RF Primary Care Provider: Natalya Garnica Referrals: Natalya Garnica MD [Primary Care Provider] - Activity Restrictions/Additional Instructions: Please continue the antibiotics provided by your dentist and keep your follow-up with him later today for further evaluation of your current symptoms. If you develop a fever over 100.4 or have any difficulty breathing or swallowing or any further concerns please return to the hospital for repeat evaluation Disposition Disposition: Home, Self Care Discharge Date/Time: 10/19/22 05:15
[2022-10-19] MEDS: HYDROcodone Bitartrate/Apap 5/325 Tablet PO (05:13)
[2022-10-19] MEDS: Tetracaine/Benzocaine/Butamben 1 APPLIC TOPICAL (05:14)
== END 2022-10-19 05:15 | disposition home or self-care (01) ==
PROVIDERS: Emergency Provider Emergency Medicine; PCP Internal Medicine; Visit Provider Emergency Medicine
DX: E11.638 Type 2 diabetes mellitus with other oral complications (principal); K02.9 Dental caries, unspecified; Z79.84 Long term (current) use of oral hypoglycemic drugs; Z87.891 Personal history of nicotine dependence
CPT/HCPCS: 99283

== ENCOUNTER 2022-12-09 18:57 | Emergency (ER) | payer MEDICAID, SELFPAY ==
[2022-12-09 18:58] VITALS: BP 138/99; PULSE 91; RESP 16; TEMP 36.6; O2SAT 100; BMI 30.7
--- NOTE | 2022-12-09 19:53 | ED.VIS.DENTA ---
HPI <FERNANDO Dillon - Last Filed: 12/09/22 20:40> History of Present Illness Chief Complaint: Dental Narrative Narrative: Patient presenting today with dental pain to her left maxillary second molar. She broke off a piece of it a few days ago and has been in pain ever since and is gradually worsening. She admits to poor dentition. She is in the process of getting partial dentures. She does have a dentist that she can follow-up with. She denies any fever or chills. PFSH <FERNANDO Dillon - Last Filed: 12/09/22 20:40> PFSH Medical History Asthma Diabetes Home Medications metformin 500 mg tablet,extended release 24 hr 500 mg PO BID 07/21/21 [History Last Taken Unknown] naproxen 500 mg tablet 500 mg PO BID #14 tabs 12/09/22 [Rx Last Taken Unknown] penicillin V potassium 500 mg tablet 500 mg PO 4X/DAY #40 tabs 12/09/22 [Rx Last Taken Unknown] Allergy/AdvReac Type Severity Reaction Status Date / Time oxycodone HCl [From Percocet] Allergy Shortness Verified 12/09/22 18:58 of breath clindamycin AdvReac STOMACH Verified 12/09/22 18:58 UPSET Surgical History History of appendectomy History of bilateral tubal ligation History of section Hx of dilation and curettage Social History household members: children Smoking Status: Former smoker substance use type: does not use ROS <FERNANDO Dillon - Last Filed: 12/09/22 20:40> ROS ED Constitutional Constitutional ED: Denies chills or fever(s) Cardiovascular Cardiovascular: Denies chest pain Respiratory/Chest Respiratory/Chest: Denies cough or dyspnea Gastrointestinal Gastrointestinal: Denies abdominal pain, nausea or vomiting Musculoskeletal Musculoskeletal: Denies arthralgias or myalgias Integumentary Denies rash Neurologic Neurologic: Denies weakness EXAM <FERNANDO Dillon - Last Filed: 12/09/22 20:40> Physical Exam Const Vital Signs: 12/09/22 18:58 Temperature 97.8 F Temperature Source Temporal Pulse Rate 91 Respiratory Rate 16 Blood Pressure 138/99 H Blood Pressure Mean 112 Pulse Ox 100 Positive well nourished, well developed and no apparent distress General Appearance ED: well developed HEENT Reports normocephalic and head/scalp atraumatic HEENT Narrative: Posterior pharynx clear, no trismus, no drooling, multiple dental caries, multiple missing teeth. Dental fracture to the maxillary left second molar. No dental abscess. Mouth ED: Yes moist mucous membranes normal Eyes PERRL and EOMs intact bilaterally Neck full ROM and supple Chest Wall inspection of chest normal Resp normal respiratory effort and clear to auscultation bilaterally Cardio regular rate and regular rhythm GI soft to palpation, non-tender, non-distended and no masses Back/Spine normal ROM and normal to inspection Extremity normal to inspection and full ROM Neuro oriented x3, CN's II-XII intact bilaterally, moves all extremities, no focal motor deficits and no sensory deficits noted Sensorium / Orientation: awake and alert Psych mental status grossly normal and thought process normal Skin no rashes or lesions noted and no wounds <Dr. Ashwini Rome, DO - Last Filed: 12/10/22 01:13> Physical Exam Const Vital Signs: 12/09/22 18:58 Temperature 97.8 F Temperature Source Temporal Pulse Rate 91 Respiratory Rate 16 Blood Pressure 138/99 H Blood Pressure Mean 112 Pulse Ox 100 [facility] <FERNANDO Dillon - Last Filed: 12/09/22 20:40> [facility] Narrative Medical decision making narrative: Patient presenting due to dental pain. She has a dental fracture to her maxillary left second molar. She broke a piece of it off a few days ago. She has multiple dental caries on exam, dental fracture, multiple missing teeth, no dental abscess. She be started on penicillin with first dose here. I did offer to give her Tylenol or ibuprofen but she declines. She is well-appearing and in no acute distress, vitals are unremarkable. She will be given a prescription for naproxen and penicillin. She will be discharged home in stable condition and is comfortable with plan. She does have a dentist that she can follow-up with. <Dr. Ashwini Rome DO - Last Filed: 12/10/22 01:13> MDM MDM Narrative Medical decision making narrative: Patient presenting due to dental pain. She has a dental fracture to her maxillary left second molar. She broke a piece of it off a few days ago. She has multiple dental caries on exam, dental fracture, multiple missing teeth, no dental abscess. She be started on penicillin with first dose here. I did offer to give her Tylenol or ibuprofen but she declines. She is well-appearing and in no acute distress, vitals are unremarkable. She will be given a prescription for naproxen and penicillin. She will be discharged home in stable condition and is comfortable with plan. She does have a dentist that she can follow-up with. I have personally performed a face to face assessment of the patient and have reviewed the RYAN Note. I performed a substantive portion of the visit including all aspects of the following. My cyr findings include: History is patient is a 32-year-old female with history of poor dentition and multiple prior pulled teeth presenting for increased left upper dental pain. Has a broken indicated left maxillary molar. Does seem to be rubbing against her cheek a bit. We do not have any dental laxity patient is counseled to use dental wax to reduce localized irritation. Is offered and nerve block but declines. We started antibiotics. Does request a prescription for naproxen. No airway compromise. She will follow-up with her dentist. Other additions or changes: [None] Discharge Plan Triage Chief Complaint: Dental ED Midlevel Provider: Leelee Mckeon ED Provider: Ashwini Rome Dx/Rx/DC Orders Clinical Impression: Dental caries, Pain, dental Instructions: ED Dental Pain Prescriptions: New penicillin V potassium 500 mg tablet 500 mg PO 4X/DAY Qty: 40 0RF naproxen 500 mg tablet 500 mg PO BID Qty: 14 0RF No Action metformin 500 mg tablet extended release 24 hr 500 mg PO BID Patient Comments: Take 2 tablets by mouth twice daily. Primary Care Provider: Natalya Garnica Referrals: Natalya Garnica MD [Primary Care Provider] - Activity Restrictions/Additional Instructions: Please call your dentist tomorrow to make an appointment. Return for any worsening of your symptoms. Taking antibiotics as directed. Disposition Disposition: Home, Self Care Discharge Date/Time: 12/09/22 20:39
[2022-12-09] MEDS: Penicillin Vk 250 MG Tablet 500 MG PO (20:17)
== END 2022-12-09 20:39 | disposition home or self-care (01) ==
PROVIDERS: Emergency Provider Emergency Medicine; PCP Internal Medicine; Visit Provider Emergency Medicine
DX: E11.638 Type 2 diabetes mellitus with other oral complications (principal); K02.9 Dental caries, unspecified; K08.89 Other specified disorders of teeth and supporting structures; Z87.891 Personal history of nicotine dependence; Z79.84 Long term (current) use of oral hypoglycemic drugs
CPT/HCPCS: 99283

== ENCOUNTER 2022-12-28 18:17 | Emergency (ER) | payer MEDICAID, SELFPAY ==
[2022-12-28 18:18] VITALS: BP 141/101; PULSE 97; RESP 20; TEMP 36.7; O2SAT 100; BMI 31.4
--- NOTE | 2022-12-28 18:22 | ED.VIS.CHEST ---
HPI History of Present Illness Chief Complaint: Chest Other [facility] Medical History Asthma Diabetes Home Medications metformin 500 mg tablet,extended release 24 hr 500 mg PO BID 07/21/21 [History Last Taken Unknown] naproxen 500 mg tablet 500 mg PO BID #14 tabs 12/09/22 [Rx Last Taken Unknown] penicillin V potassium 500 mg tablet 500 mg PO 4X/DAY #40 tabs 12/09/22 [Rx Last Taken Unknown] sulfamethoxazole 800 mg-trimethoprim 160 mg tablet (Bactrim DS) 1 tab PO BID 7 days #14 tabs 12/28/22 [Rx Last Taken Unknown] Allergy/AdvReac Type Severity Reaction Status Date / Time oxycodone HCl [From Percocet] Allergy Shortness Verified 12/28/22 18:18 of breath clindamycin AdvReac STOMACH Verified 12/28/22 18:18 UPSET Surgical History History of appendectomy History of bilateral tubal ligation History of section Hx of dilation and curettage Social History household members: children Smoking Status: Former smoker substance use type: does not use EXAM Physical Exam Const Vital Signs: 12/28/22 18:18 12/28/22 18:52 Temperature 98.1 F Temperature Source Temporal Pulse Rate 97 Respiratory Rate 20 H Respiratory Effort Normal Non-Labored Blood Pressure 141/101 H Blood Pressure Mean 114 Pulse Ox 100 Oxygen Delivery Method Room Air MDM MDM MDM Narrative Medical decision making narrative: HISTORY OF PRESENT ILLNESS: 32-year-old female here with concern for right nipple pain. States that started last night. She states there is noticeable lump and white discharge. She denies any trauma to the nipple, she is not currently breast-feeding. She denies any piercing or biting. She states that started last night spontaneously. She notes her blood sugars been running in the 200s. She denies any fever, chills, muscle aches, vomiting or other signs of illness. She notes her grandmother had breast cancer but denies any other family history of breast cancer. REVIEW OF SYSTEMS: Pertinent positives: Breast pain Pertinent negatives: Chest pain, shortness of breath, fever, vomiting. PHYSICAL EXAM: Nursing triage notes reviewed, Vital signs reviewed Constitutional: please see mdm Neck: No stridor, no JVD, full neck ROM Lungs: Clear to auscultation, No wheezing or rales. No increased work of breathing, no conversational dyspnea, no accessory muscle use, no nasal flaring. 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 There is no obvious fluctuance induration or mass. No peau' d orange. Skin: abnormal nipple, no obvious retraction, no palpable mass. MEDICAL DECISION MAKING: Chief Complaint: Breast pain External records reviewed: No recent adVanced imaging of the breast Factors affecting care: Type 2 diabetes Social determinants of health: Former smoker History obtained from others: none Consults: none [facility] Narrative: Patient was hemodynamically stable, afebrile, nontoxic-appearing. Exam consistent with likely breast cellulitis. Obtain ultrasound to rule out breast abscess. Ultrasound showed Gave Bactrim for MRSA and antimicrobial prophylaxis. I considered the following differential diagnosis: Breast abscess, breast cancer, Patient was given a prescription for Bactrim for home-going. She was instructed to follow-up with her primary care physician for further outpatient evaluation to determine if she has any signs of underlying breast cancer that could explain her symptoms. She agreed to follow-up. The patient and/or family, caregivers express understanding. The patient and/or family, caregivers agrees with the plan. Shared decision making: I will have a discussion with the patient and or visitors regarding risk/benefits of further testing or admission. They will be made aware of of the risk/benefits inherent in this decision they will be given the opportunity to voice understanding. Total critical care time today provided was at least 0 minutes. This excludes separately billable procedures. Critical care time (if documented) is secondary to the patient having high probability of clinically significant/life threatening deterioration in the patient's condition which required my urgent intervention. Impression: 1. Breast cellulitis Dispo: discharge Radiography Diagnostic Testing: Clinical Impression(s) from Imaging Studies Breast Ultrasound 12/28/22 19:04 IMPRESSION: Suspect cellulitis with an 8 mm oval area of focal edema within the thickened skin of the medial aspect of the nipple. ASSESSMENT CATEGORY: BIRADS Category 2: Benign. A letter regarding these results will be sent to the patient by the facility within 30 days. Electronically Signed: Law Navarro MD at 21:29 EDT , Discharge Plan Triage Chief Complaint: Chest Other ED Provider: Mark Cruz Dx/Rx/DC Orders Instructions: Cellulitis, Breast Pain (Mastalgia) Prescriptions: New sulfamethoxazole-trimethoprim [Bactrim DS] 800-160 mg tablet 1 tab PO BID 7 Days Qty: 14 0RF No Action metformin 500 mg tablet extended release 24 hr 500 mg PO BID Patient Comments: Take 2 tablets by mouth twice daily. penicillin V potassium 500 mg tablet 500 mg PO 4X/DAY Qty: 40 0RF naproxen 500 mg tablet 500 mg PO BID Qty: 14 0RF Stand Alone Forms: ED Work / School Excuse Primary Care Provider: Natalya Garnica Referrals: Natalya Garnica MD [Primary Care Provider] - Activity Restrictions/Additional Instructions: Thank you for trusting us with your care today! Please take Tylenol (2 pills, 650 mg), ibuprofen (2 pills, 400 mg) every 6 hours as needed for pain and fever control. Please take Bactrim daily for twice daily for the next 7 days. Please return to the emergency department if your symptoms change or worsen. Specifically if your symptoms get worse, develop fever, vomiting, if you cannot tolerate antibiotics by mouth. Please follow with your primary care physician for further outpatient evaluation and management. Disposition Disposition: Home, Self Care Discharge Date/Time: 12/28/22 22:05
--- NOTE | 2022-12-28 19:04 | US_ITS ---
STUDY: ULTRASOUND BREAST - RIGHT REASON FOR EXAM: Female, 32 years old. Breast pain and erythema TECHNIQUE: Axial and longitudinal images of the RIGHT breast were performed with a high resolution ultrasound transducer. # OF IMAGES: 30 COMPARISON: None. FINDINGS: RIGHT Breast: Heterogeneous background echotexture. Multiple longitudinal and transverse ultrasound images of the medial aspect of the nipple demonstrates significant skin thickening with 8 mm oval slightly hypoechoic mass within the thickened skin which may represent focal edema.: US/Breast Limited Unilateral IMPRESSION: Suspect cellulitis with an 8 mm oval area of focal edema within the thickened skin of the medial aspect of the nipple. ASSESSMENT CATEGORY: BIRADS Category 2: Benign. A letter regarding these results will be sent to the patient by the facility within 30 days. Electronically Signed: Law Navarro MD at 21:29 EDT ,
[2022-12-28] MEDS: Smz/Tmp Ds Tablet 1 TABLET PO (19:26)
[2022-12-28 22:05] VITALS: PULSE 75; RESP 15; O2SAT 98
== END 2022-12-28 22:05 | disposition home or self-care (01) ==
PROVIDERS: Emergency Provider Emergency Medicine; PCP Internal Medicine; Visit Provider Emergency Medicine
DX: N61.0 Mastitis without abscess (principal); Z87.891 Personal history of nicotine dependence
CPT/HCPCS: 76642; 99283

== ENCOUNTER 2023-01-07 09:23 | Emergency (ER) | payer MEDICAID, SELFPAY ==
[2023-01-07 09:24] VITALS: BP 131/111; PULSE 94; RESP 18; TEMP 36.9; O2SAT 97; BMI 30.7
--- NOTE | 2023-01-07 09:56 | RAD_ITS ---
EXAM: XR CHEST, 2 VIEWS CLINICAL INDICATION: Chest discomfort TECHNIQUE: Frontal and lateral views of the chest. COMPARISON: 11/24/2021. FINDINGS: LUNGS AND PLEURAL SPACES: The lungs are clear. No pneumothorax. No effusion. HEART: Unremarkable. Cardiac silhouette not enlarged. MEDIASTINUM: Central airways and mediastinal contour are unremarkable. BONES/JOINTS: Unremarkable. SOFT TISSUES: Unremarkable. RAD/Chest PA and Lateral IMPRESSION: Normal chest radiographs and unchanged when compared to 11/24/2021. Electronically Signed: Dipak Saha MD at 10:14 EDT ,
[2023-01-07 10:01] LABS: Absolute Lymphocyte Count 2.32 X10^3/uL (0.83-4.51); Absolute Neutrophil Count 3.2 X10^3/uL (2.0-7.7); Basophil# 0.05 X10^3/uL; Basophil% 0.8 % (0-1); Eosinophil# 0.06 X10^3/uL; Hematocrit 41.4 % (37-47); Lymphocyte # 2.32 X10^3/ul (0.83-4.51); Lymphocyte % 38.6 % (19-41); Mean Corp Hgb Conc 33.8 g/dL (32-36); Mean Corpuscular Hgb 28.4 pg (27.0-32.0); Mean Platelet Vol. 11.5 fl (6.2-12.0); Monocyte# 0.33 X10^3/uL; Monocyte% 5.5 % (0-10); NRBC Flagged by Analyzer 0 % (0-5); Neutrophil # 3.23 X10^3/uL (2.7-7.7); Neutrophil % 53.8 % (47-70); Platelet Count 232 K/mm3 (150-450); RBC Distribution Width CV 11.7 % (11.6-14.6); RBC Distribution Width SD 35.3 fl (35.1-43.9); Red Blood Count 4.93 M/mm3 (4.2-5.4)
[2023-01-07 10:15] LABS: Anion Gap 4 (5-15); BUN 9 mg/dL (7-18); BUN/Creat Ratio 11.4 RATIO (10-20); Calcium,Total 8.7 mg/dL (8.5-10.1); Chloride 104 mmol/L (98-107); Creatinine, Serum 0.79 mg/dL (0.55-1.02); EST Glomerular Filtration Rate 89 mL/min (>60); Est Glom Filt Rate - Afr Amer 108 mL/min (>60); Estimated Creatinine Clearance 106.84 ml/min; Glucose 368 mg/dL (74-106); Potassium 3.7 mmol/L (3.5-5.1); Sodium Level 135 mmol/L (136-145)
--- NOTE | 2023-01-07 10:32 | EDS_ITS ---
HPI History of Present Illness Chief Complaint: General Illness Detail of Chief Complaint: Lysed aches, headache, chest discomfort Informant: patient Onset/Context/Timing Onset: Days (Onset 2 days ago) Context: Sudden Onset Timing: Continuous and Waxes and wanes Quality: Generalized aches, global headache, slight cough Location: Multiple Current Severity: Mild Maximum Severity: Moderate Worsened by: Nothing specific Relieved by: Took 800 mg ibuprofen this morning without improvement Associated Symptoms Associated Symptoms: Nausea, reported photophobia Narrative Narrative: Patient is a 32-year-old female with history of type 2 diabetes who presents with global generalized headache, photophobia without neck pain or stiffness. She does report right ear pain. She does report mild sore throat and cough. Cough is nonproductive. She does endorse nausea without vomiting diarrhea. She denies dysuria, frequency, urgency or hematuria. She denies rash. She denies joint swelling. She does report generalized aches. Uncertain whether she has had any recent ill contacts. She has not noted a rash. Patient does have history of type 2 diabetes and is presently taking metformin 500 mg twice daily. Prior similar symptoms: No Recent Illness/Hospitalization: No PFSH PFSH Medical History Asthma Diabetes Home Medications metformin 500 mg tablet,extended release 24 hr 500 mg PO BID 07/21/21 [History Last Taken Unknown] naproxen 500 mg tablet 500 mg PO BID #14 tabs 12/09/22 [Rx Last Taken Unknown] penicillin V potassium 500 mg tablet 500 mg PO 4X/DAY #40 tabs 12/09/22 [Rx Last Taken Unknown] sulfamethoxazole 800 mg-trimethoprim 160 mg tablet (Bactrim DS) 1 tab PO BID 7 days #14 tabs 12/28/22 [Rx Last Taken Unknown] Allergy/AdvReac Type Severity Reaction Status Date / Time oxycodone HCl [From Percocet] Allergy Shortness Verified 01/07/23 09:23 of breath clindamycin AdvReac STOMACH Verified 01/07/23 09:23 UPSET Surgical History History of appendectomy History of bilateral tubal ligation History of section Hx of dilation and curettage Social History household members: children Smoking Status: Former smoker substance use type: does not use ROS ROS ED Constitutional Constitutional ED: Reports fever(s) and subjective; Denies chills, sweats or weight loss Eyes Eyes: Reports other Details: Endorses photophobia. ; Denies blurry vision, change in vision or diplopia ENT ENT ED: Reports ear pain right and sore throat; Denies rhinorrhea Cardiovascular Cardiovascular: Denies chest pain, orthopnea, palpitations or paroxysmal nocturnal dyspnea Respiratory/Chest Respiratory/Chest: Reports cough; Denies dyspnea, dyspnea on exertion, orthopnea, paroxysmal nocturnal dyspnea or sputum Gastrointestinal Gastrointestinal: Reports nausea; Denies abdominal pain, diarrhea, melena or vomiting Genitourinary Genitourinary ED: Reports other Details: Status post tubal ligation ; Denies dysuria, hematuria or urinary frequency Musculoskeletal Musculoskeletal: Reports arthralgias, back pain and myalgias; Denies neck pain Integumentary Denies abscess or rash Neurologic Neurologic: Reports headache(s); Denies paresthesias or weakness Endocrine Endocrinology: Denies cold intolerance or heat intolerance Hematologic/Lymphatic Hematologic/Lymphatic: Reports systems reviewed and no addt'l complaints, except as documented EXAM Physical Exam Const Vital Signs: 01/07/23 09:24 01/07/23 09:56 Temperature 98.4 F Temperature Source Temporal Pulse Rate 94 Respiratory Rate 18 Respiratory Effort Normal Non-Labored Respiratory Pattern Normal Blood Pressure 131/111 H Blood Pressure Mean 117 Pulse Ox 97 Oxygen Delivery Method Room Air Positive well nourished, well developed and obese General Appearance ED: well developed and NAD; Negative for cyanotic, gayatri phoretic or pallor Nutritional Appearance: obese HEENT Reports moist mucous membranes HEENT Narrative: Ears normal. TMs are normal. Nares patent with no discharge. No frontal ethmoid or maxillary sinus tenderness. Posterior pharynx with slight erythema. There is no exudate. Uvula is midline. Eyes PERRL and EOMs intact bilaterally Eyes Narrative: Photophobia. Cup-to-disc ratio is normal. There is no papilledema noted. General Eye ED: Negative for pale conjunctiva or scleral icterus Neck no lymphadenopathy, supple and no JVD Chest Wall inspection of chest normal and palpation of chest normal Resp normal respiratory effort and clear to auscultation bilaterally Cardio regular rate, regular rhythm, S1 normal heart sound, S2 normal heart sound and no murmurs GI normal to inspection, nondistended, normoactive bowel sounds, non-tender, non- distended and no masses; Negative for hepatosplenomegaly Palpation: soft Back/Spine no CVA tenderness Extremity normal to inspection General Extremety ED: Negative for edema or tenderness General Extremity: Negative for edema Neuro oriented x3, CN's II-XII intact bilaterally and no sensory deficits noted Neuro Narrative: No dysmetria. DTR 1+ at bicep, brachialis, triceps, patella and ankle. There is no clonus or Babinski sign. Sensorium / Orientation: alert Motor Exam: strength 5/5 throughout Psych mental status grossly normal Skin no rashes or lesions noted, no wounds and skin turgor normal General Skin Exam: Negative for jaundice or pallor MDM MDM MDM Narrative Medical decision making narrative: Symptoms are suggestive of viral illness. Since she has history of asthma and has mild respiratory symptoms will obtain chest x-ray to evaluate for possible pneumonia. Because she is diabetic patient metabolic and was obtained to assess glucose, CO2 anion gap and electrolytes. History & Record Review Additional record(s) reviewed:: Prior ED visit and Prior labs (Has had elevated blood sugars on past results.) Lab Data Attestation: I reviewed the patient's lab results. Lab results narrative: He is normal. Basic metabolic panel is remarkable for glucose of 368 with normal CO2 and gap. Labs: Laboratory Results - last 24 hr 01/07/23 08:54 WBC 6.0 RBC 4.93 Hgb 14.0 Hct 41.4 MCV 84.0 MCH 28.4 MCHC 33.8 RDW Std Deviation 35.3 RDW Coeff of Migel 11.7 Plt Count 232 MPV 11.5 Immature Gran % (Auto) 0.300 Neut % (Auto) 53.8 Lymph % (Auto) 38.6 Sauk % (Auto) 5.5 Eos % (Auto) 1.0 Baso % (Auto) 0.8 Absolute Neuts (auto) 3.2 Absolute Lymphs (auto) 2.32 Nucleated RBC % 0 Sodium 135 L Potassium 3.7 Chloride 104 Carbon Dioxide 27.0 Anion Gap 4 L BUN 9 Creatinine 0.79 Estim Creat Clear Calc 106.84 Est GFR (MDRD) Af Amer 108 Est GFR (MDRD) Non-Af 89 BUN/Creatinine Ratio 11.4 Glucose 368 H Calcium 8.7 Radiography Chest X-Ray - ED: 2 View and Read by ED Physician (Chest x-rays independent reviewed interpreted by me as negative. Cardiac silhouette size normal. Lung parenchyma normal. Perihilar region normal. Osseous structures are unremarkable. 1006) Diagnostic Testing: Clinical Impression(s) from Imaging Studies Chest X-Ray 01/07/23 09:56 IMPRESSION: Normal chest radiographs and unchanged when compared to 11/24/2021. Electronically Signed: Dipak Saha MD at 10:14 EDT , Treatment and Re-Evaluation :: Informed of her laboratory results. Patient was informed this is a viral illness. Patient was discharged home. She was informed that she may be ill for another 7 to 10 days. She was informed that her blood sugars 368. She informed me that she did not take her metformin this morning. She was instructed to check her blood sugars regularly. Discharge Plan Triage Chief Complaint: General Illness ED Provider: Roger Mulligan Dx/Rx/DC Orders Clinical Impression: Systemic viral illness, Viral cephalgia, Type 2 diabetes mellitus with hyperglycemia, without long-term current use of insulin Instructions: ED Diabetic Hyperglycemia, ED Viral Syndrome (Adult) Prescriptions: No Action metformin 500 mg tablet extended release 24 hr 500 mg PO BID Patient Comments: Take 2 tablets by mouth twice daily. penicillin V potassium 500 mg tablet 500 mg PO 4X/DAY Qty: 40 0RF naproxen 500 mg tablet 500 mg PO BID Qty: 14 0RF sulfamethoxazole-trimethoprim [Bactrim DS] 800-160 mg tablet 1 tab PO BID 7 Days Qty: 14 0RF Primary Care Provider: Natalya Garnica Referrals: Natalya Garnica MD [Primary Care Provider] - 10-14 Days if not better Activity Restrictions/Additional Instructions: 1. If your blood sugar is greater than 450 return to the emergency department 2. You need to check your blood sugar regularly and take your medication 3. Recommend Tylenol for aches and pains and fever. Disposition Disposition: Home, Self Care
[2023-01-07 11:04] VITALS: RESP 18
== END 2023-01-07 11:05 | disposition home or self-care (01) ==
PROVIDERS: Emergency Provider Emergency Medicine; PCP Internal Medicine; Visit Provider Emergency Medicine
DX: B34.9 Viral infection, unspecified (principal); E11.65 Type 2 diabetes mellitus with hyperglycemia; E66.9 Obesity, unspecified; Z68.30 Body mass index [BMI] 30.0-30.9, adult; Z79.84 Long term (current) use of oral hypoglycemic drugs; Z87.891 Personal history of nicotine dependence
CPT/HCPCS: 71046; 80048; 85025; 99283; A4216

== ENCOUNTER 2023-02-26 18:24 | Emergency (ER) | payer MEDICAID, SELFPAY ==
[2023-02-26 18:24] VITALS: BP 132/98; PULSE 100; RESP 16; TEMP 36.6; O2SAT 98; BMI 30.7
[2023-02-26 19:13] LABS: Absolute Lymphocyte Count 1.94 X10^3/uL (0.83-4.51); Basophil# 0.04 X10^3/uL; Basophil% 0.4 % (0-1); Eosinophil# 0.07 X10^3/uL; Eosinophils% 0.7 % (0-5); Hematocrit 39.1 % (37-47); Hemoglobin 13.8 g/dL (12.0-15.0); Lymphocyte # 1.94 X10^3/ul (0.83-4.51); Mean Corp Hgb Conc 35.3 g/dL (32-36); Mean Corpuscular Volume 79.5 fL (81-99); Mean Platelet Vol. 11.2 fl (6.2-12.0); Monocyte# 0.61 X10^3/uL; Monocyte% 6.3 % (0-10); NRBC Flagged by Analyzer 0 % (0-5); Neutrophil # 7.01 X10^3/uL (2.7-7.7); Neutrophil % 72.2 % (47-70); Platelet Count 231 K/mm3 (150-450); RBC Distribution Width CV 11.6 % (11.6-14.6); RBC Distribution Width SD 33.5 fl (35.1-43.9); Red Blood Count 4.92 M/mm3 (4.2-5.4); White Blood Count 9.7 K/mm3 (4.4-11.0)
[2023-02-26 19:30] LABS: ALB/GLOB Ratio 0.9 RATIO (0.9-2.4); AST(SGOT) 6 U/L (15-37); Alanine Aminotransfer ALT/SGPT 17 U/L (13-56); Albumin, Serum 3.5 g/dL (3.2-5.0); Alkaline Phosphatase 69 U/L (45-117); Anion Gap 4 (5-15); BUN 11 mg/dL (7-18); BUN/Creat Ratio 15.9 RATIO (10-20); Calcium,Total 9.2 mg/dL (8.5-10.1); Chloride 105 mmol/L (98-107); Creatinine, Serum 0.69 mg/dL (0.55-1.02); EST Glomerular Filtration Rate 103 mL/min (>60); Est Glom Filt Rate - Afr Amer 125 mL/min (>60); Estimated Creatinine Clearance 121.19 ml/min; Globulin 4.1 g/dL (2.2-4.2); Glucose 222 mg/dL (74-106); Potassium 3.5 mmol/L (3.5-5.1); Protein, Total 7.6 g/dL (6.4-8.2); Sodium Level 137 mmol/L (136-145)
[2023-02-26 19:53] LABS: Internal QC Validated? YES +Cl - CLEAR BKGD; Pregnancy, Serum, hCG Quali. NEGATIVE Negative
[2023-02-26] MEDS: 0.9% Normal Saline (1000mL) 1,000 ML 1000 ML IV (20:04)
[2023-02-26] MEDS: Ondansetron 4 MG/2 ML Vial IV (20:04)
[2023-02-26 20:11] LABS: Bacteria 0 SEEN /hpf (None Seen); Mucous, Urine 0 SEEN /hpf (<or=2+); Red Blood Cells-Urine 0 SEEN /hpf (0-5); White Blood Cells 0 SEEN /hpf (0-5)
[2023-02-26 20:12] LABS: Color, Urine Yellow (Yellow); Glucose, Dipstick 100 mg/dl (Normal); Ketone-Dipstick 5 mg/dl (Negative); Leukocyte Esterase-Dipstick 25 /ul (Negative); Nitrite-Dipstick Negative (Negative); Occult Blood-Urine Negative /ul (Negative); Protein-Dipstick 15 mg/dl (Negative); Urine Bilirubin Dipstick Negative (Negative); Urine Clarity Clear (Clear); Urine Urobilinogen Normal (Normal)
[2023-02-26 20:27] LABS: Squamous Epithelial Cells - UA 0-5 SEEN /hpf (5-10)
--- NOTE | 2023-02-26 21:35 | EDS_ITS ---
HPI HPI - GI History of Present Illness Chief Complaint: Abd Pain Narrative Narrative: Patient is a 33-year-old female with history of type 2 diabetes mellitus, prior appendectomy and 2 C-sections presenting with nausea, vomiting and epigastric abdominal pain. Patient states she woke up with upset stomach. Around 2 PM she developed nausea and vomiting. She states she has vomited at least 15 times. Is not aware of any blood in her vomit. Notes that she has pain in her epigastric region that started before the vomiting. Notes that her daughter at home woke up with some stomach pains as well and her mother had some diarrhea yesterday. Denies any fever. Denies any alcohol, tobacco or drug use. Last menstrual period was 2 to 3 weeks ago. Does not concern for . No other complaints or concerns at this time. Continues to pass gas. PFSH PFS Medical History Asthma Diabetes Home Medications metformin 500 mg tablet,extended release 24 hr 1,000 mg PO BID 07/21/21 [History Last Taken Unknown] ondansetron 4 mg disintegrating tablet 4 mg PO Q8H PRN PRN Nausea #20 tabs 02/27/23 [Rx Last Taken Unknown] polyethylene glycol 3350 17 gram/dose oral powder (ClearLax) 17 g PO DAILY #119 grams 02/27/23 [Rx Last Taken Unknown] Allergy/AdvReac Type Severity Reaction Status Date / Time oxycodone HCl [From Percocet] Allergy Shortness Verified 02/26/23 18:24 of breath clindamycin AdvReac STOMACH Verified 02/26/23 18:24 UPSET Surgical History History of appendectomy History of bilateral tubal ligation History of section Hx of dilation and curettage Social History household members: children Smoking Status: Former smoker substance use type: does not use ROS ROS ED Constitutional Constitutional ED: Denies chills or fever(s) Respiratory/Chest Respiratory/Chest: Denies cough Gastrointestinal Gastrointestinal: Reports abdominal pain, nausea and vomiting; Denies constipation, diarrhea or melena Genitourinary Genitourinary ED: Denies dysuria Musculoskeletal Musculoskeletal: Denies arthralgias or myalgias Integumentary Denies rash Neurologic Neurologic: Denies headache(s) EXAM Physical Exam Const Vital Signs: 02/26/23 18:24 02/26/23 21:42 02/26/23 23:15 Temperature 97.8 F Temperature Source Temporal Pulse Rate 100 85 81 Respiratory Rate 16 18 Blood Pressure 132/98 H 148/88 H 135/97 H Blood Pressure Mean 109 108 109 Pulse Ox 98 100 Oxygen Delivery Method Room Air Room Air Positive well nourished and well developed Constitutional Narrative: Vomiting, uncomfortable appearing from this General Appearance ED: well developed HEENT Reports moist mucous membranes normocephalic Eyes PERRL Neck supple Resp normal respiratory effort and clear to auscultation bilaterally Cardio regular rate and regular rhythm GI non-distended Auscultation: normoactive bowel sounds Palpation: soft and tender epigastric; Negative for guarding, rigid, hernia or rebound tenderness present Neuro Sensorium / Orientation: alert, oriented to person, oriented to place and oriented to time Psych mental status grossly normal Mood & Affect: anxious Skin no wounds MDM MDM MDM Narrative Medical decision making narrative: Is evaluated for nausea and vomiting. She states she woke up with an upset stomach and had worsening symptoms since then. Denies really any bowel changes. Says sick contacts at home. Differential includes gastroenteritis, pancreatitis, GERD, dehydration and less likely small bowel obstruction as she continues to pass gas. CBC and CMP largely unremarkable. Lipase is pending. Given IV fluids and Zofran. Urinalysis shows 5 ketones but otherwise largely normal. Not consistent with infection or kidney stone. Abdominal x-ray is obtained which shows moderate colonic stool retention with no bowel obstruction. This is reviewed by myself as well as radiology. On repeat evaluation patient is starting to feel better. She is complaining of some continued nausea and is given some Reglan. Since her complaints of dizziness is given some Benadryl. Patient is recommended soapsuds enema because of her significant stool retention. She agrees. Plan is to give enema and then discharge home with Zofran as well as MiraLAX. She is agreeable this plan of care. Will follow-up with her primary care doctor. Will be given return precautions. Lipase is only mildly elevated. Patient has good results of hard balls of stool with enema. We discharged home with further instructions to take magnesium citrate [id number] to help further with her constipation in addition to the MiraLAX. Is feeling better. Lab Data Attestation: I reviewed the patient's lab results. Labs: Laboratory Results - last 24 hr 02/26/23 02/26/23 18:55 20:05 WBC 9.7 RBC 4.92 Hgb 13.8 Hct 39.1 MCV 79.5 L MCH 28.0 MCHC 35.3 RDW Std Deviation 33.5 L RDW Coeff of Migel 11.6 Plt Count 231 MPV 11.2 Immature Gran % (Auto) 0.400 Neut % (Auto) 72.2 H Lymph % (Auto) 20.0 [place] % (Auto) 6.3 Eos % (Auto) 0.7 Baso % (Auto) 0.4 Absolute Neuts (auto) 7.0 Absolute Lymphs (auto) 1.94 Nucleated RBC % 0 Sodium 137 Potassium 3.5 Chloride 105 Carbon Dioxide 28.0 Anion Gap 4 L BUN 11 Creatinine 0.69 Estim Creat Clear Calc 121.19 Est GFR (MDRD) Af Amer 125 Est GFR (MDRD) Non-Af 103 BUN/Creatinine Ratio 15.9 Glucose 222 H Calcium 9.2 Total Bilirubin 0.80 AST 6 L ALT 17 Alkaline Phosphatase 69 Total Protein 7.6 Albumin 3.5 Globulin 4.1 Albumin/Globulin Ratio 0.9 Lipase 93 H Serum , Qual NEGATIVE Urine Color Yellow Urine Clarity Clear Urine pH 8.0 Ur Specific [place] 1.010 Urine Protein 15 H Urine Glucose (UA) 100 H Urine Ketones 5 H Urine Occult Blood Negative Urine Nitrite Negative Urine Bilirubin Negative Urine Urobilinogen Normal Ur Leukocyte Esterase 25 H Urine RBC 0 SEEN Urine WBC 0 SEEN Ur Squamous Epith Cells 0-5 SEEN Urine Bacteria 0 SEEN Urine Mucus 0 SEEN Radiography Diagnostic Testing: Clinical Impression(s) from Imaging Studies Abdomen X-Ray 02/26/23 23:25 IMPRESSION: Moderate colonic stool retention. No bowel obstruction. Electronically Signed: Santiago Morales DO at 23:50 EST , Discharge Plan Triage Chief Complaint: Abd Pain ED Provider: Ashwini Rome Dx/Rx/DC Orders Clinical Impression: Epigastric abdominal pain, Constipation, Vomiting Instructions: ED Constipation (Adult), ED Vomiting (Adult) Prescriptions: New polyethylene glycol 3350 [ClearLax] 17 gram/dose powder 17 g PO DAILY Qty: 119 0RF Continued ondansetron 4 mg tablet,disintegrating 4 mg PO Q8H PRN PRN (Reason: Nausea) Qty: 20 0RF No Action metformin 500 mg tablet extended release 24 hr 1,000 mg PO BID Patient Comments: Take 2 tablets by mouth twice daily. Primary Care Provider: Natalya Garnica Referrals: Natalya Garnica MD [Primary Care Provider] - Activity Restrictions/Additional Instructions: Make sure you are drinking plenty of fluids. You have significant constipation on exam. Please take the MiraLAX when she stomach is settled to help keep you more regular. Please follow-up with your primary care doctor. Please buy magnesium citrate at the local drugstore. Take half the bottle tomorrow or soon as your stomach is feeling more settled. If you do not start having good bowel movements please drink the other half of the bottle. Do this in addition to the MiraLAX prescribed. Disposition Disposition: Home, Self Care
[2023-02-26] MEDS: Metoclopramide 10 MG/2 ML Vial 5 MG IV (21:38)
[2023-02-26 21:42] VITALS: BP 148/88; PULSE 85; RESP 18; O2SAT 100
[2023-02-26] MEDS: 0.9% Normal Saline (1000mL) 1,000 ML 999 ML IV (23:14)
[2023-02-26] MEDS: DiphenhydrAMINE 50 MG/ML Syringe 25 MG IV (23:14)
[2023-02-26 23:15] VITALS: BP 135/97; PULSE 81
--- NOTE | 2023-02-26 23:25 | RAD_ITS ---
EXAM: XR ABDOMEN, 2 VIEWS CLINICAL INDICATION: vomiting TECHNIQUE: Frontal view of the abdomen/pelvis with upright view of the abdomen. COMPARISON: CT abdomen and pelvis, 02/09/2021 FINDINGS: LOWER THORAX: No acute pathology. INTRAPERITONEAL SPACE: No free air. GASTROINTESTINAL TRACT: Moderate colonic stool retention. No bowel obstruction. ORGANS: Normal as visualized. No organomegaly. No abnormal calcifications. BONES/JOINTS: [place] left mild curvature of the lumbar spine. SOFT TISSUES: No acute pathology. RAD/Abd Inc Decub and/or Erect IMPRESSION: Moderate colonic stool retention. No bowel obstruction. Electronically Signed: Santiago Morales DO at 23:50 EST ,
[2023-02-27 01:00] VITALS: BP 136/87; PULSE 78; RESP 18; O2SAT 100
[2023-02-27 01:32] LABS: Lipase 93 U/L (13-75)
[2023-02-27 02:38] VITALS: BP 135/81; PULSE 79; RESP 18
== END 2023-02-27 02:39 | disposition home or self-care (01) ==
PROVIDERS: Emergency Provider Emergency Medicine; PCP Internal Medicine; Visit Provider Emergency Medicine
DX: R10.13 Epigastric pain (principal); E11.9 Type 2 diabetes mellitus without complications; R11.2 Nausea with vomiting, unspecified; K59.00 Constipation, unspecified; Z87.891 Personal history of nicotine dependence; Z79.84 Long term (current) use of oral hypoglycemic drugs
CPT/HCPCS: 74019; 80053; 81001; 83690; 84703; 85025; 96361; 96374; 96375; 99285; J7030; A4216; J2405

== ENCOUNTER 2023-05-09 17:59 | Emergency (ER) | payer MEDICAID, SELFPAY ==
[2023-05-09 18:00] VITALS: BP 133/94; PULSE 94; RESP 18; TEMP 36.8; O2SAT 100; BMI 31.8
--- NOTE | 2023-05-09 18:13 | EDS_ITS ---
HPI <FERNANDO Galvan - Last Filed: 05/09/23 18:15> History of Present Illness Chief Complaint: Dental Narrative Narrative: 33-year-old female has had pain in her right lower molar x 3 days. She tried to call her dentist office but they were closed over the weekend. She states she has had cavities before but not in this specific tooth. She has no fever, chills, nausea or vomiting or difficulty swallowing or breathing. She has diabetic. PFSH <FERNANDO Galvan - Last Filed: 05/09/23 18:15> PFS Medical History Asthma Diabetes Home Medications metformin 500 mg tablet,extended release 24 hr 1,000 mg PO BID 07/21/21 [History Last Taken Unknown] polyethylene glycol 3350 17 gram/dose oral powder (ClearLax) 17 g PO DAILY #119 grams 02/27/23 [Rx Last Taken Unknown] dulaglutide 0.75 mg/0.5 mL subcutaneous pen injector (Trulicity) 0.75 mg subcut QWEEK 04/27/23 [History Last Taken Unknown] promethazine 12.5 mg tablet 12.5 mg PO TID PRN nausea and vomiting #10 tabs 04/27/23 [Rx Last Taken Unknown] penicillin V potassium 500 mg tablet 500 mg PO 4X/DAY #40 tabs 05/09/23 [Rx Last Taken Unknown] Allergy/AdvReac Type Severity Reaction Status Date / Time oxycodone HCl [From Percocet] Allergy Shortness Verified 05/09/23 18:00 of breath clindamycin AdvReac STOMACH Verified 05/09/23 18:00 UPSET Surgical History History of appendectomy History of bilateral tubal ligation History of section Hx of dilation and curettage Social History household members: children Smoking Status: Former smoker substance use type: does not use ROS <FERNANDO Galvan - Last Filed: 05/09/23 18:15> ROS ED ROS Narrative Constitutional: Negative for fever, chills. ENT: Positive for dental pain. Respiratory: Negative for shortness of breath. Neuro: Negative for headache. EXAM <FERNANDO Galvan - Last Filed: 05/09/23 18:15> Physical Exam Narrative Exam Narrative: CONST: Patient sitting in no acute distress. EYES: Normal inspection. ENT: Tenderness over her only existing right lower molar, the rest of the molars have been extracted. There is evidence of caries, no periapical abscess, no trismus or tongue elevation, sublingual space is soft, no drooling or stridor, no dysphonia, trachea midline and neck supple. SKIN: Color normal, no rash, warm, dry, intact. EXTREMITIES: Normal appearance, no pedal edema. NEURO: Oriented x4. PSYCH: Normal affect. Const Vital Signs: 05/09/23 18:00 05/09/23 18:28 Temperature 98.2 F 98.2 F Temperature Source Temporal Pulse Rate 94 94 Respiratory Rate 18 18 Blood Pressure 133/94 H 133/94 H Blood Pressure Mean 107 107 Pulse Ox 100 100 Oxygen Delivery Method Room Air <Dr. Mark Cruz, - Last Filed: 05/09/23 22:24> Physical Exam Const Vital Signs: 05/09/23 18:00 05/09/23 18:28 Temperature 98.2 F 98.2 F Temperature Source Temporal Pulse Rate 94 94 Respiratory Rate 18 18 Blood Pressure 133/94 H 133/94 H Blood Pressure Mean 107 107 Pulse Ox 100 100 Oxygen Delivery Method Room Air MDM <FERNANDO Galvan - Last Filed: 05/09/23 18:15> [facility] MDM Narrative Medical decision making narrative: Patient has acute dental pain in her right lower molar. She appears well and nontoxic and is afebrile with normal vital signs. She has evidence of caries but no drainable abscess and no signs of John Paul's angina. She is tolerating oral secretions and has no trismus or concerning signs. She was given penicillin DKA with first dose of antibiotic given. She declined Toradol and states she will take [id number] Tylenol and call her dentist tomorrow. She was discharged in stable condition. <Dr. Mark Cruz DO - Last Filed: 05/09/23 22:24> [facility] Treatment and Re-Evaluation Narrative: ED attending note: I evaluated the patient in conjunction with the RYAN. I agree with his/her statements and above findings. I have personally performed a face to face assessment of the patient and have reviewed the RYAN Note. I performed a substantive portion of the visit including all aspects of the following. I personally saw the patient performed chart review, physical exam, reviewed labs, imaging (if obtained), and formulated a treatment and management plan. This note was generated with [employer] dictation software. It may contain incorrect words, spelling, and punctuation that were not noted in review of the chart prior to signing. Discharge Plan Triage Chief Complaint: Dental ED Midlevel Provider: Haven Ramos ED Provider: Mark Cruz Dx/Rx/DC Orders Clinical Impression: Abscess, dental Instructions: ED Dental Abscess Prescriptions: New penicillin V potassium 500 mg tablet 500 mg PO 4X/DAY Qty: 40 0RF No Action Trulicity 0.75 mg/0.5 mL pen injector 0.75 mg subcut QWEEK promethazine 12.5 mg tablet 12.5 mg PO TID PRN (Reason: nausea and vomiting) Qty: 10 0RF metformin 500 mg tablet extended release 24 hr 1,000 mg PO BID Patient Comments: Take 2 tablets by mouth twice daily. polyethylene glycol 3350 [ClearLax] 17 gram/dose powder 17 g PO DAILY Qty: 119 0RF Primary Care Provider: Natalya Garnica Referrals: Natalya Garnica MD [Primary Care Provider] - Activity Restrictions/Additional Instructions: Take Tylenol every 6 hours as needed for pain and follow-up with your doctor Disposition Disposition: Home, Self Care Discharge Date/Time: 05/09/23 18:29
[2023-05-09] MEDS: Acetaminophen 500 MG Tablet 1000 MG PO (18:24)
[2023-05-09] MEDS: Penicillin Vk 250 MG Tablet 500 MG PO (18:24)
[2023-05-09 18:28] VITALS: BP 133/94; PULSE 94; RESP 18; TEMP 36.8; O2SAT 100
== END 2023-05-09 18:29 | disposition home or self-care (01) ==
LOC: ED 18:13
PROVIDERS: Emergency Provider Emergency Medicine; PCP Internal Medicine; Visit Provider Emergency Medicine
DX: K04.7 Periapical abscess without sinus (principal); E11.9 Type 2 diabetes mellitus without complications; Z79.84 Long term (current) use of oral hypoglycemic drugs; Z79.85 Long-term (current) use of injectable non-insulin antidiabetic drugs; Z87.891 Personal history of nicotine dependence
CPT/HCPCS: 99283

== ENCOUNTER 2023-08-12 21:37 | Emergency (ER) | payer MEDICAID, SELFPAY ==
[2023-08-12 21:37] VITALS: BP 154/106; PULSE 94; RESP 16; TEMP 36.6; O2SAT 100; BMI 30.9
--- NOTE | 2023-08-12 22:19 | ED.VIS.DENTA ---
HPI History of Present Illness Chief Complaint: Dental Detail of Chief Complaint: Dental pain Informant: patient Narrative Narrative: Patient presents emergency department with complaint of dental pain for several days. She was seen by dentist yesterday and had x-rays that showed infection and teeth 9 and 10 as well as tooth #14. She was referred to an fire assistant. Patient was started on Keflex. Denies fevers or chills or sweats. Patient having significant pain. PFSH PFSH Medical History Acute pharyngitis, unspecified Asthma Diabetes Home Medications ?Medication ?Instructions ?Recorded ?Last Taken ?Type metformin 500 mg tablet,extended 1,000 mg PO BID 07/21/21 Unknown History release 24 hr polyethylene glycol 3350 17 17 g PO DAILY #119 grams 02/27/23 Unknown Rx gram/dose oral powder (ClearLax) dulaglutide 0.75 mg/0.5 mL 0.75 mg subcut QWEEK 04/27/23 Unknown History subcutaneous pen injector (Trulicity) ondansetron HCl 4 mg tablet 4 mg PO Q8H 06/30/23 Unknown History promethazine 25 mg tablet 25 mg PO Q4-6H PRN nausea and 06/30/23 Unknown Rx vomiting #20 tabs hydrocodone-acetaminophen 5-325mg 1 tab PO Q4H PRN PRN Pain 2 days 08/12/23 Unknown Rx 5mg-325mg #10 TABLETS Allergy/AdvReac Type Severity Reaction Status Date / Time oxycodone HCl (From Percocet) Allergy Shortness Verified 08/12/23 21:38 of breath clindamycin AdvReac STOMACH Verified 08/12/23 21:38 UPSET Surgical History History of appendectomy History of bilateral tubal ligation History of section Hx of dilation and curettage Social History household members: children Smoking Status: Former smoker substance use type: does not use ROS ROS ED Review of Systems ROS Unobtainable: other Constitutional Constitutional ED: Reports lethargy; Denies chills, fever(s), sweats or weight loss Eyes Eyes: Denies blurry vision, change in vision or diplopia ENT ENT ED: Reports other Details: Dental pain ; Denies rhinorrhea or sore throat Cardiovascular Cardiovascular: Denies chest pain, orthopnea or racing heartbeat Respiratory/Chest Respiratory/Chest: Denies cough, dyspnea, dyspnea on exertion, orthopnea or sputum Gastrointestinal Gastrointestinal: Denies abdominal pain, diarrhea, nausea or vomiting Genitourinary Genitourinary ED: Denies dysuria, hematuria or urinary frequency Musculoskeletal Musculoskeletal: Denies arthralgias, back pain, myalgias or neck pain Integumentary Denies abscess, Abrasions or rash Neurologic Neurologic: Denies headache(s) or weakness Psychiatric Psychiatric: Denies anxiety, depression or suicidal thoughts Endocrine Endocrinology: Denies polydipsia, polyphagia or polyuria Hematologic/Lymphatic Hematologic/Lymphatic: Denies easy bleeding, easy bruising or lymphadenopathy Allergic/Immunologic Allergic/Immunologic ED: Denies mouth swelling, tongue swelling or urticaria EXAM Physical Exam Const Vital Signs: 08/12/23 21:37 Temperature 98 F Temperature Source Temporal Pulse Rate 94 Respiratory Rate 16 Blood Pressure 154/106 H Blood Pressure Mean 122 Pulse Ox 100 Oxygen Delivery Method Room Air Positive well nourished and well developed General Appearance ED: well developed and NAD HEENT Reports TM's clear and moist mucous membranes HEENT Narrative: Dentition-patient has tenderness palpation of teeth numbers 9 and 10. Patient also tenderness to palpation over tooth #14. No gingival erythema or abscess noted. No facial erythema or cellulitis. normocephalic and atraumatic; Negative for trauma or tenderness Tympanic Membrane ED: Yes TM's clear Eyes PERRL and EOMs intact bilaterally General Eye ED: Negative for pale conjunctiva or scleral icterus Neck no lymphadenopathy, supple and no JVD General: Negative for tenderness Chest Wall inspection of chest normal and palpation of chest normal Chest: Negative for tenderness Resp normal respiratory effort and clear to auscultation bilaterally Effort and Inspection: Negative for respiratory distress or pain with movement Auscultation: Negative for rhonchi, wheezes or diminished lung sounds Cardio regular rate, regular rhythm, S1 normal heart sound, S2 normal heart sound and no murmurs Peripheral Pulses: pulses 2+ throughout GI normal to inspection, nondistended, normoactive bowel sounds, soft to palpation, non-tender, non-distended and no masses Back/Spine no CVA tenderness and no thoracic nor lumbar tenderness Extremity normal to inspection General Extremety ED: Negative for edema General Extremity: Negative for edema Neuro oriented x3, CN's II-XII intact bilaterally, no sensory deficits noted and gait normal Sensorium / Orientation: awake, alert, oriented to person, oriented to place and oriented to time Motor Exam: strength 5/5 throughout and strength abnormal Psych mental status grossly normal Skin no rashes or lesions noted and no wounds MDM MDM MDM Narrative Medical decision making narrative: Patient with dental pain recently seen by dentist and currently on an antibiotic. I will write her prescription for few [place] for pain. Advised her to follow-up with the fire assistant at the earliest possible time. Discharge Plan Triage Chief Complaint: Dental ED Provider: Kayla Penaloza Dx/Rx/DC Orders Clinical Impression: Pain, dental Instructions: ED Dental Pain Prescriptions: New hydrocodone-acetaminophen 5-325 mg tablet 1 tab PO Q4H PRN PRN (Reason: Pain) 2 Days Qty: 10 0RF No Action Trulicity 0.75 mg/0.5 mL pen injector 0.75 mg subcut QWEEK ondansetron HCl 4 mg tablet 4 mg PO Q8H promethazine 25 mg tablet 25 mg PO Q4-6H PRN (Reason: nausea and vomiting) Qty: 20 0RF metformin 500 mg tablet extended release 24 hr 1,000 mg PO BID Patient Comments: Take 2 tablets by mouth twice daily. polyethylene glycol 3350 [ClearLax] 17 gram/dose powder 17 g PO DAILY Qty: 119 0RF Primary Care Provider: Natalya Garnica Referrals: Natalya Garnica MD [Primary Care Provider] - Print Language: Sammarinese Disposition Disposition: Home, Self Care
[2023-08-12 22:31] VITALS: BP 155/90; PULSE 98; RESP 16; TEMP 36.3; O2SAT 97
== END 2023-08-12 22:33 | disposition home or self-care (01) ==
PROVIDERS: Emergency Provider Emergency Medicine; PCP Internal Medicine; Visit Provider Emergency Medicine
DX: K08.89 Other specified disorders of teeth and supporting structures (principal); Z87.891 Personal history of nicotine dependence
CPT/HCPCS: 99282

== ENCOUNTER 2023-10-02 23:32 | Emergency (ER) | payer MEDICAID, SELFPAY ==
[2023-10-02 23:33] VITALS: BP 148/97; PULSE 97; RESP 16; TEMP 36.4; O2SAT 98; BMI 31.8
--- NOTE | 2023-10-02 23:50 | RAD_ITS ---
INDICATION: dyspnea EXAMINATION/TECHNIQUE: X-RAY - XR Chest 1 View COMPARISON: Prior study dated: 01/07/2023 FINDINGS: LINES/DEVICES: None. LUNGS: The lungs are well expanded. No consolidation, edema or effusion. No pneumothorax. MEDIASTINUM AND CARDIOVASCULAR STRUCTURES: Cardiac silhouette not enlarged. Central airways and mediastinal contour are unremarkable. BONES AND SOFT TISSUES: No acute abnormality. RAD/Chest 1 View (Portable) IMPRESSION: No acute pulmonary finding. Electronically Signed: Jhonny Wang MD at 0:42 EDT ,
--- NOTE | 2023-10-02 23:51 | ED.VIS.DYS ---
HPI History of Present Illness Chief Complaint: Shortness of Breath Informant: patient, family and EMS Narrative Narrative: 33-year-old female presenting to the emergency room via EMS with chief complaint of dyspnea. Patient states that she had was sleeping when she woke suddenly feeling like she could not breathe dry mouth and soreness in her throat near her larynx felt that her heart was racing. Family notes that she was coughing quite a bit. Symptoms seem to get better then came back have now improved again. She has a history of diabetes. She has an inhaler which she did not use. She ate pizza and fries around 2130 hrs. prior to going to bed. She denies any new medications. Patient has no history of recent surgery or trauma malignancy or external hormonal use. No prior history of DVT PE aortic dissection or aneurysm. [facility] Medical History Acute otitis externa of right ear Acute pharyngitis, unspecified Diabetes Asthma Home Medications ?Medication ?Instructions ?Recorded ?Last Taken ?Type metformin 500 mg tablet,extended 1,000 mg PO BID 07/21/21 Unknown History release 24 hr dulaglutide 0.75 mg/0.5 mL 0.75 mg subcut QWEEK 04/27/23 Unknown History subcutaneous pen injector (Trulicity) ondansetron HCl 4 mg tablet 4 mg PO Q8H 06/30/23 Unknown History promethazine 25 mg tablet 25 mg PO Q4-6H PRN nausea and 06/30/23 Unknown Rx vomiting #20 tabs Allergy/AdvReac Type Severity Reaction Status Date / Time oxycodone HCl (From Percocet) Allergy Shortness Verified 10/02/23 23:41 of breath clindamycin AdvReac STOMACH Verified 10/02/23 23:41 UPSET Surgical History History of bilateral tubal ligation Hx of dilation and curettage History of section History of appendectomy Social History household members: children Smoking Status: Former smoker substance use type: does not use ROS ROS ED Constitutional Constitutional ED: Denies chills, fever(s) or weight loss Eyes Eyes: Denies change in vision or diplopia ENT ENT ED: Reports sore throat; Denies ear pain or rhinorrhea Cardiovascular Cardiovascular: Reports racing heartbeat; Denies chest pain, orthopnea or palpitations Respiratory/Chest Respiratory/Chest: Reports dyspnea; Denies cough or orthopnea Gastrointestinal Gastrointestinal: Denies abdominal pain, diarrhea, nausea or vomiting Genitourinary Genitourinary ED: Denies dysuria, hematuria or urinary frequency Musculoskeletal Musculoskeletal: Denies arthralgias or myalgias Integumentary Denies abscess or rash Neurologic Neurologic: Denies headache(s) or weakness Psychiatric Psychiatric: Denies anxiety, depression, suicidal ideation or suicidal thoughts Endocrine Endocrinology: Denies polydipsia, polyphagia or polyuria Allergic/Immunologic Allergic/Immunologic ED: Denies mouth swelling, tongue swelling or urticaria EXAM Physical Exam Const Vital Signs: 10/02/23 23:33 10/02/23 23:42 Temperature 97.6 F L Temperature Source Temporal Pulse Rate 97 Respiratory Rate 16 Respiratory Effort Normal Respiratory Depth Normal Respiratory Pattern Normal Blood Pressure 148/97 H Blood Pressure Mean 114 Pulse Ox 98 Oxygen Delivery Method Room Air Room Air Positive well nourished and well developed General Appearance ED: well developed HEENT Reports normocephalic, head/scalp atraumatic and moist mucous membranes Eyes PERRL and EOMs intact bilaterally Neck no lymphadenopathy, supple and no JVD Resp normal respiratory effort and clear to auscultation bilaterally Cardio regular rate, regular rhythm and no murmurs GI normal to inspection, nondistended, normoactive bowel sounds and non-tender Palpation: soft Back/Spine no CVA tenderness and normal ROM Extremity normal to inspection General Extremety ED: Negative for edema General Extremity: Negative for edema Neuro oriented x3 and CN's II-XII intact bilaterally Sensorium / Orientation: alert Motor Exam: strength 5/5 throughout Psych mental status grossly normal Mood & Affect: Negative for depressed or tearful Skin no rashes or lesions noted and no wounds MDM MDM MDM Narrative Medical decision making narrative: Differential diagnosis includes but not limited to cardiac dysrhythmia bronchospasm aspiration/GERD, anxiety pneumonia pneumothorax pleural effusion Patient is on a sinus rhythm on the monitor. Lung sounds are clear. My independent interpretation of the chest x-ray is no acute process. Patient refused a GI cocktail. Patient is PERC negative Patient was observed in the department and said no events on the monitor. Her exam appears benign. I wonder if the patient had a degree of reflux which causes may be some laryngospasm or possible some aspiration. At this point I think the patient can be discharged home. Would recommend follow-up as needed return if worsening or concerns Radiography Diagnostic Testing: Clinical Impression(s) from Imaging Studies Chest X-Ray 10/02/23 23:50 IMPRESSION: No acute pulmonary finding. Electronically Signed: Jhonny Wang MD at 0:42 EDT , Discharge Plan Triage Chief Complaint: Shortness of Breath ED Provider: Ethan Funes Dx/Rx/DC Orders Clinical Impression: Acute dyspnea, Palpitations, GERD (gastroesophageal reflux disease) Instructions: ED Dyspnea, ED GERD (Adult) Prescriptions: No Action Trulicity 0.75 mg/0.5 mL pen injector 0.75 mg subcut QWEEK ondansetron HCl 4 mg tablet 4 mg PO Q8H promethazine 25 mg tablet 25 mg PO Q4-6H PRN (Reason: nausea and vomiting) Qty: 20 0RF metformin 500 mg tablet extended release 24 hr 1,000 mg PO BID Patient Comments: Take 2 tablets by mouth twice daily. Primary Care Provider: Natalya Garnica Referrals: Natalya Garnica MD [Primary Care Provider] - 1 Week if not improving Activity Restrictions/Additional Instructions: If symptoms persist you may try taking a Pepcid once or twice daily. You may also try some Maalox. Avoiding eating before bedtime by several hours. Return to emergency if worsening or concerns Print Language: Syriac Disposition Disposition: Home, Self Care
[2023-10-03 00:47] VITALS: BP 128/91; PULSE 89; RESP 18; TEMP 36.7; O2SAT 97
== END 2023-10-03 00:50 | disposition home or self-care (01) ==
PROVIDERS: Emergency Provider Emergency Medicine; PCP Internal Medicine; Visit Provider Emergency Medicine
DX: R06.02 Shortness of breath (principal); E11.9 Type 2 diabetes mellitus without complications; R00.2 Palpitations; K21.9 Gastro-esophageal reflux disease without esophagitis; Z79.84 Long term (current) use of oral hypoglycemic drugs; Z79.85 Long-term (current) use of injectable non-insulin antidiabetic drugs; Z87.891 Personal history of nicotine dependence
CPT/HCPCS: 71045; 99283

== ENCOUNTER 2023-10-14 20:49 | Emergency (ER) | payer MEDICAID, SELFPAY ==
[2023-10-14 20:50] VITALS: BP 149/102; PULSE 99; RESP 18; TEMP 36.7; O2SAT 99; BMI 30.3
[2023-10-14 21:06] LABS: Mucous, Urine 0 SEEN /hpf (<or=2+); White Blood Cells 0 SEEN /hpf (0-5)
[2023-10-14 21:19] LABS: Color, Urine Yellow (Yellow); Glucose, Dipstick Normal (Normal); Ketone-Dipstick Negative (Negative); Leukocyte Esterase-Dipstick Negative /ul (Negative); Nitrite-Dipstick Negative (Negative); Occult Blood-Urine Negative /ul (Negative); Protein-Dipstick Negative (Negative); Urine Bilirubin Dipstick Negative (Negative); Urine Clarity Clear (Clear); Urine Urobilinogen 4 mg/dl (Normal)
[2023-10-14 21:22] LABS: Internal QC Validated? YES +Cl - CLEAR BKGD
[2023-10-14 21:23] LABS: Pregnancy, Urine Negative Negative; Record Kit Lot#,Urine Preg 772476
[2023-10-14 21:30] LABS: Bacteria 1+ /hpf (None Seen); Squamous Epithelial Cells - UA 0-5 SEEN /hpf (5-10)
[2023-10-14 21:32] LABS: Red Blood Cells-Urine 0-5 SEEN /hpf (0-5)
--- NOTE | 2023-10-14 22:04 | CT_ITS ---
INDICATION: left flank pain COMPARISON: 01/11/[address] A radiation dose optimization technique was used for this scan. RADIATION DOSAGE (If Supplied By Facility): CTDIvol/DLP = ( 14.49 ) / ( 767.51 ) mGy/mGycm FINDINGS: Noncontrast serial CT axial images through the abdomen and pelvis with coronal and sagittal reformatted series. PANCREAS: No peripancreatic fat stranding. BOWEL/MESENTERY: No dilated bowel loops. No significant free fluid. No free air. GALLBLADDER: No pericholecystic fat stranding. LIVER/STOMACH: No obvious abnormality. URINARY COLLECTING SYSTEM/ KIDNEYS: Left mid gonadal vein phlebolith. No obstructing ureteral calculus. No significant renal parenchymal abnormality. APPENDIX: Absent appendix with pericecal suture line. LUNG BASES: Unremarkable. BONES: Unremarkable for age. CT/Abdomen/Pelvis without Cont IMPRESSION: No acute abdominal abnormality is identified, to include no evidence of obstructing ureteral calculus. Electronically Signed: Valentín Luna MD at 23:56 EDT ,
--- NOTE | 2023-10-14 22:39 | EDS_ITS ---
HPI History of Present Illness Chief Complaint: Complaint Informant: patient Narrative Narrative: Patient is a 33-year-old female with past medical history of type 2 diabetes and asthma. She states she noticed some left-sided back and abdominal pain yesterday that was intermittent in nature. She reports that today the pain became more constant and sharp. She states that there is no recent trauma or excessive activity. She denies any dysuria or hematuria. She states has been no fevers chills or known sick contacts however because of the increasing pain she presents for evaluation [facility] Medical History Acute otitis externa of right ear Acute pharyngitis, unspecified Diabetes Asthma Home Medications ?Medication ?Instructions ?Recorded ?Last Taken ?Type metformin 500 mg tablet,extended 1,000 mg PO BID 07/21/21 Unknown History release 24 hr dulaglutide 0.75 mg/0.5 mL 0.75 mg subcut QWEEK 04/27/23 Unknown History subcutaneous pen injector (Trulicity) ondansetron HCl 4 mg tablet 4 mg PO Q8H 06/30/23 Unknown History promethazine 25 mg tablet 25 mg PO Q4-6H PRN nausea and 06/30/23 Unknown Rx vomiting #20 tabs hydrocodone-acetaminophen 5-325mg 1 tab PO Q6H PRN PRN Pain 3 days 10/15/23 Unknown Rx 5mg-325mg #12 TABLETS ondansetron 4 mg disintegrating 4 mg PO TID PRN nausea and 10/15/23 Unknown Rx tablet vomiting #21 tabs Allergy/AdvReac Type Severity Reaction Status Date / Time oxycodone HCl (From Percocet) Allergy Shortness Verified 10/14/23 20:49 of breath clindamycin AdvReac STOMACH Verified 10/14/23 20:49 UPSET Surgical History History of bilateral tubal ligation Hx of dilation and curettage History of section History of appendectomy Social History household members: children Smoking Status: Former smoker substance use type: does not use ROS ROS ED Constitutional Constitutional ED: Denies chills or fever(s) ENT ENT ED: Denies sore throat Cardiovascular Cardiovascular: Denies chest pain Respiratory/Chest Respiratory/Chest: Denies cough or dyspnea Gastrointestinal Gastrointestinal: Reports abdominal pain; Denies diarrhea, nausea or vomiting Genitourinary Genitourinary ED: Denies dysuria, hematuria or urinary frequency Musculoskeletal Musculoskeletal: Reports back pain Integumentary Denies rash Neurologic Neurologic: Denies headache(s) Hematologic/Lymphatic Hematologic/Lymphatic: Denies easy bleeding or easy bruising EXAM Physical Exam Const Vital Signs: 10/14/23 20:50 10/14/23 22:49 10/15/23 00:58 Temperature 98.1 F 98.0 F Temperature Source Temporal Pulse Rate 99 72 104 H Respiratory Rate 18 16 16 Blood Pressure 149/102 H 136/99 H 132/86 H Blood Pressure Mean 117 111 101 Pulse Ox 99 98 100 Oxygen Delivery Method Room Air Room Air Positive well nourished and well developed General Appearance ED: well developed; Negative for pallor HEENT Reports moist mucous membranes HEENT Narrative: No signs of infection noted in the posterior pharynx Eyes PERRL and EOMs intact bilaterally General Eye ED: Negative for scleral icterus Neck supple Resp normal respiratory effort and clear to auscultation bilaterally Cardio regular rate and regular rhythm Rate: other Other Details: Heart is regular rate and rhythm without murmurs rubs or gallops Radial and carotid pulses are equal and symmetric GI non-distended GI Narrative: There is pain on palpation in the midepigastric and left-sided abdomen diffusely but greatest in the left lower quadrant. However no voluntary guarding or rigidity or pulsatile mass Auscultation: normoactive bowel sounds Palpation: soft Back/Spine Back/Spine Narrative: Positive left CVA pain noted Extremity normal to inspection Neuro oriented x3, CN's II-XII intact bilaterally and no sensory deficits noted Sensorium / Orientation: alert Motor Exam: strength 5/5 throughout Psych mental status grossly normal Skin no rashes or lesions noted and no wounds General Skin Exam: Negative for jaundice or pallor MDM MDM MDM Narrative Medical decision making narrative: Patient arrived to the ER hypertensive otherwise with stable vitals. She reported pain to the left side abdomen and left flank without trauma or excessive activity. Differential diagnosis is for UTI versus pyelonephritis versus kidney stone versus diverticulitis versus ovarian cyst. Secondary to this basic labs and a noncontrast CT were obtained. The patient's urine showed +1 bacteria but no white blood cells it was negative for nitrites and no leukocyte esterase going against acute infection. This also correlates with the fact she does not have urinary frequency urgency or dysuria. There are no be sent for culture but I do not feel need to start antibiotics at this time. Even though there is no blood present in the UA there is still concern this could be a kidney stone based on her left-sided flank pain/abdominal pain. A noncontrast CT was obtained which showed no signs of nephrolithiasis but did document a phl ebolith in the left gonadal vein. This does correlate with the location of the patient's pain. She does have improvement of her blood pressure with pain medication and on reevaluation her abdomen remains soft and nonsurgical. Therefore this time she will be placed on pain meds secondary to her gonadal vein phlebolith but as this is not a need for acute surgical intervention and there is no signs of secondary infection she can be discharged home with outpatient follow-up History & Record Review Discussion w/independent historian: Patient Lab Data Attestation: I reviewed the patient's lab results. Labs: Laboratory Results - last 24 hr 10/14/23 10/14/23 21:00 22:30 WBC 6.8 RBC 4.27 Hgb 12.1 Hct 35.5 L MCV 83.1 MCH 28.3 MCHC 34.1 RDW Std Deviation 34.8 L RDW Coeff of Migel 11.6 Plt Count 196 MPV 11.7 Immature Gran % (Auto) 0.300 Neut % (Auto) 45.2 L Lymph % (Auto) 43.5 H Summers % (Auto) 7.8 Eos % (Auto) 2.6 Baso % (Auto) 0.6 Absolute Neuts (auto) 3.1 Absolute Lymphs (auto) 2.96 Nucleated RBC % 0 Sodium 139 Potassium 4.0 Chloride 107 Carbon Dioxide 29.0 Anion Gap 3 L BUN 8 Creatinine 0.79 Estim Creat Clear Calc 120.78 Est GFR (MDRD) Af Amer 108 Est GFR (MDRD) Non-Af 89 BUN/Creatinine Ratio 10.2 Glucose 138 H Calcium 8.9 Urine Color Yellow Urine Clarity Clear Urine pH 7.0 Ur Specific [place] 1.010 Urine Protein Negative Urine Glucose (UA) Normal Urine Ketones Negative Urine Occult Blood Negative Urine Nitrite Negative Urine Bilirubin Negative Urine Urobilinogen 4 H Ur Leukocyte Esterase Negative Urine RBC 0-5 SEEN Urine WBC 0 SEEN Ur Squamous Epith Cells 0-5 SEEN Urine Bacteria 1+ Urine Mucus 0 SEEN Urine Test Negative Radiography Diagnostic Testing: Clinical Impression(s) from Imaging Studies Abdomen/Pelvis CT 10/14/23 22:04 IMPRESSION: No acute abdominal abnormality is identified, to include no evidence of obstructing ureteral calculus. Electronically Signed: Valentín Luna MD at 23:56 EDT , Discharge Plan Triage Chief Complaint: Complaint ED Provider: Rogelio Beauchamp Dx/Rx/DC Orders Clinical Impression: Phlebolithiasis of pelvic region, Type 2 diabetes mellitus Instructions: Abdominal Pain Prescriptions: New hydrocodone-acetaminophen 5-325 mg tablet 1 tab PO Q6H PRN PRN (Reason: Pain) 3 Days Qty: 12 0RF ondansetron 4 mg tablet,disintegrating 4 mg PO TID PRN (Reason: nausea and vomiting) Qty: 21 0RF No Action Trulicity 0.75 mg/0.5 mL pen injector 0.75 mg subcut QWEEK ondansetron HCl 4 mg tablet 4 mg PO Q8H promethazine 25 mg tablet 25 mg PO Q4-6H PRN (Reason: nausea and vomiting) Qty: 20 0RF metformin 500 mg tablet extended release 24 hr 1,000 mg PO BID Patient Comments: Take 2 tablets by mouth twice daily. Stand Alone Forms: ED Work / School Excuse Primary Care Provider: Natalya Garnica Referrals: Natalya Garnica MD [Primary Care Provider] - Activity Restrictions/Additional Instructions: Your CT scan displayed a stone in your left sided gonadal vein which does correlate with your location of pain. These typically resolve spontaneously but you can do actions like warm compresses or soak in a warm bath to help with pain. Please continue with [id number] anti-inflammatories as well. Follow-up your family doctor if symptoms do not improve as you may need possible surgical removal of the stone. Return to the ER should you have any further concerns or worsening of symptoms Print Language: Belizean Disposition Disposition: Home, Self Care Discharge Date/Time: 10/15/23 01:04
[2023-10-14 22:46] LABS: Absolute Lymphocyte Count 2.96 X10^3/uL (0.83-4.51); Absolute Neutrophil Count 3.1 X10^3/uL (2.0-7.7); Basophil# 0.04 X10^3/uL; Basophil% 0.6 % (0-1); Eosinophil# 0.18 X10^3/uL; Eosinophils% 2.6 % (0-5); Hematocrit 35.5 % (37-47); Hemoglobin 12.1 g/dL (12.0-15.0); Lymphocyte # 2.96 X10^3/ul (0.83-4.51); Lymphocyte % 43.5 % (19-41); Mean Corp Hgb Conc 34.1 g/dL (32-36); Mean Corpuscular Hgb 28.3 pg (27.0-32.0); Mean Corpuscular Volume 83.1 fL (81-99); Mean Platelet Vol. 11.7 fl (6.2-12.0); Monocyte# 0.53 X10^3/uL; Monocyte% 7.8 % (0-10); NRBC Flagged by Analyzer 0 % (0-5); Neutrophil # 3.07 X10^3/uL (2.7-7.7); Neutrophil % 45.2 % (47-70); Platelet Count 196 K/mm3 (150-450); RBC Distribution Width CV 11.6 % (11.6-14.6); RBC Distribution Width SD 34.8 fl (35.1-43.9); Red Blood Count 4.27 M/mm3 (4.2-5.4); White Blood Count 6.8 K/mm3 (4.4-11.0)
[2023-10-14 22:49] VITALS: BP 136/99; PULSE 72; RESP 16; O2SAT 98
[2023-10-14 23:01] LABS: Anion Gap 3 (5-15); BUN 8 mg/dL (7-18); BUN/Creat Ratio 10.2 RATIO (10-20); Calcium,Total 8.9 mg/dL (8.5-10.1); Chloride 107 mmol/L (98-107); Creatinine, Serum 0.79 mg/dL (0.55-1.02); EST Glomerular Filtration Rate 89 mL/min (>60); Est Glom Filt Rate - Afr Amer 108 mL/min (>60); Estimated Creatinine Clearance 120.78 ml/min; Glucose 138 mg/dL (74-106); Sodium Level 139 mmol/L (136-145)
[2023-10-14] MEDS: 0.9% Normal Saline (1000mL) 1,000 ML 999 ML IV (23:35)
[2023-10-14] MEDS: Ketorolac 30 MG/ML Syringe IV (23:36)
[2023-10-15] MEDS: HYDROcodone Bitartrate/Apap 5/325 Tablet PO (00:53)
[2023-10-15] MEDS: Ondansetron ODT 4 MG Tablet PO (00:54)
[2023-10-15 00:58] VITALS: BP 132/86; PULSE 104; RESP 16; TEMP 36.7; O2SAT 100
== END 2023-10-15 01:04 | disposition home or self-care (01) ==
PROVIDERS: Emergency Provider Emergency Medicine; PCP Internal Medicine; Visit Provider Emergency Medicine
DX: R11.2 Nausea with vomiting, unspecified (principal); R19.7 Diarrhea, unspecified; E86.0 Dehydration; J45.909 Unspecified asthma, uncomplicated; Z87.891 Personal history of nicotine dependence
CPT/HCPCS: 36415; 74176; 80048; 81001; 81025; 85025; 87086; 87088; 96361; 96374; 99283; J7030; A4216

== ENCOUNTER 2024-04-09 15:31 | Emergency (ER) | payer MEDICAID, SELFPAY ==
[2024-04-09 15:32] VITALS: BP 130/98; PULSE 98; RESP 18; TEMP 37; O2SAT 100; BMI 30.8
--- NOTE | 2024-04-09 16:23 | ED.VIS.DENTA ---
HPI <FERNANDO Dillon - Last Filed: 04/09/24 19:03> History of Present Illness Chief Complaint: Dental Narrative Narrative: Patient presenting today with dental pain she has had over the last several days. She reports that she went to [facility] ED and was placed on penicillin 4 times daily which she started on Wednesday. She has been taking Tylenol and ibuprofen but despite taking this, she is still having pain. She does not have a dentist appointment until 04/18/2024. She denies any fevers or chills. She is able to eat and drink but reports that cold/hot temperatures do make her pain worse. PFSH <FERNANDO Dillon - Last Filed: 04/09/24 19:03> [facility] Medical History Lumbar strain Acute otitis externa of right ear Acute pharyngitis, unspecified Diabetes Asthma Home Medications ?Medication ?Instructions ?Recorded ?Last Taken ?Type metformin 500 mg tablet,extended 1,000 mg PO BID 07/21/21 Unknown History release 24 hr dulaglutide 0.75 mg/0.5 mL 0.75 mg subcut QWEEK 04/27/23 Unknown History subcutaneous pen injector (Trulicity) cyclobenzaprine 10 mg tablet 10 mg PO HS PRN muscle spasm #14 02/07/24 Unknown Rx tabs ibuprofen 600 mg tablet 600 mg PO TID #30 tabs 02/07/24 Unknown Rx hydrocodone-acetaminophen 5-325mg 1 tab PO Q4H PRN PRN Pain 2 days 04/09/24 Unknown Rx 5mg-325mg #8 TABLETS Allergy/AdvReac Type Severity Reaction Status Date / Time oxycodone HCl (From Percocet) Allergy Shortness Verified 04/09/24 15:32 of breath clindamycin AdvReac STOMACH Verified 04/09/24 15:32 UPSET Surgical History History of bilateral tubal ligation Hx of dilation and curettage History of section History of appendectomy Social History household members: children Smoking Status: Former smoker substance use type: does not use ROS <FERNANDO Dillon - Last Filed: 04/09/24 19:03> ROS ED Constitutional Constitutional ED: Denies chills or fever(s) Cardiovascular Cardiovascular: Denies chest pain Respiratory/Chest Respiratory/Chest: Denies dyspnea Integumentary Denies rash Neurologic Neurologic: Denies weakness EXAM <FERNANDO Dillon - Last Filed: 04/09/24 19:03> Physical Exam Const Vital Signs: 04/09/24 15:32 04/09/24 16:26 Temperature 98.6 F 98.6 F Temperature Source Oral Pulse Rate 98 98 Respiratory Rate 18 18 Blood Pressure 130/98 H 130/98 H Blood Pressure Mean 108 108 Pulse Ox 100 100 Oxygen Delivery Method Room Air Positive well nourished, well developed and no apparent distress General Appearance ED: well developed HEENT Reports normocephalic and head/scalp atraumatic HEENT Narrative: Multiple dental caries, pain to the right mandibular first molar. She also has pain along the gumline of her left maxillary jaw. No dental abscess, no trismus, tolerating secretions. No sublingual swelling. Mouth ED: Yes moist mucous membranes normal Eyes PERRL and EOMs intact bilaterally Neck full ROM and supple Chest Wall inspection of chest normal Resp normal respiratory effort and clear to auscultation bilaterally Cardio regular rate and regular rhythm Back/Spine normal ROM and normal to inspection Extremity normal to inspection and full ROM Neuro oriented x3, CN's II-XII intact bilaterally, moves all extremities, no focal motor deficits and no sensory deficits noted Sensorium / Orientation: awake and alert Psych mental status grossly normal and thought process normal Skin no rashes or lesions noted and no wounds <Dr. Sylvester Orourke MD - Last Filed: 04/09/24 16:28> Physical Exam Const Vital Signs: 04/09/24 15:32 04/09/24 16:26 Temperature 98.6 F 98.6 F Temperature Source Oral Pulse Rate 98 98 Respiratory Rate 18 18 Blood Pressure 130/98 H 130/98 H Blood Pressure Mean 108 108 Pulse Ox 100 100 Oxygen Delivery Method Room Air MDM <FERNANDO Dillon - Last Filed: 04/09/24 19:03> MDM MDM Narrative Medical decision making narrative: Patient presenting today with dental pain she has had over the last several days. She was seen at [facility] and was started on penicillin on Wednesday. She has been taking Tylenol and ibuprofen but despite taking this still had pain. She does have poor dentition overall with multiple dental caries. She has pain to her right mandibular first molar and along the left upper gumline. No evidence of Ludewig's angina, no dental abscess. She otherwise is well-appearing and in no acute distress. I did check an [facility] report, she has not had any narcotic prescriptions since January. I will give her a short course of [place] for her pain. She can continue NSAIDs as needed. Recommended she try to see if she can get into the dentist sooner. She will be discharged home in stable condition. <Dr. Sylvester Orourke MD - Last Filed: 04/09/24 16:28> [facility] Treatment and Re-Evaluation Narrative: I have personally performed a face to face assessment of the patient and have reviewed the RYAN Note. I performed a substantive portion of the visit including all aspects of the following. My cyr findings include: History is right mandibular toothache for over a week, on penicillin, taking [id number] pain medications but pain is now well-controlled. No fevers, chills, bleeding, discharge, swelling. Has a dental appointment. Exam is no distress, well-appearing. Tooth #29 appears to have some decay at the base, there is no gingival abnormality, there is no trismus, there is no abscess, it is tender. Tongue is normal, there is no elevation or sublingual edema or submental edema. No stridor or dysphonia. Medical Decison Making OARRS report reviewed, and clear for recent narcotics in the last couple months. Wrote her prescription she is comfortable with following up with that. Other additions or changes: [None] Discharge Plan Triage Chief Complaint: Dental ED Midlevel Provider: Leelee Mckeon ED Provider: Sylvester Orourke Dx/Rx/DC Orders Clinical Impression: Pain, dental, Dental caries Instructions: ED Dental Pain Prescriptions: New hydrocodone-acetaminophen 5-325 mg tablet 1 tab PO Q4H PRN PRN (Reason: Pain) 2 Days Qty: 8 0RF No Action Trulicity 0.75 mg/0.5 mL pen injector 0.75 mg subcut QWEEK ibuprofen 600 mg tablet 600 mg PO TID Qty: 30 0RF cyclobenzaprine 10 mg tablet 10 mg PO HS PRN (Reason: muscle spasm) Qty: 14 0RF metformin 500 mg tablet extended release 24 hr 1,000 mg PO BID Patient Comments: Take 2 tablets by mouth twice daily. Primary Care Provider: Natalya Garnica Referrals: Natalya Garnica MD [Primary Care Provider] - Activity Restrictions/Additional Instructions: Please follow-up with your dentist. Print Language: Hungarian Disposition Disposition: Home, Self Care Discharge Date/Time: 04/09/24 16:33
[2024-04-09 16:26] VITALS: BP 130/98; PULSE 98; RESP 18; TEMP 37; O2SAT 100
== END 2024-04-09 16:33 | disposition home or self-care (01) ==
PROVIDERS: Emergency Provider Emergency Medicine; PCP Internal Medicine; Visit Provider Emergency Medicine
DX: E11.638 Type 2 diabetes mellitus with other oral complications (principal); K02.9 Dental caries, unspecified; Z87.891 Personal history of nicotine dependence
CPT/HCPCS: 99282

== ENCOUNTER 2024-05-26 14:38 | Emergency (ER) | payer MEDICAID, SELFPAY ==
[2024-05-26 14:39] VITALS: BP 165/99; PULSE 94; RESP 15; TEMP 36.4; O2SAT 99; BMI 32.8
[2024-05-26 15:32] LABS: Mucous, Urine 0 SEEN /hpf (<or=2+)
[2024-05-26 15:41] LABS: Color, Urine Yellow (Yellow); Glucose, Dipstick 100 mg/dl (Normal); Ketone-Dipstick Negative (Negative); Leukocyte Esterase-Dipstick Negative /ul (Negative); Nitrite-Dipstick Negative (Negative); Occult Blood-Urine Negative /ul (Negative); Protein-Dipstick 15 mg/dl (Negative); Urine Bilirubin Dipstick Negative (Negative); Urine Clarity Clear (Clear); Urine Urobilinogen Normal (Normal)
--- NOTE | 2024-05-26 15:50 | ED.VIS.FEGU ---
HPI HPI - Female History of Present Illness Chief Complaint: Complaint PFSH PFSH Medical History Lumbar strain Acute otitis externa of right ear Acute pharyngitis, unspecified Diabetes Asthma Home Medications ?Medication ?Instructions ?Recorded ?Last Taken ?Type metformin 500 mg tablet,extended 1,000 mg PO BID 07/21/21 Unknown History release 24 hr Held on 10/02/23. Instructions: Ordered dulaglutide 1.5 mg/0.5 mL 0.75 mg subcut diabetes 04/11/24 05/25/24 History subcutaneous pen injector (Trulicity) metronidazole 500 mg tablet 500 mg PO BID #14 tabs 05/26/24 Unknown Rx Allergy/AdvReac Type Severity Reaction Status Date / Time oxycodone HCl (From Percocet) Allergy Shortness Verified 05/26/24 16:27 of breath clindamycin AdvReac STOMACH Verified 05/26/24 16:27 UPSET Surgical History History of bilateral tubal ligation Hx of dilation and curettage History of section History of appendectomy Social History household members: children Smoking Status: Former smoker substance use type: does not use EXAM Physical Exam Const Vital Signs: 05/26/24 14:39 05/26/24 18:30 05/26/24 19:25 Temperature 97.6 F L 97.9 F Temperature Source Temporal Pulse Rate 94 92 74 Respiratory Rate 15 16 16 Blood Pressure 165/99 H 130/91 H 141/89 H Blood Pressure Mean 121 104 106 Pulse Ox 99 100 99 Oxygen Delivery Method Room Air Room Air MDM MDM MDM Narrative Medical decision making narrative: HISTORY OF PRESENT ILLNESS: 34-year-old female presents with burning with urination and frequency for the last 2 days. Notes feels like prior UTIs. Notes went urgent care prior to arrival they said her urine was negative so sent her in further evaluation. Patient denies vomiting. Denies [place] abdominal pain but does note some lower abdominal discomfort and cramping. She denies new sexual partners. Denies vaginal bleeding or discharge. No she is status post tubal ligation. Status post appendectomy. REVIEW OF SYSTEMS: Pertinent positives: Burning with urination, frequency Pertinent negatives: Vomiting, fever, [place] abdominal pain PHYSICAL EXAM: Nursing triage notes reviewed, Vital signs reviewed Constitutional: please see mdm Abdomen: Soft, there is no tenderness, rigidity, rebound or guarding, no obvious peritoneal signs, no palpable pulsatile abdominal masses, no auscultated abdominal bruit : No CVAT MEDICAL DECISION MAKING: Chief Complaint: Urinary frequency, dysuria External records reviewed: Reviewed prior urine culture. Patient grew out Klebsiella 1122 that was Essentially pansensitive Factors affecting care: type 2 diabetes Social determinants of health: none History obtained from others: none Consults: None [facility] Narrative: Patient was initially hemodynamically stable, afebrile and nontoxic-appearing. Exam with some suprapubic tenderness. No obvious peritoneal signs. I considered the following differential diagnosis: UTI, pyelonephritis I considered STD, urethritis/pelvic inflammatory disease however the patient denies any new sexual risk factors for these etiologies not concerned about STDs. Urinalysis obtained in triage secondary to poor departmental dynamics and high acuity. Patient was initially evaluated by me approximately 1.5 hours after her arrival. ALL IMAGES (IF OBTAINED) HAVE BEEN PERSONALLY REVIEWED AND INTERPRETED BY MYSELF. Urinalysis showed no inflammation. At this point I obtained additional labs and they transvaginal ultrasound given lower pelvic pain. Transvaginal ultrasound did not reveal an obvious emergency however there was reported decreased blood flow to the left ovary. CBC with no leukocytosis, BMP without evidence of significant electrolyte abnormalities. BMP without evidence of significant electrolyte abnormalities, no anion gap, no acute kidney injury. Transvaginal ultrasound shows no evidence of obvious cyst or torsion The clinical significance of the patient imaging findings is unclear at this time however likely does not represent a life or reproductive threatening pathology. Will treat empirically for BV with metronidazole. Will give close outpatient OB follow-up. All questions answered. Strict return precautions were discussed. The patient and/or family, caregivers express understanding. The patient and/or family, caregivers agrees with the plan. Shared decision making: I will have a discussion with the patient and or visitors regarding risk/benefits of further testing or admission. They will be made aware of of the risk/benefits inherent in this decision they will be given the opportunity to voice understanding. Total critical care time today provided was at least 0 minutes. This excludes separately billable procedures. Critical care time (if documented) is secondary to the patient having high probability of clinically significant/life threatening deterioration in the patient's condition which required my urgent intervention. Impression: 1. Urinary frequency 2. History of type 2 diabetes Dispo: discharge This note was generated with [employer] [place] dictation software. It may contain incorrect words, spelling, and punctuation that were not noted in review of the chart prior to signing. Lab Data Labs: Laboratory Results - last 24 hr 05/26/24 05/26/24 15:11 16:59 WBC 7.2 RBC 4.41 Hgb 12.5 Hct 36.1 L MCV 81.9 MCH 28.3 MCHC 34.6 RDW Std Deviation 35.0 L RDW Coeff of Migel 11.9 Plt Count 190 MPV 11.9 Immature Gran % (Auto) 0.300 Neut % (Auto) 55.8 Lymph % (Auto) 33.5 [place] % (Auto) 7.6 Eos % (Auto) 2.2 Baso % (Auto) 0.6 Absolute Neuts (auto) 4.0 Absolute Lymphs (auto) 2.42 Nucleated RBC % 0 Sodium 135 Potassium 4.0 Chloride 103 Carbon Dioxide 22.3 Anion Gap 10 BUN 10 Creatinine 0.67 L Estim Creat Clear Calc 149.42 Est GFR (MDRD) Non-Af 118 BUN/Creatinine Ratio 14.9 Glucose 169 H Calcium 9.2 Urine Color Yellow Urine Clarity Clear Urine pH 6.0 Ur Specific [place] 1.020 Urine Protein 15 H Urine Glucose (UA) 100 H Urine Ketones Negative Urine Occult Blood Negative Urine Nitrite Negative Urine Bilirubin Negative Urine Urobilinogen Normal Ur Leukocyte Esterase Negative Urine RBC 0-5 SEEN Urine WBC 0-5 SEEN Ur Squamous Epith Cells 0-5 SEEN Urine Bacteria RARE Urine Mucus 0 SEEN Radiography Diagnostic Testing: Clinical Impression(s) from Imaging Studies Transvaginal US 05/26/24 16:41 IMPRESSION: Thickened endometrium, please correlate with patient's menstrual cycle. If clinically indicated sonohysterogram may be helpful for further characterization. Decreased blood flow to the left ovary. Reading Location: [facility] Discharge Plan Triage Chief Complaint: Complaint ED Provider: Mark Cruz Dx/Rx/DC Orders Instructions: Dysuria, Bacterial Vaginosis Prescriptions: New metronidazole 500 mg tablet 500 mg PO BID Qty: 14 0RF No Action Trulicity 1.5 mg/0.5 mL pen injector 0.75 mg subcut metformin 500 mg tablet extended release 24 hr 1,000 mg PO BID Patient Comments: Take 2 tablets by mouth twice daily. Primary Care Provider: Natalya Garnica Referrals: Doreen Ward MD [Med Staff - Active Staff] - Activity Restrictions/Additional Instructions: Thank you for trusting us with your care today! Your labs images were overall reassuring. Your urinalysis was negative. We will treat empirically for bacterial vaginosis. Please take Tylenol (2 pills, 650 mg), ibuprofen (2 pills, 400 mg) every 6 hours as needed for pain and fever control. Please return to the emergency department if your symptoms change or worsen. Please follow with your SOCIAL SCIENCE MANAGER for further outpatient evaluation and management. Print Language: Libyan Disposition Disposition: Home, Self Care Discharge Date/Time: 05/26/24 19:28
[2024-05-26 16:28] LABS: Bacteria RARE /hpf (None Seen); Red Blood Cells-Urine 0-5 SEEN /hpf (0-5); Squamous Epithelial Cells - UA 0-5 SEEN /hpf (5-10); White Blood Cells 0-5 SEEN /hpf (0-5)
--- NOTE | 2024-05-26 16:41 | US_ITS ---
PROCEDURE: TRANSVAGINAL NON- REASON FOR EXAM: Lower abdominal pain TECHNIQUE: Transvaginal pelvic ultrasound COMPARISON: None. FINDINGS: Measurements: Uterus: 9.5 x 6.6 x 5.6 cm with a volume of 182 mL Endometrial Thickness: 14 mm Right Ovary: 3.5 x 1.9 x 2.3 with a volume of 8 mL. Left Ovary: 3.8 x 2.4 x 3.7 with a volume of 18 mL. Uterus: Anteverted. Myometrium appears heterogeneous. Endometrium: Markedly thickened and heterogeneous. Right ovary: Normal size and echotexture. Left ovary: Normal size and echotexture. Decreased blood flow. Other adnexal findings: None. Cul-de-sac: No free intraperitoneal fluid identified. US/Transvaginal Non- IMPRESSION: Thickened endometrium, please correlate with patient's menstrual cycle. If cli nically indicated sonohysterogram may be helpful for further characterization. Decreased blood flow to the left ovary. Reading Location: [facility]
[2024-05-26 17:14] LABS: Absolute Lymphocyte Count 2.42 X10^3/uL (0.83-4.51); Basophil# 0.04 X10^3/uL; Basophil% 0.6 % (0-1); Eosinophil# 0.16 X10^3/uL; Eosinophils% 2.2 % (0-5); Hematocrit 36.1 % (37-47); Hemoglobin 12.5 g/dL (12.0-15.0); Lymphocyte # 2.42 X10^3/ul (0.83-4.51); Lymphocyte % 33.5 % (19-41); Mean Corp Hgb Conc 34.6 g/dL (32-36); Mean Corpuscular Hgb 28.3 pg (27.0-32.0); Mean Corpuscular Volume 81.9 fL (81-99); Mean Platelet Vol. 11.9 fl (6.2-12.0); Monocyte# 0.55 X10^3/uL; Monocyte% 7.6 % (0-10); NRBC Flagged by Analyzer 0 % (0-5); Neutrophil # 4.03 X10^3/uL (2.7-7.7); Neutrophil % 55.8 % (47-70); Platelet Count 190 K/mm3 (150-450); RBC Distribution Width CV 11.9 % (11.6-14.6); Red Blood Count 4.41 M/mm3 (4.2-5.4); White Blood Count 7.2 K/mm3 (4.4-11.0)
[2024-05-26 17:28] LABS: Anion Gap 10 (5-15); BUN 10 mg/dL (4-19); BUN/Creat Ratio 14.9 RATIO (10-20); Calcium,Total 9.2 mg/dL (7.6-11.0); Carbon Dioxide 22.3 mmol/L (21.0-32.0); Chloride 103 mmol/L (98-108); Creatinine, Serum 0.67 mg/dL (0.70-1.20); EST Glomerular Filtration Rate 118 (>60); Estimated Creatinine Clearance 149.42 ml/min (50-250); Glucose 169 mg/dL (70-99); Sodium Level 135 mmol/L (133-145)
[2024-05-26 18:30] VITALS: BP 130/91; PULSE 92; RESP 16; O2SAT 100
[2024-05-26 19:25] VITALS: BP 141/89; PULSE 74; RESP 16; TEMP 36.6; O2SAT 99
--- NOTE | 2024-05-26 19:26 | ED.RN ---
PT ADVISED THAT WE DID DO A URINE TEST FOR GONORRHEA AND SYPHILIS SP SHE MAY RECEIVE A CALL WITH THOSE RESULTS. PT WAS ADVISED OT DOWNLOAD THE PORTAL BECAUSE SHE ASKED ABOUT HER U/S RESULTS TO TAKE TO HER DIRECTOR OF ACQUISITIONS APPT. PT IS WITH [facility] AND SHE SAID SHE WILL DOWNLOAD THE PORTAL USING QR CODE AND M# GIVEN AT D/C
== END 2024-05-26 19:28 | disposition home or self-care (01) ==
PROVIDERS: Emergency Provider Emergency Medicine; PCP Internal Medicine; Visit Provider Emergency Medicine
DX: R35.0 Frequency of micturition (principal); E11.9 Type 2 diabetes mellitus without complications; Z87.891 Personal history of nicotine dependence
CPT/HCPCS: 76830; 80048; 81001; 85025; 87491; 87591; 99282

== ENCOUNTER 2024-09-01 13:58 | Emergency (ER) | payer MEDICAID, SELFPAY ==
[2024-09-01 13:59] VITALS: BP 144/101; PULSE 96; RESP 16; TEMP 36.6; O2SAT 99; BMI 32.1
[2024-09-01 14:19] LABS: Mucous, Urine 0 SEEN /hpf (<or=2+)
[2024-09-01] MEDS: Ondansetron ODT 4 MG Tablet PO (14:20)
--- NOTE | 2024-09-01 14:21 | EX.ED.DYSGE1 ---
HPI History of Present Illness Chief Complaint: Flank Pain Informant: patient Narrative Narrative: 2-day history abdominal cramping rating to the back with urine frequency. No fever or chills. No dysuria. Nausea without vomiting. No vaginal bleeding or abnormal discharge. Last menstrual period 2.5 weeks ago. Similar symptoms couple years ago when she had a UTI. Allergies to clindamycin and oxycodone. Symptoms do improve after she urinates Prior similar symptoms: Yes PFSH PFSH Medical History Lumbar strain Acute otitis externa of right ear Acute pharyngitis, unspecified Diabetes Asthma Home Medications ?Medication ?Instructions ?Recorded ?Last Taken ?Type metformin 500 mg tablet,extended 1,000 mg PO BID 07/21/21 Unknown History release 24 hr Held on 10/02/23. Instructions: MD Ordered dulaglutide 1.5 mg/0.5 mL 0.75 mg subcut diabetes 04/11/24 05/25/24 History subcutaneous pen injector (Trulicity) metronidazole 500 mg tablet 500 mg PO BID #14 tabs 05/26/24 Unknown Rx dicyclomine 20 mg tablet 20 mg PO TID PRN abdominal pain 09/01/24 Unknown Rx #14 tabs ondansetron 4 mg disintegrating 4 mg PO Q8H PRN PRN Nausea #10 tabs 09/01/24 Unknown Rx tablet Allergy/AdvReac Type Severity Reaction Status Date / Time oxycodone HCl (From Percocet) Allergy Shortness Verified 09/01/24 14:00 of breath clindamycin AdvReac STOMACH Verified 09/01/24 14:00 UPSET Surgical History History of bilateral tubal ligation Hx of dilation and curettage History of section History of appendectomy Social History household members: children Smoking Status: Former smoker substance use type: does not use ROS ROS ED Constitutional Constitutional ED: Denies fever(s) Cardiovascular Cardiovascular: Denies chest pain Respiratory/Chest Respiratory/Chest: Denies cough Gastrointestinal Gastrointestinal: Reports nausea and other Details: Cramping ; Denies diarrhea or vomiting Genitourinary Genitourinary ED: Reports urinary frequency Musculoskeletal Musculoskeletal: Denies none Integumentary Denies rash or wounds Neurologic Neurologic: Denies weakness EXAM Physical Exam Const Vital Signs: 09/01/24 13:59 09/01/24 17:42 09/01/24 17:42 Temperature 97.8 F 97.4 F L Temperature Source Oral Pulse Rate 96 89 89 Respiratory Rate 16 16 17 Blood Pressure 144/101 H 140/91 H 140/91 H Blood Pressure Mean 115 107 107 Pulse Ox 99 100 100 Oxygen Delivery Method Room Air Room Air Positive well nourished and well developed General Appearance ED: well developed and NAD HEENT Reports moist mucous membranes normocephalic and atraumatic Eyes General Eye ED: Yes normal appearance of both eyes Neck full ROM Chest Wall Chest: Negative for tenderness Resp normal respiratory effort and normal air movement Effort and Inspection: symmetric chest movement; Negative for respiratory distress Cardio regular rate, regular rhythm and no murmurs Peripheral Pulses: pulses 2+ throughout GI normal to inspection, nondistended, normoactive bowel sounds and non-tender GI Narrative: No guarding or rebound. Negative Johnston's McBurney's tenderness. No pelvic tenderness. Palpation: Negative for guarding or rebound tenderness present Back/Spine no CVA tenderness Extremity normal to inspection General Extremety ED: Negative for edema or tenderness General Extremity: Negative for edema Neuro oriented x3 and no sensory deficits noted Sensorium / Orientation: awake and alert Skin no rashes or lesions noted and no wounds MDM MDM MDM Narrative Medical decision making narrative: Interventions / MDM: Differential diagnosis: Abdominal cramping, urine frequency, history of diabetes Diagnosis considered but do not suspect: Pancreatitis however labs are normal. No clinical cholecystitis or appendicitis. My EKG interpretation: N/A Imaging independently reviewed and interpreted by myself: N/A External documents reviewed: N/A Test considered but not ordered:N/A ED course: Nontoxic abdominal cramping with urine frequency. Urine ordered with hCG. Efrain and Mumtaz for symptoms. Will reevaluate. 1550: Urine and hCG negative. On reevaluation she states she still have symptoms. She did reach report drinking alcohol 3 days ago prior to symptom started however only drank 2 beers. Pain in the mid abdomen that radiates. Will check abdominal labs. Will order for IV Reglan.Note from nursing patient declined the Levsin. Discussed this with the patient and she states she does not like taking medications. 1610: IV is being placed, patient is clinically feeling better requesting for oral intake. Reglan was not given. Will await results. 1730: Glucose 311 history of diabetes her gap was normal. White count normal lipase normal. Clinically feeling better tolerating oral fluids. I will write her for Zoan she will take prescription for antispasmodics. This will be sent to her pharmacy. Outpatient follow-up. All questions were answered. Re-evaluation: stable Disposition discussed with patient/family/significant other: Patient and family Case discussed with consulting clinician: N/A This note was generated with [employer] dictation software. It may contain incorrect words, spelling, and punctuation that were not noted in checking the note before signing. Lab Data Attestation: I reviewed the patient's lab results. Labs: Laboratory Results - last 24 hr 09/01/24 09/01/24 14:05 16:03 WBC 6.6 RBC 4.99 Hgb 14.0 Hct 40.3 MCV 80.8 L MCH 28.1 MCHC 34.7 RDW Std Deviation 34.1 L RDW Coeff of Migel 11.8 Plt Count 203 MPV 12.1 H Immature Gran % (Auto) 0.200 Neut % (Auto) 51.2 Lymph % (Auto) 39.2 [place] % (Auto) 7.7 Eos % (Auto) 1.1 Baso % (Auto) 0.6 Absolute Neuts (auto) 3.4 Absolute Lymphs (auto) 2.60 Nucleated RBC % 0 Sodium 132 L Potassium 4.2 Chloride 101 Carbon Dioxide 23.0 Anion Gap 8 BUN 8 Creatinine 0.73 Estim Creat Clear Calc 135.64 Est GFR (MDRD) Non-Af 112 BUN/Creatinine Ratio 10.6 Glucose 311 H Calcium 9.3 Total Bilirubin 0.52 AST 15 ALT 14 Alkaline Phosphatase 71 Total Protein 7.3 Albumin 4.0 Globulin 3.4 Albumin/Globulin Ratio 1.2 Lipase 42 Urine Color Straw Urine Clarity Clear Urine pH 5.0 Ur Specific [place] 1.015 Urine Protein 15 H Urine Glucose (UA) 1000 H Urine Ketones Negative Urine Occult Blood Negative Urine Nitrite Negative Urine Bilirubin Negative Urine Urobilinogen Normal Ur Leukocyte Esterase Negative Urine RBC 0-5 SEEN Urine WBC 0-5 SEEN Ur Squamous Epith Cells 0-5 SEEN Urine Bacteria RARE Urine Mucus 0 SEEN Urine Test Negative Discharge Plan Triage Chief Complaint: Flank Pain Other Complaint: Complaint ED Provider: Soy Munoz Dx/Rx/DC Orders Clinical Impression: Abdominal cramping, Type 2 diabetes mellitus, Nausea Instructions: Abdominal Pain, ED Diabetes- Overview Prescriptions: New dicyclomine 20 mg tablet 20 mg PO TID PRN (Reason: abdominal pain) Qty: 14 0RF ondansetron 4 mg tablet,disintegrating 4 mg PO Q8H PRN PRN (Reason: Nausea) Qty: 10 0RF No Action Trulicity 1.5 mg/0.5 mL pen injector 0.75 mg subcut metformin 500 mg tablet extended release 24 hr 1,000 mg PO BID Patient Comments: Take 2 tablets by mouth twice daily. metronidazole 500 mg tablet 500 mg PO BID Qty: 14 0RF Primary Care Provider: Natalya Garnica Referrals: Natalya Garnica MD [Primary Care Provider] - 1 Week Activity Restrictions/Additional Instructions: Urine negative. Abdominal labs normal pancreas. Glucose slightly elevated at 300. Your gap was normal. No DKA. Discussed with your PCP continue with diabetes care. Continue oral fluids for hydration. Use medicines as prescribed as needed. Follow-up with your doctor. Print Language: Yi Disposition Disposition: Home, Self Care Discharge Date/Time: 09/01/24 17:43
[2024-09-01 14:37] LABS: Color, Urine Straw (Yellow); Glucose, Dipstick 1000 mg/dl (Normal); Ketone-Dipstick Negative (Negative); Leukocyte Esterase-Dipstick Negative /ul (Negative); Nitrite-Dipstick Negative (Negative); Occult Blood-Urine Negative /ul (Negative); Protein-Dipstick 15 mg/dl (Negative); Specific Gravity, Urine 1.015 (1.002-1.030); Urine Bilirubin Dipstick Negative (Negative); Urine Clarity Clear (Clear); Urine Urobilinogen Normal (Normal)
[2024-09-01 14:42] LABS: Internal QC Validated? YES +Cl - CLEAR BKGD; Pregnancy, Urine Negative Negative
[2024-09-01 14:43] LABS: Record Kit Lot#,Urine Preg 947241
[2024-09-01 14:51] LABS: Squamous Epithelial Cells - UA 0-5 SEEN /hpf (5-10); White Blood Cells 0-5 SEEN /hpf (0-5)
[2024-09-01 14:52] LABS: Bacteria RARE /hpf (None Seen); Red Blood Cells-Urine 0-5 SEEN /hpf (0-5)
[2024-09-01 16:20] LABS: Absolute Neutrophil Count 3.4 X10^3/uL (2.0-7.7); Basophil# 0.04 X10^3/uL; Basophil% 0.6 % (0-1); Eosinophil# 0.07 X10^3/uL; Eosinophils% 1.1 % (0-5); Hematocrit 40.3 % (37-47); Lymphocyte % 39.2 % (19-41); Mean Corp Hgb Conc 34.7 g/dL (32-36); Mean Corpuscular Hgb 28.1 pg (27.0-32.0); Mean Corpuscular Volume 80.8 fL (81-99); Mean Platelet Vol. 12.1 fl (6.2-12.0); Monocyte# 0.51 X10^3/uL; Monocyte% 7.7 % (0-10); NRBC Flagged by Analyzer 0 % (0-5); Neutrophil # 3.41 X10^3/uL (2.7-7.7); Neutrophil % 51.2 % (47-70); Platelet Count 203 K/mm3 (150-450); RBC Distribution Width CV 11.8 % (11.6-14.6); RBC Distribution Width SD 34.1 fl (35.1-43.9); Red Blood Count 4.99 M/mm3 (4.2-5.4); White Blood Count 6.6 K/mm3 (4.4-11.0)
[2024-09-01 16:39] LABS: Lipase 42 U/L (13-75)
[2024-09-01 17:09] LABS: ALB/GLOB Ratio 1.2 RATIO (0.9-2.4); AST(SGOT) 15 U/L (<=31); Alanine Aminotransfer ALT/SGPT 14 U/L (<=34); Alkaline Phosphatase 71 U/L (35-104); Anion Gap 8 (5-15); BUN 8 mg/dL (4-19); BUN/Creat Ratio 10.6 RATIO (10-20); Calcium,Total 9.3 mg/dL (7.6-11.0); Chloride 101 mmol/L (98-108); Creatinine, Serum 0.73 mg/dL (0.70-1.20); EST Glomerular Filtration Rate 112 (>60); Estimated Creatinine Clearance 135.64 ml/min (50-250); Globulin 3.4 g/dL (2.2-4.2); Glucose 311 mg/dL (70-99); Potassium 4.2 mmol/L (3.3-5.1); Protein, Total 7.3 g/dL (5.9-8.4); Sodium Level 132 mmol/L (133-145); Total Bilirubin 0.52 mg/dL (0.00-1.30)
[2024-09-01 17:42] VITALS: BP 140/91; PULSE 89; RESP 16; RESP 17; TEMP 36.3; O2SAT 100
== END 2024-09-01 17:43 | disposition home or self-care (01) ==
PROVIDERS: Emergency Provider Emergency Medicine; PCP Internal Medicine; Visit Provider Emergency Medicine
DX: R10.9 Unspecified abdominal pain (principal); E11.9 Type 2 diabetes mellitus without complications; R11.0 Nausea; Z87.891 Personal history of nicotine dependence; Z87.440 Personal history of urinary (tract) infections; Z98.51 Tubal ligation status; R35.0 Frequency of micturition
CPT/HCPCS: 80053; 81001; 81025; 83690; 85025; 99283